=== PATIENT | male | born 1945 | race Caucasian/White ===

== ENCOUNTER 2024-07-01 11:46 | Emergency (ER) | payer MEDICARE, BC, SELFPAY ==
[2024-07-01 11:48] VITALS: BP 122/71; PULSE 70; RESP 18; TEMP 36.6; O2SAT 98; BMI 29.3
--- OUTSIDE RECORDS SUMMARY | 2024-07-01 11:48 | XMS_ITS | Continuity of Care Document ---
Author Name [email or web address] User [email or web address] llowed Address Unknown Organization Unknown Address Unknown Procedures FILTER APPLIED:Only known Procedures with Onset Date within the last 5 years Procedure Date Procedure Provider Additional Inform ation Status [place] ENDVASC REPLACE AORTO-AORTIC ENDGFT; NON RUPTURE (05755) Completed [place] ENDVASC REPLACE AORTO-AORTIC ENDGFT; RUPTURE (41530) Completed [place] EVASC REPLACE [id number] ENDGFT; NON RUPTURE (26803) Completed [place] EVASC REPLACE [id number] ENDGFT; RUPTURE (91807) Completed [place] VISCER AND INFRARENAL ABDOM AORTA REPAIR,4+ PROSTHESIS (36205) Completed [place] EVASC REPLACE [id number] ENDGFT; RUPTURE (84052) Completed [place] VISCER AND INFRARENAL ABDOM AORTA REPAIR,1 PROSTHESIS (36163) Completed [place] VISCER AND INFRARENAL ABDOM AORTA REPAIR,2 PROSTHESIS (75182) Completed [place] VISCER AND INFRARENAL ABDOM AORTA 3 PROSTHESIS (32644) Completed [place] EVASC REPLACE [id number] ENDGFT; NON RUPTURE (53973) Completed Encounters FILTER APPLIED:Only known Encounters with Admission Date within the last 5 years Encounter Location Admission Discharge Billing Code Content Manager Eric walker [facility]
--- NOTE | 2024-07-01 12:14 | ED.MALEGU ---
HPI - Male Genitourinary General Date Seen: 07/01/24 Chief complaint: Urogenital Problems, Male Stated complaint: catheter problems post AAA Time Seen by Provider: 07/01/24 11:47 Source: patient Mode of arrival: ambulatory Limitations: no limitations History of Present Illness HPI Narrative: 78-year-old gentleman presents here with dysuria and frequency of urination, he was discharged yesterday from [facility] the [facility], where he underwent a AAA repair. That was uneventful. He had a catheter in postoperatively that was removed, overnight he developed frequency of urination and dysuria and was peeing quite a bit, he denies peeing any blood, there is no fevers chills he denies any abdominal pain associated with this but he did call the hospital where he was. They recommended he come in and get seen for a possible UTI. Denies any testicular pain, swelling eating and drinking otherwise normally, No indwelling catheter is noted, on bladder scan his 44 mL noted Related Data Home Medications ?Medication ?Instructions ?Recorded ?Confirmed Vitamin C 07/01/24 aspirin 81 mg chewable tablet 81 mg PO DAILY 07/01/24 07/01/24 atorvastatin 40 mg tablet (Lipitor) 40 mg PO DAILY 07/01/24 07/01/24 cholecalciferol (vitamin D3) 125 125 mcg PO DAILY 07/01/24 07/01/24 mcg (5,000 unit) capsule coenzyme Q10 100 mg capsule (Co 100 mg PO DAILY 07/01/24 07/01/24 Q-10) cranberry 500 mg capsule 500 mg PO DAILY 07/01/24 07/01/24 cyanocobalamin (vitamin B-12) 2,500 mcg sublingual DAILY 07/01/24 07/01/24 2,500 mcg sublingual tablet (Vitamin B-12) empagliflozin 10 mg tablet 10 mg PO DAILY 07/01/24 07/01/24 (Jardiance) metoprolol succinate 25 mg 25 mg PO DAILY 07/01/24 07/01/24 tablet,extended release 24 hr sacubitril 97 mg-valsartan 103 mg 1 tab PO BID 07/01/24 07/01/24 tablet (Entresto) tamsulosin 0.4 mg capsule (Flomax) 0.4 mg PO DAILY 07/01/24 07/01/24 Previous Rx's ?Medication ?Instructions ?Recorded cephalexin 500 mg capsule 500 mg PO BID #14 caps 07/01/24 Allergies Allergy/AdvReac Type Severity Reaction Status Date / Time amiodarone Allergy Intermediate Verified 07/01/24 11:55 oxycodone Allergy Intermediate Nausea Verified 07/01/24 11:55 Review of Systems Status of ROS: Reports: 10 or more systems reviewed and unremarkable except as noted in History and below PFSH PFS Social History Smoking Status: Never smoker Do you use any of these nicotine containing products: None Second hand tobacco smoke exposure: No How often do you have a drink containing alcohol: never How often do you have six or more drinks on one occasion: Never AUDIT-C Alcohol total score: 0 Non-prescribed substance use: denies use service: No Exam Narrative: Exam Narrative: On examination he is in no apparent distress his abdomen is benign but postoperative, her with the laparoscopic repair noted. Bowel sounds are normal, no palpable bladder, no tenderness to palpation no masses no CVA tenderness is noted, normal male genitalia, is noted with no tenderness of his penis or any discharge noted, no testicular masses re issue. No significant ecchymosis is noted. Const: Vital Signs, click to edit/add: Vital Signs - 24 hr 07/01/24 11:48 Temperature 97.8 F Pulse Rate [Right Pulse Oximeter] 70 Respiratory Rate 18 Blood Pressure [Ri ght Upper Arm] 122/71 Pulse Oximetry 98 Oxygen Delivery Me thod Room Air Course Vital Signs Vital signs: Initial Vital Signs Temperature 97.8 F 07/01/24 11:48 Temperature Source Temporal Artery Scan 07/01/24 11:48 Pulse Rate 70 07/01/24 11:48 Pulse Rhythm Regular 07/01/24 11:48 Pulse Strength 3+ Normal 07/01/24 11:48 Respiratory Rate 18 07/01/24 11:48 Blood Pressure 122/71 07/01/24 11:48 Blood Pressure Mean 88 07/01/24 11:48 Blood Pressure Position Sitting 07/01/24 11:48 Pulse Oximetry 98 07/01/24 11:48 Oxygen Delivery Method Room Air 07/01/24 11:48 Vital Signs Temperature 97.8 F 07/01/24 11:48 Pulse Rate 70 07/01/24 11:48 Respiratory Rate 18 07/01/24 11:48 Blood Pressure 122/71 07/01/24 11:48 Pulse Oximetry 98 07/01/24 11:48 Oxygen Delivery Method Room Air 07/01/24 11:48 Temperature 97.8 F 07/01/24 11:48 Pulse Rate 70 07/01/24 11:48 Respiratory Rate 18 07/01/24 11:48 Blood Pressure 122/71 07/01/24 11:48 Pulse Oximetry 98 07/01/24 11:48 Oxygen Delivery Method Room Air 07/01/24 11:48 MDM - Male Genitourinary MDM Narrative Medical decision making narrative: I discussed with him that I think this is likely going to be a UTI given his recent use of a catheter. We will go ahead and get a UA, he is otherwise comfortable there is no evidence of retention. Differential Diagnosis Differential diagnosis: Likely urinary tract infection, priapism, urethritis, epididymitis, genital herpes simplex, prostatitis, acute retention of urine and inguinal hernia Medical Records Attestation: I reviewed the patient's medical records. Lab Data Attestation: I reviewed the patient's lab results. Labs: Lab Results 07/01/24 Range/Units 12:05 Urine Color Yellow (Yellow) Urine Appearance Clear (Clear) Urine pH 5.5 (5.0-8.5) Ur Specific [place] <= 1.005 (1.000-1.030) Urine Protein Negative (Negative) Urine Glucose (UA) 3+ A (Negative) Urine Ketones Negative (Negative) Urine Blood 2+ A (Negative) Urine Nitrite Negative (Negative) Urine Bilirubin Negative (Negative) Urine Urobilinogen 0.2 (0.2-1.0) Ur Leukocyte Esterase Negative (Negative) Urine RBC 10-25 A (0-2) Urine WBC 2-5 (0-5) Ur Squamous Epith Cells Few (None-Few) Urine Bacteria Few A (None) I wonder about a UTI here he is have some red cells in there, there is also some bacteria, which may accompany the UTI, he is having a lot of frequency so he may have been flushing out his bladder we may not see the normal leukocytes and nitrite positive. Given his history of her recent AAA repair I do not think covering antibiotics is a bad idea rate now. I went over this with him a follow-up culture has also been ordered. We did go over signs symptoms of worsening condition and risks benefits over the use of antibiotics. Discharge Plan Discharge Clinical Impression: Urinary tract infection Patient Disposition: Home, Self-Care Instructions: Urinary Tract Infection in Men (DC), Catheter-associated Urinary Tract Infection (ED) Additional Instructions: Home rest, your UA was negative, we will do a backup culture. Recommend you take antibiotics as directed along with a little Tylenol, if you start to feel worse such as abdominal pain fevers chills nausea vomiting please come back. Culture result will be available in 2 days. Activity Level: Light activity Prescriptions: New cephalexin 500 mg capsule 500 mg PO BID Qty: 14 0RF No Action aspirin 81 mg tablet,chewable 81 mg PO DAILY atorvastatin [Lipitor] 40 mg tablet 40 mg PO DAILY cholecalciferol (vitamin D3) 125 mcg (5,000 unit) capsule 125 mcg PO DAILY coenzyme Q10 [Co Q-10] 100 mg capsule 100 mg PO DAILY cranberry 500 mg capsule 500 mg PO DAILY Rx Instructions: administer with a meal sacubitril-valsartan [Entresto] 97-103 mg tablet 1 tab PO BID Jardiance 10 mg tablet 10 mg PO DAILY metoprolol succinate 25 mg tablet extended release 24 hr 25 mg PO DAILY tamsulosin [Flomax] 0.4 mg capsule 0.4 mg PO DAILY cyanocobalamin (vitamin B-12) [Vitamin B-12] 2,500 mcg tablet, sublingual 2,500 mcg sublingual DAILY Vitamin C 900 mg Stand Alone Forms: MyHealth Info Instructions
[2024-07-01 12:21] LABS: Appearance Urine Clear (Clear); Bilirubin Urine Negative (Negative); Blood Urine 2+ (Negative); Color Urine Yellow (Yellow); Glucose Urine 3+ (Negative); Ketones Urine Negative (Negative); Leukocyte Esterase Urine Negative (Negative); Nitrite Urine Negative (Negative); Protein Urine Negative (Negative); Specific Gravity Urine <= 1.005 (1.000-1.030); Urobilinogen Urine 0.2 (0.2-1.0); pH Urine 5.5 (5.0-8.5)
[2024-07-01 12:41] LABS: Bacteria Urine Few; Squamous Epithelial Cell Urine Few (None-Few)
--- OUTSIDE RECORDS SUMMARY | 2024-07-01 13:32 | XMS_ITS | Encounter Summary ---
Author Organization [facility] Address [facility] [place] [address] Care Team Providers Care Director Of Occupational Therapy Name Role Phone Santo Friedman MD Primary Care Provider [phone] Siddhartha White MD Unavailable [phone] Reason for Visit * Auth/Cert Specialty Diagnoses / Procedures Referred By Contac t Referred To Contact Surgery Diagnoses Abdominal aortic aneurysm (AAA) greater than 5.5 cm in diameter in male (H) Abdominal aortic aneurysm (AAA) greater than 5.5 cm in diameter in male (H) [I71.40] Procedures LA ENDVASC REPLACE AORTO-AORTIC ENDGFT; NON RUPTURE LA ENDVASC REPLACE AORTO-AORTIC ENDGFT; RUPTURE LA EVASC REPLACE [id number] ENDGFT; NON RUPTURE LA EVASC REPLACE [id number] ENDGFT; RUPTURE LA EVASC REPLACE [id number] ENDGFT; NON RUPTURE LA EVASC REPLACE [id number] ENDGFT; RUPTURE LA VISCER AND INFRARENAL ABDOM AORTA REPAIR,1 PROSTHESIS LA VISCER AND INFRARENAL ABDOM AORTA REPAIR,2 PROSTHESIS LA VISCER AND INFRARENAL ABDOM AORTA 3 PROSTHESIS LA VISCER AND INFRARENAL ABDOM AORTA REPAIR,4+ PROSTHESIS ENDOVASCULAR ABDOMINAL AORTIC ANEURYSM REPAIR WITH MEDTRONIC GRAFT VIA PERCUTANEOUS APPROACH [facility] [address] [place] [address]., [address] [place] [address] Phone: tel: Referral ID Status Reason Start Date Expiration Date Visits Re quested Visits Authorized [id number] 1 1 Encounter Details Date Type Department Care Team (Latest Contact Info) Description 06/29/2024 6:01 AM SHOW HORSE DRIVER - 06/30/2024 2:11 PM SHOW HORSE DRIVER Hospital Encounter [facility] Surgery [address] [id number] Toni Javier MD [address] [place] [address] [address] [place] [address] Cardiac pacemaker in situ (Primary Dx); Abdominal aortic aneurysm (AAA) greater than 5.5 cm in diameter in male (H) Discharge Disposition: Home or Self Care Social History Tobacco Use Types Packs/Day Years Used Date Smoking Tobacco: Former Cigarettes 1.5 20.4 1 964 - 11/11/1983 Smokeless Tobacco: Never Alcohol Use Standard Drinks/Week Comments Yes 0 (1 standard drink = 0.6 oz pur e alcohol) one glass every 3 days PHQ-2 Answer Date Recorded PHQ-2 Score 0 10/21/2023 Adolescent Education Answer Date Record ed Getting School Help Needed Not on file 04/07 Food Insecurity Answer Date Recorded Within the past 12 months, d id you worry that your food would run out before you got money to buy more? No 06/29/2024 Within the past 12 months, d id the food you bought just not last and you didn t have money to get more? No 06/29/2024 Housing Stability Answer Date Recorded Do you have housing? (Myain g is defined as stable permanent housing and does not include staying ouside in a car, in a tent, in an abandoned building, in an overnight senior living, or couch-surfing.) Yes 06/29/2024 Are you worried about losing your housing? No 06/29/2024 Financial Resource Strain Answer Date R ecorded Within the past 12 months, h ave you or your family members you live with been unable to get utilities (heat, electricity) when it was really needed? No 06/29/2024 Transportation Needs Answer Date Record ed Within the past 12 months, h as lack of transportation kept you from medical appointments, getting your medicines, non-medical meetings or appointments, work, or from getting things that you need? No 06/29/2024 Interpersonal Safety Answer Date Record ed Do you feel physically and e motionally safe where you currently live? Yes 06/29/2024 Within the past 12 months, h ave you been hit, slapped, kicked or otherwise physically hurt by someone? No 06/29/2024 Within the past 12 months, h ave you been humiliated or emotionally abused in other ways by your partner or ex-partner? No 06/29/2024 Sex and Gender Information Value Date Recorded Sex Assigned at Male 11/02/2020 12:08 PM CDT Legal Sex Male 4:32 AM SHOW HORSE DRIVER Gender Identity Male 11/02/2020 12:08 PM CDT Sexual Orientation Straight 11/02/2020 12 :08 PM CDT documented as of this encounter Last Filed Vital Signs Vital Sign Reading Time Taken Comments Blood Pressure 112/67 06/30/2024 7:42 AM SHOW HORSE DRIVER Pulse 71 06/30/2024 7:42 AM SHOW HORSE DRIVER Temperature 36.6 C (97.9 F) 06/30/2024 7:42 AM SHOW HORSE DRIVER Respiratory Rate 18 06/30/2024 7:42 AM SHOW HORSE DRIVER Oxygen Saturation 97% 06/30/2024 7:42 AM SHOW HORSE DRIVER Inhaled Oxygen Concentration - - Weight 94 kg (207 lb 3.7 oz) 06/30/2024 6:18 AM SHOW HORSE DRIVER Height 180.3 cm (5' 11) 06/29/2024 6:42 AM SHOW HORSE DRIVER Body Mass Index 28.9 06/29/2024 6:42 AM SHOW HORSE DRIVER documented in this encounter Medications at Time of Discharge acetaminophen (TYLENOL) 325 MG tablet Take 325-650 mg by mouth as needed for mild pain Ascorbic Acid (VITAMIN C PO) Take 900 mg by mouth daily. aspirin (ASA) 81 MG tabletIndications:Atypica l atrial flutter (H) Take 1 tablet (81 mg) by mouth daily 0 atorvastatin (LIPITOR) 40 MG tabletIndications:Pure hypercholesterolemia Take 1 tablet (40 mg) by mouth every evening. 90 tablet 3 4 cholecalciferol 125 MCG (5000 UT) CAPS Take 1 capsule by mouth daily. coenzyme Q-10 100 MG CAPS Take 1 tablet by mouth every evening Cranberry 600 MG TABS Take 600 mg by mouth daily Cyanocobalamin (VITAMIN B 12 PO) Take 2,500 mcg by mouth daily. JARDIANCE 10 MG TABS tabletIndications:Chronic systolic heart failure (H) Take 1 tablet (10 mg) by mouth daily. 90 tablet 3 4 metoprolol succinate ER (TOPROL XL) 25 MG 24 hr tabletIndications:NSVT (nonsustained ventricular tachycardia) (H) Take 1 tablet (25 mg) by mouth daily. 90 tablet 3 4 Multiple Vitamins-Minerals (PRESERVISION AREDS PO) Take 1 tablet by mouth 2 times daily sacubitril-valsartan (ENTRESTO) 97-103 MG per tabletIndications:Chronic systolic heart failure (H) Take 1 tablet by mouth 2 times daily. 180 tablet 3 4 senna-docusate (SENOKOT-S/PERICOLACE) 8.6-50 MG tabletIndications:Abdomin al aortic aneurysm (AAA) greater than 5.5 cm in diameter in male (H) Take 1 tablet by mouth 2 times daily. 14 tablet 4 tamsulosin (FLOMAX) 0.4 MG capsule Take 0.8 mg by mouth every evening. (2x0.4mg=0.8 mg) 3 9 documented as of this encounter Progress Notes * Toni Javier MD - 06/30/2024 10:04 AM CST VASCULAR SURGICAL STAFF I saw the patient at 0900 this morning. He had just had his Coats catheter removed. He has eaten breakfast. He is resting comfortably and has no complaints. AVSS Bilateral femoral access sites are soft and clear. 2+ palpable DP pulses bilaterally. Hemoglobin 14.4 creatinine 0.83 ASSESSMENT: POD #1 percutaneous EVAR clinically doing well. PLAN: I reviewed postop instructions with Felix. If he spontaneously voids today he may go home. He may shower beginning tomorrow. Vascular surgical follow-up in 2 weeks with Ila Baugh NP. All of his questions were answered and he verbalizes full understanding to the above. Anticipate discharge to home later today after voiding. Alexx Javier MD HORSE DRIVER * Cydney Barrientos MD - 06/29/2024 4:06 PM CST Post op check. Doing well. Pain controlled. Eating well. Palp DP bilaterally. Soft groins bilaterally. Neurologically intact. Coats with blood tinged urine. Doing well except hematuria. Will ctm. Maybe from renal artery vs. traumatic coats insertion. Discharge in 1-2 days. HORSE DRIVER * Balwinder Glaser Alannah - 06/22/2024 3:16 PM CST RIPRAP WORKER medications updated by Medication Scribe prior to surgery via phone call with patient (last doses completed by Nurse) Medication history sources: Patient, Surescripts, and H&P In the past week, patient estimated taking medication this percent of the time: Greater than 90% Significant changes made to the medication list: Patient reports no longer taking the following meds (med scribe removed from RIPRAP WORKER med list): Viagra Additional medication history information: None Medication reconciliation completed by provider prior to medication history? No Time spent in this activity: 35 minutes The information provided in this note is only as accurate as the sources available at the time of update(s) Prior to Admission medications Medication Sig Last Dose Taking? Auth Provider Correction End Date acetaminophen (TYLENOL) 325 MG tablet Take 325-650 mg by mouth as needed for mild pain Past Week Yes Reported, Patient Ascorbic Acid (VITAMIN C PO) Take 900 mg by mouth daily. Morning Yes Reported, Patient aspirin (ASA) 81 MG tablet Take 1 tablet (81 mg) by mouth daily Evening Yes Charmaine Enriquez PA-C No atorvastatin (LIPITOR) 40 MG tablet Take 1 tablet (40 mg) by mouth every evening. Evening Yes Siddhartha White MD Yes cholecalciferol 125 MCG (5000 UT) CAPS Take 1 capsule by mouth daily. Morning Yes Reported, Patient coenzyme Q-10 100 MG CAPS Take 1 tablet by mouth every evening Morning Yes Reported, Patient Cranberry 600 MG TABS Take 600 mg by mouth daily Evening Yes Reported, Patient Cyanocobalamin (VITAMIN B 12 PO) Take 2,500 mcg by mouth daily. Evening Yes Reported, Patient JARDIANCE 10 MG TABS tablet Take 1 tablet (10 mg) by mouth daily. Morning Yes Siddhartha White MD metoprolol succinate ER (TOPROL XL) 25 MG 24 hr tablet Take 1 tablet (25 mg) by mouth daily. Evening Yes Siddhartha White MD Yes Multiple Vitamins-Minerals (PRESERVISION AREDS PO) Take 1 tablet by mouth 2 times daily Evening YesReported, Patient sacubitril-valsartan (ENTRESTO) 97-103 MG per tablet Take 1 tablet by mouth 2 times daily. Morning Yes Siddhartha White MD Yes tamsulosin (FLOMAX) 0.4 MG capsule Take 0.8 mg by mouth every evening. (2x0.4mg=0.8mg) Evening Yes Reported, Patient Medication history completed by: Balwinder Glaser HORSE DRIVER documented in this encounter H&P Notes * Scott Bennett MD - 06/29/2024 6:39 AM CST Vascular Surgery History and Physical Felix Cruz Date of : 1945 Age: [age] year old Date of Admission: 06/29/2024 Chief Complaint: AAA History is obtained from the patient History of Present Illness: Mr. Cruz is a 78 year old male who presents with infrarenal AAA that is enlarging with mild L GAGAN ectasia. Hx of CAD s/p PCI and CABG, afib s/p MAZE. He denies any new symptoms of fever or chills,shortness of breath, new cough, nausea, vomiting, diarrhea, or new rashes. He continues to have hippain which is slightly improved with PT. Past Medical History: I have reviewed this patient's past medical history Past Surgical History: I have reviewed this patient's past surgical history Past Surgical History: Procedure Laterality Date ANESTHESIA CARDIOVERSION N/A 12/11/2016 Procedure: ANESTHESIA CARDIOVERSION; ANESTHESIA CARDIOVERSION ; Surgeon: GENERIC ANESTHESIA PROVIDER; Location: [facility] OR ANESTHESIA CARDIOVERSION N/A 03/11/2019 Procedure: ANESTHESIA, FOR CARDIOVERSION (DR. Matti COOK); Surgeon: GENERIC ANESTHESIA PROVIDER; Location: OR ANESTHESIA CARDIOVERSION N/A 05/27/2019 Procedure: ANESTHESIA, FOR CARDIOVERSION and MARTELL (DR WOOD TO DO); Surgeon: GENERIC ANESTHESIA PROVIDER; Location: OR APPENDECTOMY APPENDECTOMY OPEN BYPASS GRAFT ARTERY CORONARY 11/10/2013 Procedure: BYPASS GRAFT ARTERY CORONARY; Surgeon: Hitesh Chery MD; Location: OR CARDIAC CATHERIZATION 01/15/2017 cardioversion 05/2015 CARDIOVERSION 06/13/2017 COLONOSCOPY COLONOSCOPY Left 07/09/2019 Procedure: COLONOSCOPY; Surgeon: Paul Mueller MD; Location: GI CORONARY ARTERY BYPASS 11/10/13 CARVAJAL to the LAD, reverse SVG to the first diagonal, sequential reverse SVG to a first and third marginal circumflex coronary arteries CV ANGIOGRAM CORONARY GRAFT N/A 04/27/2022 Procedure: Coronary Angiogram Graft; Surgeon: Emmie Gilbert MD; Location: [facility] CARDIAC DRYING ROOM OPERATOR CV CORONARY ANGIOGRAM N/A 04/27/2022 Procedure: Coronary Angiogram; Surgeon: Emmie Gilbert MD; Location: [facility] CARDIAC CATHLAB EP ABLATION ATRIAL FLUTTER N/A 10/06/2019 Procedure: Ablation Atrial Flutter; Surgeon: Dieter Travis MD; Location: [facility] CARDIAC DRYING ROOM OPERATOR EP ABLATION AV NODE N/A 10/15/2019 Procedure: EP Ablation AV Node; Surgeon: Dieter Travis MD; Location: [facility] CARDIAC DRYING ROOM OPERATOR EP ABLATION FOCAL AFIB N/A 08/31/2019 Procedure: EP Ablation Focal AFIB; Surgeon: Dieter Travis MD; Location: [facility] CARDIAC DRYING ROOM OPERATOR EP INSERT ICD N/A 02/25/2023 Procedure: Biventricular ICD; Surgeon: Milton Roblero MD; Location: [facility] CARDIAC DRYING ROOM OPERATOR EP PACEMAKER Left 10/06/2019 Procedure: EP Pacemaker; Surgeon: Dieter Travis MD; Location: [facility] CARDIAC DRYING ROOM OPERATOR EP PERM PACER SINGLE LEAD N/A 10/15/2019 Procedure: EP PERM PACER SINGLE LEAD; Surgeon: Dieter Travis MD; Location: [facility] CARDIAC DRYING ROOM OPERATOR H ABLATION ATRIAL FLUTTER Right 10/13/2015 (CTI) H ABLATION ATRIAL FLUTTER Left 09/06/2016 atypical H ABLATION FOCAL AFIB 02/09/16 Third ablation 09-06-2016 HEART CATH, ANGIOPLASTY 2004 PTCA with intracoronary stent placement of, proximal LAD and Ramus intermedius LEFT ATRIAL APPENDAGE LIGATION 11/10/13/repeated 02/09/2016 MAZE PROCEDURE 11/10/2013 Procedure: MAZE PROCEDURE; Surgeon: Hitesh Chery MD; Location: [facility] OR Social History: I have reviewed this patient's social history Family History: I have reviewed this patient's family history Allergies: All allergies reviewed and addressed Medications: I have reviewed this patient's current medications Review of Systems: The 10 point Review of Systems is negative other than noted in the HPI Physical Exam: Vitals were reviewed General: SANTOS, comfortable appearing Neuro/Psych: A&Ox3 HENT: NCAT Cardiac:RR by pedal pulse, normal heart sounds Pulm: CTAB Abd: Soft, nondistended, nontender. Groins without rash Extrem: No significant edema Vasc: Palpable DP bilaterally Data: All laboratory data reviewed Assessment and Plan: Mr. Cruz is a 78 year old male who presents for EVAR. No new issues to report, no infectious symptoms. Ok to proceed with EVAR today. - Will proceed with EVAR today, likely 1 day in hospital post-op Scott Bennett MD Vascular Surgery Cosigned by Toni Javier MD at 06/30/2024 7:44 AM SHOW HORSE DRIVER HORSE DRIVER HORSE DRIVER Associated attestation - Toni Javier MD - 06/30/2024 7:44 AM SHOW HORSE DRIVER Physician Attestation I agree with the information in this note. Toni Javier MD documented in this encounter Nursing Notes * John Wayne RN - 06/29/2024 2:36 PM CST Hand-off report given to RN. To 2211-1 per cart with all belongings. Will transport with Capnography monitoring. Will notify spouse, Emiliana of transfer. HORSE DRIVER * John Wayne RN - 06/29/2024 12:24 PM CST Transfer criteria met. Order received per Dr. Vera to transfer to Surgical Nursing Care for continued recovery. Awaiting availability of room assignment for transfer. , Emiliana notified of status. HORSE DRIVER HORSE DRIVER * John Wayne RN - 06/29/2024 11:37 AM CST [employer] Rep. At bedside to restart ICD. HORSE DRIVER documented in this encounter Miscellaneous Notes * Plan of Care - Jeremias Yeboah RN - 06/30/2024 2:10 PM CST Patient discharging home with family after successfully voiding adequately post coats removal. AVS gone over with patient in room and prescriptions given to patient. PIV removed. All questions answered. HORSE DRIVER * Plan of Care - Ganesh Ken RN - 06/30/2024 5:49 AM CST Goal Outcome Evaluation: Date & Time: 06/29/24 [id number] Surgery/POD#: 1 ABDOMINAL AORTIC ANEURYSM REPAIR WITH MEDTRONIC GRAFT STENT Behavior & Aggression: Green Fall Risk: yes Orientation: A&ox4 ABNL VS/O2: VSS on RA ABNL Labs: See chart Pain Management: Denies. Scheduled tylenol Bowel/Bladder: Continent of bowel/bladder Drains: PIV SL Wounds/incisions: Bilateral groin sites Diet: Reg diet Activity Level: SBA Tests/Procedures: N/A Anticipated DC Date: Pending Significant Information: See chart HORSE DRIVER * Plan of Care - Porsche Viramontes RN - 06/29/2024 7:02 PM CST Orientation: A&Ox4 Vitals/Tele: VSS on RA IV Access/drains: IV infusing LR at 75 mL/hr Diet: Tolerating regular diet Mobility: SBA. Ambulated in halls following bedrest and tolerated well. GI/: Coats patent with pink-tinged urine Wound/Skin: Bilateral groin sites closed with skin glue, KARL. No hematomas. Consults: none Discharge Plan: TBD See Flow sheets for assessment HORSE DRIVER * Op Note - Toni Javier MD - 06/29/2024 11:50 AM CST Date of procedure: June 29, 2024 PREOPERATIVE DIAGNOSIS: 6.1 cm infrarenal abdominal aortic aneurysm. POSTOPERATIVE DIAGNOSIS: 6.1 cm infrarenal abdominal aortic aneurysm. PROCEDURES PERFORMED: 1. Percutaneous access and subsequent closure of bilateral common femoral arteries. 2. 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 3. Endovascular repair of abdominal aortic aneurysm utilizing a Medtronic bifurcated device. CO-SURGEONS:, Alexx Javier MD (vascular surgery) and Milagros Figueredo DO (interventional radiology). Dr. Javier performed percutaneous access and closure of the bilateral common femoral arteries. Dr. Figueredo performed embolization of the left inferior accessory renal artery. Drs. Javier and Terellworked together to perform the endovascular abdominal aortic aneurysm repair. BALE BREAKER OPERATOR: Cydney Barrientos MD. EDITOR GREETING CARD: Foreign Bennett MD (PGY 2 vascular resident). ANESTHESIA: GETA EBL: 25 mL TOTAL CONTRAST: 40 cc of Isovue FLUOROSCOPY TIME: 18 minutes FLUOROSCOPY DOSE: 371 mGy OPERATIVE INDICATIONS: This patient is a 78-year-old gentleman with significant cardiac comorbidities who now has a 6.1 cm infrarenal AAA. He would be high risk for open repair and I have recommendedEVAR. OPERATIVE DESCRIPTION: After informed consent was obtained the patient was brought to the hybrid room and placed on the table in a supine position. General endotracheal anesthesia was achieved without incident. A Coats catheter was placed. His abdomen and bilateral groins were prepped and draped inthe usual sterile fashion. Timeout was called and we verified the patient's identity, the operativesite, and the proposed procedure. Under sterile ultrasound guidance access into the right common femoral artery was obtained. A micropuncture sheath was placed and sheath exchange was made for a 6 Ethiopian sheath. 2 Perclose devices were deployed in standard fashion in the typical preclose technique.An 8 Ethiopian sheath was then placed. Under sterile ultrasound guidance access was then obtained intothe left common femoral artery. A micropuncture sheath was placed. Sheath exchange was made for a 6French sheath. 2 Perclose devices were deployed in a standard fashion in the typical preclose technique. An 8 Ethiopian sheath was then placed on the left. We were joined by Dr. Milagros Figueredo from interventional radiology. She proceeded with embolization of a left inferior accessory renal artery. She will dictate the specifics of that separately on the interventional radiologic dictation line. Essentially she accessed the accessory left renal witha SOS catheter and then used a microcatheter system to deliver a 4 mm x 15 cm Rick coil into the left inferior accessory renal artery. This was verified angiographically. Working from the right groin a Lunderquist wire was directed up into the aortic arch. A pigtail catheter was directed up the left side to the level of the renal arteries. Imaging was obtained with compound angulation to best visualize the takeoff of the lower lying left renal artery. The patient was systemically heparinized with 11,000 units of intravenous heparin. A Medtronic Endurant IIs 32 x 14 x 103 mm main body device was delivered up the Lunderquist wire on the right side. It was appropriately positioned and deployed down to the contralateral gate. An angled Glidewire glide catheter combination was then used coming from the left side to select the contralateral gate. We verified that we were within the true lumen of the main body graft. A marker pig was placed on the left side and aleft sided pelvic angiogram was performed via hand- injection's through the left sheath. A 16 x 20 x146 mm contralateral limb was selected. It was delivered up the left side and appropriately positioned and deployed under fluoroscopic visualization. Following removal of that device a 12 Ethiopian sheath was placed on the left. The remainder of the main body was deployed. The endograft was exchanged over the wire for a 16 Ethiopian sheath on the right. A right sided pelvic angiogram was performed by hand-injection. A 16 x 20 x 146 mm ipsilateral limb was delivered from the right side and appropriately positioned and deployed under fluoroscopic visualization. A Reliant balloon was then used from both sides to gently angioplasty the proximal seal and the remainder of the endograft. Post angioplasty digital subtraction angiography was performed via injections through a pigtail catheter positioned at the level of the renal arteries. Angiography demonstrated that the main body waswell-positioned. Only a delayed type II endoleak was noted. I chose to except these results. The sheath in the right groin was then removed and the previously placed Perclose sutures were tieddown in standard fashion obtaining excellent hemostasis on the right. On the left side the 12 Ethiopian sheath was removed as the previously placed Perclose sutures were tied down in standard fashion. We obtained excellent hemostasis on the left. Gentle compression was held over both groins for about 5 minutes. Both puncture sites were locally infiltrated with 0.25% Marcaine with epinephrine. Heparin was partially reversed with 40 mg of protamine. The puncture incisions were closed with 4-0 Monocryl subcuticular sutures. Sterile dressings were applied. Final sponge and needle count were reportedas correct. The patient had easily palpable dorsalis pedis pulses bilaterally. He tolerated the procedure without incident. He was extubated and returned to the recovery room awake and hemodynamically stable. I contacted his postoperatively to review the details and answer all questions. DEVICE TYPE: Medtronic Endurant IIs MAIN BODY: 32 x 14 x 103 mm right. CONTRALATERAL ILIAC LIMB: 16 x 20 x 146 mm left IPSILATERAL ILIAC LIMB: 16 x 20 x 146 mm right. FINDINGS: BASELINE ANGIOGRAM: Bilateral renal arteries are widely patent. There is a left inferior accessory renal 3 mm in diameter supplying the inferior pole of the left kidney. Fusiform abdominal aortic aneurysm. Bilateral common iliac, internal iliac, and external iliac arteries are widely patent. POST EVAR ANGIOGRAM: The left inferior accessory renal artery has been embolized. Well-positioned endograft with evidence of a small delayed type II endoleak likely secondary to lumbar arteries. Postdeployment the main renal arteries are widely patent bilaterally. The bilateral internal iliac and e xternal iliac arteries are widely patent. IMPRESSION: Successful treatment of a fusiform 6.1 cm infrarenal AAA using a Medtronic Endurant IIsendograft with embolization of a left inferior accessory renal artery. Alexx Javier MD HORSE DRIVER * Brief Op Note - Scott Bennett MD - 06/29/2024 10:44 AM CST [facility] Brief Operative Note Pre-operative diagnosis: Abdominal aortic aneurysm (AAA) greater than 5.5 cm in diameter in male (H) [I71.40] Post-operative diagnosis Same as pre-operative diagnosis Procedure: PERCUTANEOUS ACCESS AND CLOSURE OF BILATERAL FEMORAL ARTERIES / COIL EMBOLIZATION OF LEFT ACCESORY RENAL ARTERY WITH PENUMBA RICK 4MM X 15CM COIL AND ENDOVASCULAR ABDOMINAL AORTIC ANEURYSMREPAIR WITH MEDTRONIC GRAFT STENT, N/A - Abdomen Surgeon: Surgeons and Role: * Toni Javier MD - Primary * Milagros Figueredo DO - Assisting * Scott Bennett MD - Resident - Assisting * Cydney Barrientos MD - Fellow - Assisting Anesthesia: General Estimated Blood Loss: Less than 50 ml Drains: None Specimens: * No specimens in log * Findings: No type 1 or 3 endoleak seen, possible late type 2 endoleak . Complications: None. Implants: Implant Name Type Inv. Item Serial No. It Technical Architect Lot No. [id number] No. Used Action RICK COIL SOFT 4 MM X 15 CM Embolization Coil [employer] [id number] Left 1 Implanted GRAFT STNT 103MM 14-32MM 20FR ENDURANT [employer] 2 [employer] EVAS NTNL - [id number] Graft GRAFT STNT 103MM 14-32MM 20FR ENDURANT IIS 2 [employer] EVAS NTNL [id number] [employer] Right 1 Implanted ENDURANT II STENT GRAFT SYSTEM LIMB 16FR, 16MM X 20MM X 146MM Stent Graft [id number] [employer] Left 1Implanted ENDURANT II STENT GRAFT SYSTEM, LIMB 16FR, 16MM X 20MM X 146MM Stent Graft [id number] [employer] Right 1 Implanted Palpable DP pulses bilaterally at end of case HORSE DRIVER documented in this encounter Plan of Treatment Upcoming Encounters Date Type Department Care Team (Late st Contact Info) Description 07/14/2024 10:30 AM SHOW HORSE DRIVER Office Visit [facility] [place] [address] [place] [phone] Ila Baugh, SYSTEM SUPPORT TECHNICIAN [address] [place], [place] [address] 07/27/2024 Ancillary Procedure [facility] [address] [address] [place] [id number] Dieter Travis MD [address] [place] [id number] Pending Results Name Type Priority Associated Diagnoses Date /Time IR Abdominal Endovascular Stent Graft Imaging Routine Abdominal aortic aneurysm (AAA) greater than 5.5 cm in diameter in male (H) 06/29/2024 10:12 AM SHOW HORSE DRIVER Prepare red blood cells (unit) Blood Bank STAT 06/29/2024 7:44 AM SHOW HORSE DRIVER Prepare red blood cells (unit) Blood Bank STAT 06/29/2024 7:44 AM SHOW HORSE DRIVER documented as of this encounter Procedures Procedure Name Priority Date/Time Associated Diagnosis Comments BASIC METABOLIC PANEL Routine 06/30/2024 7:29 AM SHOW HORSE DRIVER CBC WITH PLATELETS AND DIFFERENTIAL Routine 06/29/2024 4:12 PM SHOW HORSE DRIVER CBC WITH PLATELETS & DIFFERENTIAL Routine 06/29/2024 4:12 PM SHOW HORSE DRIVER ACTIVATED CLOTTING TIME CELITE POCT Routine 06/29/2024 9:53 AM SHOW HORSE DRIVER ACTIVATED CLOTTING TIME CELITE POCT Routine 06/29/2024 9:39 AM SHOW HORSE DRIVER REPAIR, ANEURYSM ABDOMINAL AORTA, ENDOVASCULAR 06/29/2024 8:03 AM SHOW HORSE DRIVER Abdominal aortic aneurysm (AAA) greater than 5.5 cm in diameter in male (H) Case Notes OR 50 CASE *reviewed Sb 06/30 for SENSH ITEMS STENTS PRE PURCHASED Special Needs *htn, cad, afib, cardiomyopathy, s/p dean(2003), s/p cabg(2013), [id number] [id number] ICD: device check 04/23/24-asa: continue-jardiance: last dose to be 06/26/24Pt verified procedureOR 50, IR TECH ONLYFIRST ASSIST/FELLOW NEEDED PREPARE RED BLOOD CELLS (UNIT) STAT 06/29/2024 7:44 AM SHOW HORSE DRIVER PREPARE RED BLOOD CELLS (UNIT) STAT 06/29/2024 7:44 AM SHOW HORSE DRIVER EKG 12-LEAD, TRACING ONLY STAT 06/29/2024 6:42 AM SHOW HORSE DRIVER CBC WITH PLATELETS AND DIFFERENTIAL STAT 06/29/2024 6:41 AM SHOW HORSE DRIVER TYPE AND SCREEN, ADULT STAT 06/29/2024 6:41 AM SHOW HORSE DRIVER CBC WITH PLATELETS & DIFFERENTIAL STAT 06/29/2024 6:41 AM SHOW HORSE DRIVER ABO/RH TYPE AND SCREEN STAT 06/29/2024 6:41 AM SHOW HORSE DRIVER BASIC METABOLIC PANEL STAT 06/29/2024 6:41 AM SHOW HORSE DRIVER XR CHEST 1 VIEW Routine 06/29/2024 6:26 AM SHOW HORSE DRIVER documented in this encounter Results * (ABNORMAL) Basic metabolic panel (06/30/2024 7:29 AM SHOW HORSE DRIVER) Sodium 139 135 - 145 mmol/L 06/30/2024 8:18 AM [facility] Potassium 4.3 3.4 - 5.3 mmol/L 06/30/2024 8:18 AM [facility] Chloride 104 98 - 107 mmol/L 06/30/2024 8:18 AM [facility] Carbon Dioxide (CO2) 28 22 - 29 mmol/L 06/30/2024 8:18 AM [facility] Anion Gap 7 7 - 15 mmol/L 06/30/2024 8:18 AM [facility] Urea Nitrogen 12.0 8.0 - 23.0 mg/dL 06/30/2024 8:18 AM [facility] Creatinine 0.83 0.67 - 1.17 mg/dL 06/30/2024 8:18 AM [facility] GFR Estimate 89 >60 mL/min/1.7 3m2 06/30/2024 8:18 AM [facility] Comment:eGFR calculated usin 2020 CKD-EPI equation. Calcium 8.8 8.8 - 10.4 mg/dL 06/30/2024 8:18 AM [facility] Comment:Reference intervals for this test were updated on 01/14/2024 to reflect our healthy population more accurately. There may be differences in the flagging of prior results with similar values performed with this method. Those prior results can be interpreted in the context of the updated reference intervals. Glucose 140(H) 70 - 99 mg/dL 06/30/2024 8:18 AM [facility] Blood STRUCTURE OF RIGHT UPPER LIMB / Unknown Venipuncture / Unknown 06/30/2024 7:29 AM SHOW HORSE DRIVER 06/30/2024 7:44 AM [facility] us Scott Bennett MD LAB - BLOOD ORDERABLES Final R esult LABORATORY [facility] [address], [address] [place] [address], [facility] [phone] * (ABNORMAL) CBC with platelets and differential (06/29/2024 4:12 PM SHOW HORSE DRIVER) WBC Count 9.9 4.0 - 11.0 10e3/uL 06/29/2024 4:21 PM [facility] RBC Count 4.29(L) 4.40 - 5.90 10e6/uL 06/29/2024 4:21 PM [facility] Hemoglobin 14.4 13.3 - 17.7 g/dL 06/29/2024 4:21 PM [facility] Hematocrit 42.3 40.0 - 53.0 % 06/29/2024 4:21 PM [facility] MCV 99 78 - 100 fL 06/29/2024 4:21 PM [facility] MCH 33.6(H) 26.5 - 33.0 pg 06/29/2024 4:21 PM [facility] MCHC 34.0 31.5 - 36.5 g/dL 06/29/2024 4:21 PM [facility] RDW 13.9 10.0 - 15.0 % 06/29/2024 4:21 PM [facility] Platelet Count 160 150 - 450 10e3/uL 06/29/2024 4:21 PM [facility] % Neutrophils 89 % 06/29/2024 4:21 PM [facility] % Lymphocytes 7 % 06/29/2024 4:21 PM [facility] % Monocytes 3 % 06/29/2024 4:21 PM [facility] % Eosinophils 0 % 06/29/2024 4:21 PM [facility] % Basophils 0 % 06/29/2024 4:21 PM [facility] % Immature Granulocytes 0 % 06/29/2024 4:21 PM [facility] NRBCs per 100 WBC 0 <1 /100 024 4:21 PM [facility] Absolute Neutrophils 8.9(H) 1.6 - 8.3 10e3/uL 06/29/2024 4:21 PM [facility] Absolute Lymphocytes 0.7(L) 0.8 - 5.3 10e3/uL 06/29/2024 4:21 PM [facility] Absolute Monocytes 0.3 0.0 - 1.3 10e3/uL 06/29/2024 4:21 PM [facility] Absolute Eosinophils 0.0 0.0 - 0.7 10e3/uL 06/29/2024 4:21 PM [facility] Absolute Basophils 0.0 0.0 - 0.2 10e3/uL 06/29/2024 4:21 PM [facility] Absolute Immature Granulocytes 0.0 <=0.4 10e3/uL 06/29/2024 4:21 PM [facility] Absolute NRBCs 0.0 10e3/uL 06/29/2024 4:21 PM [facility] Blood STRUCTURE OF RIGHT UPPER LIMB / Unknown Venipuncture / Unknown 06/29/2024 4:12 PM SHOW HORSE DRIVER 06/29/2024 4:19 PM [facility] Scott Bennett MD LAB - BLOOD ORDERABLES Final R esult LABORATORY [facility] [address], [address] [place] [address], [place] [phone] * (ABNORMAL) Activated clotting time celite, POCT (06/29/2024 9:53 AM SHOW HORSE DRIVER) Activated Clotting Time (Celite) POCT 211(H) 74 - 150 seconds 06/30/2024 6:40 AM SHOW HORSE DRIVER LABORATORY POC Blood, arterial BLOOD SPECIMEN / Unknown 06/29/2024 9:53 AM SHOW HORSE DRIVER 06/30/2024 6:40 AM SHOW HORSE DRIVER Toni Javier MD LAB - BEAKER POCT Final Res ult LABORATORY POC [facility] [address], [address], [place] [phone] * (ABNORMAL) Activated clotting time celite, POCT (06/29/2024 9:39 AM SHOW HORSE DRIVER) Activated Clotting Time (Celite) POCT 211(H) 74 - 150 seconds 06/30/2024 6:41 AM SHOW HORSE DRIVER LABORATORY POC Blood, arterial BLOOD SPECIMEN / Unknown 06/29/2024 9:39 AM SHOW HORSE DRIVER 06/30/2024 6:41 AM SHOW HORSE DRIVER Toni Javier MD LAB - BEAKER POCT Final Res ult Performing Organization Address City/[facility]/ZIP Co de Phone Number LABORATORY [facility] [address], [address] [place] [address], [facility] * EKG 12-lead, tracing only (06/29/2024 6:42 AM SHOW HORSE DRIVER) Systolic Blood Pressure mmHg RADIOLOGY RESULTS Diastolic Blood Pressure mmHg RADIOLOGY RESULTS Ventricular Rate 70 BPM RAD IOLOGY RESULTS Atrial Rate 71 BPM RADIOLOG Y RESULTS LA Interval ms RADIOLOG Y RESULTS QRS Duration 140 ms RADIOLO GY RESULTS QT 488 ms RADIOLOGY RESULTS QTc 527 ms RADIOLOGY RESULTS P Proctor degrees RADIOLOGY RESULTS R AXIS 39 degrees RADIOLOGY RESULTS T Proctor 80 degrees RADIOLOGY RESULTS Interpretation ECG Ventricular-pa nino rhythm Abnormal ECG When compared with ECG of 25-Feb-2023 12:23, No significant change was found Confirmed by David Neff ([id number]) on 06/29/2024 4:19:36 PM RADIOLOGY RESULTS 06/29/2024 6:42 AM SHOW HORSE DRIVER 06/29/2024 4:19 PM SHOW HORSE DRIVER Ila Baugh SYSTEM SUPPORT TECHNICIAN ECG ORDERABLES Edited Result - Final RADIOLOGY RESULTS * CBC with platelets and differential (06/29/2024 6:41 AM SHOW HORSE DRIVER) WBC Count 7.1 4.0 - 11.0 10e3/uL 06/29/2024 6:59 AM [facility] RBC Count 4.49 4.40 - 5.90 10e6/uL 06/29/2024 6:59 AM [facility] Hemoglobin 14.4 13.3 - 17.7 g/dL 06/29/2024 6:59 AM [facility] Hematocrit 44.5 40.0 - 53.0 % 06/29/2024 6:59 AM [facility] MCV 99 78 - 100 fL 06/29/2024 6:59 AM [facility] MCH 32.1 26.5 - 33.0 pg 06/29/2024 6:59 AM [facility] MCHC 32.4 31.5 - 36.5 g/dL 06/29/2024 6:59 AM [facility] RDW 13.9 10.0 - 15.0 % 06/29/2024 6:59 AM [facility] Platelet Count 168 150 - 450 10e3/uL 06/29/2024 6:59 AM [facility] % Neutrophils 67 % 06/29/2024 6:59 AM [facility] % Lymphocytes 22 % 06/29/2024 6:59 AM [facility] % Monocytes 9 % 06/29/2024 6:59 AM [facility] % Eosinophils 1 % 06/29/2024 6:59 AM [facility] % Basophils 1 % 06/29/2024 6:59 AM [facility] % Immature Granulocytes 1 % 06/29/2024 6:59 AM [facility] NRBCs per 100 WBC 0 <1 /100 024 6:59 AM [facility] Absolute Neutrophils 4.8 1.6 - 8.3 10e3/uL 06/29/2024 6:59 AM [facility] Absolute Lymphocytes 1.6 0.8 - 5.3 10e3/uL 06/29/2024 6:59 AM [facility] Absolute Monocytes 0.6 0.0 - 1.3 10e3/uL 06/29/2024 6:59 AM [facility] Absolute Eosinophils 0.1 0.0 - 0.7 10e3/uL 06/29/2024 6:59 AM [facility] Absolute Basophils 0.0 0.0 - 0.2 10e3/uL 06/29/2024 6:59 AM [facility] Absolute Immature Granulocytes 0.0 <=0.4 10e3/uL 06/29/2024 6:59 AM [facility] Absolute NRBCs 0.0 10e3/uL 06/29/2024 6:59 AM [facility] Blood STRUCTURE OF RIGHT UPPER LIMB / Unknown Venipuncture / Unknown 06/29/2024 6:41 AM SHOW HORSE DRIVER 06/29/2024 6:55 AM SHOW HORSE DRIVER Ila Baugh NP LAB - BLOOD ORDERABLES Final R esult Performing Organization Address City/State/[facility] Co de Phone Number LABORATORY [facility] [address], [address] [place] [address], [facility] [phone] * Adult Type and Screen (06/29/2024 6:41 AM SHOW HORSE DRIVER) ABO/RH(D) O NEG 06/29/2024 6:19 AM [facility] Antibody Screen Negative Negative 06/29/2024 6:19 AM [facility] SPECIMEN EXPIRATION DATE [id number] 06/29/2024 6:19 AM [facility] Blood STRUCTURE OF RIGHT UPPER LIMB / Unknown Venipuncture / Unknown 06/29/2024 6:41 AM SHOW HORSE DRIVER 06/29/2024 6:55 AM SHOW HORSE DRIVER Ila Baugh NP LAB - BLOOD BANK TEST ORDER Fi nal Result BLOOD BANK [address] [place] [id number], [facility] * (ABNORMAL) Basic metabolic panel (06/29/2024 6:41 AM SHOW HORSE DRIVER) Sodium 139 135 - 145 mmol/L 06/29/2024 7:25 AM [facility] Potassium 4.4 3.4 - 5.3 mmol/L 06/29/2024 7:25 AM [facility] Chloride 103 98 - 107 mmol/L 06/29/2024 7:25 AM [facility] Carbon Dioxide (CO2) 28 22 - 29 mmol/L 06/29/2024 7:25 AM [facility] Anion Gap 8 7 - 15 mmol/L 06/29/2024 7:25 AM [facility] Urea Nitrogen 9.1 8.0 - 23.0 mg/dL 06/29/2024 7:25 AM [facility] Creatinine 0.90 0.67 - 1.17 mg/dL 06/29/2024 7:25 AM [facility] GFR Estimate 87 >60 mL/min/1.7 3m2 06/29/2024 7:25 AM [facility] Comment:eGFR calculated usin 2020 CKD-EPI equation. Calcium 9.3 8.8 - 10.4 mg/dL 06/29/2024 7:25 AM [facility] Comment:Reference intervals for this test were updated on 01/14/2024 to reflect our healthy population more accurately. There may be differences in the flagging of prior results with similar values performed with this method. Those prior results can be interpreted in the context of the updated reference intervals. Glucose 163(H) 70 - 99 mg/dL 06/29/2024 7:25 AM [facility] Blood STRUCTURE OF RIGHT UPPER LIMB / Unknown Venipuncture / Unknown 06/29/2024 6:41 AM SHOW HORSE DRIVER 06/29/2024 6:55 AM [facility] Ila Baugh NP LAB - BLOOD ORDERABLES Final R esult LABORATORY [facility] [address], [address] [place] [address], [facility] [phone] * XR Chest 1 View (06/29/2024 6:26 AM SHOW HORSE DRIVER) Anatomical Region Laterality Modality Chest Digital Radiogra phy 06/29/2024 6:26 AM SHOW HORSE DRIVER Impressions 06/29/2024 6:31 AM SHOW HORSE DRIVER IMPRESSION: 1. Stable normal cardiomediastinal silhouette with median sternotomy wires, mediastinal surgical clips, left anterior chest wall cardiac device, and a left atrial appendage occluder device. 2. No acute cardiopulmonary process. Narrative 06/29/2024 6:31 AM SHOW HORSE DRIVER EXAM: XR CHEST 1 VIEW LOCATION: [facility] DATE: 06/29/2024 INDICATION: Pre op AAA surgery COMPARISON: 02/25/2023 Procedure Note Haja Elias MD - 06/29/2024 EXAM: XR CHEST 1 VIEW LOCATION: [facility] DATE: 06/29/2024 INDICATION: Pre op AAA surgery COMPARISON: 02/25/2023 IMPRESSION: 1. Stable normal cardiomediastinal silhouette with median sternotomywires, mediastinal surgical clips, left anterior chest wall cardiacdevice, and a left atrial appendage occluder device. 2. No acute cardiopulmonary process. Ila Medina Lupis ORO IMG DIAGNOSTIC IMAGING ORDERAB LES Final Result documented in this encounter Visit Diagnoses Diagnosis Cardiac pacemaker in situ- Primary Cardiac pacemaker in situ Abdominal aortic aneurysm (AAA) greater than 5.5 cm in diameter in male (H) documented in this encounter Admitting Diagnoses Diagnosis Abdominal aortic aneurysm (AAA) greater than 5.5 cm in diameter in male (H) documented in this encounter Administered Medications Inactive Administered Medications - up to 3 most recent administrations Medication Order MAR Action Action Date Dose Rate Site acetaminophen (TYLENOL) tablet 975 mg 975 mg, Oral, EVERY 8 HOURS, First dose on 06/29/24 at 1500, Administer for multimodal surgical pain management. Maximum dose of 2 grams/day for patients with liver disease or excessive alcohol use. Maximum acetaminophen dose from all sources = 75 mg/kg/day not to exceed 4 grams/day. $Given 06/30/2024 6:46 AM SHOW HORSE DRIVER 975 mg $Given 06/29/2024 11:41 PM SHOW HORSE DRIVER 975 mg $Given 06/29/2024 3:48 PM SHOW HORSE DRIVER 975 mg aspirin (ASA) chewable tablet 81 mg 81 mg, Oral, DAILY, First dose on Sat06/30/24 at 0800 $Given 06/30/2024 9:07 AM SHOW HORSE DRIVER 81 mg atorvastatin (LIPITOR) tablet 40 mg 40 mg, Oral, EVERY EVENING, First dose on Sat06/29/24 at 2000 $Given 06/29/2024 8:02 PM SHOW HORSE DRIVER 40 mg ceFAZolin (ANCEF) 2 g in 100 mL D5W intermittent infusion Routine, 2 g, Intravenous, EVERY 8 HOURS, First dose on Sat06/29/24 at 1600, For 2 doses, Indications: Perioperative PharmacoprophylaxisIndications:Periop erative Pharmacoprophylaxis $New Bag 06/29/2024 11:41 PM SHOW HORSE DRIVER 2 g 200 mL/hr $New Bag 06/29/2024 3:14 PM SHOW HORSE DRIVER 2 g 200 mL/hr lactated ringers infusion at 10 mL/hr, Intravenous, CONTINUOUS, Pre-procedure, Starting on Sat06/29/24 at 0630, Until Sat06/29/24 at 1050 $New Bag 06/29/2024 9:26 AM SHOW HORSE DRIVER Restarted 06/29/2024 8:00 AM SHOW HORSE DRIVER $New Bag 06/29/2024 7:22 AM SHOW HORSE DRIVER 10 mL/hr lactated ringers infusion at 75 mL/hr, Intravenous, CONTINUOUS, NOT for patient on renal dialysis. Saline lock after 1 liter if taking PO fluids., Starting on Sat06/29/24 at 1500, Until Sat06/30/24 at 0905 $New Bag 06/29/2024 3:14 PM SHOW HORSE DRIVER 75 m L/hr metoprolol succinate ER (TOPROL XL) 24 hr tablet 25 mg 25 mg, Oral, DAILY, First dose on Sat06/30/24 at 0800, DO NOT CRUSH. Tablet may be split in half along score line. $Given 06/30/2024 9:07 AM SHOW HORSE DRIVER 25 mg naloxone (NARCAN) injection 0.2 mg 0.2 mg, Intravenous, EVERY 2 MIN PRN, opioid reversal, Starting on Sat06/29/24 at 1446, Administer intravenous route when available and notify provider when administered. For unintended sedation or respiratory depression if all of the below criteria are met: ~ respiratory rate LESS than or EQUAL to 8. ~SaO2 less than 92% and or/end-tidal CO2 is greater than 50. ~ the patient is receiving an opioid, has unintended sedations assessed as RASS (-3), and is currently not on mechanical ventilation. RASS scale moderate (-3) is movement or eye opening to voice but no eye contact. Patient Monitoring Once the patient has demonstrated a response to the naloxone, continue to monitor respiratory rate, depth, oxygen saturation and end-tidal CO2 (if available) every 15 minutes x 2, then every 30 minutes x 2, then every 1 hour x 1 after each naloxone dose. Consider transfer to ICU if patient respiratory parameters have not improved after 4 naloxone doses. naloxone (NARCAN) injection 0.2 mg 0.2 mg, Intramuscular, EVERY 2 MIN PRN, opioid reversal, Starting on Sat06/29/24 at 1446, Administer intramuscular if an intravenous route is not available and notify provider when administered. For unintended sedation or respiratory depression if all of the below criteria are met: ~ respiratory rate LESS than or EQUAL to 8. ~SaO2 less than 92% and or/end-tidal CO2 is greater than 50. ~ the patient is receiving an opioid, has unintended sedations assessed as RASS (-3), and is currently not on mechanical ventilation. RASS scale moderate (-3) is movement or eye opening to voice but no eye contact. Patient Monitoring Once the patient has demonstrated a response to the naloxone, continue to monitor respiratory rate, depth, oxygen saturation and end-tidal CO2 (if available) every 15 minutes x 2, then every 30 minutes x 2, then every 1 hour x 1 after each naloxone dose. Consider transfer to ICU if patient respiratory parameters have not improved after 4 naloxone doses. naloxone (NARCAN) injection 0.4 mg 0.4 mg, Intravenous, EVERY 2 MIN PRN, opioid reversal, Starting on Sat06/29/24 at 1446, Administer intravenous route when available and notify provider when administered. For unintended sedation or respiratory depression if all of the below criteria are met: ~ respiratory rate LESS than or EQUAL to 8. ~ SaO2 less than 92% and or/end-tidal CO2 is greater than 50. ~ the patient is receiving an opioid, has unintended sedation assessed as RASS (-4) or (-5) and patient is currently not on mechanical ventilation. RASS scale (-4) is deep sedation with no response to voice but movement or eye opening to physical stimulation. RASS scale (-5) is unarousable. Patient Monitoring Once the patient has demonstrated a response to the naloxone, continue to monitor respiratory rate, depth, oxygen saturation and end-tidal CO2 (if available) every 15 minutes x 2, then every 30 minutes x 2, then every 1 hour x 1 after each naloxone dose. Consider transfer to ICU if patient respiratory parameters have not improved after 4 naloxone doses. naloxone (NARCAN) injection 0.4 mg 0.4 mg, Intramuscular, EVERY 2 MIN PRN, opioid reversal, Starting on Sat06/29/24 at 1446, Administer intramuscular if an intravenous route is not available and notify provider when administered. For unintended sedation or respiratory depression if all of the below criteria are met: ~ respiratory rate LESS than or EQUAL to 8. ~ SaO2 less than 92% and or/end-tidal CO2 is greater than 50. ~ the patient is receiving an opioid, has unintended sedation assessed as RASS (-4) or (-5) and patient is currently not on mechanical ventilation. RASS scale (-4) is deep sedation with no response to voice but movement or eye opening to physical stimulation. RASS scale (-5) is unarousable. Patient Monitoring Once the patient has demonstrated a response to the naloxone, continue to monitor respiratory rate, depth, oxygen saturation and end-tidal CO2 (if available) every 15 minutes x 2, then every 30 minutes x 2, then every 1 hour x 1 after each naloxone dose. Consider transfer to ICU if patient respiratory parameters have not improved after 4 naloxone doses. oxyCODONE (ROXICODONE) tablet 10 mg 10 mg, Oral, EVERY 4 HOURS PRN, severe pain, Starting on Sat06/29/24 at 1442, Hold oral PRN dose for analgesic side effects. Notify provider to assess for uncontrolled pain or analgesic side effects. Hold while on IV VIDEOTAPE EDITOR or with regular IV opioid dosing. oxyCODONE (ROXICODONE) tablet 5 mg 5 mg, Oral, EVERY 4 HOURS PRN, moderate pain, Starting on Sat06/29/24 at 1442, Hold oral PRN dose for analgesic side effects. Notify provider to assess for uncontrolled pain or analgesic side effects. Hold while on IV VIDEOTAPE EDITOR or with regular IV opioid dosing. prochlorperazine (COMPAZINE) injection 5 mg 5 mg, Intravenous, EVERY 6 HOURS PRN, nausea/vomiting - 2nd line, Administer over 1-2 Minutes, Starting on Sat06/29/24 at 1442, Give IF patient unable to tolerate oral medication. This is Step 2 of nausea and vomiting management. Give if nausea not resolved 15 minutes after giving ondansetron (ZOFRAN). If nausea not resolved in 15-30 minutes, Notify provider. prochlorperazine (COMPAZINE) tablet 5 mg 5 mg, Oral, EVERY 6 HOURS PRN, nausea/vomiting - 2nd line, Starting on Sat06/29/24 at 1442, This is Step 2 of nausea and vomiting management. Give if nausea not resolved 15 minutes after giving ondansetron (ZOFRAN). If nausea not resolved in 15-30 minutes, Notify provider. senna-docusate (SENOKOT-S/PERICOLACE) 8.6-50 MG per tablet 1 tablet 1 tablet, Oral, 2 TIMES DAILY, First dose on Sat06/29/24 at 2000, To prevent constipation. Hold for loose stools Hold for loose stools. $Given 06/30/2024 9:07 AM SHOW HORSE DRIVER 1 tablet $Given 06/29/2024 8:02 PM SHOW HORSE DRIVER 1 tablet sodium chloride (PF) 0.9% PF flush 3 mL 3 mL, Intracatheter, EVERY 8 HOURS, First dose on Sat06/29/24 at 1500, to lock peripheral IV dormant line $Given 06/29/2024 11:41 PM SHOW HORSE DRIVER 3 mLs $Given 06/29/2024 3:13 PM SHOW HORSE DRIVER 3 mLs tamsulosin (FLOMAX) capsule 0.8 mg 0.8 mg, Oral, EVERY EVENING, First dose on Sat06/29/24 at 2000, Administer 30 minutes after the same meal each day. Capsules should be swallowed whole; do not crush chew or open. $Given 06/29/2024 8:02 PM SHOW HORSE DRIVER 0.8 mg documented in this encounter Active and Recently Administered Medications Times are shown in SHOW HORSE DRIVER. Scheduled Medication Order 06/28/2024 06/29/2024 06/30/2024 acetaminophen (TYLENOL) tablet 975 mg 975 mg, Oral, EVERY 8 HOURS, First dose on Sat06/29/24 at 1500, Administer for multimodal surgical pain management. Maximum dose of 2 grams/day for patients with liver disease or excessive alcohol use. Maximum acetaminophen dose from all sources = 75 mg/kg/day not to exceed 4 grams/day. 1548 ($Given - Provider: Porsche Viramontes RN)2341 ($Given - Provider: Ganesh Ken RN) 0646 ($Given - Provider: Ganesh Ken RN)1500 (Canceled Entry - Provider: Orders Generic Provider - Comment: Automatically canceled at discontinue of medication order) aspirin (ASA) chewable tablet 81 mg 81 mg, Oral, DAILY, First dose on Sat06/30/24 at 0800 0907 ($Given - Provider: Jeremias Yeboah, ANÍBAL) atorvastatin (LIPITOR) tablet 40 mg 40 mg, Oral, EVERY EVENING, First dose on Sat06/29/24 at 2000 2001 ($Given - Provider: Ganesh Ken RN) ceFAZolin (ANCEF) 2 g in 100 mL D5W intermittent infusion (COMPLETED) Routine, 2 g, Intravenous, EVERY 8 HOURS, First dose on Sat06/29/24 at 1600, For 2 doses, Indications: Perioperative Pharmacoprophylaxis 1514 ($New Bag - Provider: Porsche Viraomntes RN)2341 ($New Bag - Provider: Ganesh Ken RN) ceFAZolin Sodium (ANCEF) injection 2 g (COMPLETED) Routine, 2 g, Intravenous, PRE-OP/PRE-PROCEDURE, Starting on Sat06/29/24 at 0618, For 1 dose, Give first dose within 1 hour PRIOR to incision. If patient weight is greater than or equal to 120 kg increase dose to 3 g., Indications: Perioperative Pharmacoprophylaxis, Pre-procedure 0811 ($Given - Provider: Liz Vera MD) metoprolol succinate ER (TOPROL XL) 24 hr tablet 25 mg 25 mg, Oral, DAILY, First dose on Sat06/30/24 at 0800, DO NOT CRUSH. Tablet may be split in half along score line. 0907 ($Given - Provider: Jeremias Ybeoah, ANÍBAL) polyethylene glycol (MIRALAX) Packet 17 g 17 g, Oral, DAILY, First dose on Sat06/30/24 at 0800, To prevent constipation. Mixed prescribed dose in 8 ounces of water, juice or soda. Administer daily starting at 0900 on POD 1. Hold for loose stools. 1 Packet = 17 grams. Mix each gram with at least 1/2 ounce (15 mL) of water - 8 ounces for 17 g dose, 4 ounces for 8.5 g dose, 2 ounces for 4 g dose. Follow with the same volume of water. Hold for loose stools unless being administered as part of a bowel prep regimen or bowel clean out. 09 (Not Given - Provider: Jeremias Yeboah, ANÍBAL - Reason: Patient/family refused) senna-docusate (SENOKOT-S/PERICOLACE) 8.6-50 MG per tablet 1 tablet 1 tablet, Oral, 2 TIMES DAILY, First dose on Sat06/29/24 at 2000, To prevent constipation. Hold for loose stools Hold for loose stools. 2001 ($Given - Provider: Ganesh Ken RN) 09 ($Given - Provider: Jeremias Yeboah RN) sodium chloride (PF) 0.9% PF flush 3 mL 3 mL, Intracatheter, EVERY 8 HOURS, First dose on Sat06/29/24 at 1500, to lock peripheral IV dormant line 1513 ($Given - Provider: Porsche Viramontes RN)2341 ($Given - Provider: Ganesh Ken RN) 0700 (Not Given - Provider: Ganesh Ken RN - Reason: Patient sleeping)1500 (Canceled Entry - Provider: Orders Generic Provider - Comment: Automatically canceled at discontinue of medication order) tamsulosin (FLOMAX) capsule 0.8 mg 0.8 mg, Oral, EVERY EVENING, First dose on Sat06/29/24 at 2000, Administer 30 minutes after the same meal each day. Capsules should be swallowed whole; do not crush chew or open. 2001 ($Given - Provider: Ganesh Ken RN) Continuous Medication Order 06/28/2024 06/29/2024 06/30/2024 lactated ringers infusion (CANCELED) at 10 mL/hr, Intravenous, CONTINUOUS, Pre-procedure, Starting on Sat06/29/24 at 0630, Until Sat06/29/24 at 1050 0722 ($New Bag - Provider: Cydney Baker RN)0759 (Paused - Provider: Fany Oro APRN CRNA - Comment: Switch to gravity)0800 (Restarted - Provider: Fany Oro APRN CRNA)0926 ($New Bag - Provider: Fany Oro APRN CRNA)1011 (Anesthesia Volume Adjustment - Provider: Fany Oro APRN CRNA) lactated ringers infusion (CANCELED) at 75 mL/hr, Intravenous, CONTINUOUS, NOT for patient on renal dialysis. Saline lock after 1 liter if taking PO fluids., Starting on Sat06/29/24 at 1500, Until Sat06/30/24 at 0905 1514 ($New Bag - Provider: Porsche Viramontes RN)1952 (Stopped - Provider: Ganesh Ken RN) PRN Medication Order 06/28/2024 06/29/2024 06/30/2024 alum & mag hydroxide-simethicone (MAALOX) suspension 30 mL 30 mL, Oral, EVERY 4 HOURS PRN, indigestion, Starting on Sat06/29/24 at 1442, Shake well. bisacodyl (DULCOLAX) suppository 10 mg 10 mg, Rectal, DAILY PRN, constipation, Use if magnesium hydroxide (MILK of MAGNESIA) is not effective after 24 hours. May discontinue if patient having bowel movement., Starting on Page 07/02/24 at 0000, Hold for loose stools. BUPivacaine 0.25 % - EPINEPHrine 1:200,000 injection (CANCELED) PRN, Starting on Sat06/29/24 at 1020, Intra-procedure 1020 ($Given - Provider: Toni Javier MD) heparin 10,000 units in 1000 mL 0.9% sodium chloride (CANCELED) PRN, Starting on Sat06/29/24 at 0900, Intra-procedure 0900 ($Given - Provider: Toni Javier MD)0915 ($Given - Provider: Toni Javier MD)0930 ($Given - Provider: Toni Javier MD) lidocaine (LMX4) cream Topical, EVERY 1 HOUR PRN, pain, with VAD insertion, Starting on Sat06/29/24 at 1442, Apply at least 30 minutes prior to VAD insertion in divided doses as needed for size of site for insertion. MAX Dose: 2.5 g ( of 5 g tube) Do NOT give if patient has a history of allergy to any local anesthetic or any brad product. Do NOT use both lidocaine intradermal/subcutaneous injection and the lidocaine cream on the same site. lidocaine 1 % 0.1-1 mL 0.1-1 mL, Other, EVERY 1 HOUR PRN, mild pain with VAD insertion, Starting on Sat06/29/24 at 1442, MAX dose 1 mL subcutaneous OR intradermal along the side of the vein in divided doses as needed for VAD insertion. Do NOT give if patient has a history of allergy to any local anesthetic or any brad product. Do NOT use both lidocaine intradermal/subcutaneous injection and the lidocaine cream on the same site. magnesium hydroxide (MILK OF MAGNESIA) suspension 30 mL 30 mL, Oral, DAILY PRN, constipation, Use if polyethylene glycol (Miralax) is not effective after 24 hours., Starting on Sat07/01/24 at 0000, Shake well. Hold for loose stools. naloxone (NARCAN) injection 0.2 mg(Linked Group 1) 0.2 mg, Intravenous, EVERY 2 MIN PRN, opioid reversal, Starting on Sat06/29/24 at 1446, Administer intravenous route when available and notify provider when administered. For unintended sedation or respiratory depression if all of the below criteria are met: ~ respiratory rate LESS than or EQUAL to 8. ~SaO2 less than 92% and or/end-tidal CO2 is greater than 50. ~ the patient is receiving an opioid, has unintended sedations assessed as RASS (-3), and is currently not on mechanical ventilation. RASS scale moderate (-3) is movement or eye opening to voice but no eye contact. Patient Monitoring Once the patient has demonstrated a response to the naloxone, continue to monitor respiratory rate, depth, oxygen saturation and end-tidal CO2 (if available) every 15 minutes x 2, then every 30 minutes x 2, then every 1 hour x 1 after each naloxone dose. Consider transfer to ICU if patient respiratory parameters have not improved after 4 naloxone doses. naloxone (NARCAN) injection 0.2 mg(Linked Group 1) 0.2 mg, Intramuscular, EVERY 2 MIN PRN, opioid reversal, Starting on Sat06/29/24 at 1446, Administer intramuscular if an intravenous route is not available and notify provider when administered. For unintended sedation or respiratory depression if all of the below criteria are met: ~ respiratory rate LESS than or EQUAL to 8. ~SaO2 less than 92% and or/end-tidal CO2 is greater than 50. ~ the patient is receiving an opioid, has unintended sedations assessed as RASS (-3), and is currently not on mechanical ventilation. RASS scale moderate (-3) is movement or eye opening to voice but no eye contact. Patient Monitoring Once the patient has demonstrated a response to the naloxone, continue to monitor respiratory rate, depth, oxygen saturation and end-tidal CO2 (if available) every 15 minutes x 2, then every 30 minutes x 2, then every 1 hour x 1 after each naloxone dose. Consider transfer to ICU if patient respiratory parameters have not improved after 4 naloxone doses. naloxone (NARCAN) injection 0.4 mg(Linked Group 1) 0.4 mg, Intravenous, EVERY 2 MIN PRN, opioid reversal, Starting on Sat06/29/24 at 1446, Administer intravenous route when available and notify provider when administered. For unintended sedation or respiratory depression if all of the below criteria are met: ~ respiratory rate LESS than or EQUAL to 8. ~ SaO2 less than 92% and or/end-tidal CO2 is greater than 50. ~ the patient is receiving an opioid, has unintended sedation assessed as RASS (-4) or (-5) and patient is currently not on mechanical ventilation. RASS scale (-4) is deep sedation with no response to voice but movement or eye opening to physical stimulation. RASS scale (-5) is unarousable. Patient Monitoring Once the patient has demonstrated a response to the naloxone, continue to monitor respiratory rate, depth, oxygen saturation and end-tidal CO2 (if available) every 15 minutes x 2, then every 30 minutes x 2, then every 1 hour x 1 after each naloxone dose. Consider transfer to ICU if patient respiratory parameters have not improved after 4 naloxone doses. naloxone (NARCAN) injection 0.4 mg(Linked Group 1) 0.4 mg, Intramuscular, EVERY 2 MIN PRN, opioid reversal, Starting on Sat06/29/24 at 1446, Administer intramuscular if an intravenous route is not available and notify provider when administered. For unintended sedation or respiratory depression if all of the below criteria are met: ~ respiratory rate LESS than or EQUAL to 8. ~ SaO2 less than 92% and or/end-tidal CO2 is greater than 50. ~ the patient is receiving an opioid, has unintended sedation assessed as RASS (-4) or (-5) and patient is currently not on mechanical ventilation. RASS scale (-4) is deep sedation with no response to voice but movement or eye opening to physical stimulation. RASS scale (-5) is unarousable. Patient Monitoring Once the patient has demonstrated a response to the naloxone, continue to monitor respiratory rate, depth, oxygen saturation and end-tidal CO2 (if available) every 15 minutes x 2, then every 30 minutes x 2, then every 1 hour x 1 after each naloxone dose. Consider transfer to ICU if patient respiratory parameters have not improved after 4 naloxone doses. oxyCODONE (ROXICODONE) tablet 10 mg(Linked Group 2) 10 mg, Oral, EVERY 4 HOURS PRN, severe pain, Starting on Sat06/29/24 at 1442, Hold oral PRN dose for analgesic side effects. Notify provider to assess for uncontrolled pain or analgesic side effects. Hold while on IV VIDEOTAPE EDITOR or with regular IV opioid dosing. oxyCODONE (ROXICODONE) tablet 5 mg(Linked Group 2) 5 mg, Oral, EVERY 4 HOURS PRN, moderate pain, Starting on Sat06/29/24 at 1442, Hold oral PRN dose for analgesic side effects. Notify provider to assess for uncontrolled pain or analgesic side effects. Hold while on IV VIDEOTAPE EDITOR or with regular IV opioid dosing. prochlorperazine (COMPAZINE) injection 5 mg(Linked Group 3) 5 mg, Intravenous, EVERY 6 HOURS PRN, nausea/vomiting - 2nd line, Administer over 1-2 Minutes, Starting on Sat06/29/24 at 1442, Give IF patient unable to tolerate oral medication. This is Step 2 of nausea and vomiting management. Give if nausea not resolved 15 minutes after giving ondansetron (ZOFRAN). If nausea not resolved in 15-30 minutes, Notify provider. prochlorperazine (COMPAZINE) tablet 5 mg(Linked Group 3) 5 mg, Oral, EVERY 6 HOURS PRN, nausea/vomiting - 2nd line, Starting on Sat06/29/24 at 1442, This is Step 2 of nausea and vomiting management. Give if nausea not resolved 15 minutes after giving ondansetron (ZOFRAN). If nausea not resolved in 15-30 minutes, Notify provider. Reason beta archie order not selected Reason not prescribed: patient did not have an [place] sodium chloride (PF) 0.9% PF flush 3 mL 3 mL, Intracatheter, EVERY 1 MIN PRN, line flush, other, to ensure patency or to lock dormant line, Starting on Sat06/29/24 at 1442 Linked Groups Order Group 1: naloxone (NARCAN) injection 0.2 mgJump to med 0.2 mg, Intravenous, EVERY 2 MIN PRN, opioid reversal, Starting on Sat06/29/24 at 1446, Administer intravenous route when available and notify provider when administered. For unintended sedation or respiratory depression if all of the below criteria are met: ~ respiratory rate LESS than or EQUAL to 8. ~SaO2 less than 92% and or/end-tidal CO2 is greater than 50. ~ the patient is receiving an opioid, has unintended sedations assessed as RASS (-3), and is currently not on mechanical ventilation. RASS scale moderate (-3) is movement or eye opening to voice but no eye contact. Patient Monitoring Once the patient has demonstrated a response to the naloxone, continue to monitor respiratory rate, depth, oxygen saturation and end-tidal CO2 (if available) every 15 minutes x 2, then every 30 minutes x 2, then every 1 hour x 1 after each naloxone dose. Consider transfer to ICU if patient respiratory parameters have not improved after 4 naloxone doses. Or naloxone (NARCAN) injection 0.4 mgJump to med 0.4 mg, Intravenous, EVERY 2 MIN PRN, opioid reversal, Starting on Sat06/29/24 at 1446, Administer intravenous route when available and notify provider when administered. For unintended sedation or respiratory depression if all of the below criteria are met: ~ respiratory rate LESS than or EQUAL to 8. ~ SaO2 less than 92% and or/end-tidal CO2 is greater than 50. ~ the patient is receiving an opioid, has unintended sedation assessed as RASS (-4) or (-5) and patient is currently not on mechanical ventilation. RASS scale (-4) is deep sedation with no response to voice but movement or eye opening to physical stimulation. RASS scale (-5) is unarousable. Patient Monitoring Once the patient has demonstrated a response to the naloxone, continue to monitor respiratory rate, depth, oxygen saturation and end-tidal CO2 (if available) every 15 minutes x 2, then every 30 minutes x 2, then every 1 hour x 1 after each naloxone dose. Consider transfer to ICU if patient respiratory parameters have not improved after 4 naloxone doses. Or naloxone (NARCAN) injection 0.2 mgJump to med 0.2 mg, Intramuscular, EVERY 2 MIN PRN, opioid reversal, Starting on Sat06/29/24 at 1446, Administer intramuscular if an intravenous route is not available and notify provider when administered. For unintended sedation or respiratory depression if all of the below criteria are met: ~ respiratory rate LESS than or EQUAL to 8. ~SaO2 less than 92% and or/end-tidal CO2 is greater than 50. ~ the patient is receiving an opioid, has unintended sedations assessed as RASS (-3), and is currently not on mechanical ventilation. RASS scale moderate (-3) is movement or eye opening to voice but no eye contact. Patient Monitoring Once the patient has demonstrated a response to the naloxone, continue to monitor respiratory rate, depth, oxygen saturation and end-tidal CO2 (if available) every 15 minutes x 2, then every 30 minutes x 2, then every 1 hour x 1 after each naloxone dose. Consider transfer to ICU if patient respiratory parameters have not improved after 4 naloxone doses. Or naloxone (NARCAN) injection 0.4 mgJump to med 0.4 mg, Intramuscular, EVERY 2 MIN PRN, opioid reversal, Starting on Sat06/29/24 at 1446, Administer intramuscular if an intravenous route is not available and notify provider when administered. For unintended sedation or respiratory depression if all of the below criteria are met: ~ respiratory rate LESS than or EQUAL to 8. ~ SaO2 less than 92% and or/end-tidal CO2 is greater than 50. ~ the patient is receiving an opioid, has unintended sedation assessed as RASS (-4) or (-5) and patient is currently not on mechanical ventilation. RASS scale (-4) is deep sedation with no response to voice but movement or eye opening to physical stimulation. RASS scale (-5) is unarousable. Patient Monitoring Once the patient has demonstrated a response to the naloxone, continue to monitor respiratory rate, depth, oxygen saturation and end-tidal CO2 (if available) every 15 minutes x 2, then every 30 minutes x 2, then every 1 hour x 1 after each naloxone dose. Consider transfer to ICU if patient respiratory parameters have not improved after 4 naloxone doses. Group 2: oxyCODONE (ROXICODONE) tablet 5 mgJump to med 5 mg, Oral, EVERY 4 HOURS PRN, moderate pain, Starting on Sat06/29/24 at 1442, Hold oral PRN dose for analgesic side effects. Notify provider to assess for uncontrolled pain or analgesic side effects. Hold while on IV VIDEOTAPE EDITOR or with regular IV opioid dosing. Or oxyCODONE (ROXICODONE) tablet 10 mgJump to med 10 mg, Oral, EVERY 4 HOURS PRN, severe pain, Starting on Sat06/29/24 at 1442, Hold oral PRN dose for analgesic side effects. Notify provider to assess for uncontrolled pain or analgesic side effects. Hold while on IV VIDEOTAPE EDITOR or with regular IV opioid dosing. Group 3: prochlorperazine (COMPAZINE) injection 5 mgJump to med 5 mg, Intravenous, EVERY 6 HOURS PRN, nausea/vomiting - 2nd line, Administer over 1-2 Minutes, Starting on Sat06/29/24 at 1442, Give IF patient unable to tolerate oral medication. This is Step 2 of nausea and vomiting management. Give if nausea not resolved 15 minutes after giving ondansetron (ZOFRAN). If nausea not resolved in 15-30 minutes, Notify provider. Or prochlorperazine (COMPAZINE) tablet 5 mgJump to med 5 mg, Oral, EVERY 6 HOURS PRN, nausea/vomiting - 2nd line, Starting on Sat06/29/24 at 1442, This is Step 2 of nausea and vomiting management. Give if nausea not resolved 15 minutes after giving ondansetron (ZOFRAN). If nausea not resolved in 15-30 minutes, Notify provider. documented in this encounter Care Teams Director Of Occupational Therapy Relationship Specialty Start Date End Date Santo Friedman MD [address] [facility] [place] [address] PCP - General Sports Medicine 04/06/22 Siddhartha White MD [address] [place] [address] Assigned Heart and Vascular Provider 05/23/24 documented as of this encounter
--- OUTSIDE RECORDS SUMMARY | 2024-07-01 13:32 | XMS_ITS | Continuity of Care Document ---
Author Name NwKRISTYNN User [id number] llowed Address Unknown Organization Unknown Address Unknown Procedures FILTER APPLIED:Only known Procedures with Onset Date within the last 5 years Procedure Date Procedure Provider Additional Inform ation Status [facility] ENDVASC REPLACE AORTO-AORTIC ENDGFT; NON RUPTURE (32604) Completed [facility] ENDVASC REPLACE AORTO-AORTIC ENDGFT; RUPTURE (44564) Completed [facility] EVASC REPLACE [id number] ENDGFT; NON RUPTURE (08425) Completed [facility] EVASC REPLACE [id number] ENDGFT; RUPTURE (66342) Completed [facility] VISCER AND INFRARENAL ABDOM AORTA REPAIR,4+ PROSTHESIS (34565) Completed [facility] EVASC REPLACE [id number] ENDGFT; RUPTURE (80579) Completed [facility] VISCER AND INFRARENAL ABDOM AORTA REPAIR,1 PROSTHESIS (75352) Completed [facility] VISCER AND INFRARENAL ABDOM AORTA REPAIR,2 PROSTHESIS (94725) Completed [facility] VISCER AND INFRARENAL ABDOM AORTA 3 PROSTHESIS (57869) Completed [facility] EVASC REPLACE [id number] ENDGFT; NON RUPTURE (65448) Completed Encounters FILTER APPLIED:Only known Encounters with Admission Date within the last 5 years Encounter Location Admission Discharge Billing Code Service Captain Eric walker Outpatient [facility]
--- OUTSIDE RECORDS SUMMARY | 2024-07-01 13:32 | XMS_ITS | Referral Summary ---
Author Organization [place] Address [address] [place] [id number] Care Team Providers Care Manager Configuration Name Role Phone Santo Friedman MD Primary Care Provider Mert Pino MD Unavailable [phone] Encounters Date Type Department Care Team Description 07/01/2024 Telephone [facility] - Surgical Specialties Service Line [address] [place] [phone] Dao Mcelroy MD 06/29/2024 6:01 AM ENGINEERING PROJECT DESIGNER - 06/30/2024 2:11 PM ENGINEERING PROJECT DESIGNER Hospital Encounter [facility] General Surgery [address] [phone] Toni Javier MD Cardiac pacemaker in situ (Primary Dx); Abdominal aortic aneurysm (AAA) greater than 5.5 cm in diameter in male (H) Discharge Disposition: Home or Self Care 06/29/2024 8:00 AM ENGINEERING PROJECT DESIGNER Anesthesia Event [facility] PeriOP Services [address], [address] [place] [phone] Liz Vera MD 06/29/2024 8:00 AM ENGINEERING PROJECT DESIGNER - 06/29/2024 12:35 PM ENGINEERING PROJECT DESIGNER [facility] [address], [address] [place] [phone] Toni Javier MD PERCUTANEOUS ACCESS AND CLOSURE OF BILATERAL FEMORAL ARTERIES / COIL EMBOLIZATION OF LEFT ACCESORY RENAL ARTERY WITH PENUMBA RICK 4MM X 15CM COIL AND ENDOVASCULAR ABDOMINAL AORTIC ANEURYSM REPAIR WITH [employer] GRAFT STENT 06/22/2024 MyC Medical Advice Initial Department [facility] 06/22/2024 MyC Medical Advice Initial Department [facility] 06/01/2024 Telephone [facility] Imaging [address] [place] [phone] Vincent Jara MD Device Safety Clearance 05/27/2024 MyC Medical Advice [facility] Vascular [facility] [address] [place] [phone] Yolanda Haynes RN 05/27/2024 Telephone [facility] Vascular [facility] [address] [place] [phone] Toni Javier MD Surgery Scheduling 05/27/2024 Prep for Procedure [facility] Vascular [facility] [address] [place] [phone] Ila Baugh NP 05/27/2024 Travel 05/27/2024 1:20 PM ENGINEERING PROJECT DESIGNER Office Visit [facility] Vascular [facility] [address] [place] [phone] Toni Javier MD Abdominal aortic aneurysm (AAA) greater than 5.5 cm in diameter in male (H) (Primary Dx); History of pacemaker 05/26/2024 Telephone [facility] Heart [facility] [address] [facility] [address] [place] [phone] Mert Pino MD 05/25/2024 9:17 AM ENGINEERING PROJECT DESIGNER - 05/25/2024 11:59 PM ENGINEERING PROJECT DESIGNER Hospital Encounter [facility] [address] [place] [phone] Mert Pino MD Chronic systolic heart failure (H); Ischemic cardiomyopathy Discharge Disposition: Home or Self Care 05/24/2024 Travel 05/20/2024 Medical Correspondence [facility] Information Management [address] [place] [address] [address] [place] [address] Scan, Non-Provider 05/20/2024 Travel 05/20/2024 2:04 PM ENGINEERING PROJECT DESIGNER - 05/20/2024 11:59 PM ENGINEERING PROJECT DESIGNER Hospital Encounter [facility] Imaging [address] [place] [phone] Toni Javier MD Infrarenal abdominal aortic aneurysm (AAA) without rupture (H) Discharge Disposition: Home or Self Care 05/19/2024 Travel 05/19/2024 Telephone [facility] Vascular Clinic [address] [place] [address] [place] [phone] Toni Javier MD Patient Request 05/15/2024 Medical Correspondence [facility] [address] [place] [address] [address] [place] [address] Scan, Non-Provider 04/23/2024 Travel 04/23/2024 11:15 AM CDT Lab [facility] [address] [address] [place] [phone] Chronic systolic heart failure (H); 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; Hypertension, unspecified type 04/23/2024 11:00 AM CDT Ancillary Procedure [facility] Heart Care [address] [place] [address] [place] [phone] Keny Barrientos MD Chronic systolic heart failure (H); 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; Ischemic cardiomyopathy 04/23/2024 12:15 PM CDT Office Visit [facility] [address] [place] [phone] Roro Herrera PA Ernst, Eric Ryan, MD Chronic systolic heart failure (H) (Primary Dx); 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 Oxycodone GI Disturbance 10/06/2019 Medications coenzyme Q-10 100 MG CAPS Take 1 tablet by mouth every evening Active cholecalciferol 125 MCG (5000 UT) CAPS Take 1 capsule by mouth daily. Active acetaminophen (TYLENOL) 325 MG tablet Take 325-650 mg by mouth as needed for mild pain Active Cranberry 600 MG TABS Take 600 mg by mouth daily Active Multiple Vitamins-Minerals (PRESERVISION AREDS PO) Take 1 tablet by mouth 2 times daily Active Cyanocobalamin (VITAMIN B 12 PO) Take 2,500 mcg by mouth daily. Active tamsulosin (FLOMAX) 0.4 MG capsule Take 0.8 mg by mouth every evening. (2x0.4mg=0 .8mg) 3 01/15/20 19 Active Ascorbic Acid (VITAMIN C PO) Take 900 mg by mouth daily. Active aspirin (ASA) 81 MG tabletIndications:Atypi mohamud atrial flutter (H) Take 1 tablet (81 mg) by mouth daily 11/05/19 20 Active metoprolol succinate ER (TOPROL XL) 25 MG 24 hr tabletIndications:NSVT (nonsustained ventricular tachycardia) (H) Take 1 tablet (25 mg) by mouth daily. 90 tablet 3 04/23/20 24 Active sacubitril-valsartan (ENTRESTO) 97-103 MG per tabletIndications:Chron ic systolic heart failure (H) Take 1 tablet by mouth 2 times daily. 180 tablet 3 04/23/20 24 Active atorvastatin (LIPITOR) 40 MG tabletIndications:Pure hypercholesterolemia Take 1 tablet (40 mg) by mouth every evening. 90 tablet 3 04/23/20 24 Active JARDIANCE 10 MG TABS tabletIndications:Chron ic systolic heart failure (H) Take 1 tablet (10 mg) by mouth daily. 90 tablet 3 04/23/20 24 Active senna-docusate (SENOKOT-S/PERICOLACE) 8.6-50 MG tabletIndications:Abdom inal aortic aneurysm (AAA) greater than 5.5 cm in diameter in male (H) Take 1 tablet by mouth 2 times daily. 14 tablet 06/30/20 24 Active sildenafil (VIAGRA) 100 MG tablet Take 100 mg by mouth daily as needed 05/20/20 18 024 Discontin ued(Med Rec(No AVS / No eCancel)) Active Problems Problem Noted Date Diagnosed Date Abdominal aortic aneurysm (A AA) greater than 5.5 cm in diameter in male 06/29/2024 Status post coronary angiogram 04/27/2022 Cardiac pacemaker in situ 11/02/2019 Paroxysmal A-fib 10/06/2019 Atypical atrial flutter 10/01/2019 Overview (10/01/2019): Added automatically from request for surgery [id number] Abnormal thyroid function test 11/11/2018 Cough 11/11/2018 Thyroid dysfunction 11/10/2018 Weight loss 11/10/2018 Myalgia 11/10/2018 Atrial fibrillation 01/07/2014 Overview (04/08/2015): s/p MAZE procedure and L atrial appendage clipping, 2013 Coronary artery disease Overview (04/08/2015): s/p DEAN to ramus and LAD 2003, s/p CABG 2013 (CARVAJAL to LAD, SVG to OM1 and OM3, SVG to D1) Hyperlipidemia Overview (05/02/2015): Diagnosis updated by automated process. Provider to review and confirm. Nocturia Hypertension Atrial flutter Paroxysmal atrial fibrillation Overview (02/15/2016): s/p MAZE procedure and L atrial appendage clipping, 2013 History of diabetes mellitus Resolved Problems Problem Noted Date Diagnosed Date Resolved Date Fluid overload 01/07/2014 01/07/2014 Transient hyperglycemia post procedure 01/07/2014 01/07/2014 Immunizations Name Administration Dates Next Due COVID-19 12+ (Pfizer) 04/22/2023 COVID-19 MONOVALENT 12+ (Pfizer) 08/18/2020,07/02 Flu 65+ (Fluad) 03/04/2024,,05/20/2018,2016 Influenza (H1N1) 06/09/2009 Influenza (High Dose) Trival ent,PF (Fluzone) 03/16/2016,04/20/2015,03/17/2014,2011 Influenza (IIV3) PF 04/21/2013, 6,04/13/2005,2003,05/13/2003,06/15/2002 Influenza Vaccine 65+ (FLUAD) 04/08/2023 ,03/12/2022,03/27/2021,2019 Pneumo Conj 13-V (2010&after) 11/03/2014 Pneumococcal 23 valent 05/15/2017,09/21/2004 RSV Vaccine (Abrysvo) 05/06/2023 TDAP Vaccine (Boostrix) 11/03/2014 Td (Adult), Adsorbed 08/23/2004 Zoster vaccine, live 11/03/2014 Social History Tobacco Use Types Packs/Day Years Used Date Smoking Tobacco: Former Cigarettes 1.5 20.4 1 964 - 11/11/1983 Smokeless Tobacco: Never Tobacco Cessation:Counseling Given: Not Answered Alcohol Use Standard Drinks/Week Comments Yes 0 [...] Answer Date Recorded Do you have housing? (Housin g is defined as stable permanent housing and does not include staying ouside in a car, in a tent, in an abandoned building, in an overnight detention, or couch-surfing.) Yes 06/29/2024 Are you worried [...] PM CDT Legal Sex Male 4:32 AM ENGINEERING PROJECT DESIGNER Gender Identity Male 11/02/2020 12:08 PM CDT Sexual Orientation Straight 11/02/2020 12 :08 PM CDT Last Filed Vital Signs Vital Sign Reading Time Taken Comments Blood Pressure 112/67 06/30/2024 7:42 AM ENGINEERING PROJECT DESIGNER Pulse 71 06/30/2024 7:42 AM ENGINEERING PROJECT DESIGNER Temperature 36.6 C (97.9 F) 06/30/2024 7:42 AM ENGINEERING PROJECT DESIGNER Respiratory Rate 18 06/30/2024 7:42 AM ENGINEERING PROJECT DESIGNER Oxygen Saturation 97% 06/30/2024 7:42 AM ENGINEERING PROJECT DESIGNER Inhaled Oxygen Concentration - - Weight 94 kg (207 lb 3.7 oz) 06/30/2024 6:18 AM ENGINEERING PROJECT DESIGNER Height 180.3 cm (5' 11) 06/29/2024 6:42 AM ENGINEERING PROJECT DESIGNER Body Mass Index 28.9 06/29/2024 6:42 AM ENGINEERING PROJECT DESIGNER Plan of Treatment Upcoming Encounters Date Type Department Care Team (Late st Contact Info) Description 07/14/2024 10:30 AM ENGINEERING PROJECT DESIGNER Office Visit [facility] Vascular Clinic [place] [address] [phone] Ila Baugh REAL ESTATE DIRECTOR [address] [place] [address] 07/27/2024 Ancillary Procedure [facility] Heart Care [address] [place] [phone] Dieter Travis MD [address] [place] [address] Goals Goal Patient Goal Type Associated Problems Recent Progress Patient-Stated? Author MYC ECC SURG ENROLL Care Plan MyC ECC SURG ENROLL No Lyndsey Nelson Care pathway for general surgery Care Plan Care pathway for general surgery No Kavon Maxwell MYC ECC SURG DAY 10 MED Care Plan Care pathway for general surgery No Kavon Maxwell Medical Devices Implanted Type Area Diesel Engineer Device Identifier Shelf Expiration Date Model / Serial / Lot Rick Coil Soft 4 Mm X 15 Cm Implanted:Qty: 1 on 06/29/2024 by Toni Javier MD at [facility] Embolization Coil Left: Abdomen [employer] 11/09/2031 [id number] / / [id number] Description:LEFT RENAL ACCES NASRA Graft Stnt 103mm 14-32mm 20fr Endurant Iis 2 Brch Evas Ntnl - [id number] Implanted:Qty: 1 on 06/29/2024 by Toni Javier MD at [facility] Graft Right: Aorta [employer] 12/12/2024 [id number] / [id number] / Description:MAIN BODY RIGHT Actor Understudy-D Momentum X4 Is4 Df1 - [id number] Implanted:Qty: 1 on 02/25/2023 at [facility] ICD [employer] 07/26/2024 G138 / [id number] / [id number] Guidant Lexi 0137 Endotak [place] S [id number] Leads [employer]- 0137 ENDOTAK RELIANCE S / [id number] / 52cm Ingevity Mri Active Fixation Pacing Lead Implanted:Qty: 1 on 10/15/2019 by Dieter Travis MD at [facility] Leads [employer] 04/14/2021 [id number] / [id number] / [id number] Endotak [place] S Model 0137 Icd Lead, 59 Cm, Endocardial Single-Coil, 9 Fr / 10.5 Fr W/Wire, Active Fixation Implanted:Qty: 1 on 02/25/2023 at [facility] Leads [employer] 04/11/2024 0137 / [id number] / [id number] Lead Lv Acuity X4 Str 86cm - [id number] Implanted:Qty: 1 on 02/25/2023 at [facility] Leads [employer] 07/10/2024 4671 / [id number] / [id number] Pcmkr Card Accolade Mri Domenic Lerma Implanted:09/29 at [facility] (Quantity not on file) Explanted:01/30 (Quantity not on file) Pacemaker [employer] 03/19/2021 L331 / [id number] / [id number] Endurant Ii Stent Graft System Limb 16fr, 16mm X 20mm X 146mm Implanted:Qty: 1 on 06/29/2024 by Toni Javier MD at [facility] Stent Graft Left: Iliac/Fem orals [employer] 04/22/2025 [id number] / [id number] / Endurant Ii Stent Graft System, Limb 16fr, 16mm X 20mm X 146mm Implanted:Qty: 1 on 06/29/2024 by Toni Javier MD at [facility] Stent Graft Right: Iliac/Fem orals [employer] 12/31/2025 [id number] / [id number] / Lead Ingevity Active Mri 45 Cm Implanted:09/29 at [facility] (Quantity not on file) [employer] 02/07/2021 7740 / [id number] / [id number] Closure Angioseal 6fr [id number] - [id number] Implanted:Qty: 1 on 04/27/2022 at [facility] [employer] [id number] / / Procedures Procedure Name Priority Date/Time Associated Diagnosis Comments BASIC METABOLIC PANEL Routine 06/30/2024 7:29 AM ENGINEERING PROJECT DESIGNER CBC WITH PLATELETS & DIFFERENTIAL Routine 06/29/2024 4:12 PM ENGINEERING PROJECT DESIGNER CBC WITH PLATELETS AND DIFFERENTIAL Routine 06/29/2024 4:12 PM ENGINEERING PROJECT DESIGNER ACTIVATED CLOTTING TIME CELITE POCT Routine 06/29/2024 9:53 AM ENGINEERING PROJECT DESIGNER ACTIVATED CLOTTING TIME CELITE POCT Routine 06/29/2024 9:39 AM ENGINEERING PROJECT DESIGNER ANE AIRWAY ETT PERFORMABLE Routine 06/29/2024 8:18 AM ENGINEERING PROJECT DESIGNER REPAIR, ANEURYSM ABDOMINAL AORTA, ENDOVASCULAR 06/29/2024 8:03 AM ENGINEERING PROJECT DESIGNER Abdominal aortic aneurysm (AAA) greater than 5.5 cm in diameter in male (H) Case Notes OR 50 CASE *reviewed Sb 06/30 for SENSH ITEMS STENTS PRE PURCHASED Special Needs *htn, cad, afib, cardiomyopathy, s/p dean(2003), s/p cabg(2013), [id number] insulin-[employer] scientific ICD: device check 04/23/24-asa: continue-jardiance: last dose to be 06/26/24Pt verified procedureOR 50, IR TECH ONLYFIRST ASSIST/FELLOW NEEDED FV AN A-LINE DUMMY PERFORMABLE Routine 06/29/2024 7:51 AM ENGINEERING PROJECT DESIGNER PREPARE RED BLOOD CELLS (UNIT) STAT 06/29/2024 7:44 AM ENGINEERING PROJECT DESIGNER PREPARE RED BLOOD CELLS (UNIT) STAT 06/29/2024 7:44 AM ENGINEERING PROJECT DESIGNER EKG 12-LEAD, TRACING ONLY STAT 06/29/2024 6:42 AM ENGINEERING PROJECT DESIGNER CBC WITH PLATELETS & DIFFERENTIAL STAT 06/29/2024 6:41 AM ENGINEERING PROJECT DESIGNER ABO/RH TYPE AND SCREEN STAT 06/29/2024 6:41 AM ENGINEERING PROJECT DESIGNER TYPE AND SCREEN, ADULT STAT 06/29/2024 6:41 AM ENGINEERING PROJECT DESIGNER CBC WITH PLATELETS AND DIFFERENTIAL STAT 06/29/2024 6:41 AM ENGINEERING PROJECT DESIGNER BASIC METABOLIC PANEL STAT 06/29/2024 6:41 AM ENGINEERING PROJECT DESIGNER XR CHEST 1 VIEW Routine 06/29/2024 6:26 AM ENGINEERING PROJECT DESIGNER ECHO COMPLETE Routine 05/25/2024 9:40 AM ENGINEERING PROJECT DESIGNER Chronic systolic heart failure (H) Ischemic cardiomyopathy CTA ABDOMEN PELVIS WITH CONTRAST STAT 05/20/2024 2:43 PM ENGINEERING PROJECT DESIGNER Infrarenal abdominal aortic aneurysm (AAA) without rupture (H) ICD DEVICE PROGRAMMING EVAL, DUAL LEAD ICD Routine 04/23/2024 11:18 AM CDT Chronic systolic heart failure (H) ICD (implantable cardioverter-defibr illator) in place Ischemic cardiomyopathy HEMOGLOBIN Routine 04/23/2024 11:11 AM CDT Chronic systolic heart failure (H) ICD (implantable cardioverter-defibr illator) in place Hypertension, unspecified type COMPREHENSIVE METABOLIC PANEL Routine 04/23/2024 11:11 AM CDT Chronic systolic heart failure (H) ICD (implantable cardioverter-defibr illator) in place Hypertension, unspecified type LIPID REFLEX TO DIRECT LDL PANEL Routine 04/23/2024 11:11 AM CDT Chronic systolic heart failure (H) ICD (implantable cardioverter-defibr illator) in place Hypertension, unspecified type TSH WITH FREE T4 REFLEX Routine 11/12/2022 9:40 AM CDT Chronic systolic heart failure (H) COLONOSCOPY Routine 07/09/2019 9:38 AM ENGINEERING PROJECT DESIGNER HEMOGLOBIN A1C Routine 11/11/2013 5:10 AM CDT from Last 3 Months or Most Recently Relevant to Health Maintenance Results * (ABNORMAL) Basic metabolic panel (06/30/2024 7:29 AM ENGINEERING PROJECT DESIGNER) Only the most recent of2 resultswithin the time period is included. Sodium 139 135 - 145 mmol/L 06/30/2024 8:18 AM [facility] Potassium 4.3 3.4 - 5.3 mmol/L 06/30/2024 8:18 AM [facility] Chloride 104 98 - 107 mmol/L 06/30/2024 8:18 AM [facility] Carbon Dioxide (CO2) 28 22 - 29 mmol/L 06/30/2024 8:18 AM [facility] Anion Gap 7 7 - 15 mmol/L 06/30/2024 8:18 AM [facility] Urea Nitrogen 12.0 8.0 - 23.0 mg/dL 06/30/2024 8:18 AM [facility] Creatinine 0.83 0.67 - 1.17 mg/dL 06/30/2024 8:18 AM [facility] GFR Estimate 89 >60 mL/min/1.7 3m2 06/30/2024 8:18 AM [facility] Comment:eGFR calculated 2020 CKD-EPI equation. Calcium 8.8 8.8 - 10.4 mg/dL 06/30/2024 8:18 AM [facility] Comment:Reference intervals for this test were updated on 01/14/2024 to reflect our healthy population more accurately. There may be differences in the flagging of prior results with similar values performed with this method. Those prior results can be interpreted in the context of the updated reference intervals. Glucose 140(H) 70 - 99 mg/dL 06/30/2024 8:18 AM [facility] Blood STRUCTURE OF RIGHT UPPER LIMB / Unknown Venipuncture / Unknown 06/30/2024 7:29 AM ENGINEERING PROJECT DESIGNER 06/30/2024 7:44 AM [facility] us Scott Bennett MD LAB - BLOOD ORDERABLES Final R esult LABORATORY [facility] Acute Care Lab [address] floor, [address] [place] [address], [place] [phone] * (ABNORMAL) CBC with platelets and differential (06/29/2024 4:12 PM ENGINEERING PROJECT DESIGNER) Only the most recent of2 resultswithin the time period is included. [facility] WBC Count 9.9 4.0 - 11.0 10e3/uL 06/29/2024 4:21 PM [facility] RBC Count 4.29(L) 4.40 - 5.90 10e6/uL 06/29/2024 4:21 PM [facility] Hemoglobin 14.4 13.3 - 17.7 g/dL 06/29/2024 4:21 PM [facility] Hematocrit 42.3 40.0 - 53.0 % 06/29/2024 4:21 PM [facility] MCV 99 78 - 100 fL 06/29/2024 4:21 PM [facility] MCH 33.6(H) 26.5 - 33.0 pg 06/29/2024 4:21 PM [facility] MCHC 34.0 31.5 - 36.5 g/dL 06/29/2024 4:21 PM [facility] RDW 13.9 10.0 - 15.0 % 06/29/2024 4:21 PM [facility] Platelet Count 160 150 - 450 10e3/uL 06/29/2024 4:21 PM [facility] % Neutrophils 89 % 06/29/2024 4:21 PM [facility] % Lymphocytes 7 % 06/29/2024 4:21 PM [facility] % Monocytes 3 % 06/29/2024 4:21 PM [facility] % Eosinophils 0 % 06/29/2024 4:21 PM [facility] % Basophils 0 % 06/29/2024 4:21 PM [facility] % Immature Granulocytes 0 % 06/29/2024 4:21 PM [facility] NRBCs per 100 WBC 0 <1 /100 024 4:21 PM [facility] Absolute Neutrophils 8.9(H) 1.6 - 8.3 10e3/uL 06/29/2024 4:21 PM [facility] Absolute Lymphocytes 0.7(L) 0.8 - 5.3 10e3/uL 06/29/2024 4:21 PM [facility] Absolute Monocytes 0.3 0.0 - 1.3 10e3/uL 06/29/2024 4:21 PM [facility] Absolute Eosinophils 0.0 0.0 - 0.7 10e3/uL 06/29/2024 4:21 PM ENGINEERING PROJECT DESIGNER LABORATORY Absolute Basophils 0.0 0.0 - 0.2 10e3/uL 06/29/2024 4:21 PM ENGINEERING PROJECT DESIGNER LABORATORY Absolute Immature Granulocytes 0.0 <=0.4 10e3/uL 06/29/2024 4:21 PM ENGINEERING PROJECT DESIGNER LABORATORY Absolute NRBCs 0.0 10e3/uL 06/29/2024 4:21 PM ENGINEERING PROJECT DESIGNER LABORATORY Blood STRUCTURE OF RIGHT UPPER LIMB / Unknown Venipuncture / Unknown 06/29/2024 4:12 PM ENGINEERING PROJECT DESIGNER 06/29/2024 4:19 PM ENGINEERING PROJECT DESIGNER Scott Bennett MD LAB - BLOOD ORDERABLES Final R esult LABORATORY [facility] [address], [address] [place] [address], [facility] [phone] * (ABNORMAL) Activated clotting time celite, POCT (06/29/2024 9:53 AM ENGINEERING PROJECT DESIGNER) Only the most recent of2 resultswithin the time period is included. [facility] Signature Activated Clotting Time (Celite) POCT 211(H) 74 - 150 seconds 06/30/2024 6:40 AM ENGINEERING PROJECT DESIGNER [facility] Blood, arterial BLOOD SPECIMEN / Unknown 06/29/2024 9:53 AM ENGINEERING PROJECT DESIGNER 06/30/2024 6:40 AM ENGINEERING PROJECT DESIGNER Toni Javier MD LAB - BEAKER POCT Final Res ult LABORATORY POC [facility] [address], [address] [place] [address], [facility] * ANE AIRWAY ETT PERFORMABLE (06/29/2024 8:18 AM ENGINEERING PROJECT DESIGNER) Narrative Fany Oro APRN EDUCATION SPEC - 06/29/2024 8:18 AM ENGINEERING PROJECT DESIGNER Fany Oro APRN EDUCATION SPEC 06/29/2024 8:43 AM Airway Patient location during procedure: OR Procedure Start/Stop Times: 06/29/2024 8:18 AM Staff - Anesthesiologist: Liz Vera MD EDUCATION SPEC: Fany Oro APRN EDUCATION SPEC Performed By: EDUCATION SPEC Consent for Airway Urgency: elective Indications and Patient Condition Indications for airway management: minnie-procedural Induction type:intravenous Mask difficulty assessment: 1 - vent by mask Final Airway Details Final airway type: endotracheal airway Successful airway: ETT - single and Oral Endotracheal Airway Details ETT size (mm): 8.0 Cuffed: yes Successful intubation technique: direct laryngoscopy DL Blade Type: Munoz 2 Grade View of Cords: 1 Adjucts: stylet Position: Right Measured from: gums/teeth Secured at (cm): 22 Bite block used: None Post intubation assessment Placement verified by: capnometry, equal breath sounds and chest rise Number of attempts at approach: 1 Number of other approaches attempted: 0 Secured with: tape (sureprep skin protectant used under ETT tape) Ease of procedure: easy Dentition: Intact and Unchanged Medication(s) Administered Medication Administration Time: 06/29/2024 8:18 AM Liz Vera MD [place] ANESTHESIA Final Res ult * FV AN A-LINE DUMMY PERFORMABLE (06/29/2024 7:51 AM ENGINEERING PROJECT DESIGNER) Narrative Liz Vera MD - 06/29/2024 7:51 AM ENGINEERING PROJECT DESIGNER Liz Vera MD 06/29/2024 9:41 AM Arterial Line Procedure Note Pre-Procedure Staff - Anesthesiologist: Liz Vera MD Performed By: anesthesiologist Location: pre-op Pre-Anesthestic Checklist: patient identified, IV checked, risks and benefits discussed, informed consent, monitors and equipment checked, pre-op evaluation and at physician/surgeon's request Timeout: Correct Patient: Yes Correct Procedure: Yes Correct Site: Yes Correct Position: Yes Line Placement: This line was placed Pre Induction starting at 06/29/2024 7:51 AM and ending at 06/29/2024 7:56 AM Procedure Procedure: arterial line Diagnosis: AAA Laterality: right Insertion Site: radial. Sterile Prep Standard elements of sterile barrier followed Skin prep: Chloraprep Insertion/Injection Technique: ultrasound guided 1. Ultrasound was used to evaluate the access site. 2. Artery evaluated via ultrasound for patency/adequacy. 3. Using real-time ultrasound the needle/catheter was observed entering the artery/vein. 4. Permanent image was captured and entered into the patient's record. 5. The visualized structures were anatomically normal. 6. There were no apparent abnormal pathologic findings. Catheter Type/Size: 20 G, 1.75 in/4.5 cm quick cath (integral wire) Narrative Secured by: anchor securement device Tegaderm dressing used. Complications: None apparent, Arterial waveform: Yes IBP within 10% of NIBP: Yes Result [facility] Liz Vera MD NC ANESTHESIA Final Res ult * EKG 12-lead, tracing only (06/29/2024 6:42 AM ENGINEERING PROJECT DESIGNER) Systolic Blood Pressure mmHg RADIOLOGY RESULTS Diastolic Blood Pressure mmHg RADIOLOGY RESULTS Ventricular Rate 70 BPM RAD IOLOGY RESULTS Atrial Rate 71 BPM RADIOLOG Y RESULTS NC Interval ms RADIOLOG Y RESULTS QRS Duration 140 ms RADIOLO GY RESULTS QT 488 ms RADIOLOGY RESULTS QTc 527 ms RADIOLOGY RESULTS P Kountze degrees RADIOLOGY RESULTS R AXIS 39 degrees RADIOLOGY RESULTS T Kountze 80 degrees RADIOLOGY RESULTS Interpretation ECG Ventricular-pa nino rhythm Abnormal ECG When compared with ECG of 25-Feb-2023 12:23, No significant change was found Confirmed by David Neff ([id number]) on 06/29/2024 4:19:36 PM RADIOLOGY RESULTS 06/29/2024 6:42 AM ENGINEERING PROJECT DESIGNER 06/29/2024 4:19 PM ENGINEERING PROJECT DESIGNER Result [facility] Ila Malissa Baugh REAL ESTATE DIRECTOR ECG ORDERABLES Edited Result - Final RADIOLOGY RESULTS * Adult Type and Screen (06/29/2024 6:41 AM ENGINEERING PROJECT DESIGNER) ABO/RH(D) O NEG 06/29/2024 6:19 AM ENGINEERING PROJECT DESIGNER BLOOD BANK Antibody Screen Negative Negative 06/29/2024 6:19 AM ENGINEERING PROJECT DESIGNER BLOOD BANK SPECIMEN EXPIRATION DATE [id number] 06/29/2024 6:19 AM ENGINEERING PROJECT DESIGNER BLOOD BANK Blood STRUCTURE OF RIGHT UPPER LIMB / Unknown Venipuncture / Unknown 06/29/2024 6:41 AM ENGINEERING PROJECT DESIGNER 06/29/2024 6:55 AM ENGINEERING PROJECT DESIGNER Result [facility] Ilasapphire Baugh NP LAB - BLOOD BANK TEST ORDER Fi nal Result BLOOD BANK [address] [id number], [facility] * XR Chest 1 View (06/29/2024 6:26 AM ENGINEERING PROJECT DESIGNER) Anatomical Region Laterality Modality Chest Digital Radiogra phy 06/29/2024 6:26 AM ENGINEERING PROJECT DESIGNER Impressions 06/29/2024 6:31 AM ENGINEERING PROJECT DESIGNER IMPRESSION: 1. Stable normal cardiomediastinal silhouette with median sternotomy wires, mediastinal surgical clips, left anterior chest wall cardiac device, and a left atrial appendage occluder device. 2. No acute cardiopulmonary process. Narrative 06/29/2024 6:31 AM ENGINEERING PROJECT DESIGNER EXAM: XR CHEST 1 VIEW LOCATION: [facility] DATE: 06/29/2024 INDICATION: Pre op AAA surgery COMPARISON: 02/25/2023 Procedure Note Haja Elias MD - 06/29/2024 EXAM: XR CHEST 1 VIEW LOCATION: [facility] DATE: 06/29/2024 INDICATION: Pre op AAA surgery COMPARISON: 02/25/2023 IMPRESSION: 1. Stable normal cardiomediastinal silhouette with median sternotomywires, mediastinal surgical clips, left anterior chest wall cardiacdevice, and a left atrial appendage occluder device. 2. No acute cardiopulmonary process. Ila Malissa Baugh NP IMG DIAGNOSTIC IMAGING ORDERAB LES Final Result * ECHO COMPLETE (05/25/2024 9:40 AM ENGINEERING PROJECT DESIGNER) LVEF 50-55% CARDIOLOGY RESULTS Anatomical Region Laterality Modality Echocardiography 05/25/2024 9:18 AM ENGINEERING PROJECT DESIGNER Narrative 05/25/2024 10:53 AM ENGINEERING PROJECT DESIGNER [id number]^ALVAREZ^MERT^SY [facility] [address] [place] [id number] Name: SHANNAN LOVE : 1945 Study Date: 05/25/2024 09:18 AM Age: 78 yrs Gender: Male Patient Location: [facility] Reason For Study: Chronic systolic heart failure (H), Ischemic cardiomyopathy Ordering Physician: MERT PINO Referring Physician: MERT PINO Performed By: Pablo Ramon RDCS BSA: 2.2 m2 Height: 71 in Weight: 222 lb HR: 55 BP: 128/78 mmHg Procedure Complete Echo Adult. Interpretation Summary The left ventricle is normal in size. There is borderline concentric left ventricular hypertrophy. The visual ejection fraction is 50-55%. There is borderline global hypokinesia of the left ventricle. No significant valvular heart disease. Left Ventricle The left ventricle is normal in size. There is borderline concentric left ventricular hypertrophy. Diastolic Doppler findings (E/E' ratio and/or other parameters) suggest left ventricular filling pressures are indeterminate. The visual ejection fraction is 50-55%. There is borderline global hypokinesia of the left ventricle. Right Ventricle There is a catheter/pacemaker lead seen in the right ventricle. The right ventricle is normal in size and function. Atria The left atrium is borderline dilated. Right atrial size is normal. Pacer wire in right atrium. There is no color Doppler evidence of an atrial shunt. Mitral Valve The mitral valve leaflets are mildly thickened. There is trace mitral regurgitation. Tricuspid Valve There is trace tricuspid regurgitation. IVC diameter <2.1 cm collapsing >50% with sniff suggests a normal RA pressure of 3 mmHg. Aortic Valve There is trivial trileaflet aortic sclerosis. No aortic regurgitation is present. Pulmonic Valve There is trace pulmonic valvular regurgitation. Vessels Normal size aorta. Aortic root dilatation is present. Pericardium There is no pericardial effusion. Rhythm Sinus rhythm was noted. MMode/2D Measurements & Calculations IVSd: 1.2 cm LVIDd: 5.0 cm LVIDs: 3.5 cm LVPWd: 0.98 cm IVC diam: 1.4 cm FS: 29.4 % LV mass(C)d: 207.6 grams LV mass(C)dI: 94.2 grams/m2 Ao root diam: 4.4 cm LVOT diam: 2.3 cm LVOT area: 4.3 cm2 Ao root diam index Ht(cm/m): 2.5 Ao root diam index BSA (cm/m2): 2.0 LA Volume (BP): 53.3 ml LA Volume Index (BP): 24.2 ml/m2 RWT: 0.39 TAPSE: 1.3 cm Time Measurements Aortic HR: 70.0 BPM Doppler Measurements & Calculations MV E max jb: 105.3 cm/sec MV max P.5 mmHg MV mean P.9 mmHg MV V2 VTI: 26.8 cm MVA(VTI): 2.6 cm2 LV V1 max P.0 mmHg LV V1 max: 87.0 cm/sec LV V1 VTI: 16.3 cm CO(LVOT): 4.9 l/min CI(LVOT): 2.2 l/min/m2 SV(LVOT): 69.7 ml SI(LVOT): 31.6 ml/m2 PA acc time: 0.08 sec E/E' av.6 Lateral E/e': 9.3 Medial E/e': 10.0 RV S Jb: 9.1 cm/sec Report approved by: Ramon Lopez 05/25/2024 10:53 AM Procedure Note Francois Santos MD - 05/25/2024 [id number]^ALVAREZ^MERT^SY [facility] [address] [place] [id number] Name: SHANNAN LOVE : 1945 Study Date: 05/25/2024 09:18 AM Age: 78 yrs Gender: Male Patient Location: [facility] Reason For Study: Chronic systolic heart failure (H), Ischemiccardiomyopathy Ordering Physician: MERT PINO Referring Physician: MERT PINO Performed By: Pablo Ramon RDCS BSA: 2.2 m2 Height: 71 in Weight: 222 lb HR: 55 BP: 128/78 mmHg Procedure Complete Echo Adult. Interpretation Summary The left ventricle is normal in size. There is borderline concentric left ventricular hypertrophy. The visual ejection fraction is 50-55%. There is borderline global hypokinesia of the left ventricle. No significant valvular heart disease. Left Ventricle The left ventricle is normal in size. There is borderline concentricleft ventricular hypertrophy. Diastolic Doppler findings (E/E' ratio and/orother parameters) suggest left ventricular filling pressures are indeterminate.The visual ejection fraction is 50-55%. There is borderline global hypokinesiaof the left ventricle. Right Ventricle There is a catheter/pacemaker lead seen in the right ventricle. Theright ventricle is normal in size and function. Atria The left atrium is borderline dilated. Right atrial size is normal. Pacerwire in right atrium. There is no color Doppler evidence of an atrial shunt. Mitral Valve The mitral valve leaflets are mildly thickened. There is trace mitral regurgitation. Tricuspid Valve There is trace tricuspid regurgitation. IVC diameter <2.1 cm collapsing>50% with sniff suggests a normal RA pressure of 3 mmHg. Aortic Valve There is trivial trileaflet aortic sclerosis. No aortic regurgitation is present. Pulmonic Valve There is trace pulmonic valvular regurgitation. Vessels Normal size aorta. Aortic root dilatation is present. Pericardium There is no pericardial effusion. Rhythm Sinus rhythm was noted. MMode/2D Measurements & Calculations IVSd: 1.2 cm LVIDd: 5.0 cm LVIDs: 3.5 cm LVPWd: 0.98 cm IVC diam: 1.4 cm FS: 29.4 % LV mass(C)d: 207.6 grams LV mass(C)dI: 94.2 grams/m2 Ao root diam: 4.4 cm LVOT diam: 2.3 cm LVOT area: 4.3 cm2 Ao root diam index Ht(cm/m): 2.5 Ao root diam index BSA (cm/m2): 2.0 LA Volume (BP): 53.3 ml LA Volume Index (BP): 24.2 ml/m2 RWT: 0.39 TAPSE: 1.3 cm Time Measurements Aortic HR: 70.0 BPM Doppler Measurements & Calculations MV E max jb: 105.3 cm/sec MV max P.5 mmHg MV mean P.9 mmHg MV V2 VTI: 26.8 cm MVA(VTI): 2.6 cm2 LV V1 max P.0 mmHg LV V1 max: 87.0 cm/sec LV V1 VTI: 16.3 cm CO(LVOT): 4.9 l/min CI(LVOT): 2.2 l/min/m2 SV(LVOT): 69.7 ml SI(LVOT): 31.6 ml/m2 PA acc time: 0.08 sec E/E' av.6 Lateral E/e': 9.3 Medial E/e': 10.0 RV S Jb: 9.1 cm/sec Report approved by: Ramon Lopez 05/25/2024 10:53 AM us Mert Pino MD CV ECHO ORDERABLES Edited Res ult - Final * CTA Abdomen Pelvis with Contrast (05/20/2024 2:43 PM ENGINEERING PROJECT DESIGNER) Anatomical Region Laterality Modality Abdomen/Pelvis, SUBRAD IR NC EMILIE, UMP CT CTA, RAD CT Computed Tomography Impressions 05/20/2024 3:56 PM ENGINEERING PROJECT DESIGNER IMPRESSION: 1. Infrarenal abdominal aortic aneurysm measuring up to 6.1 x 5 cm in axial imaging. Moderate mural thrombus. Suspect this would be amenable to endovascular repair, if applicable. There is an accessory left renal artery that would require special attention. 2. Multiple renal hypodensities, most of which is have increased in size, though appears cystic. However, there is an exophytic soft tissue component posterior to the left kidney measuring up to 2.2 x 1.6 cm, increased from previous exam. This does not appear to be simple fluid. Uncertain if complex fluid or a mass. Would recommend MRI evaluation for most definitive evaluation. JAMES LAWSON MD Narrative 05/20/2024 3:56 PM ENGINEERING PROJECT DESIGNER CTA ABDOMEN AND PELVIS WITH CONTRAST 05/20/2024 2:43 PM HISTORY: 78-year-old patient with infrarenal abdominal aortic aneurysm, increasing in size. Patient had previous ultrasound on August 13, 2023 measuring up to 5 x 4.9 cm, though previous CT exam was October 12, 2018. TECHNIQUE: Multiplanar multiformatted CTA images were obtained from the lung bases through the abdomen and pelvis after the uneventful administration of Isovue 370 intravenous contrast given for a total of 72 mL. Radiation dose for this scan was reduced using automated exposure control, adjustment of the mA and/or kV according to patient size, or iterative reconstruction technique. Three-D reformatted images were created at a separate workstation. FINDINGS: Minimal bibasilar atelectasis. Heart size is enlarged, though only partially visible. Multiple cardiac devices with wires and leads are partially visible, as are median sternotomy wires. Intervertebral disc space narrowing in the lumbar spine in various portions. Gallbladder is contracted. The liver, spleen, adrenal glands, and pancreas are unremarkable. Bilateral renal hypodensities have increased in size from previous exam. A hypodensity on the right is 2.7 x 2.6 cm and 14 Hounsfield units, previously up to 1.9 cm. Hypodensities on the left, one of which is lateral measuring 1.9 cm, previously 0.9 cm. More medial, measurement is 2.3 cm, previously 1.2 cm. Exophytic areas noted along the posterior cortex measuring 2.2 x 1.6 cm, previously 1.8 x 1.1 cm. Density is 24 Hounsfield units, previously 0 Hounsfield units. This appears to have soft tissue density and will require additional workup. Both kidneys are normally perfused. No hydronephrosis. No intraperitoneal fluid or air. Bladder is partially distended and unremarkable. No dilated loops of bowel. The visible descending thoracic aorta is patent. Mild stenosis at the origin of the celiac axis and SMA. Bilateral renal arteries are patent. Origin of the TETE is occluded. There is a left accessory renal artery with origin 1-2 cm below the origin of the main left renal artery. In axial imaging, the infrarenal abdominal aortic aneurysm measures up to 6.1 cm x 5 cm, previously 4.9 x 3.8 cm on November 11, 2018. In the coronal imaging, transverse measurement is 5.9 cm and sagittal imaging, AP measurement is 5.5 cm there is moderate mural thrombus throughout the aneurysmal segment. Both common iliac, internal iliac, external iliac, and common femoral arteries are patent. Procedure Note James Lawson MD - 05/20/2024 CTA ABDOMEN AND PELVIS WITH CONTRAST 05/20/2024 2:43 PM HISTORY: 78-year-old patient with infrarenal abdominal aortic aneurysm, increasing in size. Patient had previous ultrasound on August 13, 2023 measuring up to 5 x 4.9 cm, though previous CT exam was October 12, 2018. TECHNIQUE: Multiplanar multiformatted CTA images were obtained from the lung bases through the abdomen and pelvis after the uneventful administration of Isovue 370 intravenous contrast given for a total of 72 mL. Radiation dose for this scan was reduced using automated exposure control, adjustment of the mA and/or kV according to patient size, or iterative reconstruction technique. Three-D reformatted images were created at a separate workstation. FINDINGS: Minimal bibasilar atelectasis. Heart size is enlarged, though only partially visible. Multiple cardiac devices with wires and leads are partially visible, as are median sternotomy wires. Intervertebral disc space narrowing in the lumbar spine in various portions. Gallbladder is contracted. The liver, spleen, adrenal glands, and pancreas are unremarkable. Bilateral renal hypodensities have increased in size from previous exam. A hypodensity on the right is 2.7 x 2.6 cm and 14 Hounsfield units, previously up to 1.9 cm. Hypodensities on the left, one of which is lateral measuring 1.9 cm, previously 0.9 cm. More medial, measurement is 2.3 cm, previously 1.2 cm. Exophytic areas noted along the posterior cortex measuring 2.2 x 1.6 cm, previously 1.8 x 1.1 cm. Density is 24 Hounsfield units, previously 0 Hounsfield units. This appears to have soft tissue density and will require additional workup. Both kidneys are normally perfused. No hydronephrosis. No intraperitoneal fluid or air. Bladder is partially distended and unremarkable. No dilated loops of bowel. The visible descending thoracic aorta is patent. Mild stenosis at the origin of the celiac axis and SMA. Bilateral renal arteries are patent. Origin of the TETE is occluded. There is a left accessory renal artery with origin 1-2 cm below the origin of the main left renal artery. In axial imaging, the infrarenal abdominal aortic aneurysm measures up to 6.1 cm x 5 cm, previously 4.9 x 3.8 cm on November 11, 2018. In the coronal imaging, transverse measurement is 5.9 cm and sagittal imaging, AP measurement is 5.5 cm there is moderate mural thrombus throughout the aneurysmal segment. Both common iliac, internal iliac, external iliac, and common femoral arteries are patent. IMPRESSION: 1. Infrarenal abdominal aortic aneurysm measuring up to 6.1 x 5 cm in axial imaging. Moderate mural thrombus. Suspect this would be amenable to endovascular repair, if applicable. There is an accessory left renal artery that would require special attention. 2. Multiple renal hypodensities, most of which is have increased in size, though appears cystic. However, there is an exophytic soft tissue component posterior to the left kidney measuring up to 2.2 x 1.6 cm, increased from previous exam. This does not appear to be simple fluid. Uncertain if complex fluid or a mass. Would recommend MRI evaluation for most definitive evaluation. JAMES LAWSON MD Toni Javier MD IMG CT ORDERABLES Final Res ult * ICD DEVICE PROGRAMMING EVAL, DUAL LEAD ICD (04/23/2024 11:18 AM CDT) Date Time Interrogation Session [id number] [employer] Implantable Pulse Generator Diesel Engineer Measurabl [employer] Implantable Pulse Generator Model G138 MOMENTUM X4 SILVERWARE BUFFING MACHINE OPERATOR-D [employer] Implantable Pulse Generator Serial Number [id number] [employer] Type Interrogation Session In Clinic [employer] Clinic Name [facility] [employer] Implantable Pulse Generator Type Cardiac Resynchronization Therapy - Defibrillator [employer] Implantable Pulse Generator Implant Date 20230225 [employer] Implantable Lead Diesel Engineer [employer] Implantable Lead Model 4671 Acuity X4 Straight [employer] Implantable Lead Serial Number [id number] [employer] Implantable Lead Implant Date 20230225 [employer] Implantable Lead Polarity Type Quadripolar Lead [employer] Implantable Lead Location Detail 1 UNKNOWN [employer] Implantable Lead Location Left Ventricle [employer] Implantable Lead Connection Status Connected [employer] Implantable Lead Diesel Engineer Guidant [employer] Implantable Lead Model 0137 [place] S [employer] Implantable Lead Serial Number [id number] [employer] Implantable Lead Implant Date 20230225 [employer] Implantable Lead Polarity Type Bipolar Lead [employer] Implantable Lead Location Detail 1 UNKNOWN [employer] Implantable Lead Location Right Ventricle [employer] Implantable Lead Connection Status Connected [employer] Implantable Lead Diesel Engineer [employer] Implantable Lead Model 7740 Ingevity MRI [employer] Implantable Lead Serial Number [id number] [employer] Implantable Lead Implant Date 20191015 [employer] Implantable Lead Polarity Type Bipolar Lead [employer] Implantable Lead Location Detail 1 UNKNOWN [employer] Implantable Lead Location Right Atrium [employer] Implantable Lead Connection Status Connected [employer] Implantable Lead Diesel Engineer [employer] Implantable Lead Model 7741 Ingevity MRI [employer] Implantable Lead Serial Number [id number] [employer] Implantable Lead Implant Date 20191015 [employer] Implantable Lead Polarity Type Bipolar Lead [employer] Implantable Lead Location Detail 1 UNKNOWN [employer] Implantable Lead Location Right Ventricle [employer] Implantable Lead Connection Status Connected [employer] [place] Setting Mode (NBG Code) VVIR [employer] [place] Setting Lower Rate Limit 70 {beats} /min [employer] [place] Setting Maximum Sensor Rate 130 {beats} /min [employer] Lead Channel Setting Sensing Sensitivity 0.25 mV [employer] Lead Channel Setting Sensing Adaptation Mode Adaptive [employer] Lead Channel Setting Sensing Polarity Bipolar [employer] Lead Channel Setting Sensing Sensitivity 0.6 mV [employer] Lead Channel Setting Sensing Adaptation Mode Adaptive [employer] Lead Channel Setting Sensing Anode Location Left Ventricle [employer] Lead Channel Setting Sensing Anode Terminal Ring2 [employer] Lead Channel Setting Sensing Cathode Location Left Ventricle [employer] Lead Channel Setting Sensing Cathode Terminal Tip [employer] Lead Channel Setting Sensing Sensitivity 1.0 mV [employer] Lead Channel Setting Sensing Adaptation Mode Adaptive [employer] Ventricular chambers paced during SILVERWARE BUFFING MACHINE OPERATOR pacing. BiV [employer] SILVERWARE BUFFING MACHINE OPERATOR LV-RV Delay 30 ms [employer] Lead Channel Setting Pacing Polarity Bipolar [employer] Lead Channel Setting Pacing Polarity Bipolar [employer] Lead Channel Setting Pacing Pulse Width 0.4 ms [employer] Lead Channel Setting Pacing Amplitude 2.0 V [employer] Lead Channel Setting Pacing Capture Mode Adaptive [employer] Lead Channel Setting Pacing Anode Location Other [employer] Lead Channel Setting Pacing Anode Terminal Can [employer] Lead Channel Setting Sensing Cathode Location Left Ventricle [employer] Lead Channel Setting Sensing Cathode Terminal Ring2 [employer] Lead Channel Setting Pacing Pulse Width 0.5 ms [employer] Lead Channel Setting Pacing Amplitude 2.4 V [employer] Lead Channel Setting Pacing Capture Mode Adaptive [employer] Zone Setting Type Category VF [employer] Zone Setting Vendor Type Category VF [employer] Zone Setting Status Active [employer] Zone Setting Detection Interval 250 ms [employer] Zone Setting Type Category VT [employer] Zone Setting Vendor Type Category VT [employer] Zone Setting Status Active [employer] Zone Setting Detection Interval 300 ms [employer] Zone Setting Type Category VT [employer] Zone Setting Vendor Type Category VT-1 [employer] Zone Setting Status Monitor [employer] Zone Setting Detection Interval 353 ms [employer] Lead Channel Impedance Value 825 ohm [employer] Lead Channel Pacing Threshold Amplitude 1.1 V [employer] Lead Channel Pacing Threshold Pulse Width 0.5 ms [employer] Lead Channel Impedance Value 676 ohm [employer] Lead Channel Impedance Value 925 ohm [employer] Lead Channel Pacing Threshold Amplitude 0.7 V [employer] Lead Channel Pacing Threshold Pulse Width 0.4 ms [employer] Battery Date Time of Measurements [id number] [employer] Battery Status Beginning of Service [facility] Battery Remaining Longevity 126 mo [employer] Battery Remaining Percentage 100 % [employer] Capacitor Charge Type Reformation [employer] Capacitor Last Charge Date Time [employer] Capacitor Charge Time 10.4 s [employer] [place] Statistic Date Time Start [employer] [place] Statistic Date Time End [employer] [place] Statistic RA Percent Paced 0 % [employer] [place] Statistic RV Percent Paced 100 % [employer] SILVERWARE BUFFING MACHINE OPERATOR Statistic LV Percent Paced 100 % [employer] SILVERWARE BUFFING MACHINE OPERATOR Statistic Date Time Start [employer] SILVERWARE BUFFING MACHINE OPERATOR Statistic Date Time End [employer] Therapy Statistic Recent Shocks Delivered 0 [employer] Therapy Statistic Recent Shocks Aborted 0 [employer] Therapy Statistic Recent ATP Delivered 0 [employer] Therapy Statistic Recent Date Time Start [employer] Therapy Statistic Recent Date Time End [employer] Therapy Statistic Total Shocks Delivered 0 [employer] Therapy Statistic Total Shocks Aborted 0 [employer] Therapy Statistic Total ATP Delivered 0 [employer] Therapy Statistic Total Date Time Start [id number] [employer] Therapy Statistic Total Date Time End [employer] Episode Statistic Recent Count 0 [employer] Episode Statistic Type Category Other [employer] Episode Statistic Recent Count 1 [employer] Episode Statistic Type Category VT [employer] Episode Statistic Vendor Type Category NSVT [employer] Episode Statistic Recent Count 0 [employer] Episode Statistic Type Category VT [employer] Episode Statistic Vendor Type Category VT [employer] Episode Statistic Recent Count 0 [employer] Episode Statistic Type Category VT [employer] Episode Statistic Vendor Type Category VT-1 [employer] Episode Statistic Recent Date Time Start [employer] Episode Statistic Recent Date Time End [employer] Episode Statistic Recent Date Time Start [employer] Episode Statistic Recent Date Time End [employer] Episode Statistic Recent Date Time Start [employer] Episode Statistic Recent Date Time End [employer] Episode Statistic Recent Date Time Start [employer] Episode Statistic Recent Date Time End [employer] Anatomical Region Laterality Modality Other 04/23/2024 10:5 9 AM CDT Narrative 04/23/2024 11:59 AM CDT [employer] SILVERWARE BUFFING MACHINE OPERATOR-D Device Check Patient seen in clinic for device evaluation and iterative programming. BiVP: 100 % Mode: VVIR 70 Underlying Rhythm: AF w CHB and no JE at VVI 30 Heart Rate: 70-90 but primarily 70s. Denies SOB Sensing: unable to assess. AF and paced at VVI 30 Pacing Threshold: WNL Impedance: WNL Battery Status: 10.5y Device Site: well healed Atrial Arrhythmia: AF on ASA Ventricular Arrhythmia: none ATP: 0 Shocks: 0 Tachy Therapy History: Primary Prevetion -[employer] (02/25/23-present): no therapies provided Setting Change: none Care Plan: follow up with next remote device check on 07/27/2024. Labs and Dr Pino scheduled today GFriedradha /RN I have reviewed and interpreted the device interrogation, settings, programming and nurse's summary. The device is functioning within normal device parameters. I agree with the current findings, assessment and plan. us Keny Barrientos MD [facility] ORDERABLES F inal Result * Lipid panel reflex to direct LDL Fasting (04/23/2024 11:11 AM CDT) Cholesterol 123 <200 mg/dL 04/23/2024 7:37 PM CDT [facility] Triglycerides 48 <150 mg/dL 04/23/2024 7:37 PM CDT [facility] Direct Measure HDL 41 >=40 mg/dL 2023 7:37 PM CDT [facility] LDL Cholesterol Calculated 72 <100 mg/dL 04/23/2024 7:37 PM CDT [facility] Non HDL Cholesterol 82 <130 mg/dL 04/23/2024 7:37 PM CDT [facility] Patient Fasting > 8hrs? Yes 04/23/2024 7:37 PM CDT [facility] Blood STRUCTURE OF RIGHT UPPER LIMB / Unknown Venipuncture / Unknown 04/23/2024 11:11 AM CDT 04/23/2024 11:11 AM CDT Narrative [facility] - 04/23/2024 7:37 PM CDT Cholesterol Desirable: < 200 mg/dL Borderline High: 200 - 239 mg/dL High: >= 240 mg/dL Triglycerides Normal: < 150 mg/dL Borderline High: 150 - 199 mg/dL High: 200-499 mg/dL Very High: >= 500 mg/dL Direct Measure HDL Female: >= 50 mg/dL Male: >= 40 mg/dL LDL Cholesterol Desirable: < 100 mg/dL Above Desirable: 100 - 129 mg/dL Borderline High: 130 - 159 mg/dL High: 160 - 189 mg/dL Very High: >= 190 mg/dL Non HDL Cholesterol Desirable: < 130 mg/dL Above Desirable: 130 - 159 mg/dL Borderline High: 160 - 189 mg/dL High: 190 - 219 mg/dL Very High: >= 220 mg/dL us [facility] - BLOOD ORDERABLES Final Res ult [facility] [address] [facility], [address] [place] [address], [facility] * Hemoglobin (04/23/2024 11:11 AM CDT) Hemoglobin 14.6 13.3 - 17.7 g/dL 04/23/2024 11:34 AM CDT LABORATORY Blood STRUCTURE OF RIGHT UPPER LIMB / Unknown Venipuncture / Unknown 04/23/2024 11:11 AM CDT 04/23/2024 11:11 AM CDT [facility] - BLOOD ORDERABLES Final Res ult LABORATORY [facility] [address], [address] [place] [address], [facility] [phone] * (ABNORMAL) Comprehensive metabolic panel (04/23/2024 11:11 AM CDT) Sodium 143 135 - 145 mmol/L 04/23/2024 11:51 AM CDT LABORATORY Potassium 4.8 3.4 - 5.3 mmol/L 04/23/2024 11:51 AM CDT LABORATORY Carbon Dioxide (CO2) 31(H) 22 - 29 mmol/L 04/23/2024 11:51 AM CDT LABORATORY Anion Gap 6(L) 7 - 15 mmol/L 04/23/2024 11:51 AM CDT LABORATORY Urea Nitrogen 11.9 8.0 - 23.0 mg/dL 04/23/2024 11:51 AM CDT LABORATORY Creatinine 0.98 0.67 - 1.17 mg/dL 04/23/2024 11:51 AM CDT LABORATORY GFR Estimate 78 >60 mL/min/1.7 3m2 04/23/2024 11:51 AM CDT LABORATORY Comment:eGFR calculated usin 2020 CKD-EPI equation. Calcium 9.3 8.8 - 10.4 mg/dL 04/23/2024 11:51 AM T LABORATORY Comment:Reference intervals for this test were updated on 01/14/2024 to reflect our healthy population more accurately. There may be differences in the flagging of prior results with similar values performed with this method. Those prior results can be interpreted in the context of the updated reference intervals. Chloride 106 98 - 107 mmol/L 04/23/2024 11:51 AM CDT LABORATORY Glucose 130(H) 70 - 99 mg/dL 04/23/2024 11:51 AM CDT LABORATORY Alkaline Phosphatase 79 40 - 150 U/L 04/23/2024 11:51 AM CDT LABORATORY AST 17 0 - 45 U/L 04/23/2024 11:51 AM CDT LABORATORY ALT 25 0 - 70 U/L 04/23/2024 11:51 AM CDT LABORATORY Protein Total 6.8 6.4 - 8.3 g/dL 04/23/2024 11:51 AM CDT LABORATORY Albumin 4.3 3.5 - 5.2 g/dL 04/23/2024 11:51 AM CDT LABORATORY Bilirubin Total 0.7 <=1.2 mg/dL 04/23/2024 11:51 AM CDT LABORATORY Blood STRUCTURE OF RIGHT UPPER LIMB / Unknown Venipuncture / Unknown 04/23/2024 11:11 AM CDT 04/23/2024 11:11 AM CDT [facility] - BLOOD ORDERABLES Final Res ult LABORATORY [facility] [address] 1[address] floor, [address] [place] [address], [place] [phone] * TSH with free T4 reflex (11/12/2022 9:40 AM CDT) TSH 1.64 0.30 - 4.20 uIU/mL 11/12/2022 10:23 AM CDT LABORATORY Blood STRUCTURE OF RIGHT UPPER LIMB / Unknown Venipuncture / Unknown 11/12/2022 9:40 AM CDT 11/12/2022 9:40 AM CDT [facility] - BLOOD ORDERABLES Final Res ult LABORATORY [facility] [address] Lab (1st floor, no room number) [place] [address], [place] [phone] * COLONOSCOPY (07/09/2019 9:38 AM ENGINEERING PROJECT DESIGNER) COLONOSCOPY [facility] Patient Name: Shannan Love Procedure Date: 07/09/2019 9:38 AM Date of : 1945 Admit Type: Outpatient Age: 73 Gender: Male Attending MD: Paul Mueller MD Total Sedation Time: 32_minutes continuous bedside 1:1 Instrument Name: 218 - Pediatric Colonoscope Procedure: Colonoscopy Indications: High risk colon cancer surveillance: Personal history of colonic polyps Providers: Paul Mueller MD (Doctor) Referring MD: Shashank Abad MD (Referring MD) Medicines: Midazolam 1 mg IV, Fentanyl 50 micrograms IV Complications: No immediate complications. Procedure: Pre-Anesthesia Assessment: - Prior to the procedure, a History and Physical was performed, and patient medications and allergies were reviewed. The patient is competent. The risks and benefits of the procedure and the sedation options and risks were discussed with the patient. All questions were answered and informed consent was obtained. Patient identification and proposed procedure were verified by the physician in the procedure room. Mental Status Examination: alert and oriented. Airway Examination: normal oropharyngeal airway and neck mobility. Respiratory Examination: clear to auscultation. CV Examination: normal. Prophylactic Antibiotics: The patient does not require prophylactic antibiotics. Prior Anticoagulants: The patient has taken no previous anticoagulant or antiplatelet agents. ASA Grade Assessment: II - A patient with mild systemic disease. After reviewing the risks and benefits, the patient was deemed in satisfactory condition to undergo the procedure. The anesthesia plan was to use moderate sedation / analgesia (conscious sedation). Immediately prior to administration of medications, the patient was re-assessed for adequacy to receive sedatives. The heart rate, respiratory rate, oxygen saturations, blood pressure, adequacy of pulmonary ventilation, and response to care were monitored throughout the procedure. The physical status of the patient was re-assessed after the procedure. After obtaining informed consent, the colonoscope was passed under direct vision. Throughout the procedure, the patient's blood pressure, pulse, and oxygen saturations were monitored continuously. The Olympus, Pediatric Colonoscope, Model # [id number]-H190DL, Endora # [id number], SN # [id number] was introduced through the anus and advanced to the cecum, identified by appendiceal orifice and ileocecal valve. The colonoscopy was performed without difficulty. The patient tolerated the procedure well. The quality of the bowel preparation was adequate to identify polyps. Findings: The perianal and digital rectal examinations were normal. The entire examined colon appeared normal on direct and retroflexion views. Impression: - The entire examined colon is normal on direct and retroflexion views. - No specimens collected. Recommendation: - No repeat colonoscopy. Procedure Code(s): --- Professional --- G0105, Colorectal cancer screening; colonoscopy on individual at high risk Diagnosis Code(s): --- Professional --- Z86.010, Personal history of colonic polyps CPT copyright 2018 [employer]. All rights reserved. The codes documented in this report are preliminary and upon supervisor tumbling and rolling review may be revised to meet current compliance requirements. Electronically signed by Paul Mueller MD __ Paul Mueller MD 07/09/2019 10:42:10 AM I was physically present for the entire viewing portion of the exam. Paul Mueller MD Number of Addenda: 0 Note Initiated On: 07/09/2019 9:38 AM Procedure Date: 07/09/2019 9:38:19 AM Scope Withdrawal Time: 0 hours 6 minutes 44 seconds Total Procedure Duration: 0 hours 30 minutes 5 seconds Estimated Blood Loss: Scope In: 10:08:12 AM Scope Out: 10:38:17 AM RADIOLOGY RESULTS 07/09/2019 9:38 AM ENGINEERING PROJECT DESIGNER us Shashank Abad MD PROCEDURES Final Result RADIOLOGY RESULTS * (ABNORMAL) Hemoglobin A1c (11/11/2013 5:10 AM CDT) Hemoglobin A1C 6.8(H) 4.3 - 6.0 % [facility] Blood specimen (specimen) 11/11/2013 5:10 AM CDT 11/11/2013 5:14 AM CDT Hitesh Chery MD LAB - BLOOD ORDERABLES Final Result Performing Organization Address City/[facility] Co de Phone Number [facility] [address] [place] [address], [facility] [phone] from Last 3 Months or Most Recently Relevant to Health Maintenance Additional Health Concerns Active Problems Noted Date Diagnosed Date MyC ECC SURG ENROLL 05/29/2024 Care pathway for general surgery 05/29/2024 Insurance [facility] [place] BLUE MEDICARE [facility] MEDICARE Advance Directives For more information, please contact: [phone] Documents on File Type Date Recorded Patient Form Drafter Expl anation Advance Directives and Living Will 03/02/2020 2:46 PM Health Care Directiv e 02/03/2020 * Full Code (Latest Code Status on File) Date Activated Date Inactivated Comments 06/29/2024 2:42 PM 06/30/2024 4:16 PM All basic and advanced life-sustaining interventions are performed as appropriate Question Answer Comments Code status determined by: Discussion with patie nt/ legal decision maker * Full Code Date Activated Date Inactivated Comments 02/10/2016 8:21 AM 03/11/2019 7:56 AM * Full Code Date Activated Date Inactivated Comments 11/10/2013 3:22 PM 11/15/2013 8:18 PM Healthcare Agents on File Name Relationship Healthcare Agent Fitz Randolph Spouse Health Care Agent Arpita Birch Daughter Second Alternate Health C are Agent Sridevi Winters Daughter First Alternate Health Care Agent Sy Love Son Third Alternate Health Care Agent Care Teams Manager Configuration Relationship Specialty Start Date End Date Santo Friedman MD [address] [facility] [place] [address] PCP - General Sports Medicine 04/06/22 Mert Pino MD [address] [place] [address] Assigned Heart and Vascular Provider 05/23/24
--- OUTSIDE RECORDS SUMMARY | 2024-07-01 13:32 | XMS_ITS | Clinical Summary ---
Author Organization [facility] Address [place], [place] [address] Care Team Providers Care Global Sales Manager Name Role Phone Siddhartha White MD Unavailable John Constantino MD Unavailable Toni Javier Unavailable Toni Baird OD Unavailable Santo Friedman MD Primary Care Provider [phone] Allergies Active Allergy Reactions Criticality Noted Date Comments Amiodarone Other - Describe In Comment Field 08/26/2019 Hyperthyroidism Oxycodone Nausea Only 10/06/2019 Medications aspirin (ECOTRIN) 81 mg enteric coated tablet Take 1 tablet by mouth once daily with a meal. 0 5 Active acetaminophen (TYLENOL) 325 mg tablet Take 325-650 mg by mouth. Active cholecalciferol (VITAMIN D-3) 2,000 unit capsule Take 1 capsule by mouth 2 times daily. 8 Active Coenzyme Q10 (ULTRA COQ10) 75 mg cap Take 100 mg by mouth once daily. 8 Active Cranberry Extract 300 mg tablet Take 1 650 mg tab PO once daily 0 9 Active cyanocobalamin 1,000 mcg tablet Take by mouth once daily. Active ascorbic acid, vitamin C, (VITAMIN C) 100 mg tablet Take 1 tablet by mouth once daily. Active metoprolol succinate (TOPROL XL) 25 mg Sustained-Release tablet Take 25 mg by mouth once daily. 1 Active vit C,S-Yk-cfycl-lutei n-zeaxan (PreserVision AREDS-2) capsule Take 1 Capsule by mouth once daily. 0 1 Active sildenafil citrate (VIAGRA) 100 mg tabletIndications: Erectile dysfunction of organic origin Take 1 tablet by mouth once daily if needed for erectile dysfunction. Take 30 minutes to 4 hours before sexual activity. Max dose 100 mg/24 hours. 30 Tablet 5 3 Active sacubitril-valsart an (ENTRESTO 97 MG-103 MG TABLET) 97-103 mg tabletIndications: Chronic systolic (congestive) heart failure (HC) TAKE 1 TABLET BY MOUTH TWICE A DAY 60 Tablet 4 Active blood sugar diagnostic (Blood Glucose Test) stripIndications:T ype 2 diabetes mellitus without complication, without long-term current use of insulin (HC) Test 1 times per day. Dispense brand covered by patient insurance 100 Each 3 4 Active lancetsIndications :Type 2 diabetes mellitus without complication, without long-term current use of insulin (HC) As directed. Test 1 times per day. Please dispense brand covered by insurance. 100 Each 3 4 Active atorvastatin (LIPITOR) 40 mg tabletIndications: Mixed hyperlipidemia Take 1 Tablet (40 mg) by mouth once daily with evening meal. 90 Tablet 3 4 Active tamsulosin (FLOMAX) 0.4 mg capsuleIndications :Urinary frequency Take 2 Capsules (0.8 mg) by mouth once daily after a meal. For urinary symptoms. 180 Capsule 3 4 Active empagliflozin (Jardiance) 10 mg tabletIndications: Type 2 diabetes mellitus without complication, without long-term current use of insulin (HC),Dilated cardiomyopathy (HC) Take 1 Tablet (10 mg) by mouth once daily. 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 30 Tablet 4 Active Active Problems Problem Noted Date Diagnosed Date Chronic systolic heart failure 09/09/2023 NSVT (nonsustained ventricular tachycardia) 08/29 Cardiomyopathy 05/02/2022 Overview (08/01/2022): Mar 2022: EF 25%, [facility] stopped lisinopril and started entresto. July 2022: Saw Pathology Laboratory Aides Teacher at [facility] and suggested consider Jardiance for diabetic and potential cardiac benefit, discuss next visit. Urinary frequency 03/14/2022 Overview (03/14/2022): Mar 2022: Doubled flomax to 0.8mg. Was having nocturia times 3 most nights. Dilated cardiomyopathy 11/04/2021 Infrarenal abdominal aortic aneurysm (AAA) witho ut rupture 11/01/2021 Overview (07/25/2022): Dr. Javier, Measured infrarenal 4.3 2019, due for follow up 2021. Cardiac pacemaker in situ 11/02/2019 Type 2 diabetes mellitus wit hout complication, without long-term current use of insulin 08/26/2019 Overview (12/03/2022): 6.5% 10/09/18: Hemoglobin A1c 7.2 and fasting glucose 161, needs follow up appointment. November 2022: added jardiance for diabetes but also due to Pathology Laboratory Aides Teacher asking him to be put on it. Stopping Metformin to avoid lows, consider adding back if needed. Coronary artery disease 02/12/2018 Overview (05/24/2020): Overview: s/p EDGAR to ramus and LAD 2003, s/p CABG 2013 (CARVAJAL to LAD, SVG to OM1 and OM3, SVG to D1) Presbyopia 04/08/2017 AMD (age-related macular degeneration), bilatera l 04/08/2017 Bilateral pseudophakia 05/07/2016 Mixed hyperlipidemia Essential hypertension Overview (05/02/2022): Mar 2022: due to cardiomyopathy, EF 25%, [facility] Teacher stopped lisinopril and started entresto. 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 CAD (coronary artery disease) 05/20/2018 Overview (11/03/2014): 3 stents Hypertension 05/20/2018 Encounters Date Type Department Care Team Description 06/03/2024 Telephone [facility] [address] [facility] [address] [place] [address] Vincent Jara MD Questions (referral for MRI) 06/01/2024 Telephone [facility] [address] [facility] [address] [place] [address] Vincent Jara MD Questions 05/20/2024 1:20 PM SEPHORA PRODUCT CONSULTANT Office Visit [facility] [address] [facility] [address] [place] [address] Vincent Jara MD Hip Pain/problem (Right hip pain) 05/19/2024 Travel 05/19/2024 Telephone [facility] [address] [facility] [address] [place] [phone] Vincent Jara MD Appointment 05/19/2024 Telephone [facility] [address] [place] [address] Fern Bartlett MD Referral 05/13/2024 Orders Only [facility] [address] [place] [address] David Palma NP <No scans attached> 05/08/2024 9:50 AM SEPHORA PRODUCT CONSULTANT Ancillary Procedure [facility] [address] [facility] [address] [place] [address] 05/08/2024 9:45 AM SEPHORA PRODUCT CONSULTANT Ancillary Procedure [facility] [address] [facility] [address] [place] [address] 05/08/2024 9:20 AM SEPHORA PRODUCT CONSULTANT Office Visit [facility] [address] [facility] [address] [place] [address] Vincent Jara MD 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) 05/07/2024 Travel 05/07/2024 Nurse Triage [facility] [address] [place] [address] Santo Friedman MD Hip Pain/problem from Last 3 Months Immunizations Name Administration Dates Next Due AMB INFLUENZA IIV3 (AGE 65+ YRS) PF (Flu Clinic Only) 04/10/2019 Amb Influenza, Inactivated A IIV4 (Age 65+ Years) Preserv Free 03/15/2020 COVID-19 VACCINE COMIRNATY ( PFIZER-BIONTECH 30MCG/0.3ML) 12YO+ PFS 04/22/2023 COVID-19 VACCINE SPIKEVAX (M ODERNA 50MCG/0.5ML) 12YO+ PFS 09/09/2023 COVID-19 vaccine (Pfizer-Bio NTech 30mcg/0.3mL) 12YO+ BIVALENT PF, MDV 03/21/2022 COVID-19 vaccine (Pfizer-Bio NTech 30mcg/0.3mL) 12YO+ TREVOR-SUCROSE PF, MDV 10/04/2021 Influenza, High-dose Inactivated 03/16/2016,04/01 Influenza, Inactivated AIIV4 (Age 65+ Years) Preserv Free 04/08/2023,03/12/2022,03/27/2021 Influenza, Inactivated IIV3 (Age 65+ Years) Preserv Free 03/04/2024,05/20/2018,05/15/2017 Pneumococcal Poly,23-Valent (Pneumovax) 05/15/20 17,09/21/2004 Pneumococcal conj 13-Valent (Prevnar 13) 015 RSV, Bivalent Vaccine Recons tituted (Abrysvo 120MCG/0.5mL) 05/06/2023 Td (Age >=7 Years) 08/23/2004 Tdap 11/03/2014 Zoster (Zostavax-ZVL, live) 11/03/2014 Family History Medical History Relation Name Comments Cancer Brother 1 Felix Bladder Cancer Diabetes Brother 1 Felix Diabetes Brother 2 Barry Heart attack Brother 2 Barry Good Health Brother 3 Darryn Good Health Daughter 1 Good Health Daughter 2 Diabetes Father Cancer-colon Mother Heart Disease Mother Macular degeneration Mother wet Heart Disease Sister Good Health Son Relation Name Status Comments Brother 1 Felix Alive Brother 2 Barry Brother 3 Darryn Alive Daughter 1 Alive Daughter 2 Alive Father Mother (Age 100) Sister Alive Son Alive Social History Tobacco Use Types Packs/Day Years Used Date Smoking Tobacco: Former Cigarettes Q uit: 07/01/1983 Smokeless Tobacco: Never Tobacco Cessation:Counseling Given: Yes Alcohol Use Standard Drinks/Week Comments Yes 5 (1 standard drink = 0.6 oz pur e alcohol) [facility] Utilities Answer Date Recorded Do you have trouble paying f or utilities (for example, heat, electricity, water, phone)? Yes 02/10/2024 PHQ-2 Answer Date Recorded PHQ-2 TOTAL SCORE 0 02/09/2024 Social Connections Answer Date Recorded Do you often feel lonely or isolated from those around you? 0 02/10/2024 Financial Resource Strain Answer Date R ecorded Difficulty of Paying Living Expenses 3 02/10/2024 Difficulty of Paying Living Expenses Not on file 02/10/2024 Food Insecurity Answer Date Recorded Do you worry your food will run out before you are able to buy more? 1 02/10/2024 Transportation Needs Answer Date Record ed Does lack of transportation keep you from medica l appointments? 1 02/10/2024 Does lack of transportation keep you from work, meetings or getting things that you need? 1 02/10/2024 Housing Stability Answer Date Recorded What is your housing situation today? 1 02/10/2024 Sex and Gender Information Value Date Recorded Sex Assigned at Not on file Legal Sex Male 7:59 AM SEPHORA PRODUCT CONSULTANT Gender Identity Not on file Sexual Orientation Not on file Obstetrics History Last Filed Vital Signs Vital Sign Reading Time Taken Comments Blood Pressure 119/76 02/10/2024 7:44 AM CDT Pulse 70 02/10/2024 7:44 AM CDT Temperature 36.6 C (97.8 F) 12/31/2022 1:23 PM CDT Respiratory Rate 14 12/31/2022 1:23 PM CDT Oxygen Saturation 98% 02/10/2024 7:44 AM CDT Inhaled Oxygen Concentration - - Weight 98.8 kg (217 lb 12.8 oz) 02/10/2024 7:44 AM CDT Height 180.8 cm (5' 11.18) 02/10/2024 7:44 AM C DT Body Mass Index 30.22 02/10/2024 7:44 AM CDT Plan of Treatment Upcoming Encounters Date Type Department Care Team (Late st Contact Info) Description 08/10/2024 8:00 AM SEPHORA PRODUCT CONSULTANT Orders Only [facility] [address] [place] [address] [place], [place] 08/10/2024 8:15 AM SEPHORA PRODUCT CONSULTANT Office Visit [facility] [address] [place] [address] Santo Friedman MD [address] [place] [address] Health Maintenance Due Date Last Done Comments Zoster (shingles) series for age 50+ (2 of 3) 12/29/2014 11/03/2014 Tetanus booster 11/03/2024 11/03/2014, 08/23/2004 BMI (ht and wt on same day) for age 18+ 02/09/2025 02/10/2024, 04/08/2023, 07/23/2022, Additional history exists Depression screening for age 12+ 02/09/2025 02/10/2024, 02/09/2024, 09/09/2023, Additional history exists Medicare Wellness for age 65+ 02/10/2025, 07/23/2022, 06/28/2021, Additional history exists Tdap Completed 11/03/2014 Pneumococcal series for age 50+ Completed 05/15/2017, 11/03/2014, 09/21/2004 Hepatitis C screening for ag e 18-79 Completed 05/21/2019 RSV vaccine for adults or Completed 05/06/2023 COVID-19 vaccine series Completed 03/04/20, 09/09/2023, 04/22/2023, Additional history exists Influenza for age 65+ Completed 03/04/2024 , 04/08/2023, 03/12/2022, Additional history exists Medical Devices Implanted Type Area Hostess Host Device Identifier Shelf Expiration Date Model / Serial / Lot Lens Iol 24.0 Wf [id number]. 0 - [id number] Implanted:Qty: 1 on 03/08/2016 by Felix You MD at [facility] Right: Eye [employer] 12/28/2020 [id number]-00. 0# / [id number] / Lens Iol 21.5 Wf [id number]. 5 - [id number] Implanted:Qty: 1 on 04/12/2016 by Felix You MD at [facility] Right: [employer] 12/28/2020 [id number]-12. 5# / [id number] / Procedures Procedure Name Priority Date/Time Associated Diagnosis Comments XR HIP 2 OR 3 VIEWS W PELVIS RIGHT Routine 05/08/2024 9:49 AM SEPHORA PRODUCT CONSULTANT Chronic right hip pain XR SPINE LUMBAR 2 VIEWS Routine 05/08/2024 9:48 AM SEPHORA PRODUCT CONSULTANT Lumbar radiculopathy ANTI HCV Routine 05/21/2019 9:42 AM SEPHORA PRODUCT CONSULTANT Need for hepatitis C screening test from Last 3 Months or Most Recently Relevant to Health Maintenance Results * XR HIP 2 OR 3 VIEWS W PELVIS RIGHT (05/08/2024 9:49 AM SEPHORA PRODUCT CONSULTANT) Anatomical Region Laterality Modality HIPS, HIPR, Pelvis Digital Radio graphy 05/09/2024 10:5 6 AM SEPHORA PRODUCT CONSULTANT Impressions 05/09/2024 10:56 AM SEPHORA PRODUCT CONSULTANT 1. On the right, cam morphology of the proximal femur. Mild degenerative changes. No hip joint space narrowing. 2. No acute fracture. Dictated by Titi Zavaleta MD @ 05/09/2024 10:56:29 AM (Electronically Signed) Narrative 05/09/2024 10:56 AM SEPHORA PRODUCT CONSULTANT For Patients: As a result of the Cures Act, medical imaging exams and procedure reports are released immediately into your electronic medical record. You may view this report before your referring provider. If you have questions, please contact your health care provider. HISTORY: Chronic right hip pain. TECHNIQUE: AP pelvis and lateral view right hip. COMPARISON: 01/09/2013. FINDINGS: On the right, there is cam morphology of the proximal femur. No change in chronic os acetabuli. Mild degenerative changes. No significant hip joint space narrowing. No acute fracture. On the contralateral left side, mild degenerative changes of the hip without hip joint space narrowing. Degenerative changes within the lumbar spine. Procedure Note Titi Zavaleta MD - 05/09/2024 For Patients: As a result of the Cures Act, medical imagingexams and procedure reports are released immediately into your electronicmedical record. You may view this report before your referring provider.If you have questions, please contact your health care provider. HISTORY: Chronic right hip pain. TECHNIQUE: AP pelvis and lateral view right hip. COMPARISON: 01/09/2013. FINDINGS: On the right, there is cam morphology of the proximal femur. No change inchronic os acetabuli. Mild degenerative changes. No significant hip jointspace narrowing. No acute fracture. On the contralateral left side, mild degenerative changes of the hipwithout hip joint space narrowing. Degenerative changes within the lumbar spine. IMPRESSION: 1. On the right, cam morphology of the proximal femur. Mild degenerativechanges. No hip joint space narrowing. 2. No acute fracture. Dictated by Titi Zavaleta MD @ 05/09/2024 10:56:29 AM (Electronically Signed) us Vincent Jara MD GENERAL IMAGING Final Result * XR SPINE LUMBAR 2 VIEWS (05/08/2024 9:48 AM SEPHORA PRODUCT CONSULTANT) Anatomical Region Laterality Modality LUMBAR SPINE Digital Radiogra phy 05/09/2024 7:21 PM SEPHORA PRODUCT CONSULTANT Narrative 05/09/2024 7:21 PM SEPHORA PRODUCT CONSULTANT For Patients: As a result of the Cures Act, medical imaging exams and procedure reports are released immediately into your electronic medical record. You may view this report before your referring provider. If you have questions, please contact your health care provider. INDICATION : Lumbar radiculopathy TECHNIQUE : 2View lumbar spine FINDINGS : Comparison January 28, 2018. IMPRESSION : Grade 1 listhesis of L4 on L5 stable Progressive bulky hypertrophic posterior facet arthrosis at L4-L5. No compression deformities. Multilevel discogenic narrowing with anterior osteophytes. Moderately increased discogenic spurring. Abdominal aortic aneurysm measuring 6.8 centimeters AP. The diameter of the aorta has increased significantly since the previous exam. Suggest vascular consultation. Dictated by Sandeep Holden MD @ 05/09/2024 7:21:29 PM (Electronically Signed) Procedure Note Sandeep Holden MD - 05/09/2024 For Patients: As a result of the Cures Act, medical imagingexams and procedure reports are released immediately into your electronicmedical record. You may view this report before your referring provider.If you have questions, please contact your health care provider. INDICATION : Lumbar radiculopathy TECHNIQUE : 2View lumbar spine FINDINGS : Comparison January 28, 2018. IMPRESSION : Grade 1 listhesis of L4 on L5 stable Progressive bulky hypertrophic posterior facet arthrosis at L4-L5. No compression deformities. Multilevel discogenic narrowing with anterior osteophytes. Moderatelyincreased discogenic spurring. Abdominal aortic aneurysm measuring 6.8 centimeters AP. The diameter ofthe aorta has increased significantly since the previous exam. Suggestvascular consultation. Dictated by Sandeep Holden MD @ 05/09/2024 7:21:29 PM (Electronically Signed) us Vincent Jara MD GENERAL IMAGING Final Result * ANTI HCV (05/21/2019 9:42 AM SEPHORA PRODUCT CONSULTANT) HEPATITIS C ANTIBODY Non-React clarke Non-React clarke 05/21/2019 4:45 PM SEPHORA PRODUCT CONSULTANT [facility] Comment:Antibodies to HCV no t detected; does not exclude the possibility of exposure to HCV. Blood BLOOD SPECIMEN / Unknown Venipuncture / Unknown 05/21/2019 9:42 AM SEPHORA PRODUCT CONSULTANT 05/21/2019 9:43 AM SEPHORA PRODUCT CONSULTANT us Shashank Abad MD SEND OUTS Final R esult [facility] 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 Healthcare Directive 02/03/2020 АЛЕКСАНДР [facility] , 02/03/20, 02/03/2020 * Full Code (Latest Code Status on File) Date Activated Date Inactivated Comments 04/12/2016 12:48 PM 04/12/2016 5:31 PM * Full Code Date Activated Date Inactivated Comments 03/08/2016 12:32 PM 03/09/2016 2:31 AM Care Teams Global Sales Manager Relationship Specialty Start Date End Date Santo Friedman MD [address] [facility] [place] [address] PCP - General Family Practice 12/03/22 Siddhartha White MD [address] [place] [address] Cardiology Cardiovascular Disease 05/15/17 John Constantino MD [address] [place] [address] Endocrinology Endocrinology 11/01/21 Toni Javier [address] [place] [address] Cardiovascular Disease 11/01/21 [place] [address] [place] [address] Bag Filler Machine Operator 11/01/21
--- OUTSIDE RECORDS SUMMARY | 2024-07-01 13:32 | XMS_ITS | Encounter Summary ---
Author Organization [place] Address [address] [place] [address]. [place] [address] Care Team Providers Care Caustics Loader Name Role Phone Santo Friedman MD Primary Care Provider [phone] Siddhartha White MD Unavailable [phone] Encounter Details Date Type Department Care Team (Late st Contact Info) Description 07/01/2024 Telephone [facility] Specialties Service Line [address] [place] [phone] Dao Mcelroy MD [address] [place] [address], [facility] [address] [place] [address] Social History Tobacco Use Types Packs/Day Years [...] Answer Date Recorded Do you have housing? 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 Mcelroy regarding this patient that patient wants to talk. The patient is known to [facility] for EVAR on June 29 and patient was discharged yesterday without complications. Patient reports burning sensation when he urinates. He is urinating adequate amount. No murky or bloody urine noted. Otherwise, he is tolerating diet without any nausea. No fevers. Walking well. No other complaints such as urgency or frequency. With burning sensation, differentials include irritation from Little catheter, and possibly urinary tract infection. My recommendation to the patient was to go to the urgent care or emergency department to get a UA and be started on empiric antibiotics depending on the result. Patient asked me if I can just prescribe antibiotics, but I explained my reasoning and hesitation to do that given possible risks of antibiotics if it is not urinary tract infection and this can cause significant other severe infections as well. Also, by obtaining urinalysis and potentially urinary culture, this can direct therapy much better. Patient voiced understanding. Patient was advised to go to nearby urgent care or emergency department for evaluation and further therapy. All questions were answered to satisfaction. Cydney Barrientos MD Vascular Surgery Fellow Total 10 minutes spent on this phone encounter. EL PLANT OPERATOR documented in this encounter Plan of Treatment Upcoming Encounters Date Type Department Care Team (Late st Contact Info) Description 07/14/2024 10:30 AM DIESEL PLANT OPERATOR Office Visit [facility] [place] [address] [place] [address] Ila Baugh, GEOTHERMAL INSTALLER [address] [place], [place] [id number] 07/27/2024 Ancillary Procedure [facility] [address] [facility] [address] [place] [phone] Dieter Travis MD [address] [place], [place] [address] documented as of this encounter Goals Goal Patient Goal Type Associated Problems Recent Progress Patient-Stated? Author MYC ECC SURG ENROLL Care Plan MyC ECC SURG ENROLL No Lyndsey Nelson Care pathway for general surgery Care Plan Care pathway for general surgery No Kavon Maxwell MYC ECC SURG DAY 10 MED Care Plan Care pathway for general surgery No Kavon Maxwell documented as of this encounter Visit Diagnoses Not on filedocumented in this encounter Additional Health Concerns Active Problems Noted Date Diagnosed Date MyC ECC SURG ENROLL 05/29/2024 Care pathway for general surgery 05/29/2024 documented as of this encounter Care Teams Caustics Loader Relationship Specialty Start Date End Date Santo Friedman MD [address] [place] [address] PCP - General Sports Medicine 04/06/22 Siddhartha White MD [address] [place] [address] Assigned Heart and Vascular Provider 05/23/24 documented as of this encounter
--- OUTSIDE RECORDS SUMMARY | 2024-07-01 13:32 | XMS_ITS | Clinical Summary ---
Author Organization [facility] Address [address] [place] [address] Care Team Providers Care Account Liaison Hospice Name Role Phone Santo Friedman MD Primary Care Provider [phone] Mert Pino MD Unavailable [phone] Allergies Active Allergy Reactions Criticality Noted Date [...] (10/01/2019): Added automatically from request for surgery [id number] Abnormal thyroid function test 11/11/2018 Cough 11/11/2018 [...] 01/07/2014 Transient hyperglycemia post procedure 01/07/2014 01/07/2014 Encounters Date Type Department Care Team Description 07/01/2024 Telephone [facility] - Surgical Specialties Service Line [address] [place] [phone] Dao Mcelroy MD 06/29/2024 8:00 AM MANUFACTURING ENGINEERING DIRECTOR Anesthesia Event [facility] [address] [place] [address] Liz Vera MD 06/29/2024 8:00 AM MANUFACTURING ENGINEERING DIRECTOR - 06/29/2024 12:35 PM MANUFACTURING ENGINEERING DIRECTOR Surgery [facility] [address] [place] [address] Toni Javier MD PERCUTANEOUS ACCESS AND CLOSURE OF BILATERAL FEMORAL ARTERIES / COIL EMBOLIZATION OF LEFT ACCESORY RENAL ARTERY WITH PENUMBA RICK 4MM X 15CM COIL AND ENDOVASCULAR ABDOMINAL AORTIC ANEURYSM REPAIR WITH [employer] GRAFT STENT 06/29/2024 6:01 AM MANUFACTURING ENGINEERING DIRECTOR - 06/30/2024 2:11 PM MANUFACTURING ENGINEERING DIRECTOR Hospital Encounter [facility] General Surgery [address] [facility] [place] [address] Toni Javier MD Cardiac pacemaker in situ (Primary Dx); Abdominal aortic aneurysm (AAA) greater than 5.5 cm in diameter in male (H) Discharge Disposition: Home or Self Care 06/22/2024 MyC Medical Advice Initial Department [facility] 06/22/2024 MyC Medical Advice Initial Department [facility] 06/01/2024 Telephone [facility] [address] [place] [phone] Vincent Jara MD Device Safety Clearance 05/27/2024 1:20 PM MANUFACTURING ENGINEERING DIRECTOR Office Visit [facility] Vascular [facility] [address] [place] [phone] Toni Javier MD Abdominal aortic aneurysm (AAA) greater than 5.5 cm in diameter in male (H) (Primary Dx); History of pacemaker 05/27/2024 MyC Medical Advice [facility] [address] [place] [phone] Yolanda Haynes RN 05/27/2024 Telephone [facility] [address] [place] [phone] Toni Javier MD Surgery Scheduling 05/27/2024 Prep for Procedure [facility] [address] [place] [phone] Ila Baugh NP 05/27/2024 Travel 05/26/2024 Telephone [facility] Heart [facility] [address] [facility] [address] [place] [phone] Mert Pino MD 05/25/2024 9:17 AM MANUFACTURING ENGINEERING DIRECTOR - 05/25/2024 11:59 PM MANUFACTURING ENGINEERING DIRECTOR Hospital Encounter [facility] [address] [facility] [address] [place] [phone] Mert Pino MD Chronic systolic heart failure (H); Ischemic cardiomyopathy Discharge Disposition: Home or Self Care 05/24/2024 Travel 05/20/2024 2:04 PM MANUFACTURING ENGINEERING DIRECTOR - 05/20/2024 11:59 PM MANUFACTURING ENGINEERING DIRECTOR Hospital Encounter [facility] Imaging [address] [place] [phone] Toni Javier MD Infrarenal abdominal aortic aneurysm (AAA) without rupture (H) Discharge Disposition: Home or Self Care 05/20/2024 Medical Correspondence [facility] Information Management [address] [facility] [address] [place] [phone] Scan, Non-Provider 05/20/2024 Travel 05/19/2024 Travel 05/19/2024 Telephone [facility] [place] [address] [address] [place] [phone] Toni Javier MD Patient Request 05/15/2024 Medical Correspondence [facility] Information [facility] [address] [facility] [address] [place] [address] Scan, Non-Provider 04/23/2024 12:15 PM CDT Office Visit [facility] Heart [facility] [address] [facility] [address] [place] [phone] Roro Herrera PA Ernst, Mert Lake MD Chronic systolic heart failure (H) (Primary Dx); 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; Hypertension, unspecified type; Pure hypercholesterolemia ; Coronary artery disease involving cahto coronary artery of cahto heart without angina pectoris; Chronic atrial fibrillation (H); Ischemic cardiomyopathy; NSVT (nonsustained ventricular tachycardia) (H) 04/23/2024 11:15 AM CDT Lab [facility] Heart [facility] Laboratory [address] [facility] [address] [place] [phone] Chronic systolic heart failure (H); 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; Hypertension, unspecified type 04/23/2024 11:00 AM CDT Ancillary Procedure [facility] [address] [facility] [address] [place] [phone] Keny Barrientos MD Chronic systolic heart failure (H); 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 Father Coronary Artery Disease Father Diabetes Father C.A.D. Mother Cancer - colorectal Mother Colon Cancer Mother Coronary Artery Disease Mother Myocardial Infarction Sister Relation Status Comments Brother 1 Brother 2 Alive Brother 3 Alive Daughter 1 Alive Daughter 2 Alive Father Mother Sister Alive Son Alive Social History Tobacco [...] in an abandoned building, in an overnight prison, or couch-surfing.) Yes 06/29/2024 Are you worried [...] PM CDT Legal Sex Male 4:32 AM MANUFACTURING ENGINEERING DIRECTOR Gender Identity Male 11/02/2020 12:08 PM CDT Sexual Orientation Straight 11/02/2020 12 :08 PM CDT Last Filed Vital Signs Vital Sign Reading Time Taken Comments Blood Pressure 112/67 06/30/2024 7:42 AM MANUFACTURING ENGINEERING DIRECTOR Pulse 71 06/30/2024 7:42 AM MANUFACTURING ENGINEERING DIRECTOR Temperature 36.6 C (97.9 F) 06/30/2024 7:42 AM MANUFACTURING ENGINEERING DIRECTOR Respiratory Rate 18 06/30/2024 7:42 AM MANUFACTURING ENGINEERING DIRECTOR Oxygen Saturation 97% 06/30/2024 7:42 AM MANUFACTURING ENGINEERING DIRECTOR Inhaled Oxygen Concentration - - Weight 94 kg (207 lb 3.7 oz) 06/30/2024 6:18 AM MANUFACTURING ENGINEERING DIRECTOR Height 180.3 cm (5' 11) 06/29/2024 6:42 AM MANUFACTURING ENGINEERING DIRECTOR Body Mass Index 28.9 06/29/2024 6:42 AM MANUFACTURING ENGINEERING DIRECTOR Plan of Treatment Upcoming Encounters Date Type Department Care Team (Late st Contact Info) Description 07/14/2024 10:30 AM MANUFACTURING ENGINEERING DIRECTOR Office Visit [facility] [place] [address] [place] [phone] Ila Bauhg, POSTULANT [address] [place] [address] 07/27/2024 Ancillary Procedure [facility] [address] [place] [phone] Dieter Travis MD [address] [place] [phone] Health Maintenance Due Date Last Done Comments ANNUAL REVIEW OF HM ORDERS 1944 DIABETIC FOOT EXAM 1944 HF ACTION PLAN 1944 MICROALBUMIN 1944 HEPATITIS C SCREENING 1962 A1C 02/11/2014 11/11/2013, 12/2013, 11/04/2013 ZOSTER IMMUNIZATION (1 of 2) 12/29/2014 11/03/2014 COVID-19 Vaccine ( season) 2024 03/04/2024, 09/09/2023, 04/22/2023, Additional history exists PHQ-2 (once per calendar year) 2024 10/21/2023, 07/30/2022, 11/10/2018 DTAP/TDAP/TD IMMUNIZATION (2 - Td or Tdap) 11/03/2024 11/03/2014, 08/23/2004 BMP 12/28/2024 06/30/2024, 06/02, 04/23/2024, Additional history exists MEDICARE ANNUAL WELLNESS VISIT 02/09/2025 02/10/2024, 07/23/2022, 06/28/2021, Additional history exists ADVANCE CARE PLANNING 03/02/2025 03/02/2020, 020 EYE EXAM 03/04/2025 03/04/2024, 08/29, 03/19/2023, Additional history exists ALT 04/23/2025 04/23/2024, 04/02, 04/06/2022, Additional history exists LIPID 04/23/2025 04/23/2024, 12/2021, 06/12/2019, Additional history exists FALL RISK ASSESSMENT 05/27/2025 05/27/2024, 11/11/19 19 CBC 06/29/2025 06/29/2024, 06/02, 02/25/2023, Additional history exists Pneumococcal Vaccine: 50+ Years Completed 05/15/2017, 11/03/2014, 09/21/2004 COLONOSCOPY Discontinued 07/09/2019, 03/2020, 07/09/2019, Additional history exists COLORECTAL CANCER SCREENING Discontinued TSH W/FREE T4 REFLEX Completed 11/12/2022, 04/29/2019, 04/29/2019, Additional history exists RSV VACCINE Completed 05/06/2023 INFLUENZA VACCINE Completed 03/04/2024, , 03/12/2022, Additional history exists CT COLONOGRAPHY Discontinued FIT Discontinued FLEX SIG Discontinued HPV IMMUNIZATION Aged Out No longer e ligible based on patient's age to complete this topic MENINGITIS IMMUNIZATION Aged Out No l onger eligible based on patient's age to complete this topic RSV MONOCLONAL ANTIBODY Aged Out No l onger eligible based on patient's age to complete this topic sDNA (Cologuard) Discontinued Goals Goal Patient Goal Type Associated Problems Recent Progress Patient-Stated? Author MYC ECC SURG ENROLL Care Plan MyC ECC SURG ENROLL No Lyndsey Nelson Care pathway for general surgery Care Plan Care pathway for general surgery No Kavon Maxwell MYC ECC SURG DAY 10 MED Care Plan Care pathway for general surgery No Kavon Maxwell Medical Devices Implanted Type Area Tip Out Worker Device Identifier Shelf Expiration Date Model / Serial / Lot Rick Coil Soft 4 Mm X 15 Cm Implanted:Qty: 1 on 06/29/2024 by Toni Javier MD at [facility] Embolization Coil Left: Abdomen [employer] 11/09/2031 [id number] / / [id number] Description:LEFT RENAL ACCES NASRA Graft Stnt 103mm 14-32mm 20fr Endurant Iis 2 Brch Evas Ntnl - [id number] Implanted:Qty: 1 on 06/29/2024 by Toni Javier MD at [facility] Graft Right: Aorta [employer] 12/12/2024 [id number] / [id number] / Description:MAIN BODY RIGHT Produce Production Team Member-D Momentum X4 Is4 Df1 - [id number] Implanted:Qty: 1 on 02/25/2023 at [facility] ICD [employer] 07/26/2024 G138 / [id number] / [id number] Guidant Lexi 0137 Endotak [place] S [id number] Leads [employer]- 0137 ENDOTAK RELIANCE S / [id number] / 52cm Ingevity Mri Active Fixation Pacing Lead Implanted:Qty: 1 on 10/15/2019 by Dieter Travis MD at [facility] Leads [employer] 04/14/2021 7741 / [id number] / [id number] Endotak [place] S Model 0137 Icd Lead, 59 Cm, Endocardial Single-Coil, 9 Fr / 10.5 Fr W/Wire, Active Fixation Implanted:Qty: 1 on 02/25/2023 at [facility] Leads [employer] 04/11/2024 0137 / [id number] / [id number] Lead Lv Acuity X4 Str 86cm - [id number] Implanted:Qty: 1 on 02/25/2023 at [facility] Leads [employer] 07/10/2024 4671 / [id number] / [id number] Pcmkr Card Accolade Mri Domenic Lerma Implanted:09/29 at [facility] (Quantity not on file) Explanted:01/30 (Quantity not on file) Pacemaker [employer] 03/19/2021 L331 / [id number] / [id number] Endurant Ii Stent Graft System Limb 16fr, 16mm X 20mm X 146mm Implanted:Qty: 1 on 06/29/2024 by Toni Javier MD at [facility] Stent Graft Left: Iliac/Fem orals [employer] 04/22/2025 [id number] / [id number] / Endurant Ii Stent Graft System, Limb 16fr, 16mm X 20mm X 146mm Implanted:Qty: 1 on 06/29/2024 by Toni Javier MD at [facility] Stent Graft Right: Iliac/Fem orals [employer] 12/31/2025 [id number] / [id number] / Lead Ingevity Active Mri 45 Cm Implanted:09/29 at [facility] (Quantity not on file) [employer] 02/07/2021 7740 / [id number] / [id number] Closure Angioseal 6fr [id number] - [id number] Implanted:Qty: 1 on 04/27/2022 at [facility] [employer] [id number] / / Procedures Procedure Name Priority Date/Time Associated Diagnosis Comments BASIC METABOLIC PANEL Routine 06/30/2024 7:29 AM MANUFACTURING ENGINEERING DIRECTOR CBC WITH PLATELETS & DIFFERENTIAL Routine 06/29/2024 4:12 PM MANUFACTURING ENGINEERING DIRECTOR CBC WITH PLATELETS AND DIFFERENTIAL Routine 06/29/2024 4:12 PM MANUFACTURING ENGINEERING DIRECTOR ACTIVATED CLOTTING TIME CELITE POCT Routine 06/29/2024 9:53 AM MANUFACTURING ENGINEERING DIRECTOR ACTIVATED CLOTTING TIME CELITE POCT Routine 06/29/2024 9:39 AM MANUFACTURING ENGINEERING DIRECTOR ANE AIRWAY ETT PERFORMABLE Routine 06/29/2024 8:18 AM MANUFACTURING ENGINEERING DIRECTOR REPAIR, ANEURYSM ABDOMINAL AORTA, ENDOVASCULAR 06/29/2024 8:03 AM MANUFACTURING ENGINEERING DIRECTOR Abdominal aortic aneurysm (AAA) greater than 5.5 cm in diameter in male (H) Case Notes OR 50 CASE *reviewed Sb 06/30 for SENSH ITEMS STENTS PRE PURCHASED Special Needs *htn, cad, afib, cardiomyopathy, s/p dean(2003), s/p cabg(2013), l3wp-hb insulin-[employer] ICD: device check 04/23/24-asa: continue-jardiance: last dose to be 06/26/24Pt verified procedureOR 50, IR TECH ONLYFIRST ASSIST/FELLOW NEEDED FV AN A-LINE DUMMY PERFORMABLE Routine 06/29/2024 7:51 AM MANUFACTURING ENGINEERING DIRECTOR PREPARE RED BLOOD CELLS (UNIT) STAT 06/29/2024 7:44 AM MANUFACTURING ENGINEERING DIRECTOR PREPARE RED BLOOD CELLS (UNIT) STAT 06/29/2024 7:44 AM MANUFACTURING ENGINEERING DIRECTOR EKG 12-LEAD, TRACING ONLY STAT 06/29/2024 6:42 AM MANUFACTURING ENGINEERING DIRECTOR CBC WITH PLATELETS & DIFFERENTIAL STAT 06/29/2024 6:41 AM MANUFACTURING ENGINEERING DIRECTOR ABO/RH TYPE AND SCREEN STAT 06/29/2024 6:41 AM MANUFACTURING ENGINEERING DIRECTOR TYPE AND SCREEN, ADULT STAT 06/29/2024 6:41 AM MANUFACTURING ENGINEERING DIRECTOR CBC WITH PLATELETS AND DIFFERENTIAL STAT 06/29/2024 6:41 AM MANUFACTURING ENGINEERING DIRECTOR BASIC METABOLIC PANEL STAT 06/29/2024 6:41 AM MANUFACTURING ENGINEERING DIRECTOR XR CHEST 1 VIEW Routine 06/29/2024 6:26 AM MANUFACTURING ENGINEERING DIRECTOR ECHO COMPLETE Routine 05/25/2024 9:40 AM MANUFACTURING ENGINEERING DIRECTOR Chronic systolic heart failure (H) Ischemic cardiomyopathy CTA ABDOMEN PELVIS WITH CONTRAST STAT 05/20/2024 2:43 PM MANUFACTURING ENGINEERING DIRECTOR Infrarenal abdominal aortic aneurysm (AAA) without rupture [...] failure (H) COLONOSCOPY Routine 07/09/2019 9:38 AM MANUFACTURING ENGINEERING DIRECTOR HEMOGLOBIN A1C Routine 11/11/2013 5:10 AM CDT from Last 3 Months or Most Recently Relevant to Health Maintenance Results * (ABNORMAL) Basic metabolic panel (06/30/2024 7:29 AM MANUFACTURING ENGINEERING DIRECTOR) Only the most recent of2 resultswithin the time period is included. Sodium 139 135 - 145 mmol/L 06/30/2024 8:18 AM [facility] Potassium 4.3 3.4 - 5.3 mmol/L 06/30/2024 8:18 AM [facility] Chloride 104 98 - 107 mmol/L 06/30/2024 8:18 AM [facility] Carbon Dioxide (CO2) 28 22 - 29 mmol/L 06/30/2024 8:18 AM [facility] Anion Gap 7 7 - 15 mmol/L 06/30/2024 8:18 AM [facility] Urea Nitrogen 12.0 8.0 - 23.0 mg/dL 06/30/2024 8:18 AM [facility] Creatinine 0.83 0.67 - 1.17 mg/dL 06/30/2024 8:18 AM [facility] GFR Estimate 89 >60 mL/min/1.7 3m2 06/30/2024 8:18 AM [facility] Comment:eGFR calculated usin 2020 CKD-EPI equation. Calcium 8.8 8.8 - 10.4 mg/dL 06/30/2024 8:18 AM [facility] Comment:Reference intervals for this test were updated on 01/14/2024 to reflect our healthy population more accurately. There may be differences in the flagging of prior results with similar values performed with this method. Those prior results can be interpreted in the context of the updated reference intervals. Glucose 140(H) 70 - 99 mg/dL 06/30/2024 8:18 AM [facility] Blood STRUCTURE OF RIGHT UPPER LIMB / Unknown Venipuncture / Unknown 06/30/2024 7:29 AM MANUFACTURING ENGINEERING DIRECTOR 06/30/2024 7:44 AM MANUFACTURING ENGINEERING DIRECTOR Scott Bennett MD LAB - BLOOD ORDERABLES Final R esult LABORATORY [facility] Care Lab [address] floor, [address] [place] [address], [facility] [phone] * (ABNORMAL) CBC with platelets and differential (06/29/2024 4:12 PM MANUFACTURING ENGINEERING DIRECTOR) Only the most recent of2 resultswithin the time period is included. WBC Count 9.9 4.0 - 11.0 10e3/uL 06/29/2024 4:21 PM [facility] RBC Count 4.29(L) 4.40 - 5.90 10e6/uL 06/29/2024 4:21 PM [facility] Hemoglobin 14.4 13.3 - 17.7 g/dL 06/29/2024 4:21 PM [facility] Hematocrit 42.3 40.0 - 53.0 % 06/29/2024 4:21 PM [facility] MCV 99 78 - 100 fL 06/29/2024 4:21 PM [facility] MCH 33.6(H) 26.5 - 33.0 pg 06/29/2024 4:21 PM [facility] MCHC 34.0 31.5 - 36.5 g/dL 06/29/2024 4:21 PM [facility] RDW 13.9 10.0 - 15.0 % 06/29/2024 4:21 PM [facility] Platelet Count 160 150 - 450 10e3/uL 06/29/2024 4:21 PM [facility] % Neutrophils 89 % 06/29/2024 4:21 PM [facility] % Lymphocytes 7 % 06/29/2024 4:21 PM MANUFACTURING ENGINEERING DIRECTOR LABORATORY % Monocytes 3 % 06/29/2024 4:21 PM MANUFACTURING ENGINEERING DIRECTOR LABORATORY % Eosinophils 0 % 06/29/2024 4:21 PM MANUFACTURING ENGINEERING DIRECTOR LABORATORY % Basophils 0 % 06/29/2024 4:21 PM [facility] % Immature Granulocytes 0 % 06/29/2024 4:21 PM MANUFACTURING ENGINEERING DIRECTOR LABORATORY NRBCs per 100 WBC 0 <1 /100 024 4:21 PM MANUFACTURING ENGINEERING DIRECTOR LABORATORY Absolute Neutrophils 8.9(H) 1.6 - 8.3 10e3/uL 06/29/2024 4:21 PM MANUFACTURING ENGINEERING DIRECTOR LABORATORY Absolute Lymphocytes 0.7(L) 0.8 - 5.3 10e3/uL 06/29/2024 4:21 PM MANUFACTURING ENGINEERING DIRECTOR LABORATORY Absolute Monocytes 0.3 0.0 - 1.3 10e3/uL 06/29/2024 4:21 PM MANUFACTURING ENGINEERING DIRECTOR LABORATORY Absolute Eosinophils 0.0 0.0 - 0.7 10e3/uL 06/29/2024 4:21 PM [facility] Absolute Basophils 0.0 0.0 - 0.2 10e3/uL 06/29/2024 4:21 PM MANUFACTURING ENGINEERING DIRECTOR LABORATORY Absolute Immature Granulocytes 0.0 <=0.4 10e3/uL 06/29/2024 4:21 PM MANUFACTURING ENGINEERING DIRECTOR LABORATORY Absolute NRBCs 0.0 10e3/uL 06/29/2024 4:21 PM [facility] Blood STRUCTURE OF RIGHT UPPER LIMB / Unknown Venipuncture / Unknown 06/29/2024 4:12 PM MANUFACTURING ENGINEERING DIRECTOR 06/29/2024 4:19 PM MANUFACTURING ENGINEERING DIRECTOR us Scott Bennett MD LAB - BLOOD ORDERABLES Final R esult LABORATORY [facility] [address], [address] [place] [address], [facility] [phone] * (ABNORMAL) Activated clotting time celite, POCT (06/29/2024 9:53 AM MANUFACTURING ENGINEERING DIRECTOR) Only the most recent of2 resultswithin the time period is included. [facility] Activated Clotting Time (Celite) POCT 211(H) 74 - 150 seconds 06/30/2024 6:40 AM MANUFACTURING ENGINEERING DIRECTOR LABORATORY POC Blood, arterial BLOOD SPECIMEN / Unknown 06/29/2024 9:53 AM MANUFACTURING ENGINEERING DIRECTOR 06/30/2024 6:40 AM MANUFACTURING ENGINEERING DIRECTOR us Toni Javier MD LAB - BEAKER POCT Final Res ult LABORATORY POC [facility] [address], [address] [place] [address] * ANE AIRWAY ETT PERFORMABLE (06/29/2024 8:18 AM MANUFACTURING ENGINEERING DIRECTOR) Narrative Fany Oro APRN INDUSTRIAL GAS SERVICER - 06/29/2024 8:18 AM MANUFACTURING ENGINEERING DIRECTOR Fany Oro APRN CRNA 06/29/2024 8:43 AM Airway Patient location during procedure: OR Procedure Start/Stop Times: 06/29/2024 8:18 AM Staff - Anesthesiologist: Lzi Vera MD INDUSTRIAL GAS SERVICER: Fany Oro APRN INDUSTRIAL GAS SERVICER Performed By: LISA Consent for Airway Urgency: elective Indications and [...] Administered Medication Administration Time: 06/29/2024 8:18 AM us Liz Vera MD SD ANESTHESIA Final Res ult * FV AN A-LINE DUMMY PERFORMABLE (06/29/2024 7:51 AM MANUFACTURING ENGINEERING DIRECTOR) Narrative Liz Vera MD - 06/29/2024 7:51 AM MANUFACTURING ENGINEERING DIRECTOR Liz Vera MD 06/29/2024 9:41 AM Arterial [...] Yes IBP within 10% of NIBP: Yes us Liz Vera MD SD ANESTHESIA Final Res ult * EKG 12-lead, tracing only (06/29/2024 6:42 AM MANUFACTURING ENGINEERING DIRECTOR) Systolic Blood Pressure mmHg RADIOLOGY RESULTS Diastolic Blood Pressure mmHg RADIOLOGY RESULTS Ventricular Rate 70 BPM RAD IOLOGY RESULTS Atrial Rate 71 BPM RADIOLOG Y RESULTS SD Interval ms RADIOLOG Y RESULTS QRS Duration 140 ms RADIOLO GY RESULTS QT 488 ms RADIOLOGY RESULTS QTc 527 ms RADIOLOGY RESULTS P [place] degrees RADIOLOGY RESULTS R AXIS 39 degrees RADIOLOGY RESULTS T [place] 80 degrees RADIOLOGY RESULTS Interpretation ECG Ventricular-pa nino rhythm Abnormal ECG When compared with ECG of 25-Feb-2023 12:23, No significant change was found Confirmed by David Neff ([id number]) on 06/29/2024 4:19:36 PM RADIOLOGY RESULTS 06/29/2024 6:42 AM MANUFACTURING ENGINEERING DIRECTOR 06/29/2024 4:19 PM MANUFACTURING ENGINEERING DIRECTOR Ila Malissa Baugh POSTULANT ECG ORDERABLES Edited Result - Final RADIOLOGY RESULTS * Adult Type and Screen (06/29/2024 6:41 AM MANUFACTURING ENGINEERING DIRECTOR) ABO/RH(D) O NEG 06/29/2024 6:19 AM MANUFACTURING ENGINEERING DIRECTOR BLOOD BANK Antibody Screen Negative Negative 06/29/2024 6:19 AM MANUFACTURING ENGINEERING DIRECTOR BLOOD BANK SPECIMEN EXPIRATION DATE [id number] 06/29/2024 6:19 AM MANUFACTURING ENGINEERING DIRECTOR BLOOD BANK Blood STRUCTURE OF RIGHT UPPER LIMB / Unknown Venipuncture / Unknown 06/29/2024 6:41 AM MANUFACTURING ENGINEERING DIRECTOR 06/29/2024 6:55 AM MANUFACTURING ENGINEERING DIRECTOR Ilasapphire Baugh NP LAB - BLOOD BANK TEST ORDER Fi nal Result Performing Organization Address City/[facility]/ZIP Co de Phone Number BLOOD BANK [address] [place] [address], [facility] * XR Chest 1 View (06/29/2024 6:26 AM MANUFACTURING ENGINEERING DIRECTOR) Anatomical Region Laterality Modality Chest Digital Radiogra phy 06/29/2024 6:26 AM MANUFACTURING ENGINEERING DIRECTOR Impressions 06/29/2024 6:31 AM MANUFACTURING ENGINEERING DIRECTOR IMPRESSION: 1. Stable normal cardiomediastinal silhouette with median sternotomy wires, mediastinal surgical clips, left anterior chest wall cardiac device, and a left atrial appendage occluder device. 2. No acute cardiopulmonary process. Narrative 06/29/2024 6:31 AM MANUFACTURING ENGINEERING DIRECTOR EXAM: XR CHEST 1 VIEW LOCATION: [facility] DATE: 06/29/2024 INDICATION: Pre op AAA surgery COMPARISON: 02/25/2023 Procedure Note Haja Elias MD - 06/29/2024 EXAM: XR CHEST 1 VIEW LOCATION: [facility] DATE: 06/29/2024 INDICATION: Pre op AAA surgery COMPARISON: 02/25/2023 IMPRESSION: 1. Stable normal cardiomediastinal silhouette with median sternotomywires, mediastinal surgical clips, left anterior chest wall cardiacdevice, and a left atrial appendage occluder device. 2. No acute cardiopulmonary process. Ila Baugh POSTULANT IMG DIAGNOSTIC IMAGING ORDERAB LES Final Result * ECHO COMPLETE (05/25/2024 9:40 AM MANUFACTURING ENGINEERING DIRECTOR) [facility] LVEF 50-55% CARDIOLOGY RESULTS Anatomical Region Laterality Modality Echocardiography 05/25/2024 9:18 AM MANUFACTURING ENGINEERING DIRECTOR Narrative 05/25/2024 10:53 AM [facility] [id number]^ALVAREZ^MERT^SY [facility] Echocardiography Laboratory [address] [place] [address] Name: SHANNAN LOVE : 1945 Study Date: 05/25/2024 09:18 AM Age: 78 yrs Gender: Male Patient Location: [facility] Reason For Study: Chronic systolic heart [...] Procedure Note Francois Santos MD - 05/25/2024 [id number]^ALVAREZ^MERT^SY [facility] Echocardiography Laboratory [address] [place] [address] Name: SHANNAN LOVE : 1945 Study Date: 05/25/2024 09:18 AM Age: 78 yrs Gender: Male Patient Location: [facility] Reason For Study: Chronic systolic heart [...] Abdomen Pelvis with Contrast (05/20/2024 2:43 PM MANUFACTURING ENGINEERING DIRECTOR) Anatomical Region Laterality Modality Abdomen/Pelvis, SUBRAD IR SD OCEDURE, UMP CT CTA, RAD CT Computed Tomography Impressions 05/20/2024 3:56 PM MANUFACTURING ENGINEERING DIRECTOR IMPRESSION: 1. Infrarenal abdominal aortic aneurysm measuring [...] JAMES LAWSON MD Narrative 05/20/2024 3:56 PM MANUFACTURING ENGINEERING DIRECTOR CTA ABDOMEN AND PELVIS WITH CONTRAST 05/20/2024 [...] for most definitive evaluation. JAMES LAWSON MD us Toni Javier MD IMG CT ORDERABLES Final Res ult * ICD DEVICE PROGRAMMING EVAL, DUAL LEAD ICD (04/23/2024 11:18 AM CDT) Date Time Interrogation Session [id number] [employer] Implantable Pulse Generator Tip Out Worker [employer] Implantable Pulse Generator Model G138 MOMENTUM X4 ART HISTORIAN-D [employer] Implantable Pulse Generator Serial Number [id number] [employer] Type Interrogation Session In Clinic [facility] Clinic Name [facility] [employer] Implantable Pulse Generator Type Cardiac Resynchronization Therapy - Defibrillator [employer] Implantable Pulse Generator Implant Date 20230225 [employer] Implantable Lead Tip Out Worker [employer] Implantable Lead Model 4671 Acuity X4 Straight [employer] Implantable Lead Serial Number [id number] [employer] Implantable Lead Implant Date 20230225 [employer] Implantable Lead Polarity Type Quadripolar Lead [employer] Implantable Lead Location Detail 1 UNKNOWN [employer] Implantable Lead Location Left Ventricle [employer] Implantable Lead Connection Status Connected [employer] Implantable Lead Tip Out Worker Guidant [employer]IC Implantable Lead Model 0137 [place] S [employer] Implantable Lead Serial Number [id number] [employer] Implantable Lead Implant Date 20230225 [employer] Implantable Lead Polarity Type Bipolar Lead [employer] Implantable Lead Location Detail 1 UNKNOWN [employer] Implantable Lead Location Right Ventricle [employer] Implantable Lead Connection Status Connected [employer] Implantable Lead Tip Out Worker [employer] Implantable Lead Model 7740 Ingevity MRI [employer] Implantable Lead Serial Number [id number] [employer] Implantable Lead Implant Date 20191015 [employer] Implantable Lead Polarity Type Bipolar Lead [employer]TRONIC Implantable Lead Location Detail 1 UNKNOWN [employer] Implantable Lead Location Right Atrium [employer] Implantable Lead Connection Status Connected [employer] Implantable Lead Tip Out Worker [employer] Implantable Lead Model 7741 Ingevity MRI [employer] Implantable Lead Serial Number [id number] [employer] Implantable Lead Implant Date 20191015 MEDTRONIC [...] Mode Adaptive [employer]IC Ventricular chambers paced during ART HISTORIAN pacing. BiV [employer] ART HISTORIAN LV-RV Delay 30 ms [employer] Lead Channel [...] ms [employer] Battery Date Time of Measurements [id number] [employer] Battery Status Beginning of Service MEDT RONIC Battery Remaining Longevity 126 mo [employer] Battery Remaining Percentage 100 % [employer] Capacitor Charge Type Reformation [employer] Capacitor Last Charge Date Time [id number] [employer] Capacitor Charge Time 10.4 s [employer] Donavon Statistic Date Time Start [id number] [employer] Donavon Statistic Date Time End [employer] Donavon Statistic RA Percent Paced 0 % [employer] Donavon Statistic RV Percent Paced 100 % [employer] ART HISTORIAN Statistic LV Percent Paced 100 % [employer] ART HISTORIAN Statistic Date Time Start [employer]TR[employer]IC ART HISTORIAN Statistic Date Time End [employer]TR[employer]IC Therapy Statistic [...] MEDTRONIC Therapy Statistic Total Date Time Start [employer]TR[employer]IC Therapy Statistic Total Date Time End [...] [employer]TRONIC Episode Statistic Recent Date Time End [id number] [employer] Episode Statistic Recent Date Time Start MEDTRONIC Episode Statistic Recent Date Time End [id number] [employer] Episode Statistic Recent Date Time Start [id number] [employer] Episode Statistic Recent Date Time End [employer]TR[employer]IC Episode Statistic Recent Date Time Start [employer]IC Episode Statistic Recent Date Time End [id number] [employer] Anatomical Region Laterality Modality Other 04/23/2024 10:5 9 AM CDT Narrative 04/23/2024 11:59 AM CDT [employer] ART HISTORIAN-D Device Check Patient seen in clinic for [...] Shocks: 0 Tachy Therapy History: Primary Prevetion -[employer] Momentum (02/25/23-present): no therapies provided Setting Change: none [...] 219 mg/dL Very High: >= 220 mg/dL [facility] - BLOOD ORDERABLES Final Res ult [facility] [address] [facility], [address] [place] [address], [facility] * Hemoglobin (04/23/2024 11:11 AM CDT) Pathologist [facility] Hemoglobin 14.6 13.3 - 17.7 g/dL 04/23/2024 11:34 AM CDT LABORATORY Blood STRUCTURE OF RIGHT UPPER LIMB / Unknown Venipuncture / Unknown 04/23/2024 11:11 AM CDT 04/23/2024 11:11 AM CDT [facility] - BLOOD ORDERABLES Final Res ult LABORATORY [facility] Acute [facility] Lab [address] 1st floor, [address] [place] [address], [facility] [phone] * (ABNORMAL) Comprehensive metabolic panel (04/23/2024 11:11 [...] 8.8 - 10.4 mg/dL 04/23/2024 11:51 AM CDT LABORATORY Comment:Reference intervals for this test were [...] - BLOOD ORDERABLES Final Res ult LABORATORY [facility] Acute Care Lab [address] 1[address] floor, Room [address] [place] [address], [place] [phone] * TSH with free T4 reflex (11/12/2022 9:40 AM CDT) TSH 1.64 0.30 - 4.20 uIU/mL 11/12/2022 10:23 AM CDT LABORATORY Blood STRUCTURE OF RIGHT UPPER LIMB / Unknown Venipuncture / Unknown 11/12/2022 9:40 AM CDT 11/12/2022 9:40 AM CDT us [facility] - BLOOD ORDERABLES Final Res ult LABORATORY [facility] Acute Care [facility] [address] [facility] (1st floor, no room number) [place] [address], [facility] [phone] * COLONOSCOPY (07/09/2019 9:38 AM MANUFACTURING ENGINEERING DIRECTOR) COLONOSCOPY [facility] Patient Name: Shannan Love Procedure Date: 07/09/2019 [...] # [id number], [place]ora # [id number], SN # [id number] was introduced through the anus and advanced [...] history of colonic polyps CPT copyright 2018 [employer]. All rights reserved. The codes documented in this report are preliminary and upon machine engraver review may be revised to meet current [...] 10:38:17 AM RADIOLOGY RESULTS 07/09/2019 9:38 AM MANUFACTURING ENGINEERING DIRECTOR us Shashank Abad MD PROCEDURES Final Result RADIOLOGY RESULTS * (ABNORMAL) Hemoglobin A1c (11/11/2013 5:10 AM CDT) Hemoglobin A1C 6.8(H) 4.3 - 6.0 % [facility] Blood specimen (specimen) 11/11/2013 5:10 AM CDT 11/11/2013 5:14 AM CDT us Hitesh Chery MD LAB - BLOOD ORDERABLES Final Result [facility] [address] [address], [facility] [phone] from Last 3 Months or Most Recently Relevant to Health Maintenance Additional Health Concerns Active Problems Noted Date Diagnosed Date MyC ECC SURG ENROLL 05/29/2024 Care pathway for general surgery 05/29/2024 Insurance [facility] MEDICARE [facility] MEDIC[facility] Advance Directives For more information, please contact: [phone] Documents on File Type Date Recorded 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 Advance Directives and Living Will [...] Agents on File Name Relationship Healthcare Agent [facility] p Communication Erin Tomasa Spouse Health Care Agent Arpita Birch Daughter Second Alternate Health C are Agent Sridevi Winters Daughter First Alternate Health Care Agent Sy Love Son Third Alternate Health Care Agent Care Teams Account Liaison Hospice Relationship Specialty Start Date End Date Santo Friedman MD [address] [place] [address] PCP - General Sports Medicine 04/06/22 Mert Pino MD [address] [place] [address] Assigned Heart and Vascular Provider 05/23/24
--- OUTSIDE RECORDS SUMMARY | 2024-07-01 13:33 | XMS_ITS | Encounter Summary ---
Author Organization [place] Address [facility] [place] [address] Care Team Providers Care Glass Breaker Name Role Phone Santo Friedman MD Primary Care Provider [phone] Mert Pino MD Unavailable [phone] Reason for Referral * CV Testing (Routine) - Closed Specialty Diagnoses / Procedures Referred By Contac t Referred To Contact Cardiology Diagnoses Chronic systolic heart failure (H) Ischemic cardiomyopathy Procedures Echocardiogram Complete ZZHC TTE W/DOPPLER, COMPLETE ZZHC ECHO COMPLETE W DOPPLER W CONTRAST ZZHC ECHO COMPLETE W DOPPLER W/O CONTRAST ZZHC IV PUSH SINGLE, INITIAL SUBSTANCE ZZHC US GUIDE FOR PERICARDIOCENTESIS ZZHC ECHO MYOCARD BX ZZC INJECTION, PERFLUTREN LIPID MICROSPHERES, PER ML ZZHC STATISTIC IV PUSH SINGLE INITIAL SUBSTANCE AR ECHO MYOCARD BX AR INJECTION, PERFLUTREN LIPID MICROSPHERES, PER ML AR TTE W/DOPPLER, COMPLETE AR IV PUSH SINGLE, INITIAL SUBSTANCE AR TTE W/DOPPLER, COMPLETE AR TTE W/DOPPLER, COMPLETE HC US GUIDE FOR PERICARDIOCENTESIS HC ECHO MYOCARD BX HC IV PUSH SINGLE, INITIAL SUBSTANCE HC STATISTIC IV PUSH SINGLE INITIAL SUBSTANCE HC ECHO COMPLETE W DOPPLER W CONTRAST HC ECHO COMPLETE W DOPPLER W/O CONTRAST Mert Pino MD [address] [facility] [address] [place] [address] Phone: tel: fax: [facility] [address] [facility] [address] [place] [address] Phone: tel: fax: Referral ID Status Reason Start Date Expiration Date Visits Re quested Visits Authorized [id number] Closed 04/23/2024 04/23/2025 1 1 D KILN BURNER Reason for Visit * CV Testing (Routine) - Closed Specialty Diagnoses / Procedures Referred By Contac t Referred To Contact Cardiology Diagnoses Chronic systolic heart failure (H) Ischemic cardiomyopathy Procedures Echocardiogram Complete ZZHC TTE W/DOPPLER, COMPLETE ZZHC ECHO COMPLETE W DOPPLER W CONTRAST ZZHC ECHO COMPLETE W DOPPLER W/O CONTRAST ZZHC IV PUSH SINGLE, INITIAL SUBSTANCE ZZHC US GUIDE FOR PERICARDIOCENTESIS ZZHC ECHO MYOCARD BX ZZC INJECTION, PERFLUTREN LIPID MICROSPHERES, PER ML ZZHC STATISTIC IV PUSH SINGLE INITIAL SUBSTANCE AR ECHO MYOCARD BX AR INJECTION, PERFLUTREN LIPID MICROSPHERES, PER ML AR TTE W/DOPPLER, COMPLETE AR IV PUSH SINGLE, INITIAL SUBSTANCE AR TTE W/DOPPLER, COMPLETE AR TTE W/DOPPLER, COMPLETE HC US GUIDE FOR PERICARDIOCENTESIS HC ECHO MYOCARD BX HC IV PUSH SINGLE, INITIAL SUBSTANCE HC STATISTIC IV PUSH SINGLE INITIAL SUBSTANCE HC ECHO COMPLETE W DOPPLER W CONTRAST HC ECHO COMPLETE W DOPPLER W/O CONTRAST Mert Pino MD [address] [place] [address] Phone: tel: fax: [facility] [address] [place] [address] [address] [place] [address] Phone: tel: fax: Referral ID Status Reason Start Date Expiration Date Visits Re quested Visits Authorized [id number] Closed 04/23/2024 04/23/2025 1 1 Encounter Details Date Type Department Care Team (Latest Contact Info) Description 05/25/2024 9:17 AM FIELD KILN BURNER - 05/25/2024 11:59 PM FIELD KILN BURNER Hospital Encounter [facility] [address] [place] [address] [address] [place] [address] Mert Pino MD [address] [place] [address] Chronic systolic heart failure (H); Ischemic cardiomyopathy Discharge Disposition: Home or Self Care Social [...] School Help Needed Not on file 04/07 Sex and Gender Information Value Date Recorded Sex Assigned at Male 11/02/2020 12:08 PM CDT Legal Sex Male 4:32 AM FIELD KILN BURNER Gender Identity Male 11/02/2020 12:08 PM CDT Sexual Orientation Straight 11/02/2020 12 :08 PM CDT documented as of this encounter Medications at Time of Discharge [...] 2 times daily. 180 tablet 3 4 tamsulosin (FLOMAX) 0.4 MG capsule Take 0.8 mg by mouth every evening. (2x0.4mg=0.8 mg) 3 9 sildenafil (VIAGRA) 100 MG tablet Take 100 mg by mouth daily as needed 8 06/22/20 24 documented as of this encounter Plan of Treatment Upcoming Encounters Date Type Department Care Team (Late st Contact Info) Description 07/14/2024 10:30 AM FIELD KILN BURNER Office Visit [facility] [place] [address] [place] [phone] Ila Baugh, HOG SCALDER [address] [place], [place] [address] 07/27/2024 Ancillary Procedure [facility] [address] [facility] [address] [place] [phone] Dieter Travis MD [address] [place], [place] [address] documented as of this encounter Procedures Procedure Name Priority Date/Time Associated Diagnosis Comments ECHO COMPLETE Routine 05/25/2024 9:40 AM FIELD KILN BURNER Chronic systolic heart failure (H) Ischemic cardiomyopathy documented in this encounter Results * ECHO COMPLETE (05/25/2024 9:40 AM FIELD KILN BURNER) LVEF 50-55% CARDIOLOGY RESULTS Anatomical Region Laterality Modality Echocardiography 05/25/2024 9:18 AM FIELD KILN BURNER Narrative 05/25/2024 10:53 AM FIELD KILN BURNER [id number]^ALVAREZ^MERT^SY [facility] Echocardiography Laboratory [address] [place] [address] Name: SHANNAN LOVE : 1945 Study Date: 05/25/2024 09:18 AM Age: 78 yrs Gender: Male Patient Location: [facility] Reason For Study: Chronic systolic heart failure [...] Procedure Note Francois Santos MD - 05/25/2024 [id number]^ALVAREZ^MERT^SY [facility] Echocardiography Laboratory [address] [place], [place] [address] Name: SHANNAN LOVE : 1945 Study Date: 05/25/2024 09:18 AM Age: 78 yrs Gender: Male Patient Location: [facility] Reason For Study: Chronic systolic heart failure [...] ECHO ORDERABLES Edited Res ult - Final documented in this encounter Visit Diagnoses Diagnosis Chronic systolic heart failure (H) Chronic systolic heart failure Ischemic cardiomyopathy Other specified forms of chronic ischemic heart disease documented in this encounter Care Teams Glass Breaker Relationship Specialty Start Date End Date Santo Friedman MD [address] [place] [address] PCP - General Sports Medicine 04/06/22 Mert Pino MD [address] [place] [address] Assigned Heart and Vascular Provider 05/23/24 documented as of this encounter
--- OUTSIDE RECORDS SUMMARY | 2024-07-01 13:33 | XMS_ITS | Encounter Summary ---
Author Organization [place] Address [facility] [place] [address] Care Team Providers Care Sleep Lab Technologist Name Role Phone Santo Friedman MD Primary Care Provider Siddhartha White MD Unavailable Encounter Details Date Type Department Care Team (Late st Contact Info) Description 05/26/2024 Telephone [facility] [place] [address] [facility] [address] [place] [address] Siddhartha White MD [address] [facility] [address] [place], [place] [address] Social History Tobacco Use Types Packs/Day Years [...] PM CDT Legal Sex Male 4:32 AM COCOA BEAN CLEANER Gender Identity Male 11/02/2020 12:08 PM CDT Sexual Orientation Straight 11/02/2020 12 :08 PM CDT documented as of this encounter Miscellaneous Notes * Telephone Encounter - Siddhartha White MD - 06/01/2024 4:53 PM CST The echocardiogram following our office visit looks great. Near normal left ventricular function and no significant valvular disease. This is reassuring. No new recommendations at this time. Siddhartha White MD A BEAN CLEANER * Telephone Encounter - Carlie Escobar RN - 05/26/2024 3:21 PM CST Echo post office visit: The left ventricle is normal in size. There is borderline concentric left ventricular hypertrophy. The visual ejection fraction is 50-55%. There is borderline global hypokinesia of the left ventricle. No significant valvular heart disease. Braydon Escobar RN A BEAN CLEANER documented in this encounter Plan of Treatment Upcoming Encounters Date Type Department Care Team (Late st Contact Info) Description 07/14/2024 10:30 AM COCOA BEAN CLEANER Office Visit [facility] [place] [address] [place] [address] Ila Baugh, MEDICARE NURSE [address] [place] [address] 07/27/2024 Ancillary Procedure [facility] [address] [facility] [address] [place] [phone] Dieter Travis MD [address] [place] [address] documented as of this encounter Visit Diagnoses Not on filedocumented in this encounter Care Teams Sleep Lab Technologist Relationship Specialty Start Date End Date Santo Friedman MD [address] [place] [address] PCP - General Sports Medicine 04/06/22 Siddhartha White MD [address] [place] [address] Assigned Heart and Vascular Provider 05/23/24 documented as of this encounter
--- OUTSIDE RECORDS SUMMARY | 2024-07-01 13:33 | XMS_ITS | Encounter Summary ---
Author Organization [place] Address [facility] [place] [address] Care Team Providers Care Wax Pattern Coater Name Role Phone Santo Friedman MD Primary Care Provider [phone] Siddhartha White MD Unavailable [phone] Reason for Visit * Reason Onset Date Comments Surgery Scheduling 05/27/2024 Encounter Details Date Type Department Care Team (Late st Contact Info) Description 05/27/2024 Telephone [facility] [place] [address] [place] [address] Toni Javier MD [address] [facility] [address] [place], [place] [address] Surgery Scheduling Social History Tobacco Use Types Packs/Day Years [...] PM CDT Legal Sex Male 4:32 AM TEST LEAD APPLICATION TESTING Gender Identity Male 11/02/2020 12:08 PM CDT Sexual Orientation Straight 11/02/2020 12 :08 PM CDT documented as of this encounter Miscellaneous Notes * Telephone Encounter - Meaghan Palencia - 06/01/2024 2:05 PM CST Reviewed updated surgery date/time with patient, informed Dr Javier as well as rep of the changes tosurgery date per the patient request. LEAD APPLICATION TESTING * Telephone Encounter - Meaghan Palencia - 06/01/2024 10:00 AM CST Reached out to OR middleware developer supervisor functional testing to discuss rescheduling patient for 06/29/24, called patientwith update and informed once surgery can be rescheduled and there is a new date/time typewriter operator automatic will contact patient to further review new surgery information. Patient verbalized understanding and will wait to further discuss. LEAD APPLICATION TESTING * Telephone Encounter - Ama Johnson - 06/01/2024 9:40 AM CST Patient called asking about the two days that were offered for his procedure. Patient is wondering if the 06/29/24 date is still available as he is having bad hip pain. Patient is trying to get an MRHip scheduled today. Patient is requesting a call back form surgery scheduling. LEAD APPLICATION TESTING * Telephone Encounter - Meaghan Palencia - 05/29/2024 1:37 PM CST After further review of dates/times, per discussion with Dr Javier patient is scheduled for 06/22/24. Called patient who was out to eat at the time, briefly reviewed the date/time and patient asked for surgery packet to be mailed to his home. Patient is also active on [employer] and will check the portal to further review surgery information. Informed patient to contact [facility] with further questions/concerns and encouraged him to call [facility] on 06/01/24 to review the surgery information. Mailed surgery packet to patient on 05/29/24. LEAD APPLICATION TESTING * Telephone Encounter - Meaghan Palencia - 05/27/2024 2:52 PM CST CASE RECEIVED ON 05/27/24 FOR:ENDOVASCULAR ABDOMINAL AORTIC ANEURYSM REPAIR WITH [employer] GRAFT VIA PERCUTANEOUS APPROACH Per Dr Javier discussion with patient the plan is to have the patient scheduled for 06/02/24, pre-opwas done in clinic by Ila Baugh on 05/27/24. Spoke to OR middleware developer and IR middleware developer, waiting approval from OR leadership on if the case can follow Dr Javier's scheduled surgery on 06/02/24. LEAD APPLICATION TESTING documented in this encounter Plan of Treatment Upcoming Encounters Date Type Department Care Team (Late st Contact Info) Description 07/14/2024 10:30 AM TEST LEAD APPLICATION TESTING Office Visit [facility] [place] [address] [place] [address] Ila Baugh, COMMUNITY OUTREACH WORKER [address] [place], [place] [address] 07/27/2024 Ancillary Procedure [facility] [address] [facility] [address] [place] [phone] Dieter Travis MD [address] [place] [address] documented as of this encounter Goals Goal [...] documented as of this encounter Care Teams Wax Pattern Coater Relationship Specialty Start Date End Date Santo Friedman MD [address] [place] [place] [address] PCP - General Sports Medicine 04/06/22 Siddhartha White MD [address] [place] [address] Assigned Heart and Vascular Provider 05/23/24 documented as of this encounter
--- OUTSIDE RECORDS SUMMARY | 2024-07-01 13:33 | XMS_ITS | Encounter Summary ---
Author Organization [place] Address [address] [place] [address]. 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 Gender Identity Male 11/02/2020 12:08 PM CDT Sexual Orientation Straight 11/02/2020 12 :08 PM CDT documented as of this encounter Plan of Treatment Upcoming Encounters Date Type Department Care Team (Late st Contact Info) Description 07/14/2024 10:30 AM ROCKET MOTOR MECHANIC Office Visit [facility] [place] [address] [phone] Ila Baugh, RETAIL AIDE [address] [place], [place] [address] 07/27/2024 Ancillary Procedure [facility] [address] [place] [phone] Dieter Travis MD [address] [place] [address] documented as of this encounter Goals Goal Patient Goal Type Associated Problems Recent Progress Patient-Stated? Author MYC ECC SURG ENROLL Care Plan MyC ECC SURG ENROLL No Lyndsey Nelson Care pathway for general surgery Care Plan Care pathway for general surgery [facility] MYC ECC SURG DAY 10 MED Care Plan Care pathway for general surgery No [facility] documented as of this encounter Visit Diagnoses Not on filedocumented in this encounter Additional Health Concerns Active Problems Noted Date Diagnosed Date MyC ECC SURG ENROLL 05/29/2024 Care pathway for general surgery 05/29/2024 documented as of this encounter Care Teams Cctv Technician Relationship Specialty Start Date End Date Santo Friedman MD [address] [place] [address] PCP - General Sports Medicine 04/06/22 Siddhartha White MD [address] [place] [address] Assigned Heart and Vascular Provider 05/23/24 documented as of this encounter
--- OUTSIDE RECORDS SUMMARY | 2024-07-01 13:33 | XMS_ITS | Encounter Summary ---
Author Organization [facility] Address [address] [place] [address] Care Team Providers Care Fashion Show Director Name Role Phone Santo Friedman MD Primary Care Provider [phone] Siddhartha White MD Unavailable [phone] Encounter Details Date Type Department Care Team (Late st Contact Info) Description 05/27/2024 [facility] [place] Advice [facility] [place] [id number] [facility] 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 [place] [phone] Ila Baugh NP [address] [place] [address] 07/27/2024 Ancillary Procedure [facility] [address] [facility] [address] [place] [phone] Dieter Travis MD [address] [place] [id number] documented as of this encounter Visit Diagnoses Not on filedocumented in this encounter Care Teams Fashion Show Director Relationship Specialty Start Date End Date Santo Friedman MD [address] [place] [phone] PCP - General Sports Medicine 04/06/22 Siddhartha White MD [address] [place] [id number] Assigned Heart and Vascular Provider 05/23/24 documented as of this encounter
--- OUTSIDE RECORDS SUMMARY | 2024-07-01 13:33 | XMS_ITS | Encounter Summary ---
Author Organization [place] Address [facility] [place] [address] Care Team Providers Care Geophysical Observer Name Role Phone aSnto Friedman MD Primary Care Provider [phone] Siddhartha White MD Unavailable [phone] Reason for Visit * Auth/Cert Specialty Diagnoses / Procedures Referred By Contac t Referred To Contact Surgery Diagnoses Abdominal aortic aneurysm (AAA) greater than 5.5 cm in diameter in male (H) Abdominal aortic aneurysm (AAA) greater than 5.5 cm in diameter in male (H) [I71.40] Procedures UT ENDVASC REPLACE AORTO-AORTIC ENDGFT; NON RUPTURE UT ENDVASC REPLACE AORTO-AORTIC ENDGFT; RUPTURE UT EVASC REPLACE [id number] ENDGFT; NON RUPTURE UT EVASC REPLACE [id number] ENDGFT; RUPTURE UT EVASC REPLACE [id number] ENDGFT; NON RUPTURE UT EVASC REPLACE [id number] ENDGFT; RUPTURE UT VISCER AND INFRARENAL ABDOM AORTA REPAIR,1 PROSTHESIS UT VISCER AND INFRARENAL ABDOM AORTA REPAIR,2 PROSTHESIS UT VISCER AND INFRARENAL ABDOM AORTA 3 PROSTHESIS UT VISCER AND INFRARENAL ABDOM AORTA REPAIR,4+ PROSTHESIS ENDOVASCULAR ABDOMINAL AORTIC ANEURYSM REPAIR WITH MEDTRONIC GRAFT VIA PERCUTANEOUS APPROACH [facility] [address] [place] [address]., [address] [place] [address] Phone: tel: Referral ID Status Reason Start Date Expiration Date Visits Re quested Visits Authorized [id number] 1 1 Encounter Details Date Type Department Care Team (Late st Contact Info) Description 06/29/2024 8:00 AM SUPERVISING BAILIFF Anesthesia Event M [facility] [address] [place] [phone] Liz Vera [place] [facility] [place] [place] [address] [place] [address] Anesthesia Record Procedure Summary Procedure Name Responsible Anesthesiologist Anesthesia Start Time Anesthesia Stop Time PERCUTANEOUS ACCESS AND CLOSURE OF BILATERAL FEMORAL ARTERIES / COIL EMBOLIZATION OF LEFT ACCESORY RENAL ARTERY WITH PENUMBA RICK 4MM X 15CM COIL AND ENDOVASCULAR ABDOMINAL AORTIC ANEURYSM REPAIR WITH MEDTRONIC GRAFT STENT (Abdomen) Liz Vera MD 06/29/24 0800 06/29/24 1057 Events Date Time Event Comment 06/29/2024 0706 CAT SWAMPER Ready for Procedure 0758 0800 An Start Anesthesia Star t is defined as when the anesthesia provider assumed care, began anesthesia prep, remained continuously present with the patient, and excludes all time for performing the pre-anesthesia evaluation. The Pre-Anesthesia Evaluation was completed before Anesthesia Start. 0803 An Start Data 0803 AN REASSESS I attest that I have identified and re-evaluated the patient immediately before the induction of anesthesia and I am satisfied that the anesthetic plan is suitable for the patient's condition and procedure. The first vital signs recorded are pre-induction. Fany Oro APRN CAT SWAMPER 0811 An Induction 0818 An Intubation 0821 Anesthesia Ready for Procedu re 0825 Quick Note Magnet placed 0903 Quick Note Magnet off. Gary ton scientific rep at bedside - pacemaker put in VOO mode and ICD OFF 1043 AN Extubation All extubation criteria met prior to removal. 1047 an stop data 1057 An Stop Electronically signed by Fany Oro APRN CAT SWAMPER on June 29, 2024 10:57 AM Meds Name Total fentaNYL 50 mcg/mL 100 mcg lidocaine 2% 100 mg propofol 10 mg/mL 170 mg phenylephrine (AYANNA-SYNEPHRINE) injection 500 mcg dexamethasone (DECADRON) 4 mg/mL 4 mg ondansetron 2 mg/mL 4 mg sugammadex (BRIDION) 200mg/2mL 200 mg phenylephrine 0.2 mg/mL (mcg/kg/min) dri p 2.79 mg ceFAZolin Sodium (ANCEF) injection 2 g 2 g vecuronium 1 mg/mL 12 mg norepinephrine bolus 6.4 mcg/mL 57.6 mcg heparin 1,000 units/mL 11,000 Units NORepinephrine 0.016 mg/mL infusion in N S 45 kg or greater 0.27 mg lidocaine 1% injection (Other) 2 mL protamine 10 mg/mL IV 40 mg lactated ringers infusion 1,300 mL * Agents Name O2 N2O Air Exp Sevoflurane Exp Isoflurane Exp Desflurane O2 Delivery Device Ins Sevoflurane Ins Isoflurane Ins Desflurane O2 Auxiliary * Blood No blood administrations on file. Lines, Drains, and Airways Type Details Placement Removal Incision/Surgical Site Incision; 4; 0855; Right; Groin 06/29/24 0855 by Becky Nolen RN Incision/Surgical Site Incision; 4; 0900; Left; Groin 06/29/24 0900 by Becky Nolen RN Peripheral IV 06/29/24; 0721; 18 G ; Left; Lower forearm; Chlorhexidine; Tolerated well 06/29/24 0721 by Cydney Baker RN 06/30/24 1408 by Jeremias Yeboah RN Peripheral IV 06/29/24; 0815; 14 G ; (Jelco); Right; Hand; 1 06/29/24 0815 by Fany Oro APRN CAT SWAMPER 06/29/24 195 by Ganesh Ken RN ETT Placement Date: 06/29/24; Placement Time: 817 (created via procedure documentation); Mask Ventilation: 1; Induction Type: Intravenous; Ease of Intubation: Easy; Technique: Direct laryngoscopy; Tube Size: 8 mm; DL Blade Size: Munoz 2; Grade View: 1; Adjucts: Stylet; Placement Person: CAT SWAMPER; Attempts: 1 06/29/24 0818 by Fany Oro APRN CAT SWAMPER 06/29/24 1043 by Fany Oro APRN CRNA Urethral Catheter 06/29/24; 0835; No; Surgical procedure; 16 fr 06/29/24 0835 by Becky Nolen RN 06/30/24 0900 by Jeremias Yeboah, ANÍBAL Arterial Line 06/29/24; 0941 (created via procedure documentation); 20; Right; Radial; Chlorhexidine; anesthesiologist; 06/29/24; 1200; No longer indicated 06/29/24 0941 by Liz Vera MD 06/29/24 1200 by John Wayne RN documented in this encounter Social History Tobacco Use Types Packs/Day Years [...] Date Recorded Do you have housing? (Jake g is defined as stable permanent housing and does not include staying ouside in a car, in a tent, in an abandoned building, in an overnight mcfp, or couch-surfing.) Yes 06/29/2024 Are you worried [...] PM CDT Legal Sex Male 4:32 AM SUPERVISING BAILIFF Gender Identity Male 11/02/2020 12:08 PM CDT Sexual Orientation Straight 11/02/2020 12 :08 PM CDT documented as of this encounter OR Notes * Anesthesia Postprocedure Evaluation - Liz Vera MD - 06/29/2024 12:47 PM CST Patient: Felix Cruz Procedure: Procedure(s): PERCUTANEOUS ACCESS AND CLOSURE OF BILATERAL FEMORAL ARTERIES / COIL EMBOLIZATION OF LEFT ACCESORY RENAL ARTERY WITH PENUMBA RICK 4MM X 15CM COIL AND ENDOVASCULAR ABDOMINAL AORTIC ANEURYSM REPAIR WITH MEDTRONIC GRAFT STENT Anesthesia Type: General Note: Disposition: Admission Postop Pain Control: Uneventful Sign Out: Well controlled pain PONV: No Neuro/Psych: Uneventful Sign Out: Acceptable/Baseline neuro status Airway/Respiratory: Uneventful Sign Out: Acceptable/Baseline resp. status CV/Hemodynamics: Uneventful Sign Out: Acceptable CV status; No obvious hypovolemia; No obvious fluid overload Other NRE: NONE DID A NON-ROUTINE EVENT OCCUR? No Last vitals: Vitals Value Taken Time BP 111/71 06/29/24 1245 Temp 36.9 ??C (98.4 ??F) 06/29/24 1215 Pulse 70 06/29/24 1246 Resp 15 06/29/24 1246 SpO2 99 % 06/29/24 1246 Vitals shown include unfiled device data. Electronically Signed By: Liz Vera MD June 29, 2024 12:47 PM RVISING BAILIFF * Anesthesia Procedure Notes - Liz Vera MD - 06/29/2024 9:40 AM SUPERVISING BAILIFF Associated Order(s): A Line Catheter Placement Arterial Line Procedure Note Pre-Procedure Staff - [...] Yes IBP within 10% of NIBP: Yes RVISING BAILIFF * Anesthesia Procedure Notes - Fany Oro APRN CAT SWAMPER - 06/29/2024 8:41 AM CSTAssociated Order(s): Airway Airway Patient location during procedure: OR Procedure Start/Stop Times: 06/29/2024 8:18 AM Staff - Anesthesiologist: Liz Vera MD CAT SWAMPER: Fany Oro APRN CAT SWAMPER Performed By: CAT SWAMPER Consent for Airway Urgency: elective Indications and [...] Administered Medication Administration Time: 06/29/2024 8:18 AM RVISING BAILIFF * Anesthesia Preprocedure Evaluation - Liz Vera MD - 06/29/2024 6:37 AM CST Anesthesia Pre-Procedure Evaluation Patient: Felix Cruz : 1945 Procedure : Procedure(s): ENDOVASCULAR ABDOMINAL AORTIC ANEURYSM REPAIR WITH MEDTRONIC GRAFT VIA PERCUTANEOUS APPROACH Past Medical History: Diagnosis Date Atrial flutter (H) 09/30/15 Coronary artery disease s/p EDGAR to ramus and LAD 2003, s/p CABG 2013 (CARVAJAL to LAD, SVG to OM1 and OM3, SVG to D1) History of cardioversion 12/11/2016 120 joules successful History of diabetes mellitus watching; borderline Hyperlipidemia Hypertension Nocturia Paroxysmal atrial fibrillation (H) 12/2010? s/p MAZE procedure and L atrial appendage clipping, 2013 S/P ablation of atrial fibrillation 09/06/2016 Shortness of breath Past Surgical History: Procedure Laterality Date ANESTHESIA CARDIOVERSION N/A 12/11/2016 Procedure: ANESTHESIA CARDIOVERSION; ANESTHESIA CARDIOVERSION ; Surgeon: GENERIC ANESTHESIA PROVIDER; Location: OR ANESTHESIA CARDIOVERSION N/A 03/11/2019 Procedure: ANESTHESIA, FOR CARDIOVERSION (DR. Matti COOK); Surgeon: GENERIC ANESTHESIA PROVIDER; Location: OR ANESTHESIA CARDIOVERSION N/A 05/27/2019 Procedure: ANESTHESIA, FOR CARDIOVERSION and MARTELL (DR ISRAEL JAMES DO); Surgeon: GENERIC ANESTHESIA PROVIDER; Location: OR [...] Angiogram Graft; Surgeon: Emmie Gilbert MD; Location: [facility] CARDIAC TRAFFIC SIGNAL SUPERVISOR MAINTENANCE CV CORONARY ANGIOGRAM N/A 04/27/2022 Procedure: Coronary Angiogram; Surgeon: Emmie Gilbert MD; Location: [facility] CARDIAC CATHLAB EP ABLATION ATRIAL FLUTTER N/A 10/06/2019 Procedure: Ablation Atrial Flutter; Surgeon: Dieter Travis MD; Location: HEART CARDIAC TRAFFIC SIGNAL SUPERVISOR MAINTENANCE EP ABLATION AV NODE N/A 10/15/2019 Procedure: EP Ablation AV Node; Surgeon: Dieter Travis MD; Location: HEART CARDIAC TRAFFIC SIGNAL SUPERVISOR MAINTENANCE EP ABLATION FOCAL AFIB N/A 08/31/2019 Procedure: EP Ablation Focal AFIB; Surgeon: Dieter Travis MD; Location: HEART CARDIAC TRAFFIC SIGNAL SUPERVISOR MAINTENANCE EP INSERT ICD N/A 02/25/2023 Procedure: Biventricular ICD; Surgeon: Milton Roblero MD; Location: HEART CARDIAC TRAFFIC SIGNAL SUPERVISOR MAINTENANCE EP PACEMAKER Left 10/06/2019 Procedure: EP Pacemaker; Surgeon: Dieter Travis MD; Location: HEART CARDIAC TRAFFIC SIGNAL SUPERVISOR MAINTENANCE EP PERM PACER SINGLE LEAD N/A 10/15/2019 Procedure: EP PERM PACER SINGLE LEAD; Surgeon: Dieter Travis MD; Location: HEART CARDIAC TRAFFIC SIGNAL SUPERVISOR MAINTENANCE H ABLATION ATRIAL FLUTTER Right 10/13/2015 (CTI) H ABLATION ATRIAL FLUTTER Left 09/06/2016 atypical H ABLATION FOCAL AFIB 02/09/16 Third ablation 09-06-2016 HEART CATH, ANGIOPLASTY 2003 PTCA with intracoronary stent placement of, proximal LAD and Ramus intermedius LEFT ATRIAL APPENDAGE LIGATION 11/10/13/repeated 02/09/2016 MAZE PROCEDURE 11/10/2013 Procedure: MAZE PROCEDURE; Surgeon: Hitesh Chery MD; Location: OR Allergies Allergen Reactions Amiodarone Per pt states hyperthroidism. Oxycodone GI Disturbance Social History Tobacco Use Smoking status: Former Current packs/day: 0.00 Average packs/day: 1.5 packs/day for 20.4 years (30.5 ttl pk-yrs) Types: Cigarettes Start date: 1963 Quit date: 11/11/1983 Years since quittin.6 Smokeless tobacco: Never Substance Use Topics Alcohol use: Yes Comment: one glass every 3 days Wt Readings from Last 1 Encounters: 04/23/24 101 kg (222 lb 9.6 oz) Anesthesia Evaluation Pt has had prior anesthetic. No history of anesthetic complications ROS/MED HX ENT/Pulmonary: (-) asthma and recent URI Neurologic: (-) no seizures, no CVA and no TIA Cardiovascular: Comment: infrarenal abdominal aortic aneurysm (6.1 x 5 cm with moderate mural thrombus) with accessory left renal artery SLASH TRIMMER-D Device Check: BiVP: 100 % Mode: VVIR 70 Underlying Rhythm: AF w CHB and no JE at VVI 30 Heart Rate: 70-90 but primarily 70s. Denies SOB Sensing: unable to assess. AF and paced at VVI 30 (+) Dyslipidemia hypertension- Peripheral Vascular Disease- CAD - CABG- stent- CHF ICD (SLASH TRIMMER-D) dysrhythmias, a-fib and a-flutter, Previous cardiac testing Echo: Date: 05/2024 Results: Interpretation Summary The left ventricle is normal in size. There is borderline concentric left ventricular hypertrophy. The visual ejection fraction is 50-55%. There is borderline global hypokinesia of the left ventricle. No significant valvular heart disease. Stress Test: Date: Results: ECG Reviewed: Date: Results: Cath: Date: Results: (-) BLANCO METS/Exercise Tolerance: 3 - Able to walk 1-2 blocks without stopping Comment: 2/2 RIGHT sciatica pain. Hematologic: Musculoskeletal: GI/Hepatic: (-) GERD and liver disease Renal/Genitourinary: (-) renal disease Endo: (+) Obesity (BMI 30), (-) thyroid disease Psychiatric/Substance Use: Infectious Disease: (-) Recent Fever Malignancy: Other: Physical Exam Airway Mallampati: I TM distance: > 3 FB Neck ROM: full Mouth opening: > 3 cm Respiratory Devices and Support Dental (+) Minor Abnormalities - some fillings, tiny chips Cardiovascular Rhythm and rate: regular and normal Pulmonary breath sounds clear to auscultation OUTSIDE LABS: CBC: Lab Results Component Value Date WBC 6.1 02/25/2023 WBC 6.4 04/27/2022 HGB 14.6 04/23/2024 HGB 15.1 10/21/2023 HCT 42.2 02/25/2023 HCT 44.2 04/27/2022 PLT 162 02/25/2023 PLT 178 04/27/2022 BMP: Lab Results Component Value Date NA 143 04/23/2024 NA 142 10/21/2023 POTASSIUM 4.8 04/23/2024 POTASSIUM 4.6 10/21/2023 CHLORIDE 106 04/23/2024 CHLORIDE 106 10/21/2023 CO2 31 (H) 04/23/2024 CO2 25 10/21/2023 BUN 11.9 04/23/2024 BUN 15.9 10/21/2023 CR 0.98 04/23/2024 CR 0.94 10/21/2023 GLC 130 (H) 04/23/2024 GLC 138 (H) 10/21/2023 COAGS: Lab Results Component Value Date PTT 27 04/27/2022 INR 1.05 04/27/2022 FIBR 197 (L) 11/10/2013 POC: Lab Results Component Value Date BGM 125 (H) 09/01/2019 HEPATIC: Lab Results Component Value Date ALBUMIN 4.3 04/23/2024 PROTTOTAL 6.8 04/23/2024 ALT 25 04/23/2024 AST 17 04/23/2024 ALKPHOS 79 04/23/2024 BILITOTAL 0.7 04/23/2024 OTHER: Lab Results Component Value Date PH 7.46 (H) 11/12/2013 A1C 6.8 (H) 11/11/2013 CHEPE 9.3 04/23/2024 MAG 2.4 (H) 08/21/2019 TSH 1.64 11/12/2022 T4 0.85 04/29/2019 Anesthesia Plan ASA Status: 3 NPO Status: NPO Appropriate Anesthesia Type: General. - Airway: ETT Induction: Intravenous, Propofol. Maintenance: Balanced. Techniques and Equipment: - Lines/Monitors: 2nd IV, Arterial Line Consents Anesthesia Plan(s) and associated risks, benefits, and realistic alternatives discussed. Questions answered and patient/accounting representative(s) expressed understanding. - Discussed: Risks, Benefits and Alternatives for the PROCEDURE were discussed - Discussed with: Patient, Spouse Postoperative Care Pain management: IV analgesics, Oral pain medications, Multi-modal analgesia. PONV prophylaxis: Ondansetron (or other 5HT-3), Dexamethasone or Solumedrol, Background Propofol Infusion Comments: Liz Vera MD I have reviewed the pertinent notes and labs in the chart from the past 30 days and (re)examined the patient. Any updates or changes from those notes are reflected in this note. # Drug Induced Platelet Defect: home medication list includes an antiplatelet medication # Hypertension: Noted on problem list # Heart failure with preserved ejection fraction: EF >50% and home medication list includes sacubitril/valsartan (Entresto) # ICD device present # Pacemaker present # History of CABG: noted on surgical history RVISING BAILIFF RVISING BAILIFF documented in this encounter Miscellaneous Notes * Anesthesia Care Transfer Note - Fany Oro APRN CRNA - 06/29/2024 10:57 AM CST Patient: Felix Cruz Procedure: Procedure(s): PERCUTANEOUS ACCESS AND CLOSURE OF BILATERAL FEMORAL ARTERIES / COIL EMBOLIZATION OF LEFT ACCESORY RENAL ARTERY WITH PENUMBA RICK 4MM X 15CM COIL AND ENDOVASCULAR ABDOMINAL AORTIC ANEURYSM REPAIR WITH MEDTRONIC GRAFT STENT Diagnosis: Abdominal aortic aneurysm (AAA) greater than 5.5 cm in diameter in male (H) [I71.40] Diagnosis Additional Information: No value filed. Anesthesia Type: General Note: Oropharynx: oropharynx clear of all foreign objects and spontaneously breathing Level of Consciousness: awake Oxygen Supplementation: face mask Level of Supplemental Oxygen (L/min / FiO2): 6 Independent Airway: airway patency satisfactory and stable Dentition: dentition unchanged Vital Signs Stable: post-procedure vital signs reviewed and stable Report to RN Given: handoff report given Patient transferred to: PACU Handoff Report: Identifed the Patient, Identified the Reponsible Provider, Reviewed the pertinent medical history, Discussed the surgical course, Reviewed Intra-OP anesthesia mangement and issues during anesthesia, Set expectations for post-procedure period and Allowed opportunity for questions andacknowledgement of understanding Vitals: Vitals Value Taken Time BP Temp Pulse 70 06/29/24 1056 Resp 11 06/29/24 1056 SpO2 100 % 06/29/24 1056 Vitals shown include unfiled device data. Electronically Signed By: Fany Oro APRN CRNA June 29, 2024 10:57 AM RVISING BAILIFF documented in this encounter Plan of Treatment Upcoming Encounters Date Type Department Care Team (Late st Contact Info) Description 07/14/2024 10:30 AM SUPERVISING BAILIFF Office Visit [facility] [place] [address] [place] [phone] Ila Baugh, DOOR ATTENDANT [address] [place] [address] 07/27/2024 Ancillary Procedure [facility] [address] [facility] [address] [place] [phone] Dieter Travis MD [address] [place] [id number] documented as of this encounter Goals Goal Patient Goal Type Associated Problems Recent Progress Patient-Stated? Author MYC ECC SURG ENROLL Care Plan MyC ECC SURG ENROLL No Lyndsey Nelson Care pathway for general surgery Care Plan Care pathway for general surgery No Kavon Maxwell [facility] ECC SURG DAY 10 MED Care Plan Care pathway for general surgery No Kavon Maxwell documented as of this encounter Procedures Procedure Name Priority Date/Time Associated Diagnosis Comments ANE AIRWAY ETT PERFORMABLE Routine 06/29/2024 8:18 AM SUPERVISING BAILIFF FV AN A-LINE DUMMY PERFORMABLE Routine 06/29/2024 7:51 AM SUPERVISING BAILIFF documented in this encounter Results * ANE AIRWAY ETT PERFORMABLE (06/29/2024 8:18 AM SUPERVISING BAILIFF) Narrative Fany Oro APRN CRNA - 06/29/2024 8:18 AM SUPERVISING BAILIFF Fany Oro APRN CRNA 06/29/2024 8:43 AM Airway Patient location during procedure: OR Procedure Start/Stop Times: 06/29/2024 8:18 AM Staff - Anesthesiologist: Liz Vera MD CAT SWAMPER: Fany Oro APRN CAT SWAMPER Performed By: CAT SWAMPER Consent for Airway Urgency: elective Indications and [...] 06/29/2024 8:18 AM us Liz Vera MD UT ANESTHESIA Final Res ult * FV AN A-LINE DUMMY PERFORMABLE (06/29/2024 7:51 AM SUPERVISING BAILIFF) Narrative Liz Vera MD - 06/29/2024 7:51 AM SUPERVISING BAILIFF Liz Vera MD 06/29/2024 9:41 AM Arterial [...] of NIBP: Yes us Liz Vera MD [place] ANESTHESIA Final Res ult documented in this encounter Visit Diagnoses Not on filedocumented in this encounter Administered Medications Inactive Administered Medications - up to 3 most recent administrations Medication Order MAR Action Action Date Dose Rate Site ceFAZolin Sodium (ANCEF) injection 2 g Routine, 2 g, Intravenous, PRE-OP/PRE-PROCEDURE, Starting on Sat06/29/24 at 0618, For 1 dose, Give first dose within 1 hour PRIOR to incision. If patient weight is greater than or equal to 120 kg increase dose to 3 g., Indications: Perioperative Pharmacoprophylaxis, Pre-procedureIndications:Perioperat clarke Pharmacoprophylaxis $Given 06/29/2024 8:11 AM SUPERVISING BAILIFF 2 g dexAMETHasone (DECADRON) injection Intravenous, PRN, Administer over 1 Minutes, Starting on Sat06/29/24 at 0839, Anesthesia Intra-op $Given 06/29/2024 8:39 AM SUPERVISING BAILIFF 4 mg fentaNYL (PF) (SUBLIMAZE) injection Intravenous, PRN, Administer over 3-5 Minutes, Starting on Sat06/29/24 at 0811, Anesthesia Intra-op $Given 06/29/2024 10:27 AM SUPERVISING BAILIFF 50 mcg $Given 06/29/2024 8:11 AM SUPERVISING BAILIFF 50 mcg heparin Intravenous, PRN, Starting on Sat06/29/24 at 0912, Anesthesia Intra-op $Given 06/29/2024 9:41 AM SUPERVISING BAILIFF 1,0 00 Units $Given 06/29/2024 9:26 AM SUPERVISING BAILIFF 5,000 Units $Given 06/29/2024 9:12 AM SUPERVISING BAILIFF 5,000 Units lactated ringers infusion at 10 mL/hr, Intravenous, CONTINUOUS, Pre-procedure, Starting on Sat06/29/24 at 0630, Until Sat06/29/24 at 1050 $New Bag 06/29/2024 9:26 AM SUPERVISING BAILIFF Restarted 06/29/2024 8:00 AM SUPERVISING BAILIFF $New Bag 06/29/2024 7:22 AM SUPERVISING BAILIFF 10 mL/hr lidocaine 1 % injection Other, ONCE PRN WITHIN 24 HRS, Starting on Sat06/29/24 at 0751, For 1 dose, Anesthesia Intra-op $Given 06/29/2024 7:51 AM SUPERVISING BAILIFF 2 mLs lidocaine 2% injection (MDV) Intravenous, PRN, Starting on Sat06/29/24 at 0811, Anesthesia Intra-op $Given 06/29/2024 8:11 AM SUPERVISING BAILIFF 100 mg norepinephrine bolus 6.4 mcg/mL Intravenous, CONTINUOUS PRN, Starting on Sat06/29/24 at 0903, Anesthesia Intra-op $Bolus 06/29/2024 9:47 AM SUPERVISING BAILIFF 6.4 mcg $Bolus 06/29/2024 9:30 AM SUPERVISING BAILIFF 6.4 mcg $Bolus 06/29/2024 9:26 AM SUPERVISING BAILIFF 6.4 mcg norepinephrine (LEVOPHED) 4 mg in NS 250 mL infusion PREMIX Intravenous, CONTINUOUS PRN, Starting on Sat06/29/24 at 0919, Anesthesia Intra-op Rate/Dose Change 06/29/2024 10:20 AM SUPERVISING BAILIFF 0.02 mcg/kg/min 7.073 mL/hr Rate/Dose Change 06/29/2024 9:30 AM SUPERVISING BAILIFF 0.05 mcg/kg/min 17 .681 mL/hr Rate/Dose Change 06/29/2024 9:24 AM SUPERVISING BAILIFF 0.04 mcg/kg/min 14 .145 mL/hr ondansetron (ZOFRAN) injection Intravenous, PRN, Administer over 2-5 Minutes, Starting on Sat06/29/24 at 1009, Anesthesia Intra-op $Given 06/29/2024 10:09 AM SUPERVISING BAILIFF 4 mg phenylephrine (AYANNA-SYNEPHRINE) injection Intravenous, CONTINUOUS PRN, Starting on Sat06/29/24 at 0813, Anesthesia Intra-op $Bolus 06/29/2024 9:01 AM SUPERVISING BAILIFF 200 mcg $Bolus 06/29/2024 8:56 AM SUPERVISING BAILIFF 100 mcg $Bolus 06/29/2024 8:16 AM SUPERVISING BAILIFF 100 mcg phenylephrine 0.2 mg/mL (mcg/kg/min) drip Intravenous, CONTINUOUS PRN, Starting on Sat06/29/24 at 0829, Anesthesia Intra-op Rate/Dose Change 06/29/2024 8:56 AM SUPERVISING BAILIFF 0.7 mcg/kg/min 19.803 mL/hr $New Bag 06/29/2024 8:29 AM SUPERVISING BAILIFF 0.5 mcg/kg/min 14.145 mL /hr propofol (DIPRIVAN) injection 10 mg/mL vial Intravenous, PRN, Starting on Sat06/29/24 at 0811, Anesthesia Intra-op $Given 06/29/2024 8:11 AM SUPERVISING BAILIFF 170 mg protamine injection Intravenous, PRN, Starting on Sat06/29/24 at 1016, Anesthesia Intra-op $Given 06/29/2024 10:26 AM SUPERVISING BAILIFF 20 mg $Given 06/29/2024 10:16 AM SUPERVISING BAILIFF 20 mg sugammadex (BRIDION) injection Intravenous, PRN, Starting on Sat06/29/24 at 1041, Anesthesia Intra-op $Given 06/29/2024 10:41 AM SUPERVISING BAILIFF 200 mg vecuronium (NORCURON) injection Intravenous, PRN, Starting on Sat06/29/24 at 0813, Anesthesia Intra-op $Given 06/29/2024 9:23 AM SUPERVISING BAILIFF 4 mg $Given 06/29/2024 8:16 AM SUPERVISING BAILIFF 4 mg $Given 06/29/2024 8:13 AM SUPERVISING BAILIFF 4 mg documented in this encounter Additional Health Concerns Active Problems Noted Date Diagnosed Date MyC ECC SURG ENROLL 05/29/2024 Care pathway for general surgery 05/29/2024 documented as of this encounter Care Teams Geophysical Observer Relationship Specialty Start Date End Date Santo Friedman MD [address] [place] [address] PCP - General Sports Medicine 04/06/22 Siddhartha White MD [address] [place] [address] Assigned Heart and Vascular Provider 05/23/24 documented as of this encounter
--- OUTSIDE RECORDS SUMMARY | 2024-07-01 13:33 | XMS_ITS | Encounter Summary ---
Author Organization [place] Address [facility] [place] [address] Care Team Providers Care Chiller Technician Name Role Phone Santo Friedman MD Primary Care Provider [phone] Siddhartha White MD Unavailable [phone] Reason for Referral * Therapeutic Imaging/IR (Routine) - Closed Specialty Diagnoses / Procedures Referred By Contac t Referred To Contact Radiology. Diagnoses Abdominal aortic aneurysm (AAA) greater than 5.5 cm in diameter in male (H) Procedures IR Abdominal Endovascular Stent Graft Toni Javier MD [address] [place] [address] Phone: tel: fax: Referral ID Status Reason Start Date Expiration Date Visits Re quested Visits Authorized [id number] Closed 05/27/2024 05/27/2025 1 1 RACTS ADVISOR Reason for Visit * Reason Comments Follow Up CTA done 05/20/24; H istory AAA- follow up to 08/13/23 office visit with Ila Baugh NP. Recent lumbar xray with [facility] everywhere showing growth to 6.8 Encounter Details Date Type Department Care Team (Late st Contact Info) Description 05/27/2024 1:20 PM CONTRACTS ADVISOR Office Visit [facility] [place] [address] [place] [phone] Toni Javier MD [address] [place] [place] [address] Abdominal aortic aneurysm (AAA) greater than 5.5 cm in diameter in male (H) (Primary Dx); History of pacemaker Social History Tobacco Use Types Packs/Day Years [...] PM CDT Legal Sex Male 4:32 AM CONTRACTS ADVISOR Gender Identity Male 11/02/2020 12:08 PM CDT Sexual Orientation Straight 11/02/2020 12 :08 PM CDT documented as of this encounter Last Filed Vital Signs Vital Sign Reading Time Taken Comments Blood Pressure 111/75 05/27/2024 1:28 PM CONTRACTS ADVISOR Pulse 79 05/27/2024 1:28 PM CONTRACTS ADVISOR Temperature - - Respiratory Rate - - Oxygen Saturation 99% 05/27/2024 1:28 PM CONTRACTS ADVISOR Inhaled Oxygen Concentration - - Weight - - Height - - Body Mass Index - - documented in this encounter Progress Notes * Milagros Arriaga RN - 05/27/2024 1:20 PM CST [facility] Patient is here for a follow up to discuss CTA done 05/20/24; History AAA- follow up to 08/13/23 office visit with Ila Baugh NP. Recent lumbar xray with [facility] everywhere showing growth to 6.8 Pt is currently taking Aspirin. BP 111/75 (BP Location: Left arm, Patient Position: Sitting) Pulse 79 SpO2 99% The provider has been notified that the patient Concerned about 6.1 sized aneurysm. Questions patient would like addressed today are: see above. Refills are needed: No Has homecare services and agency name: No RACTS ADVISOR * Toni Javier MD - 05/27/2024 1:20 PM CST Felix Cruz is a 78-year-old gentleman with metabolic syndrome and a significant cardiac history. He is status post CABG in 2013. He has undergone prior procedures for atrial fibrillation. I havefollowed him for the past 5 years for an enlarging AAA with mild left common iliac ectasia. He is aformer smoker with a 08-lwpp-terd history who quit smoking in 1983. There is no familial history ofaneurysmal disease. At today's visit his only complaint is that of some chronic, worsening right hip pain. He considershimself to be fairly active although recently his activities have been limited by his hip pain. Since I last saw him he has had placement of a pacemaker/defibrillator. Echocardiogram in March 2023 showed mild improvement in EF at 40-45%. Exam: Well-developed male alert and oriented x 3. Blood pressure 111/75 with pulse of 79. O2 sat 99% on room air. Abdomen benign 2+ palpable DP pulses bilaterally. Imaging: Results of CTA 05/20/2024: IMPRESSION: 1. Infrarenal abdominal aortic aneurysm measuring [...] for most definitive evaluation. JAMES LAWSON MD ASSESSMENT: 1. 6.1 cm infrarenal AAA with ectatic 21 mm distal left common iliac artery and an accessory left renal artery. 2. History of CABG in 2013. 3. Status post pacemaker/defibrillator. 4. Cardiomyopathy with EF 40-45%. RECOMMENDATION: I reviewed all the above with Felix. I recommend repair. Given his cardiac comorbidities I recommend EVAR. He will likely require embolization of his accessory left renal artery. All of his questionswere answered and he verbalizes full understanding to the above. He will be scheduled for an EVAR utilizing a [employer] device in the coming weeks here at [facility]. Total length of this encounter was 30 minutes with time spent reviewing studies, interviewing and examining the patient, answering questions, and coordinating a treatment plan. Alexx Javier MD RACTS ADVISOR documented in this encounter Plan of Treatment Upcoming Encounters Date Type Department Care Team (Late st Contact Info) Description 07/14/2024 10:30 AM CONTRACTS ADVISOR Office Visit [facility] [place] [address] [place] [phone] Ila Baugh, BANKING SUPERVISOR [address] [place], [place] [phone] 07/27/2024 Ancillary Procedure [facility] [address] [facility] [address] [place] [phone] Dieter Travis MD [address] [place] [address] Pending Results Name Type Priority Associated Diagnoses Date /Time IR Abdominal Endovascular Stent Graft Imaging Routine Abdominal aortic aneurysm (AAA) greater than 5.5 cm in diameter in male (H) 06/29/2024 10:12 AM CONTRACTS ADVISOR Scheduled Orders Name Type Priority Associated Diagnoses Orde r Schedule IR Abdominal Endovascular Stent Graft Imaging Routine Abdominal aortic aneurysm (AAA) greater than 5.5 cm in diameter in male (H) Expected: 05/27/2024 (Approximate), Expires: 05/27/2025 documented as of this encounter Visit Diagnoses Diagnosis Abdominal aortic aneurysm (AAA) greater than 5.5 cm in diameter in male (H)- Primary History of pacemaker Personal history of unspecified circulatory disease documented in this encounter Care Teams Chiller Technician Relationship Specialty Start Date End Date Santo Friedman MD [address] [place] [address] PCP - General Sports Medicine 04/06/22 Siddhartha White MD [address] [place] [address] Assigned Heart and Vascular Provider 05/23/24 documented as of this encounter
--- OUTSIDE RECORDS SUMMARY | 2024-07-01 13:33 | XMS_ITS | Encounter Summary ---
Author Organization [place] Address [facility] [place] [address] Care Team Providers Care Dealer Account Manager Name Role Phone Santo Friedman MD Primary Care Provider [phone] Siddhartha White MD Unavailable [phone] Encounter Details Date Type Department Care Team (Latest Contact Info) Description 05/24/2024 Travel Social History Tobacco Use Types Packs/Day Years [...] PM CDT Legal Sex Male 4:32 AM BRAIDER OPERATOR Gender Identity Male 11/02/2020 12:08 PM CDT Sexual Orientation Straight 11/02/2020 12 :08 PM CDT documented as of this encounter Plan of Treatment Upcoming Encounters Date Type Department Care Team (Late st Contact Info) Description 07/14/2024 10:30 AM BRAIDER OPERATOR Office Visit [facility] [place] [address] [phone] Ila Baugh NP [address] [place] [address] 07/27/[address] [facility] [address] [place] [phone] Dieter Travis MD [address] [place] [phone] documented as of this encounter Visit Diagnoses Not on filedocumented in this encounter Care Teams Dealer Account Manager Relationship Specialty Start Date End Date Santo Friedman MD [address] [place] [address] PCP - General Sports Medicine 04/06/22 Siddhartha White MD [address] [place] [id number] Assigned Heart and Vascular Provider 05/23/24 documented as of this encounter
--- OUTSIDE RECORDS SUMMARY | 2024-07-01 13:33 | XMS_ITS | Encounter Summary ---
Author Organization [place] Address [facility] [place] [address] Care Team Providers Care College Or [employer] Faculty Member Name Role Phone Santo Friedman MD Primary Care Provider [phone] Roro Herrera Unavailable Encounter Details Date Type Department Care Team (Latest Contact Info) Description 05/20/2024 Travel Social History Tobacco Use Types Packs/Day [...] PM CDT Legal Sex Male 4:32 AM CHEMOTHERAPIST Gender Identity Male 11/02/2020 12:08 PM CDT Sexual Orientation Straight 11/02/2020 12 :08 PM CDT documented as of this encounter Plan of Treatment Upcoming Encounters Date Type Department Care Team (Late st Contact Info) Description 07/14/2024 10:30 AM CHEMOTHERAPIST Office Visit [facility] [place] [address] [place] [phone] Ila Baugh, REPAIRER FINISHED METAL [address] [place] [address] 07/27/2024 Ancillary Procedure [facility] [address] [place] [phone] Dieter Travis MD [address] [place] [id number] documented as of this encounter Visit Diagnoses Not on filedocumented in this encounter Care Teams [employer] Faculty Member Relationship Specialty Start Date End Date Santo Friedman MD [address] [place] [address] PCP - General Sports Medicine 04/06/22 Roro Herrera PA [facility] [address] [place] [phone] Assigned Heart and Vascular Provider 11/03/22 05/22/24 documented as of this encounter
--- OUTSIDE RECORDS SUMMARY | 2024-07-01 13:33 | XMS_ITS | Encounter Summary ---
Author Organization [place] Address [facility] [place] [address] Care Team Providers Care Rubber Engraver Name Role Phone Santo Friedman MD Primary Care Provider [phone] Siddhartha White MD Unavailable [phone] Encounter Details Date Type Department Care Team (Latest Contact Info) Description 05/27/2024 Travel Social History Tobacco Use Types Packs/Day [...] PM CDT Legal Sex Male 4:32 AM PIPE STEM ALIGNER Gender Identity Male 11/02/2020 12:08 PM CDT Sexual Orientation Straight 11/02/2020 12 :08 PM CDT documented as of this encounter Plan of Treatment Upcoming Encounters Date Type Department Care Team (Late st Contact Info) Description 07/14/2024 10:30 AM PIPE STEM ALIGNER Office Visit [facility] [place] [address] [phone] Ila Baugh NP [address] [place] [address] 07/27/2024 Ancillary Procedure [facility] [address] [place] [phone] Dieter Travis MD [address] [place] [phone] documented as of this encounter Visit Diagnoses Not on filedocumented in this encounter Care Teams Rubber Engraver Relationship Specialty Start Date End Date Santo Friedman MD [address] [place] [address] PCP - General Sports Medicine 04/06/22 Siddhartha White MD [address] [place] [phone] Assigned Heart and Vascular Provider 05/23/24 documented as of this encounter
--- OUTSIDE RECORDS SUMMARY | 2024-07-01 13:33 | XMS_ITS | Encounter Summary ---
Author Organization [place] Address [address] [place] [address] Care Team Providers Care Specialist Icu Name Role Phone Santo Friedman MD Primary Care Provider [phone] Roro Herrera Unavailable Siddhartha White MD Unavailable [phone] Encounter Details Date Type Department Care Team (Late st Contact Info) Description 05/20/2024 Medical Correspondence [facility] Information Management [address] [facility] [address] [place] [address] Scan, Non-Provider Social History Tobacco Use Types Packs/Day Years [...] PM CDT Legal Sex Male 4:32 AM CULINARY INSTRUCTOR Gender Identity Male 11/02/2020 12:08 PM CDT Sexual Orientation Straight 11/02/2020 12 :08 PM CDT documented as of this encounter Plan of Treatment Upcoming Encounters Date Type Department Care Team (Late st Contact Info) Description 07/14/2024 10:30 AM CULINARY INSTRUCTOR Office Visit [facility] [place] [address] [place] [phone] Ila Baugh NP [address] [place] [address] 07/27/2024 Ancillary Procedure [facility] [address] [facility] [address] [place] [phone] Dieter Travis MD [address] [place] [address] documented as of this encounter Visit Diagnoses Not on filedocumented in this encounter Care Teams Specialist Icu Relationship Specialty Start Date End Date Santo Friedman MD [address] [place] [address] PCP - General Sports Medicine 04/06/22 Roro Herrera PA [facility] [address] [place] [id number] Assigned Heart and Vascular Provider 11/03/22 05/22/24 Siddhartha White MD [address] [place] [address] Assigned Heart and Vascular Provider 05/23/24 documented as of this encounter
--- OUTSIDE RECORDS SUMMARY | 2024-07-01 13:33 | XMS_ITS | Encounter Summary ---
Author Organization [place] Address [facility] [place] [address] Care Team Providers Care Supplier Specialist Name Role Phone Santo Friedman MD Primary Care Provider [phone] Siddhartha White MD Unavailable Encounter Details Date Type Department Care Team (Late st Contact Info) Description 05/27/2024 Prep for Procedure [facility] [place] [id number] [place] [phone] Ila Baugh, DIRECT SUPPORT STAFF [address] [place], [place] [address] Social History Tobacco Use Types Packs/Day Years [...] PM CDT Legal Sex Male 4:32 AM PARTS CONSULTANT Gender Identity Male 11/02/2020 12:08 PM CDT Sexual Orientation Straight 11/02/2020 12 :08 PM CDT documented as of this encounter Progress Notes * Ila Baugh NP - 05/27/2024 2:05 PM CST Images from the original note were not included. Preoperative Evaluation [facility] [place] [address] [place] [phone] Primary Provider: Santo Friedman MD Pre-op Performing Provider: Ila Baugh NP May 27, 2024 Endovascular repair of infrarenal abdominal aortic aneurysm Fax number for surgical facility: Note does not need to be faxed, will be available electronically in [employer]. Assessment & Plan Felix Cruz is a 78 year old male with a history of an infrarenal abdominal aortic aneurysm, withrecent CTA findings showing growth to 6.1 x 5 cm with moderate mural thrombus, meeting requirement for repair. axial imaging. Moderate mural thrombus. There is an accessory left renal artery that would require special attention. History of CAD with angioplasty and stenting of LAD in 014 with cardiac bypass, subsequently requiring MAZE procedure. Hx of ICD, on last ECHO LV function is 50-55% done 04/24/2024. The proposed surgical procedure is considered INTERMEDIATE risk. There are no diagnoses linked to this encounter. Lung sounds are clear, no acute distress HR is regular, S1 and S2 noted. - No identified additional risk factors other than previously addressed Antiplatelet or Anticoagulation Medication Instructions - aspirin: Bleeding risk is low for this procedure and daily aspirin may be continued without modification. Additional Medication Instructions Take all scheduled medications on the day of surgery EXCEPT for modifications listed below: Jardiance hold 3 days prior to surgery. Recommendation Approval given to proceed with proposed procedure, without further diagnostic evaluation. Subjective Felix is a 78 year old, presenting for the following: No chief complaint on file. HPI related to upcoming procedure: Felix Cruz is a 78 year old male with a history of an infrarenal abdominal aortic aneurysm, with recent CTA findings showing growth to 6.1 x 5 cm with moderate mural thrombus, meeting requirement for repair. axial imaging. Moderate mural thrombus. No data to display Health Care Directive Patient has a Health Care Directive on file Preoperative Review of AIRCRAFT MECHANIC STRUCTURES AIRCRAFT MECHANIC STRUCTURES reviewed - no record of controlled substances prescribed. Status of Chronic Conditions: See problem list for active medical problems. Problems all longstanding and stable, except as noted/documented. See ROS for pertinent symptoms related to these conditions. Patient Active Problem List Diagnosis Date Noted Status post coronary angiogram 04/27/2022 Priority: Medium Cardiac pacemaker in situ 11/02/2019 Priority: Medium Paroxysmal A-fib (H) 10/06/2019 Priority: Medium Atypical atrial flutter (H) 10/01/2019 Priority: Medium Added automatically from request for surgery [id number] History of diabetes mellitus Priority: Medium Abnormal thyroid function test 11/11/2018 Priority: Medium Cough 11/11/2018 Priority: Medium Thyroid dysfunction 11/10/2018 Priority: Medium Weight loss 11/10/2018 Priority: Medium Myalgia 11/10/2018 Priority: Medium Paroxysmal atrial fibrillation (H) Priority: Medium s/p MAZE procedure and L atrial appendage clipping, 2013 Atrial flutter (H) Priority: Medium Coronary artery disease Priority: Medium s/p EDGAR to ramus and LAD 2003, s/p CABG 2013 (CARVAJAL to LAD, SVG to OM1 and OM3, SVG to D1) Hyperlipidemia Priority: Medium Diagnosis updated by automated process. Provider to review and confirm. Nocturia Priority: Medium Hypertension Priority: Medium Atrial fibrillation (H) 01/07/2014 Priority: Medium s/p MAZE procedure and L atrial appendage clipping, 2013 Past Medical History: Diagnosis Date Atrial flutter [...] Angiogram Graft; Surgeon: Emmie Gilbert MD; Location: [facility] MORTGAGE SPECIALIST CV CORONARY ANGIOGRAM N/A 04/27/2022 Procedure: Coronary Angiogram; Surgeon: Emmie Gilbert MD; Location: [facility] C[facility] CATHLAB EP ABLATION ATRIAL FLUTTER N/A 10/06/2019 Procedure: Ablation Atrial Flutter; Surgeon: Dieter Travis MD; Location: [facility] MORTGAGE SPECIALIST EP ABLATION AV NODE N/A 10/15/2019 Procedure: EP Ablation AV Node; Surgeon: Dieter Travis MD; Location: [facility] MORTGAGE SPECIALIST EP ABLATION FOCAL AFIB N/A 08/31/2019 Procedure: EP Ablation Focal AFIB; Surgeon: Dieter Travis MD; Location: [facility] MORTGAGE SPECIALIST EP INSERT ICD N/A 02/25/2023 Procedure: Biventricular ICD; Surgeon: Milton Roblero MD; Location: [facility] MORTGAGE SPECIALIST EP PACEMAKER Left 10/06/2019 Procedure: EP Pacemaker; Surgeon: Dieter Travis MD; Location: [facility] MORTGAGE SPECIALIST EP PERM PACER SINGLE LEAD N/A 10/15/2019 Procedure: EP PERM PACER SINGLE LEAD; Surgeon: Dieter Travis MD; Location: [facility] CATH[facility] H ABLATION ATRIAL FLUTTER Right 10/13/2015 (CTI) H ABLATION ATRIAL FLUTTER Left 09/06/2016 atypical H ABLATION FOCAL AFIB 02/09/16 Third ablation 09-06-2016 HEART CATH, ANGIOPLASTY 2004 PTCA with intracoronary stent placement of, proximal LAD and Ramus intermedius LEFT ATRIAL APPENDAGE LIGATION 11/10/13/repeated 02/09/2016 MAZE PROCEDURE 11/10/2013 Procedure: MAZE PROCEDURE; Surgeon: Hitesh Chery MD; Location: [facility] Current Outpatient Medications Medication Sig Dispense Refill acetaminophen (TYLENOL) 325 MG tablet Take 325-650 mg by mouth as needed for mild pain Ascorbic Acid (VITAMIN C PO) Take 100 mg by mouth daily aspirin (ASA) 81 MG tablet Take 1 tablet (81 mg) by mouth daily atorvastatin (LIPITOR) 40 MG tablet Take 1 tablet (40 mg) by mouth every evening. 90 tablet 3 cholecalciferol (VITAMIN -D) 1000 UNITS capsule Take 1 capsule by mouth daily coenzyme Q-10 100 MG CAPS Take 1 tablet by mouth every evening Cranberry 600 MG TABS Take 600 mg by mouth daily Cyanocobalamin (VITAMIN B 12 PO) Take 1,000 mcg by mouth daily JARDIANCE 10 MG TABS tablet Take 1 tablet (10 mg) by mouth daily. 90 tablet 3 metoprolol succinate ER (TOPROL XL) 25 MG 24 hr tablet Take 1 tablet (25 mg) by mouth daily. 90 tablet 3 Multiple Vitamins-Minerals (PRESERVISION AREDS PO) Take 1 tablet by mouth 2 times daily sacubitril-valsartan (ENTRESTO) 97-103 MG per tablet Take 1 tablet by mouth 2 times daily. 180 tablet 3 sildenafil (VIAGRA) 100 MG tablet Take 100 mg by mouth daily as needed tamsulosin (FLOMAX) 0.4 MG capsule Take 0.8 mg by mouth 2 times daily. Patient taking two tablets (0.8 mg) daily 3 Allergies Allergen Reactions Amiodarone Per pt states hyperthroidism. Oxycodone GI Disturbance Social History Tobacco Use Smoking status: Former Current packs/day: 0.00 Average packs/day: 1.5 packs/day for 20.4 years (30.5 ttl pk-yrs) Types: Cigarettes Start date: 1963 Quit date: 11/11/1983 Years since quittin.5 Smokeless tobacco: Never Substance Use Topics Alcohol use: Yes Comment: one glass every 3 days Family History Problem Relation Age of Onset C.A.D. Mother Cancer - colorectal Mother Coronary Artery Disease Mother Colon Cancer Mother C.A.D. Father Diabetes Father Coronary Artery Disease Father Diabetes Brother Coronary Artery Disease Brother Myocardial Infarction Sister Diabetes Brother Family History Negative Brother Hyperlipidemia Daughter History Drug Use No Review of Systems Constitutional, neuro, ENT, endocrine, pulmonary, cardiac, gastrointestinal, genitourinary, musculoskeletal, integument and psychiatric systems are negative, except as otherwise noted. Objective There were no vitals taken for this visit. Estimated body mass index is 30.61 kg/m?? as calculated from the following: Height as of 04/23/24: 5' 11.5 (1.816 m). Weight as of 04/23/24: 222 lb 9.6 oz (101 kg). Physical Exam GENERAL: alert and no distress EYES: Eyes grossly normal to inspection, PERRL and conjunctivae and sclerae normal HENT: ear canals and TM's normal, nose and mouth without ulcers or lesions NECK: no adenopathy, no asymmetry, masses, or scars RESP: lungs clear to auscultation - no rales, rhonchi or wheezes CV: regular rate and rhythm, normal S1 S2, no S3 or S4, no murmur, click or rub, no peripheral edema ABDOMEN: soft, nontender, no hepatosplenomegaly, no masses and bowel sounds normal MS: no gross musculoskeletal defects noted, no edema SKIN: no suspicious lesions or rashes NEURO: Normal strength and tone, mentation intact and speech normal PSYCH: mentation appears normal, affect normal/bright Recent Labs Lab Test 04/23/24 1111 10/21/23 0817 HGB 14.6 15.1 NA 143 142 POTASSIUM 4.8 4.6 CR 0.98 0.94 Diagnostics No labs were ordered during this visit. EKG required for known coronary heart disease and not completed in the last 90 days. Revised Cardiac Risk Index (RCRI) The patient has the following serious cardiovascular risks for perioperative complications: - Coronary Artery Disease (RI, positive stress test, angina, Qs on EKG) = 1 point - Congestive Heart Failure (pulmonary edema, PND, s3 filiberto, CXR with pulmonary congestion, basilarrales) = 1 point RCRI Interpretation: 2 points: Class III (moderate risk - 6.6% complication rate) Estimated Functional Capacity: Performs 4 METS exercise without symptoms (e.g., light housework, stairs, 4 mph walk, 7 mph bike, slow step dance) Signed Electronically by: Ila Baugh NP A copy of this evaluation report is provided to the requesting physician. S CONSULTANT documented in this encounter Plan of Treatment Upcoming Encounters Date Type Department Care Team (Late st Contact Info) Description 07/14/2024 10:30 AM PARTS CONSULTANT Office Visit [facility] [place] [address] [place] [phone] Ila Baugh NP [address] [place], [place] [address] 07/27/2024 Ancillary Procedure [facility] [address] [place] [phone] Dieter Travis MD [address] [place] [address] documented as of this encounter Visit Diagnoses Not on filedocumented in this encounter Care Teams Supplier Specialist Relationship Specialty Start Date End Date Sanot Friedman MD [address] [place] [address] PCP - General Sports Medicine 04/06/22 Siddhartha White MD [address] [place] [phone] Assigned Heart and Vascular Provider 05/23/24 documented as of this encounter
--- OUTSIDE RECORDS SUMMARY | 2024-07-01 13:33 | XMS_ITS | Encounter Summary ---
Author Organization [place] Address [facility] [place] [address] Care Team Providers Care Boss Dyer Name Role Phone Santo Friedman MD Primary Care Provider [phone] Roro Herrera Unavailable Encounter Details Date Type Department Care Team (Latest Contact Info) Description 05/19/2024 Travel Social History Tobacco Use Types Packs/Day [...] PM CDT Legal Sex Male 4:32 AM TELLER COORDINATOR Gender Identity Male 11/02/2020 12:08 PM CDT Sexual Orientation Straight 11/02/2020 12 :08 PM CDT documented as of this encounter Plan of Treatment Upcoming Encounters Date Type Department Care Team (Late st Contact Info) Description 07/14/2024 10:30 AM TELLER COORDINATOR Office Visit [facility] [place] [address] [place] [phone] Ila Baugh, SKIVER MACHINE OPERATOR [address] [place] [address] 07/27/2024 Ancillary Procedure [facility] [address] [place] [phone] Dieter Travis MD [address] [place] [phone] documented as of this encounter Visit Diagnoses Not on filedocumented in this encounter Care Teams Boss Dyer Relationship Specialty Start Date End Date Santo Friedman MD [address] [place] [address] PCP - General Sports Medicine 04/06/22 Roro Herrera PA [facility] [address] [place] [id number] Assigned Heart and Vascular Provider 11/03/22 05/22/24 documented as of this encounter
--- OUTSIDE RECORDS SUMMARY | 2024-07-01 13:33 | XMS_ITS | Encounter Summary ---
Author Organization [place] Address [facility] [place] [address] Care Team Providers Care Switchboard Operator Helper Name Role Phone Santo Friedman MD Primary Care Provider [phone] Siddhartha White MD Unavailable [phone] Reason for Visit * Reason Onset Date Comments Device Safety Clearance 06/01/2024 Encounter Details Date Type Department Care Team (Late st Contact Info) Description 06/01/2024 Telephone [facility] [address] [place] [phone] [place] [address] [place], [place] [phone] Device Safety Clearance Social History Tobacco Use Types Packs/Day Years [...] PM CDT Legal Sex Male 4:32 AM PEDIATRIC GENETICIST Gender Identity Male 11/02/2020 12:08 PM CDT Sexual Orientation Straight 11/02/2020 12 :08 PM CDT documented as of this encounter Miscellaneous Notes * Telephone Encounter - Perla Gomez RN - 06/04/2024 9:21 AM CST Is the implanted device MRI conditional: No Approved for MRI utilizing the MRI non-conditional protocol by Sarah Reyes APRN, RADIATION CONTROL SPECIALIST Please schedule MRI: Yes Does the patient need a CXR prior to MRI: No Device: [employer] G138 MOMENTUM X4 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 Cosigned by Sarah Reyes APRN CNP at 06/04/2024 10:34 PM PEDIATRIC GENETICIST ATRIC GENETICIST ATRIC GENETICIST Associated attestation - Sarah Reyes APRN CNP - 06/04/2024 10:34 PM PEDIATRIC GENETICIST Patient has been approved for non-conditional MRI scan per protocol. Sarah Reyes APRN CNP Electrophysiology Consult Service Securely message with Familiar Text page via [employer] Paging/Directory * Telephone Encounter - Naila Kimball - 06/03/2024 5:18 PM CST Please check If Pacemaker compatible at [place]. Thank you ATRIC GENETICIST * Telephone Encounter - Catarina Ac RN - 06/01/2024 11:44 AM CST This device does not meet the FDA criteria for MRI approval at this facility. Please do not schedule this patient for MRI at this time. Reason: DEVICE NOT MRI COMPATIBLE ANYMORE D/T abandoned pace/sense portion of high voltage lead. Patient has the option of further review at the [facility] where they have a process and staffing in place to perform off-label scans on non-conditional devices. Catarina Ac RN ATRIC GENETICIST * Telephone Encounter - [place], Ayana Eric - 06/01/2024 9:58 AM PEDIATRIC GENETICIST Reason for call: MR Device Safety Clearance Please create a MR Device Safety order Patient is reporting patient has Pacemaker Type of MR exam: MR Hip Right w/o Contrast Do you get your Device checked at [facility]?: Yes - [facility] ATRIC GENETICIST documented in this encounter Plan of Treatment Upcoming Encounters Date Type Department Care Team (Late st Contact Info) Description 07/14/2024 10:30 AM PEDIATRIC GENETICIST Office Visit [facility] [place] [address] [place] [phone] Ila Baugh, SPRAY MACHINE LOADER [address] [place], [place] [address] 07/27/2024 Ancillary Procedure [facility] [address] [facility] [address] [place] [phone] Dieter Travis MD [address] [facility] [address] [place], [place] [address] documented as of this encounter Goals Goal [...] documented as of this encounter Care Teams Switchboard Operator Helper Relationship Specialty Start Date End Date Santo Friedman MD [facility] [place] [address] PCP - General Sports Medicine 04/06/22 Siddhartha White MD [address] [place] [phone] Assigned Heart and Vascular Provider 05/23/24 documented as of this encounter
--- OUTSIDE RECORDS SUMMARY | 2024-07-01 13:33 | XMS_ITS | Encounter Summary ---
Author Organization [place] Address [address] [place] [address]. [place] [address] Care Team Providers Care Machinist Job Setter Name Role Phone Santo Friedman MD Primary Care Provider [phone] Siddhartha White MD Unavailable [phone] Encounter Details Date Type Department Care Team (Late st Contact Info) Description 06/22/2024 MyC Medical Advice Initial Department [facility] Social History Tobacco Use Types Packs/Day Years [...] PM CDT Legal Sex Male 4:32 AM JOURNAL CLERK Gender Identity Male 11/02/2020 12:08 PM CDT Sexual Orientation Straight 11/02/2020 12 :08 PM CDT documented as of this encounter Plan of Treatment Upcoming Encounters Date Type Department Care Team (Late st Contact Info) Description 07/14/2024 10:30 AM JOURNAL CLERK Office Visit [facility] [place] [address] [place] [phone] Ila Baugh, 3RD MATE [address] [place], [place] [address] 07/27/2024 Ancillary Procedure [facility] [address] [place] [phone] Dieter Travis MD [address] [place] [phone] documented as of this encounter Goals Goal Patient Goal Type Associated Problems Recent Progress Patient-Stated? Author MYC ECC SURG ENROLL Care Plan MyC ECC SURG ENROLL No Lyndsey Nelson Care pathway for general surgery Care Plan [facility] general [facility] DAY 10 MED Care Plan Care pathway for general surgery No [facility] [place] documented as of this encounter Visit Diagnoses Not on filedocumented in this encounter Additional Health Concerns Active Problems Noted Date Diagnosed Date MyC ECC SURG ENROLL 05/29/2024 Care pathway for general surgery 05/29/2024 documented as of this encounter Care Teams Machinist Job Setter Relationship Specialty Start Date End Date Santo Friedman MD [address] [place] [address] PCP - General Sports Medicine 04/06/22 Siddhartha White MD [address] [place] [phone] Assigned Heart and Vascular Provider 05/23/24 documented as of this encounter
--- OUTSIDE RECORDS SUMMARY | 2024-07-01 13:33 | XMS_ITS | Encounter Summary ---
Author Organization [place] Address [address] [place] [address] Care Team Providers Care Olive Packer Name Role Phone Santo Friedman MD Primary Care Provider [phone] Roro Herrera Unavailable Siddhartha White MD Unavailable [phone] Encounter Details Date Type Department Care Team (Late st Contact Info) Description 05/15/[address] [facility] Information Management [address] [facility] [address] [place] [address] Scan, Non-Provider Social History Tobacco Use Types [...] PM CDT Legal Sex Male 4:32 AM TERMITE RENEWAL INSPECTOR Gender Identity Male 11/02/2020 12:08 PM CDT Sexual Orientation Straight 11/02/2020 12 :08 PM CDT documented as of this encounter Plan of Treatment Upcoming Encounters Date Type Department Care Team (Late st Contact Info) Description 07/14/2024 10:30 AM TERMITE RENEWAL INSPECTOR Office Visit [facility] [place] [address] [place] [phone] Ila Baugh NP [address] [place] [address] 07/27/2024 Ancillary Procedure [facility] [address] [facility] [address] [place] [phone] Dieter Travis MD [address] [place] [address] documented as of this encounter Visit Diagnoses Not on filedocumented in this encounter Care Teams Olive Packer Relationship Specialty Start Date End Date Santo Friedman MD [address] [place] [address] PCP - General Sports Medicine 04/06/22 Roro Herrera PA [facility] [address] [place] [phone] Assigned Heart and Vascular Provider 11/03/22 05/22/24 Siddhartha White MD [address] [place] [address] Assigned Heart and Vascular Provider 05/23/24 documented as of this encounter
--- OUTSIDE RECORDS SUMMARY | 2024-07-01 13:33 | XMS_ITS | Encounter Summary ---
Author Organization [place] Address [facility] [place] [address] Care Team Providers Care [employer] Bagger Name Role Phone Santo Friedman MD Primary Care Provider [phone] Roro Herrera Unavailable Reason for Referral * Diagnostic Imaging CT Scan (Routine) - Closed Specialty Diagnoses / Procedures Referred By Liseth ortiz Referred To Contact Radiology. Diagnoses Infrarenal abdominal aortic aneurysm (AAA) without rupture (H) Procedures CTA Abdomen Pelvis with Contrast Toni Javier MD [address] [place] [address] Phone: tel: fax: Referral ID Status Reason Start Date Expiration Date Visits Re quested Visits Authorized [id number] Closed 05/19/2024 05/19/2025 1 1 CELL DESIGNER Reason for Visit * Reason Onset Date Comments Patient Request 05/19/2024 Encounter Details Date Type Department Care Team (Late st Contact Info) Description 05/19/2024 [facility] [place] [address] [place] [phone] Toni Javier MD [address] [place] [address] Patient Request Social History Tobacco Use Types Packs/Day Years [...] PM CDT Legal Sex Male 4:32 AM FUEL CELL DESIGNER Gender Identity Male 11/02/2020 12:08 PM CDT Sexual Orientation Straight 11/02/2020 12 :08 PM CDT documented as of this encounter Miscellaneous Notes * Telephone Encounter - Ama Johnson - 05/19/2024 4:26 PM CST Patient is scheduled for STAT CTA in [place] and follow up with Dr Javier CELL DESIGNER * Telephone Encounter - Tameka Bee RN - 05/19/2024 3:53 PM CST Routing to scheduling to coordinate the following: CTA abdomen pelvis In person follow up with Dr Javier a few days after Please schedule this in 1-2 days- it is ordered STAT Appt note: History AAA- follow up to 08/13/23 office visit with Ila Baugh NP. Recent lumbar xray with [place] in Care everywhere showing growth to 6.8 Tameka KERR, RN [facility] Office: [phone] CELL DESIGNER * Telephone Encounter - Liliam Tellez - 05/19/2024 2:41 PM CST [facility] Who is the name of the provider? Dr Javier / Ila Baugh NP What is the location you see this provider at/preferred location? [place] / [place] Person calling / Facility: [facility] Phone number: [phone] Nurse call back needed: Reason for call: Pt had an Hip/Spine XR done at [facility] (([place]) and it showed that your AAA wasat 6.8 When patient was checked back in August 2023 it showed 5.0. Pt is wondering what he shoulddo? Pt stated that the XR should be in his chart. Pharmacy location: N/A Outside Imaging: [facility] Can we leave a detailed message on this number? Y Additional Info: JACOB with Ila Baugh NP 08/13/23 / JACOB with Dr Javier December 2020 CELL DESIGNER CELL DESIGNER documented in this encounter Plan of Treatment Upcoming Encounters Date Type Department Care Team (Late st Contact Info) Description 07/14/2024 10:30 AM FUEL CELL DESIGNER Office Visit [facility] [place] [address] [place] [phone] Ila Baugh WARP KNIT OPERATOR [address] [place], [place] [address] 07/27/2024 Ancillary Procedure [facility] [address] [address] [place] [phone] Dieter Travis MD [address] [place] [address] documented as of this encounter Results * CTA Abdomen Pelvis with Contrast (05/20/2024 2:43 PM FUEL CELL DESIGNER) Anatomical Region Laterality Modality Abdomen/Pelvis, SUBRAD IR CONNOR STEVE CT CTA, RAD CT Computed Tomography Impressions 05/20/2024 3:56 PM FUEL CELL DESIGNER IMPRESSION: 1. Infrarenal abdominal aortic aneurysm [...] JAMES LAWSON MD Narrative 05/20/2024 3:56 PM FUEL CELL DESIGNER CTA ABDOMEN AND PELVIS WITH CONTRAST [...] MD IMG CT ORDERABLES Final Res ult documented in this encounter Visit Diagnoses Diagnosis Infrarenal abdominal aortic aneurysm (AAA) without rupture (H)- Primary Infrarenal abdominal aortic aneurysm (AAA) without rupture (H) documented in this encounter Care Teams [employer] B[employer] Relationship Specialty Start Date End Date Santo Friedman MD [address] [place] [address] PCP - General Sports Medicine 04/06/22 Roro Herrera PA [facility] [address] [place] [id number] Assigned Heart and Vascular Provider 11/03/22 05/22/24 documented as of this encounter
--- OUTSIDE RECORDS SUMMARY | 2024-07-01 13:33 | XMS_ITS | Encounter Summary ---
Author Organization Joice Address [facility] [place] [address] Care Team Providers Care Chair Inspector Name Role Phone Santo Friedman MD Primary Care Provider [phone] Siddhartha White MD Unavailable [phone] Reason for Visit * Auth/Cert Specialty Diagnoses / Procedures Referred By Contac t Referred To Contact Surgery Diagnoses Abdominal aortic aneurysm (AAA) greater than 5.5 cm in diameter in male (H) Abdominal aortic aneurysm (AAA) greater than 5.5 cm in diameter in male (H) [I71.40] Procedures NM ENDVASC REPLACE AORTO-AORTIC ENDGFT; NON RUPTURE NM ENDVASC REPLACE AORTO-AORTIC ENDGFT; RUPTURE NM EVASC REPLACE [id number] ENDGFT; NON RUPTURE NM EVASC REPLACE [id number] ENDGFT; RUPTURE NM EVASC REPLACE [id number] ENDGFT; NON RUPTURE NM EVASC REPLACE [id number] ENDGFT; RUPTURE NM VISCER AND INFRARENAL ABDOM AORTA REPAIR,1 PROSTHESIS NM VISCER AND INFRARENAL ABDOM AORTA REPAIR,2 PROSTHESIS NM VISCER AND INFRARENAL ABDOM AORTA 3 PROSTHESIS NM VISCER AND INFRARENAL ABDOM AORTA REPAIR,4+ PROSTHESIS ENDOVASCULAR ABDOMINAL AORTIC ANEURYSM REPAIR WITH MEDTRONIC GRAFT VIA PERCUTANEOUS APPROACH [facility] [address] [place] [address]., [address] [place] [address] Phone: tel: Referral ID Status Reason Start Date Expiration Date Visits Re quested Visits Authorized [id number] 1 1 Encounter Details Date Type Department Care Team (Late st Contact Info) Description 06/29/2024 8:00 AM TOP COLLAR MAKER - 06/29/2024 12:35 PM TOP COLLAR MAKER Surgery [facility] [address] [place] [address] Toni Javier MD [address] [place] [address] PERCUTANEOUS ACCESS AND CLOSURE OF BILATERAL FEMORAL ARTERIES / COIL EMBOLIZATION OF LEFT ACCESORY RENAL ARTERY WITH PENUMBA RICK 4MM X 15CM COIL AND ENDOVASCULAR ABDOMINAL AORTIC ANEURYSM REPAIR WITH MEDTRONIC GRAFT STENT Surgery Details Date/Time Status Location OR Service Patient Class Case Class Case Type Trauma Case? 06/29/2024 8:00 AM Posted OR OR M 50 General Surgery Admit Elective Panel 1 Procedure LRB Anes Op Region Wound Class Comments PERCUTANEOUS ACCESS AND CLOS URE OF BILATERAL FEMORAL ARTERIES / COIL EMBOLIZATION OF LEFT ACCESORY RENAL ARTERY WITH PENUMBA RICK 4MM X 15CM COIL AND ENDOVASCULAR ABDOMINAL AORTIC ANEURYSM REPAIR WITH MEDTRONIC GRAFT STENT N/A General Abdomen I-Clean Surgeon Surgeon Role Service Panel Milagros Figueredo, Assisting Intervent ional Radiology 1 Toni Javier MD Primary General 1 Scott Bennett MD Resident - Assisting 1 Cydney Barrientos MD Fellow - Assisting General 1 Case Notes OR 50 CASE *reviewed Sb 06/30 for SENSH ITEMS STENTS PRE PURCHASED Special Needs *htn, cad, afib, cardiomyopathy, s/p dean(2004), s/p cabg(2013), [id number] insulin-[employer] ICD: device check 04/23/24-asa: continue-jardiance: last dose to be 06/26/24Pt verified procedureOR 50, IR TECH ONLYFIRST ASSIST/FELLOW NEEDED documented in this encounter Social History Tobacco [...] PM CDT Legal Sex Male 4:32 AM TOP COLLAR MAKER Gender Identity Male 11/02/2020 12:08 PM CDT Sexual Orientation Straight 11/02/2020 12 :08 PM CDT documented as of this encounter Last Filed Vital Signs Vital Sign Reading Time Taken Comments Blood Pressure 110/68 06/29/2024 12:30 PM TOP COLLAR MAKER Pulse 70 06/29/2024 12:30 PM TOP COLLAR MAKER Temperature 36.9 C (98.4 F) 06/29/2024 12:15 PM TOP COLLAR MAKER Respiratory Rate 12 06/29/2024 12:30 PM TOP COLLAR MAKER Oxygen Saturation 99% 06/29/2024 12:30 PM TOP COLLAR MAKER Inhaled Oxygen Concentration - - Weight 94.3 kg (208 lb) 06/29/2024 6:42 AM TOP COLLAR MAKER Height 180.3 cm (5' 11) 06/29/2024 6:42 AM TOP COLLAR MAKER Body Mass Index 28.9 06/29/2024 6:42 AM TOP COLLAR MAKER documented in this encounter Medications at Time [...] by mouth 2 times daily. 14 tablet tamsulosin (FLOMAX) 0.4 MG capsule Take 0.8 [...] later today after voiding. Alexx Javier MD COLLAR MAKER * Cydney Barrientos MD - 06/29/2024 4:06 PM CST Post op check. Doing well. Pain controlled. Eating well. Palp DP bilaterally. Soft groins bilaterally. Neurologically intact. Coats with blood tinged urine. Doing well except hematuria. Will ctm. Maybe from renal artery vs. traumatic coats insertion. Discharge in 1-2 days. COLLAR MAKER * Balwinder Glaser - 06/22/2024 3:16 PM CST COACH MECHANIC medications updated by Medication Scribe prior to surgery via phone call with patient (last doses completed by Nurse) Medication history sources: Patient, Surescripts, and H&P In the past week, patient estimated taking medication this percent of the time: Greater than 90% Significant changes made to the medication list: Patient reports no longer taking the following meds (med scribe removed from COACH MECHANIC med list): Viagra Additional medication history information: None Medication reconciliation completed by provider prior to medication history? No Time spent in this activity: 35 minutes The information provided in this note is only as accurate as the sources available at the time of update(s) Prior to Admission medications Medication Sig Last Dose Taking? Auth Provider Shelter End Date acetaminophen (TYLENOL) 325 MG tablet [...] Patient Medication history completed by: Balwinder Glaser COLLAR MAKER documented in this encounter H&P Notes * Scott Bennett MD - 06/29/2024 6:39 AM CST Vascular Surgery History and Physical eFlix Cruz Date of : 1945 Age: [age] [...] Angiogram Graft; Surgeon: Emmie Gilbert MD; Location: [facility] CV CORONARY ANGIOGRAM N/A 04/27/2022 Procedure: Coronary Angiogram; Surgeon: Emmie Gilbert MD; Location: HEART CARDIAC CATHLAB EP ABLATION ATRIAL FLUTTER N/A 10/06/2019 Procedure: Ablation Atrial Flutter; Surgeon: Dieter Travis MD; Location: [facility] EP ABLATION AV NODE N/A 10/15/2019 Procedure: EP Ablation AV Node; Surgeon: Dieter Travis MD; Location: [facility]ARDI[facility] EP ABLATION FOCAL AFIB N/A 08/31/2019 Procedure: EP Ablation Focal AFIB; Surgeon: Dieter Travis MD; Location: [facility]ARDI[facility] EP INSERT ICD N/A 02/25/2023 Procedure: Biventricular ICD; Surgeon: Milton Roblero MD; Location: [facility]ARDI[facility] EP PACEMAKER Left 10/06/2019 Procedure: EP Pacemaker; Surgeon: Dieter Travis MD; Location: [facility]ARDI[facility] EP PERM PACER SINGLE LEAD N/A 10/15/2019 Procedure: EP PERM PACER SINGLE LEAD; Surgeon: Dieter Travis MD; Location: HEART CARDIAC [facility]ITATION LEAD H ABLATION ATRIAL FLUTTER Right 10/13/2015 (CTI) H ABLATION ATRIAL FLUTTER Left 09/06/2016 atypical H ABLATION FOCAL AFIB 02/09/16 Third ablation 09-06-2016 HEART CATH, ANGIOPLASTY 2003 PTCA with intracoronary stent placement of, proximal LAD and Ramus intermedius LEFT ATRIAL APPENDAGE LIGATION 11/10/13/repeated 02/09/2016 MAZE PROCEDURE 11/10/2013 Procedure: MAZE PROCEDURE; Surgeon: Hitesh Chery MD; Location: OR Social History: I have reviewed this [...] Toni Javier MD at 06/30/2024 7:44 AM TOP COLLAR MAKER COLLAR MAKER COLLAR MAKER Associated attestation - Toni Javier MD - 06/30/2024 7:44 AM TOP COLLAR MAKER Physician Attestation I agree with the information in this note. Toni Javier MD documented in this encounter Nursing Notes * John Wayne RN - 06/29/2024 2:36 PM CST Hand-off report given to RN. To [id number] per cart with all belongings. Will transport with Capnography monitoring. Will notify spouse, Emiliana of transfer. COLLAR MAKER * John Wayne RN - 06/29/2024 12:24 PM CST Transfer criteria met. Order received per Dr. Vera to transfer to Surgical Nursing Care for continued recovery. Awaiting availability of room assignment for transfer. , Emiliana notified of status. COLLAR MAKER COLLAR MAKER * John Wayne RN - 06/29/2024 11:37 AM CST [employer] Rep. At bedside to restart ICD. COLLAR MAKER documented in this encounter Miscellaneous Notes * Plan of Care - Jeremias Yeboah RN - 06/30/2024 2:10 PM CST Patient discharging home with family after successfully voiding adequately post coats removal. AVS gone over with patient in room and prescriptions given to patient. PIV removed. All questions answered. COLLAR MAKER * Plan of Care - Ganesh Ken RN - 06/30/2024 5:49 AM CST Goal Outcome Evaluation: Date & Time: 06/29/24 [id number] Surgery/POD#: 1 ABDOMINAL AORTIC ANEURYSM REPAIR WITH MEDTRONIC GRAFT STENT Behavior & Aggression: [place] Risk: yes Orientation: A&ox4 ABNL VS/O2: VSS on RA ABNL Labs: See chart Pain Management: Denies. Scheduled tylenol Bowel/Bladder: Continent of bowel/bladder Drains: PIV SL Wounds/incisions: Bilateral groin sites Diet: Reg diet Activity Level: SBA Tests/Procedures: N/A Anticipated DC Date: Pending Significant Information: See chart COLLAR MAKER * Plan of Care - Porsche Viramontes RN - 06/29/2024 7:02 PM CST Orientation: A&Ox4 Vitals/Tele: VSS on RA IV Access/drains: IV infusing LR at 75 mL/hr Diet: Tolerating regular diet Mobility: SBA. Ambulated in halls following bedrest and tolerated well. GI/: Coats patent with pink-tinged urine Wound/Skin: Bilateral groin sites closed with skin glue, WOOD DIE MAKER. No hematomas. Consults: none Discharge Plan: TBD See Flow sheets for assessment COLLAR MAKER * Op Note - Toni Javier MD [...] perform the endovascular abdominal aortic aneurysm repair. URANIUM PROCESSING SUPERVISOR: Cydney Barrientos MD. PUBLIC SAFETY DISPATCHER: Foreign Bennett MD (PGY 2 vascular resident). [...] sheath exchange was made for a 6 [place] Islander sheath. 2 Perclose devices were deployed in standard fashion in the typical preclose technique.An 8 [place] sheath was then placed. Under sterile ultrasound guidance access was then obtained intothe left common femoral artery. A micropuncture sheath was placed. Sheath exchange was made for a 6French sheath. 2 Perclose devices were deployed in a standard fashion in the typical preclose technique. An 8 [place] sheath was then placed on the left. [...] Following removal of that device a 12 [place] sheath was placed on the left. The remainder of the main body was deployed. The endograft was exchanged over the wire for a 16 [place] sheath on the right. A right sided [...] right. On the left side the 12 [place] sheath was removed as the previously placed [...] inferior accessory renal artery. Alexx Javier MD COLLAR MAKER * Brief Op Note - Scott Bennett MD - 06/29/2024 10:44 AM CST [facility] Brief Operative Note Pre-operative diagnosis: Abdominal aortic [...] Implant Name Type Inv. Item Serial No. Permit Coordinator Lot No. LRB No. Used Action RICK COIL SOFT 4 MM X 15 CM Embolization Coil [place] [id number] Left 1 Implanted GRAFT STNT 103MM 14-32MM 20FR ENDURANT IIS 2 BRCH EVAS NTNL - [id number] Graft GRAFT STNT 103MM 14-32MM 20FR ENDURANT IIS 2 BRCH EVAS NTNL [id number] [employer] Right 1 Implanted ENDURANT II STENT GRAFT SYSTEM LIMB 16FR, 16MM X 20MM X 146MM Stent Graft [id number] [employer] Left 1Implanted ENDURANT II STENT GRAFT SYSTEM, LIMB 16FR, 16MM X 20MM X 146MM Stent Graft [id number] [employer] Right 1 Implanted Palpable DP pulses bilaterally at end of case COLLAR MAKER documented in this encounter Plan of Treatment Upcoming Encounters Date Type Department Care Team (Late st Contact Info) Description 07/14/2024 10:30 AM TOP COLLAR MAKER Office Visit [facility] [place] [address] [place] [phone] Ila Baugh, SECURITIES DEALER [address] [place], [place] [address] 07/27/2024 Ancillary Procedure [facility] [address] [facility] [address] [place] [id number] Dieter Travis MD [address] [place] [address] Pending Results Name Type Priority Associated Diagnoses Date /Time IR Abdominal Endovascular Stent Graft Imaging Routine Abdominal aortic aneurysm (AAA) greater than 5.5 cm in diameter in male (H) 06/29/2024 10:12 AM TOP COLLAR MAKER Prepare red blood cells (unit) Blood Bank STAT 06/29/2024 7:44 AM TOP COLLAR MAKER Prepare red blood cells (unit) Blood Bank STAT 06/29/2024 7:44 AM TOP COLLAR MAKER documented as of this encounter Procedures Procedure Name Priority Date/Time Associated Diagnosis Comments BASIC METABOLIC PANEL Routine 06/30/2024 7:29 AM TOP COLLAR MAKER CBC WITH PLATELETS AND DIFFERENTIAL Routine 06/29/2024 4:12 PM TOP COLLAR MAKER CBC WITH PLATELETS & DIFFERENTIAL Routine 06/29/2024 4:12 PM TOP COLLAR MAKER ACTIVATED CLOTTING TIME CELITE POCT Routine 06/29/2024 9:53 AM TOP COLLAR MAKER ACTIVATED CLOTTING TIME CELITE POCT Routine 06/29/2024 9:39 AM TOP COLLAR MAKER REPAIR, ANEURYSM ABDOMINAL AORTA, ENDOVASCULAR 06/29/2024 8:03 AM TOP COLLAR MAKER Abdominal aortic aneurysm (AAA) greater than 5.5 cm in diameter in male (H) Case Notes OR 50 CASE *reviewed Sb 06/30 for SENSH ITEMS STENTS PRE PURCHASED Special Needs *htn, cad, afib, cardiomyopathy, s/p dean(2003), s/p cabg(2013), [id number] insulin-[employer] ICD: device check 04/23/24-asa: continue-jardiance: last dose to be 06/26/24Pt verified procedureOR 50, IR TECH ONLYFIRST ASSIST/FELLOW NEEDED PREPARE RED BLOOD CELLS (UNIT) STAT 06/29/2024 7:44 AM TOP COLLAR MAKER PREPARE RED BLOOD CELLS (UNIT) STAT 06/29/2024 7:44 AM TOP COLLAR MAKER EKG 12-LEAD, TRACING ONLY STAT 06/29/2024 6:42 AM TOP COLLAR MAKER CBC WITH PLATELETS AND DIFFERENTIAL STAT 06/29/2024 6:41 AM TOP COLLAR MAKER TYPE AND SCREEN, ADULT STAT 06/29/2024 6:41 AM TOP COLLAR MAKER CBC WITH PLATELETS & DIFFERENTIAL STAT 06/29/2024 6:41 AM TOP COLLAR MAKER ABO/RH TYPE AND SCREEN STAT 06/29/2024 6:41 AM TOP COLLAR MAKER BASIC METABOLIC PANEL STAT 06/29/2024 6:41 AM TOP COLLAR MAKER XR CHEST 1 VIEW Routine 06/29/2024 6:26 AM TOP COLLAR MAKER documented in this encounter Results * (ABNORMAL) Basic metabolic panel (06/30/2024 7:29 AM TOP COLLAR MAKER) Sodium 139 135 - 145 mmol/L 06/30/2024 8:18 AM [facility] Potassium 4.3 3.4 - 5.3 mmol/L 06/30/2024 8:18 AM [facility] Chloride 104 98 - 107 mmol/L 06/30/2024 8:18 AM [facility] Carbon Dioxide (CO2) 28 22 - 29 mmol/L 06/30/2024 8:18 AM [facility] Anion Gap 7 7 - 15 mmol/L 06/30/2024 8:18 AM [facility] Urea Nitrogen 12.0 8.0 - 23.0 mg/dL 06/30/2024 8:18 AM [facility] Creatinine 0.83 0.67 - 1.17 mg/dL 06/30/2024 8:18 AM [facility] GFR Estimate 89 >60 mL/min/1.7 3m2 06/30/2024 8:18 AM [facility] Comment:eGFR calculated usin 2020 CKD-EPI equation. Calcium 8.8 8.8 - 10.4 mg/dL 06/30/2024 8:18 AM [facility] Comment:Reference intervals for this test were updated on 01/14/2024 to reflect our healthy population more accurately. There may be differences in the flagging of prior results with similar values performed with this method. Those prior results can be interpreted in the context of the updated reference intervals. Glucose 140(H) 70 - 99 mg/dL 06/30/2024 8:18 AM [facility] Blood STRUCTURE OF RIGHT UPPER LIMB / Unknown Venipuncture / Unknown 06/30/2024 7:29 AM TOP COLLAR MAKER 06/30/2024 7:44 AM [facility] Scott Bennett MD LAB - BLOOD ORDERABLES Final R esult LABORATORY [facility] [address], [address] [place] [address], [place] [phone] * (ABNORMAL) CBC with platelets and differential (06/29/2024 4:12 PM TOP COLLAR MAKER) WBC Count 9.9 4.0 - 11.0 10e3/uL 06/29/2024 4:21 PM TOP COLLAR MAKER LABORATORY RBC Count 4.29(L) 4.40 - 5.90 10e6/uL 06/29/2024 4:21 PM TOP COLLAR MAKER LABORATORY Hemoglobin 14.4 13.3 - 17.7 g/dL 06/29/2024 4:21 PM TOP COLLAR MAKER LABORATORY Hematocrit 42.3 40.0 - 53.0 % 06/29/2024 4:21 PM [facility] MCV 99 78 - 100 fL 06/29/2024 4:21 PM TOP COLLAR MAKER LABORATORY MCH 33.6(H) 26.5 - 33.0 pg 06/29/2024 4:21 PM [facility] MCHC 34.0 31.5 - 36.5 g/dL 06/29/2024 4:21 PM [facility] RDW 13.9 10.0 - 15.0 % 06/29/2024 4:21 PM [facility] Platelet Count 160 150 - 450 10e3/uL 06/29/2024 4:21 PM [facility] % Neutrophils 89 % 06/29/2024 4:21 PM TOP COLLAR MAKER LABORATORY % Lymphocytes 7 % 06/29/2024 4:21 PM [facility] % Monocytes 3 % 06/29/2024 4:21 PM [facility] % Eosinophils 0 % 06/29/2024 4:21 PM [facility] % Basophils 0 % 06/29/2024 4:21 PM [facility] % Immature Granulocytes 0 % 06/29/2024 4:21 PM TOP COLLAR MAKER LABORATORY NRBCs per 100 WBC 0 <1 /100 024 4:21 PM [facility] Absolute Neutrophils 8.9(H) 1.6 - 8.3 10e3/uL 06/29/2024 4:21 PM TOP COLLAR MAKER LABORATORY Absolute Lymphocytes 0.7(L) 0.8 - 5.3 10e3/uL 06/29/2024 4:21 PM [facility] Absolute Monocytes 0.3 0.0 - 1.3 10e3/uL 06/29/2024 4:21 PM TOP COLLAR MAKER LABORATORY Absolute Eosinophils 0.0 0.0 - 0.7 10e3/uL 06/29/2024 4:21 PM TOP COLLAR MAKER LABORATORY Absolute Basophils 0.0 0.0 - 0.2 10e3/uL 06/29/2024 4:21 PM TOP COLLAR MAKER LABORATORY Absolute Immature Granulocytes 0.0 <=0.4 10e3/uL 06/29/2024 4:21 PM TOP COLLAR MAKER LABORATORY Absolute NRBCs 0.0 10e3/uL 06/29/2024 4:21 PM TOP COLLAR MAKER LABORATORY Blood STRUCTURE OF RIGHT UPPER LIMB / Unknown Venipuncture / Unknown 06/29/2024 4:12 PM TOP COLLAR MAKER 06/29/2024 4:19 PM TOP COLLAR MAKER Scott Bennett MD LAB - BLOOD ORDERABLES Final R esult LABORATORY [facility] [address], [address] [place] [address], [place] [phone] * (ABNORMAL) Activated clotting time celite, POCT (06/29/2024 9:53 AM TOP COLLAR MAKER) Activated Clotting Time (Celite) POCT 211(H) 74 - 150 seconds 06/30/2024 6:40 AM TOP COLLAR MAKER LABORATORY POC Blood, arterial BLOOD SPECIMEN / Unknown 06/29/2024 9:53 AM TOP COLLAR MAKER 06/30/2024 6:40 AM TOP COLLAR MAKER us Toni Javier MD LAB - BEAKER POCT Final Res ult LABORATORY POC [facility] [address], [address] [place] [address], [place] * (ABNORMAL) Activated clotting time celite, POCT (06/29/2024 9:39 AM TOP COLLAR MAKER) Activated Clotting Time (Celite) POCT 211(H) 74 - 150 seconds 06/30/2024 6:41 AM TOP COLLAR MAKER LABORATORY POC Blood, arterial BLOOD SPECIMEN / Unknown 06/29/2024 9:39 AM TOP COLLAR MAKER 06/30/2024 6:41 AM TOP COLLAR MAKER Toni Javier MD LAB - BEAKER POCT Final Res ult LABORATORY POC [facility] [address], [address] [place] [address] * EKG 12-lead, tracing only (06/29/2024 6:42 AM TOP COLLAR MAKER) Systolic Blood Pressure mmHg RADIOLOGY RESULTS Diastolic Blood Pressure mmHg RADIOLOGY RESULTS Ventricular Rate 70 BPM RAD IOLOGY RESULTS Atrial Rate 71 BPM RADIOLOG Y RESULTS NM Interval ms RADIOLOG Y RESULTS QRS Duration 140 ms RADIOLO GY RESULTS QT 488 ms RADIOLOGY RESULTS QTc 527 ms RADIOLOGY RESULTS P [place] degrees RADIOLOGY RESULTS R AXIS 39 degrees RADIOLOGY RESULTS T [place] 80 degrees RADIOLOGY RESULTS Interpretation ECG Ventricular-pa nino rhythm Abnormal ECG When compared with ECG of 25-Feb-2023 12:23, No significant change was found Confirmed by David Neff ([id number]) on 06/29/2024 4:19:36 PM RADIOLOGY RESULTS 06/29/2024 6:42 AM TOP COLLAR MAKER 06/29/2024 4:19 PM TOP COLLAR MAKER Ila Baugh NP ECG ORDERABLES Edited Result - Final RADIOLOGY RESULTS * CBC with platelets and differential (06/29/2024 6:41 AM TOP COLLAR MAKER) WBC Count 7.1 4.0 - 11.0 10e3/uL 06/29/2024 6:59 AM TOP COLLAR MAKER LABORATORY RBC Count 4.49 4.40 - 5.90 10e6/uL 06/29/2024 6:59 AM TOP COLLAR MAKER LABORATORY Hemoglobin 14.4 13.3 - 17.7 g/dL 06/29/2024 6:59 AM TOP COLLAR MAKER LABORATORY Hematocrit 44.5 40.0 - 53.0 % 06/29/2024 6:59 AM [facility] MCV 99 78 - 100 fL 06/29/2024 6:59 AM [facility] MCH 32.1 26.5 - 33.0 pg 06/29/2024 6:59 AM [facility] MCHC 32.4 31.5 - 36.5 g/dL 06/29/2024 6:59 AM [facility] RDW 13.9 10.0 - 15.0 % 06/29/2024 6:59 AM [facility] Platelet Count 168 150 - 450 10e3/uL 06/29/2024 6:59 AM [facility] % Neutrophils 67 % 06/29/2024 6:59 AM [facility] % Lymphocytes 22 % 06/29/2024 6:59 AM [facility] % Monocytes 9 % 06/29/2024 6:59 AM [facility] % Eosinophils 1 % 06/29/2024 6:59 AM [facility] % Basophils 1 % 06/29/2024 6:59 AM [facility] % Immature Granulocytes 1 % 06/29/2024 6:59 AM [facility] NRBCs per 100 WBC 0 <1 /100 024 6:59 AM [facility] Absolute Neutrophils 4.8 1.6 - 8.3 10e3/uL 06/29/2024 6:59 AM [facility] Absolute Lymphocytes 1.6 0.8 - 5.3 10e3/uL 06/29/2024 6:59 AM [facility] Absolute Monocytes 0.6 0.0 - 1.3 10e3/uL 06/29/2024 6:59 AM [facility] Absolute Eosinophils 0.1 0.0 - 0.7 10e3/uL 06/29/2024 6:59 AM [facility] Absolute Basophils 0.0 0.0 - 0.2 10e3/uL 06/29/2024 6:59 AM [facility] Absolute Immature Granulocytes 0.0 <=0.4 10e3/uL 06/29/2024 6:59 AM [facility] Absolute NRBCs 0.0 10e3/uL 06/29/2024 6:59 AM [facility] Blood STRUCTURE OF RIGHT UPPER LIMB / Unknown Venipuncture / Unknown 06/29/2024 6:41 AM TOP COLLAR MAKER 06/29/2024 6:55 AM TOP COLLAR MAKER Ila Adam Baugh SECURITIES DEALER LAB - BLOOD ORDERABLES Final R esult LABORATORY [facility] [address], [address] [place] [address], [place] [phone] * Adult Type and Screen (06/29/2024 6:41 AM TOP COLLAR MAKER) [facility] ABO/RH(D) O NEG 06/29/2024 6:19 AM [facility] B[facility] Antibody Screen Negative Negative 06/29/2024 6:19 AM [facility] BLOOD BANK SPECIMEN EXPIRATION DATE [id number] 06/29/2024 6:19 AM [facility] Blood STRUCTURE OF RIGHT UPPER LIMB / Unknown Venipuncture / Unknown 06/29/2024 6:41 AM TOP COLLAR MAKER 06/29/2024 6:55 AM TOP COLLAR MAKER Ila Adam Baugh SECURITIES DEALER LAB - BLOOD BANK TEST ORDER Fi nal Result BLOOD BANK [address] [place] [address], [place] * (ABNORMAL) Basic metabolic panel (06/29/2024 6:41 AM TOP COLLAR MAKER) Pathologist [facility] Sodium 139 135 - 145 mmol/L 06/29/2024 7:25 AM [facility] Potassium 4.4 3.4 - 5.3 mmol/L 06/29/2024 7:25 AM [facility] Chloride 103 98 - 107 mmol/L 06/29/2024 7:25 AM [facility] Carbon Dioxide (CO2) 28 22 - 29 mmol/L 06/29/2024 7:25 AM [facility] Anion Gap 8 7 - 15 mmol/L 06/29/2024 7:25 AM [facility] Urea Nitrogen 9.1 8.0 - 23.0 mg/dL 06/29/2024 7:25 AM [facility] Creatinine 0.90 0.67 - 1.17 mg/dL 06/29/2024 7:25 AM [facility] GFR Estimate 87 >60 mL/min/1.7 3m2 06/29/2024 7:25 AM [facility] Comment:eGFR calculated usin 2020 CKD-EPI equation. Calcium 9.3 8.8 - 10.4 mg/dL 06/29/2024 7:25 AM [facility] Comment:Reference intervals for this test were updated on 01/14/2024 to reflect our healthy population more accurately. There may be differences in the flagging of prior results with similar values performed with this method. Those prior results can be interpreted in the context of the updated reference intervals. Glucose 163(H) 70 - 99 mg/dL 06/29/2024 7:25 AM [facility] Blood STRUCTURE OF RIGHT UPPER LIMB / Unknown Venipuncture / Unknown 06/29/2024 6:41 AM TOP COLLAR MAKER 06/29/2024 6:55 AM TOP COLLAR MAKER Ila Adam Baugh NP LAB - BLOOD ORDERABLES Final R esult LABORATORY [facility] [address] 1st floor, Room 20B [place] [address], RUST [phone] * XR Chest 1 View (06/29/2024 6:26 AM TOP COLLAR MAKER) Anatomical Region Laterality Modality Chest Digital Radiogra phy 06/29/2024 6:26 AM TOP COLLAR MAKER Impressions 06/29/2024 6:31 AM TOP COLLAR MAKER IMPRESSION: 1. Stable normal cardiomediastinal silhouette with median sternotomy wires, mediastinal surgical clips, left anterior chest wall cardiac device, and a left atrial appendage occluder device. 2. No acute cardiopulmonary process. Narrative 06/29/2024 6:31 AM TOP COLLAR MAKER EXAM: XR CHEST 1 VIEW LOCATION: [facility] DATE: 06/29/2024 INDICATION: Pre op AAA surgery COMPARISON: 02/25/2023 Procedure Note Hjaa Elias MD - 06/29/2024 EXAM: XR CHEST 1 VIEW LOCATION: [facility] DATE: 06/29/2024 INDICATION: Pre op AAA surgery COMPARISON: 02/25/2023 IMPRESSION: 1. Stable normal cardiomediastinal silhouette with median sternotomywires, mediastinal surgical clips, left anterior chest wall cardiacdevice, and a left atrial appendage occluder device. 2. No acute cardiopulmonary process. Ila Baugh SECURITIES DEALER IMG DIAGNOSTIC IMAGING ORDERAB LES Final Result documented in this encounter Visit Diagnoses Diagnosis Cardiac pacemaker in situ- Primary Abdominal aortic aneurysm (AAA) greater than 5.5 [...] exceed 4 grams/day. $Given 06/30/2024 6:46 AM TOP COLLAR MAKER 975 mg $Given 06/29/2024 11:41 PM TOP COLLAR MAKER 975 mg $Given 06/29/2024 3:48 PM TOP COLLAR MAKER 975 mg aspirin (ASA) chewable tablet 81 mg 81 mg, Oral, DAILY, First dose on Sat06/30/24 at 0800 $Given 06/30/2024 9:07 AM TOP COLLAR MAKER 81 mg atorvastatin (LIPITOR) tablet 40 mg 40 mg, Oral, EVERY EVENING, First dose on Sat06/29/24 at 2000 $Given 06/29/2024 8:02 PM TOP COLLAR MAKER 40 mg BUPivacaine 0.25 % - EPINEPHrine 1:200,000 injection PRN, Starting on Sat06/29/24 at 1020, Intra-procedure $Given 06/29/2024 10:20 AM TOP COLLAR MAKER 20 mLs Operative Site/Surgi mohamud Site heparin 10,000 units in 1000 mL 0.9% sodium chloride PRN, Starting on Sat06/29/24 at 0900, Intra-procedure $Given 06/29/2024 9:30 AM TOP COLLAR MAKER 1,000 mLs Operative Site/Surgi mohamud Site $Given 06/29/2024 9:15 AM TOP COLLAR MAKER 1,000 mLs Op erative Site/Surgical Site $Given 06/29/2024 9:00 AM TOP COLLAR MAKER 1,000 mLs Op erative Site/Surgical Site metoprolol succinate ER (TOPROL XL) 24 hr tablet 25 mg 25 mg, Oral, DAILY, First dose on Sat06/30/24 at 0800, DO NOT CRUSH. Tablet may be split in half along score line. $Given 06/30/2024 9:07 AM TOP COLLAR MAKER 25 mg naloxone (NARCAN) injection 0.2 mg [...] analgesic side effects. Hold while on IV EQUIPMENT OPERATING ENGINEER or with regular IV opioid dosing. oxyCODONE (ROXICODONE) tablet 5 mg 5 mg, Oral, EVERY 4 HOURS PRN, moderate pain, Starting on Sat06/29/24 at 1442, Hold oral PRN dose for analgesic side effects. Notify provider to assess for uncontrolled pain or analgesic side effects. Hold while on IV EQUIPMENT OPERATING ENGINEER or with regular IV opioid dosing. prochlorperazine [...] for loose stools. $Given 06/30/2024 9:07 AM TOP COLLAR MAKER 1 tablet $Given 06/29/2024 8:02 PM TOP COLLAR MAKER 1 tablet sodium chloride (PF) 0.9% PF flush 3 mL 3 mL, Intracatheter, EVERY 8 HOURS, First dose on Sat06/29/24 at 1500, to lock peripheral IV dormant line $Given 06/29/2024 11:41 PM TOP COLLAR MAKER 3 mLs $Given 06/29/2024 3:13 PM TOP COLLAR MAKER 3 mLs tamsulosin (FLOMAX) capsule 0.8 mg 0.8 mg, Oral, EVERY EVENING, First dose on Sat06/29/24 at 1999, Administer 30 minutes after the same meal each day. Capsules should be swallowed whole; do not crush chew or open. $Given 06/29/2024 8:02 PM TOP COLLAR MAKER 0.8 mg documented in this encounter Active and Recently Administered Medications Times are shown in TOP COLLAR MAKER. Scheduled Medication Order 06/28/2024 06/29/2024 06/30/2024 acetaminophen [...] at 0800 0907 ($Given - Provider: Jeremias Yeboah RN) atorvastatin (LIPITOR) tablet 40 mg 40 mg, Oral, EVERY EVENING, First dose on Sat06/29/24 at 1999 2001 ($Given - Provider: Ganesh Ken RN) ceFAZolin (ANCEF) 2 g in 100 mL D5W intermittent infusion (COMPLETED) Routine, 2 g, Intravenous, EVERY 8 HOURS, First dose on Sat06/29/24 at 1600, For 2 doses, Indications: Perioperative Pharmacoprophylaxis 1514 ($New Bag - Provider: Porsche Viramontes RN)2341 ($New Bag - Provider: Ganesh Ken RN) ceFAZolin Sodium (ANCEF) injection 2 g (COMPLETED) Routine, 2 g, Intravenous, PRE-OP/PRE-PROCEDURE, Starting on Sat06/29/24 at 0618, For 1 dose, Give first dose within 1 hour PRIOR to incision. If patient weight is greater than or equal to 120 kg increase dose to 3 g., Indications: Perioperative Pharmacoprophylaxis, Pre-procedure 810 ($Given - Provider: Liz Vera MD) metoprolol succinate ER (TOPROL XL) 24 hr tablet 25 mg 25 mg, Oral, DAILY, First dose on Sat06/30/24 at 0800, DO NOT CRUSH. Tablet may be split in half along score line. 906 ($Given - Provider: Jeremias Yeboah, RN) polyethylene glycol (MIRALAX) Packet 17 g 17 [...] bowel prep regimen or bowel clean out. 905 (Not Given - Provider: Jeremias Yeboah RN - Reason: Patient/family refused) senna-docusate (SENOKOT-S/PERICOLACE) 8.6-50 MG per tablet 1 tablet 1 tablet, Oral, 2 TIMES DAILY, First dose on Sat06/29/24 at 2000, To prevent constipation. Hold for loose stools Hold for loose stools. 2001 ($Given - Provider: Ganesh Ken RN) 906 ($Given - Provider: Jeremias Yeboah, ANÍBAL) sodium chloride (PF) 0.9% PF flush 3 mL 3 mL, Intracatheter, EVERY 8 HOURS, First dose on Sat06/29/24 at 1500, to lock peripheral IV dormant line 1513 ($Given - Provider: Porsche Viramontes RN)2341 ($Given - Provider: Ganesh Ken RN) 0700 (Not Given - Provider: Ganesh Ken RN - Reason: Patient sleeping)1500 (Canceled Entry - Provider: Nilay Generic Provider - Comment: Automatically canceled at [...] analgesic side effects. Hold while on IV EQUIPMENT OPERATING ENGINEER or with regular IV opioid dosing. oxyCODONE (ROXICODONE) tablet 5 mg(Linked Group 2) 5 mg, Oral, EVERY 4 HOURS PRN, moderate pain, Starting on Sat06/29/24 at 1442, Hold oral PRN dose for analgesic side effects. Notify provider to assess for uncontrolled pain or analgesic side effects. Hold while on IV EQUIPMENT OPERATING ENGINEER or with regular IV opioid dosing. prochlorperazine [...] not prescribed: patient did not have an [place] sodium chloride (PF) 0.9% PF flush 3 [...] analgesic side effects. Hold while on IV EQUIPMENT OPERATING ENGINEER or with regular IV opioid dosing. Or oxyCODONE (ROXICODONE) tablet 10 mgJump to med 10 mg, Oral, EVERY 4 HOURS PRN, severe pain, Starting on Sat06/29/24 at 1442, Hold oral PRN dose for analgesic side effects. Notify provider to assess for uncontrolled pain or analgesic side effects. Hold while on IV EQUIPMENT OPERATING ENGINEER or with regular IV opioid dosing. Group [...] provider. documented in this encounter Care Teams Chair Inspector Relationship Specialty Start Date End Date Santo Friedman [facility] [address] [facility] [address] PCP - General Sports Medicine 04/06/22 Siddhartha White MD [address] [place] [address] Assigned Heart and Vascular Provider 05/23/24 documented as of this encounter
--- OUTSIDE RECORDS SUMMARY | 2024-07-01 13:33 | XMS_ITS | Encounter Summary ---
Author Organization [place] Address [facility] [place] [address] Care Team Providers Care Legal Billing Specialist Name Role Phone Santo Friedman MD Primary Care Provider [phone] Roro Herrera Unavailable Reason for Referral * Diagnostic Imaging CT Scan (Routine) - Closed Specialty Diagnoses / Procedures [facility] To Contact Radiology. Diagnoses Infrarenal abdominal aortic aneurysm (AAA) without rupture (H) Procedures CTA Abdomen Pelvis with Contrast Toni Javier MD [address] [address] Phone: tel: fax: Referral ID Status Reason Start Date Expiration Date Visits Re quested Visits Authorized [id number] Closed 05/19/2024 05/19/2025 1 1 DESIGNER STANDARD CELLS Reason for Visit * Diagnostic Imaging CT Scan (Routine) - Closed Specialty Diagnoses / Procedures Referred By [facility] Referred To Contact Radiology. Diagnoses Infrarenal abdominal aortic aneurysm (AAA) without rupture (H) Procedures CTA Abdomen Pelvis with Contrast Toni Javier MD [address] [place] [address] Phone: tel: fax: Referral ID Status Reason Start Date Expiration Date Visits Re quested Visits Authorized [id number] Closed 05/19/2024 05/19/2025 1 1 Encounter Details Date Type Department Care Team (Latest Contact Info) Description 05/20/2024 2:04 PM IC DESIGNER STANDARD CELLS - 05/20/2024 11:59 PM IC DESIGNER STANDARD CELLS Hospital Encounter [facility] [address] [place] [address] Toni Javier MD [address] [facility] [address] [place] [address] Infrarenal abdominal aortic aneurysm (AAA) without rupture [...] PM CDT Legal Sex Male 4:32 AM IC DESIGNER STANDARD CELLS Gender Identity Male 11/02/2020 12:08 PM CDT [...] st Contact Info) Description 07/14/2024 10:30 AM IC DESIGNER STANDARD CELLS Office Visit [facility] [place] [address] [place], [place] [address] Ila Baugh, STAMP ANALYST [address] [place], [place] [address] 07/27/2024 Ancillary Procedure [facility] [address] [facility] [address] [place] [phone] Dieter Travis MD [address] [place] [id number] documented as of this encounter Procedures Procedure Name Priority Date/Time Associated Diagnosis Comments CTA ABDOMEN PELVIS WITH CONTRAST STAT 05/20/2024 2:43 PM IC DESIGNER STANDARD CELLS Infrarenal abdominal aortic aneurysm (AAA) without rupture (H) documented in this encounter Results * CTA Abdomen Pelvis with Contrast (05/20/2024 2:43 PM IC DESIGNER STANDARD CELLS) Anatomical Region Laterality Modality Abdomen/Pelvis, SUBRAD IR IL EMILIE, UMP CT CTA, RAD CT Computed Tomography Impressions 05/20/2024 3:56 PM IC DESIGNER STANDARD CELLS IMPRESSION: 1. Infrarenal abdominal aortic aneurysm measuring [...] MRI evaluation for most definitive evaluation. JAMES RANDOLPH MD Narrative 05/20/2024 3:56 PM IC DESIGNER STANDARD CELLS CTA ABDOMEN AND PELVIS WITH CONTRAST 05/20/2024 [...] femoral arteries are patent. Procedure Note James Randolph MD - 05/20/2024 CTA ABDOMEN AND PELVIS [...] MRI evaluation for most definitive evaluation. JAMES RANDOLPH MD Toni Javier MD IMG CT ORDERABLES Final Res ult documented in this encounter Visit Diagnoses Diagnosis Infrarenal abdominal aortic aneurysm (AAA) without rupture (H) documented in this encounter Administered Medications Inactive Administered Medications - up to 3 most recent administrations Medication Order MAR Action Action Date Dose Rate Site CT scan flush use As instructed, 100 mL, ONCE, On Sat05/20/24 at 1430, For 1 dose, This entry is for use by Radiology to intermittently used as a flush in patients receiving a CT scan. $Given 05/20/2024 2:28 PM IC DESIGNER STANDARD CELLS 80 mLs iopamidol (ISOVUE-370) solution 500 mL 500 mL, Intravenous, ONCE, On Sat05/20/24 at 1430, For 1 dose $Given 05/20/2024 2:28 PM IC DESIGNER STANDARD CELLS 72 mLs documented in this encounter Care Teams Legal Billing Specialist Relationship Specialty Start Date End Date Santo Friedman MD [address] [place] [address] PCP - General Sports Medicine 04/06/22 Roro Herrera PA [facility] [address] [place] [address] Assigned Heart and Vascular Provider 11/03/22 05/22/24 documented as of this encounter
--- OUTSIDE RECORDS SUMMARY | 2024-07-01 13:34 | XMS_ITS | Encounter Summary ---
Author Organization [place] Address [address] [place] [address] Care Team Providers Care Log Data Technician Name Role Phone Shashank Abad MD Primary Care Provider Lisset Gusman MD Primary Care Provider + [phone] Lisset Meneds MD Unavailable [phone] Shashank Abad MD Primary Care Provider Dieter Benitez MD Unavailable [phone] John Constantino MD Unavailable [phone] Charmaine EnriquezC Unavailable [phone] Toni Javier MD Unavailable [phone] Siddhartha White MD Unavailable [phone] Ila Baugh NP Unavailable [phone] Santo Firedman MD Primary Care Provider [phone] Siddhartha White MD Unavailable [phone] Roro Herrera Unavailable Siddhartha White MD Unavailable [phone] Roro Herrera Unavailable Siddhartha White MD Unavailable [phone] Encounter Details Date Type Department Care Team (Late st Contact Info) Description 08/12/2008 Office Visit-[facility] [place] [address] [facility] [address] [place] [phone] Siddhartha White MD [address] [place] [address] Social History Tobacco Use Types Packs/Day Years Used Date Smoking Tobacco: Never Assessed Sex and Gender Information Value Date Recorded Sex Assigned at Male 11/02/2020 12:08 PM CDT Legal Sex Male 4:32 AM CUPOLA MELTING SUPERVISOR Gender Identity Male 11/02/2020 12:08 PM CDT Sexual Orientation Straight 11/02/2020 12 :08 PM CDT documented as of this encounter Progress Notes * Siddhartha White MD - 08/16/2008 10:59 AM CST Progress Note Created by: Siddhartha White M.D. DATE: 08/12/2008 SHANNAN LOVE DATE OF : 1945 AGE: [age] years old Referring Physician: SHASHANK ABAD Referring Clinic: [facility] CURRENT DIAGNOSES 1. - CAD, 414.00 2. PTCA, V45.82 3. Abnormal Ekg, 794.31 4. - Hypercholesterolemia, 272.0 ALLERGIES NKA MEDICATIONS (prior to changes made today) 1. Lipitor 40 Mg, 1 p.o. qAM 2. Altace 5 Mg, 1 p.o. q.d. 3. Toprol Xl 25 Mg, 1 p.o. q.d. 4. Avodart 0.5 mg, 1 p.o. q.d. 5. Nitroglycerin 0.4 Mg, Take as Directed 6. Fish Oil -, 1 p.o. q.d. 7. Aspirin 81 mg, 1 p.o. q.d. 8. Thalia-Dec Multiple Vitamins with Minerals, 1 p.o. q.d. CHIEF COMPLAINTS HISTORY OF PRESENT ILLNESS I had the opportunity to see Mr. Shannan Love in Cardiology Clinic today for reevaluation of coronary artery disease and dyslipidemia. As you may recall, Mr. Love is a 62-year-old gentleman who was asymptomatic when he was found to have a large area of anterior and anterolateral ischemia by nuclear stress testing in 2003. He subsequently underwent cardiac catheterization revealing a severe complex stenosis at the origin of the left anterior descending and ramus arteries. Those were treated with angioplasty and stent. He had mild to moderate disease within the diagonal, circumflex and right coronary artery systems. Fortunately since that time follow-up stress testing has not shown any recurrent ischemia. He continues to be active, walking two to three miles a day and playing softball from August to March. He is not having any concerning symptoms of chest pain or shortness of breath at this time. At his request we did some laboratory studies today including a fasting lipid panel. This showed anLDL of 76, HDL 42, triglycerides 77 and total cholesterol 133. This yields a ratio of 3.2. On examination today his blood pressure is 120/70, heart rate 54 and weight 225 pounds. He is down about 14 pounds since last year. He is comfortable with the examination, breathing easily. His lungsare clear. His heart rhythm is regular. There are no cardiac murmurs and no carotid bruits. PAST HISTORY Past Medical Illnesses: hyperlipidemia, prostate hypertrophy Past Cardiac Illnesses: coronary artery disease Cardiology Procedures-Invasive: PTCA with intracoronary stent placement of, proximal LAD and Ramus intermedius September 2003 Cardiology Procedures-Noninvasive: myocardial perfusion imaging (Nuclear) 05/05, 05/06, 05/07 Left Ventricular Ejection Fraction: 58% per Nuclear 05/2005, EF50% by nuclear study -May 2006, 05/07 EF 50% by nuclear study Nuclear Results: gated EF 58%, 05/07 fixed inferior lateral defect observed, noted as likely diaphragm attenuation. 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 INTEGUMENTARY denies any change in hair or nails, rashes, or skin lesions. EYES denies diplopia, history of glaucoma or visual field defects. EARS, NOSE, THROAT, MOUTH denies any hearing loss, epistaxis, hoarseness or difficulty speaking. RESPIRATORY denies dyspnea, cough, wheezing or hemoptysis. CARDIOVASCULAR negative for palpitations, chest pain, orthopnea, PND, peripheral edema, syncope or claudication. ABDOMINAL denies ulcer disease, hematochezia or melena. MUSCULOSKELETAL denies any history of arthritic symptoms or back problems. NEUROLOGICAL denies any history of recurrent strokes, headaches, TIA, or seizure disorder. PSYCHIATRIC denies any history of depression, substance abuse or change in cognitive functions. ENDOCRINE denies any history of thyroid disease or diabetes mellitus. HEMATOLOGICAL/IMMUNOLOGIC denies any food allergies, seasonal allergies, bleeding disorders. PHYSICAL EXAMINATION VITAL SIGNS: Blood Pressure: 120/70 Sitting, Left arm, regular cuff Pulse- 54.00/min. Weight- 225.00 lbs. Height- 72.00 Temperature- .00 CONSTITUTIONAL cooperative, alert and oriented,well developed, well nourished, in no acute distress. SKIN warm and dry to touch, no apparent skin lesions, or masses noted. HEAD normocephalic, atraumatic NECK carotid pulses are full and equal bilaterally, JVP normal, no carotid bruit, no thyromegaly CHEST normal symmetry, no tenderness to palpation, normal respiratory excursion, no intercostal retraction, no use of accessory muscles, clear to auscultation and percussion. CARDIAC regular rhythm, S1 normal, S2 normal, No S3 or S4, Apical impulse not displaced, no murmurs, gallops or rubs detected. ABDOMEN abdomen soft, no hepatosplenomegaly PERIPHERAL PULSES pulses full and equal in all extremities, no bruits EXTREMITIES & BACK no deformities, clubbing, cyanosis, erythema or edema observed. There are no spinal abnormalities noted. Normal muscle strength and tone. NEUROLOGICAL no gross motor deficits noted, affect appropriate, oriented to time, person and place. MEDICATIONS UPDATED/STARTED TODAY: Avodart 0.5 mg, 1 p.o. q.d., 0 IMPRESSIONS: Mr. Shannan Love is a 62-year-old gentleman with dyslipidemia and remote history of smoking. He had never really had significant hypertension, but is on some medications for blood pressure control. He has had angioplasty and stent to the proximal left anterior descending and ramus arteries and has mild to moderate disease in other arteries. We have been following him with stress testing, although for some reason this was not ordered this year. He suggested that and I agree. We will go ahead and repeat a stress test here in the next week or two and if that is normal we will contact him with those results and follow-up with him again in one year's time as per our usual arrangement. If he has some concerning findings on his stress test we will have him come in for further discussion. TODAYS ORDERS 1. Lipid profile/ALT Today 2. Treadmill Nuclear Study 1 week 3. Treadmill Nuclear Study 1 year 4. F/U with Siddhartha White MD 1 year 5. Lipid profile/ALT 1 year Siddhartha Christopher, M.D. documented in this encounter Plan of Treatment Upcoming Encounters Date Type Department Care Team (Late st Contact Info) Description 07/14/2024 10:30 AM CUPOLA MELTING SUPERVISOR Office Visit [facility] [place] [address] [place] [phone] Ila Baugh, OIL PIPELINE OPERATOR [address] [place], [place] [address] 07/27/2024 Ancillary Procedure [facility] [address] [place] [phone] Dieter Travis MD [address] [place] [id number] documented as of this encounter Visit Diagnoses Not on filedocumented in this encounter Care Teams Log Data Technician Relationship Specialty Start Date End Date Shashank Abad MD PCP - General Family Practice 10/04/11 11/02/18 Lisset Mendes MD [address] [place] [address] PCP - General Internal Medicine 11/10/18 03/10/19 Shashank Abad MD PCP - General Family Practice 03/11/19 04/05/22 Santo Friedman MD [address] [place] [address] PCP - General Sports Medicine 04/06/22 Lisset Mendes MD [address] [place], [place] [phone] Assigned PCP 10/17/18 11/11/21 Dieter Travis MD [address] [place], [place] [address] Assigned Heart and Vascular Provider 04/22/20 09/13/20 John Constantino MD [address] [place], [place] [phone] Assigned Endocrinology Provider 04/22/20 08/20/20 Charmaine Enriquez PA-C [address] [place], [place] [address] Assigned Heart and Vascular Provider 09/14/20 02/18/21 Toni Javier MD [address] [place], [place] [address] Assigned Heart and Vascular Provider 02/19/21 07/15/21 Siddhartha White MD [address] [place], [place] [phone] Assigned Heart and Vascular Provider 07/16/21 02/09/22 Ila Baugh OIL PIPELINE OPERATOR [address] [place] [phone] Assigned Heart and Vascular Provider 02/10/22 04/06/22 Siddhartha White MD [address] [place], [place] [address] Assigned Heart and Vascular Provider 04/07/22 05/04/22 Roro Herrera PA [facility] [address] [place] [address] Assigned Heart and Vascular Provider 05/05/22 10/26/22 Siddhartha White MD [address] [place] [address] Assigned Heart and Vascular Provider 10/27/22 11/02/22 Roro Herrera PA [facility] [address] [place] [address] Assigned Heart and Vascular Provider 11/03/22 05/22/24 Siddhartha White MD [address] [place] [address] Assigned Heart and Vascular Provider 05/23/24 documented as of this encounter
--- OUTSIDE RECORDS SUMMARY | 2024-07-01 13:34 | XMS_ITS | Encounter Summary ---
Author Organization [place] Address [facility] [place] [address] Care Team Providers Care Dietetic Technician Name Role Phone Santo Friedman MD Primary Care Provider [phone] Roro Herrera Unavailable Siddhartha White MD Unavailable [phone] Reason for Referral * CV Testing (Routine) - Pending Review Specialty Diagnoses / Procedures Referred By Contac t Referred To Contact Diagnoses Chronic systolic heart failure (H) ICD (implantable cardioverter-defibrillator) in place Ischemic cardiomyopathy Procedures Cardiac Device Check - In Clinic Keny Barrientos MD [address] [place] [address] Phone: tel: fax: Referral ID Status Reason Start Date Expiration Date V isits Requested Visits Authorized [id number] Pending Review 11/07/2023 11/06/2024 1 1 Reason for Visit * Reason Onset Date Comments Orders 11/07/2023 In-clinic device check Encounter Details Date Type Department Care Team (Late st Contact Info) Description 11/07/2023 Telephone [facility] [place] [id number] [facility] [address] [place] [phone] Siddhartha White MD [address] [place] [address] Orders (In-clinic device check) Social History Tobacco Use Types Packs/Day Years [...] PM CDT Legal Sex Male 4:32 AM SALES MGR Gender Identity Male 11/02/2020 12:08 PM CDT Sexual Orientation Straight 11/02/2020 12 :08 PM CDT documented as of this encounter Miscellaneous Notes * Telephone Encounter - Tonia Fritz - 11/07/2023 12:01 PM CDT [facility] Call Center Phone Message May a detailed message be left on voicemail: yes Reason for Call: Order(s): Other: Reason for requested: In Clinic device check for March Date needed: 11/10 Provider name: Dr White Please have flour broker also schedule F/U and labs Action Taken: Other: Cardiology Travel Screening: Not Applicable Thank you! [facility] documented in this encounter Plan of Treatment Upcoming Encounters Date Type Department Care Team (Late st Contact Info) Description 07/14/2024 10:30 AM SALES MGR Office Visit [facility] [place] [address] [place], [place] [phone] Ila Baugh NP [address] [place], [place] [address] 07/27/[address] [facility] [address] [facility] [address] [place] [phone] Dieter Travis MD [address] [place], [place] [address] documented as of this encounter Results * ICD DEVICE PROGRAMMING EVAL, DUAL LEAD ICD (04/23/2024 11:18 AM CDT) Date Time Interrogation Session [id number] [employer] Implantable Pulse Generator Laborer [employer] [place] [employer] Implantable Pulse Generator Model G138 MOMENTUM X4 WORK STUDY STUDENT-D [employer] Implantable Pulse Generator Serial Number [id number] [employer] Type Interrogation Session In Clinic [employer] Clinic Name [facility] [employer] Implantable Pulse Generator Type Cardiac Resynchronization Therapy - Defibrillator [employer] Implantable Pulse Generator Implant Date 20230225 [employer] Implantable Lead Laborer [employer] [place] [employer] Implantable Lead Model 4671 Acuity X4 Straight [employer] Implantable Lead Serial Number [id number] [employer] Implantable Lead Implant Date 20230225 [employer] Implantable Lead Polarity Type Quadripolar Lead [employer] Implantable Lead Location Detail 1 UNKNOWN [employer] Implantable Lead Location Left Ventricle [employer] Implantable Lead Connection Status Connected [employer] Implantable Lead Laborer Airport Maintenance Guidant [employer] Implantable Lead Model 0137 [place] Adel S [employer] Implantable Lead Serial Number [id number] [employer] Implantable Lead Implant Date 20230225 [employer] Implantable Lead Polarity Type Bipolar Lead [employer] Implantable Lead Location Detail 1 UNKNOWN [employer] Implantable Lead Location Right Ventricle [employer] Implantable Lead Connection Status Connected [employer] Implantable Lead Laborer [employer] [place] [employer] Implantable Lead Model 7740 Ingevity MRI [employer] Implantable Lead Serial Number [id number] [employer] Implantable Lead Implant Date 20191015 [employer] Implantable Lead Polarity Type Bipolar Lead [employer] Implantable Lead Location Detail 1 UNKNOWN [employer] Implantable Lead Location Right Atrium [employer] Implantable Lead Connection Status Connected [employer] Implantable Lead Laborer [employer] [place] [employer] Implantable Lead Model 7741 Ingevity MRI [employer] Implantable Lead Serial Number [id number] [employer] Implantable Lead Implant Date 20191015 [employer]IC [...] Mode Adaptive [employer] Ventricular chambers paced during WORK STUDY STUDENT pacing. BiV [employer] WORK STUDY STUDENT LV-RV Delay 30 ms [employer] Lead Channel [...] ms [employer] Battery Date Time of Measurements [id number] [employer] Battery Status Beginning of Service MEDT [employer] Battery Remaining Longevity 126 mo [employer] Battery Remaining Percentage 100 % [employer] Capacitor Charge Type Reformation [employer] Capacitor Last Charge Date Time [id number] [employer] Capacitor Charge Time 10.4 s [employer] [place] Statistic Date Time Start [id number] [employer] [place] Statistic Date Time End [id number] [employer] [place] Statistic RA Percent Paced 0 % [employer] [place] Statistic RV Percent Paced 100 % [employer] WORK STUDY STUDENT Statistic LV Percent Paced 100 % [employer] WORK STUDY STUDENT Statistic Date Time Start [id number] [employer] WORK STUDY STUDENT Statistic Date Time End [employer] Therapy Statistic Recent Shocks Delivered 0 [employer] Therapy Statistic Recent Shocks Aborted 0 [employer] Therapy Statistic Recent ATP Delivered 0 [employer] Therapy Statistic Recent Date Time Start [employer] Therapy Statistic Recent Date Time End [id number] [employer] Therapy Statistic Total Shocks Delivered 0 [employer] Therapy Statistic Total Shocks Aborted 0 [employer] Therapy Statistic Total ATP Delivered 0 [employer] Therapy Statistic Total Date Time Start [id number] [employer] Therapy Statistic Total Date Time End [id number] [employer] Episode Statistic Recent Count 0 MEDTRONIC [...] [employer] Episode Statistic Recent Date Time End [id number] [employer] Episode Statistic Recent Date Time Start [id number] [employer] Episode Statistic Recent Date Time End [id number] [employer] Episode Statistic Recent Date Time Start [employer] Episode Statistic Recent Date Time End [id number] [employer] Episode Statistic Recent Date Time Start [id number] [employer] Episode Statistic Recent Date Time End [id number] [employer] Anatomical Region Laterality Modality Other 04/23/2024 10:5 9 AM CDT Narrative 04/23/2024 11:59 AM CDT [employer] WORK STUDY STUDENT-D Device Check Patient seen in clinic for [...] Shocks: 0 Tachy Therapy History: Primary Prevetion -Nutrisystem (02/25/23-present): no therapies provided Setting Change: none Care Plan: follow up with next remote device check on 07/27/2024. Labs and Dr White scheduled today Ned /RN I have reviewed and interpreted the device interrogation, settings, programming and nurse's summary. The device is functioning within normal device parameters. I agree with the current findings, assessment and plan. us Keny Barrientos MD CV CARDIAC SERVICES ORDERABLES F inal Result documented in this encounter Visit Diagnoses Diagnosis Chronic systolic heart failure (H)- Primary Chronic systolic heart failure ICD (implantable cardioverter-defibrillator) in place Ischemic cardiomyopathy Other specified forms of chronic ischemic heart disease Chronic systolic heart failure (H) Chronic systolic heart failure ICD (implantable cardioverter-defibrillator) in place Ischemic cardiomyopathy Other specified forms of chronic ischemic heart disease documented in this encounter Care Teams Dietetic Technician Relationship Specialty Start Date End Date Santo Friedman MD [address] [place] [address] PCP - General Sports Medicine 04/06/22 Roro Herrera PA [facility] [address] [place] [address] 684165 Assigned Heart and Vascular Provider 11/03/22 05/22/24 Siddhartha White MD [address] [place], [place] [address] Assigned Heart and Vascular Provider 05/23/24 documented as of this encounter
--- OUTSIDE RECORDS SUMMARY | 2024-07-01 13:34 | XMS_ITS | Encounter Summary ---
Author Organization [place] Address [address] [place] [address] Care Team Providers Care Tax Manager Public Name Role Phone Shashank Abad MD Primary Care Provider Lisset Gusman MD Primary Care Provider [phone] Lisset Mendes MD Unavailable [phone] Shashank Abad MD Primary Care Provider Dieter Benitez MD Unavailable [phone] John Constantino MD Unavailable [phone] Charmaine EnriquezC Unavailable [phone] Toni Javier MD Unavailable [phone] Siddhartha White MD Unavailable [phone] Ila Baugh NP Unavailable [phone] Santo Friedman MD Primary Care Provider [phone] Siddhartha White MD Unavailable [phone] Roro Herrera Unavailable Siddhartha White MD Unavailable [phone] Roro Herrera Unavailable Siddhartha White MD Unavailable [phone] Encounter Details Date Type Department Care Team (Late st Contact Info) Description 10/29/2012 Office Visit-[facility] [place] [address] [facility] [address] [place] [phone] Siddhartha White MD [address] [place] [address] Social History Tobacco Use Types Packs/Day Years Used Date Smoking Tobacco: Former Alcohol Use Standard Drinks/Week Comments Not Asked 0 (1 standard drink = 0.6 oz pur e alcohol) Sex and Gender Information Value Date Recorded Sex Assigned at Male 11/02/2020 12:08 PM CDT Legal Sex Male 4:32 AM SOFTWARE DEVELOPER INTERN Gender Identity Male 11/02/2020 12:08 PM CDT Sexual Orientation Straight 11/02/2020 12 :08 PM CDT documented as of this encounter Progress Notes * Siddhartha White MD - 11/04/2012 12:00 PM CDT Progress Note Created by: Siddhartha White M.D. DATE: 10/29/2012 SHANNAN LOVE DATE OF : 1945 AGE: [age] years old Referring Physician: SHASHANK ABAD Referring Clinic: [facility] CURRENT DIAGNOSES 1. - Hypercholesterolemia, 272.0 2. - CAD, 414.00 3. Abnormal Ekg, 794.31 4. - Hypertension, 401.1 5. - Atrial Fibrillation, 427.31 ALLERGIES NKA MEDICATIONS (prior to changes made today) 1. atorvastatin 40 mg tablet, 1 p.o. daily 2. metoprolol succinate 25 mg tablet extended release 24 hr, 1 p.o. qAM 3. ramipril 5 mg capsule, 1 p.o. qAM 4. Aspirin 81 Mg Tablet, 1 p.o. daily 5. Daily Multivitamin Tablet, 1 p.o. daily 6. Fish Oil -, 1 p.o. daily 7. Levitra 20 mg Tablet, 1 p.o. daily 8. nitroglycerin 0.4 mg Tablet, Sublingual, Take as Directed 9. Vitamin C 1,000 mg Tablet, 1 p.o. daily 10. Xarelto 20 mg tablet, 1 p.o. daily CHIEF COMPLAINTS Review lab results and Review test results HISTORY OF PRESENT ILLNESS I had the opportunity to see Mr. Shannan Love in the Cardiology Clinic today at the [facility] for reevaluation of coronary artery disease, hypertension, dyslipidemia, and chronic atrial fibrillation. 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 He was found to have a relatively asymptomatic presentation w ith severe proximal LAD and diagonal disease that was treated with angioplasty and stenting in 2003. Since then, we have tried to monitor him with periodic stress testing due to the fact that he did not have anginal symptoms at the time of his initial presentation. We have not seen any recurrent coronary artery disease. This year, he had a stress echo (which was the first time that he had done this type of test since he developed chronic atrial fibrillation). Unfortunately when he was off of his Toprol for the test, his heart rates were out of control. His echo images were suboptimal. He was able to exercise for 8 minutes without chest pain with only some borderline ECG changes. The echo giana ges were nondiagnostic. I talked about this with Mr. Love. We decided that since he is feeling well and staying active that we do not need to pursue additional stress testing this year, but would plan on doing that next year before I see him. He had a cholesterol panel performed in January. His HDL was a bit low at 36. Today, it was up to 49where it usually runs. His heart rate was 77. Triglycerides were 75. Total cholesterol was 141. Histotal cholesterol:HDL ratio was 2.9. On examination today, his blood pressure was 124/84. Heart rate was 78. Weight was 237 pounds. His lungs were clear. Heart rhythm was irregularly irregular without cardiac murmur. He has no carotid bruits. No edema. PAST HISTORY Past Medical Illnesses: hyperlipidemia, prostate hypertrophy Past Cardiac Illnesses: coronary artery disease, atrial fibrillation Cardiac/Vasc Procedures-Invasive: PTCA with intracoronary stent placement of, proximal LAD and Ramus intermedius September 2003 Cardiology Procedures-NonInvasive: myocardial perfusion (Nuc) 05/05, 05/06, 05/07, 09/06, 10/08, 10/10, stress echo Sep 2010, Sep 2012 PMHx Stress Echo Results: 10/09 normal stress echocardiogram, 10/11 Cannot exclude anterior ischemia. Technically diificult study limits specificity. Suugest exercise uclear vs cath as clinically appropriate. Discussed with Isabel Left Ventricular Ejection Fraction: 58% per Nuclear 05/2005, EF<GT>50% by nuclear study -May 2006, 05/07 EF <GT>50% bynuclear study, EF<GT>55% by nuclear study -Sep 2009, EF<GT>55% by nuclear study -Sep 2011 Nuclear Results: gated EF 58%, 05/07 fixed inferior lateral defect observed, noted as likely diaphragm attenuation.,10/08 The study showed no evidence of ischemia *, 10/10 no significant ischemia 58% per Nuclear 05/2005, EF<GT>50% by nuclear study -May 2006, 05/07 EF <GT>50% bynuclear study, EF<GT>55% by nuclear study -Sep 2009 and EF<GT>55% by nuclear study - FAMILY HISTORY: Father - Age 67, of mi; Mother - ptcs; Brother 1 - Age 63, diabetes, ? 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 EYES wears eye glasses/contact lenses EARS, NOSE, THROAT, MOUTH denies any hearing loss, epistaxis, hoarseness or difficulty speaking. RESPIRATORY dyspnea with exertion CARDIOVASCULAR hx a-fib ABDOMINAL denies change in bowel habits, dyspepsia, ulcer disease, hematochezia or melena. GENITOURINARY-MALE nocturia MUSCULOSKELETAL muscle aches, history of generalized arthritis, knee NEUROLOGICAL denies any history of recurrent headaches, strokes, TIA, or seizure disorder. PSYCHIATRIC denies any history of depression, substance abuse or change in cognitive functions. ENDOCRINE denies any history of thyroid disease or diabetes mellitus. HEMATOLOGICAL/IMMUNOLOGIC denies any food allergies, seasonal allergies, bleeding disorders or lymphadenopathy. PHYSICAL EXAMINATION VITAL SIGNS: Blood Pressure: 124/84Sitting, Left arm, large cuff Pulse- 78.00/min. Weight- 237.00 lbs. Height- 72.00 BMI Measurement: 32 CONSTITUTIONAL cooperative, alert and oriented,well developed, well [...] accessory muscles, clear to auscultation and percussion. ABDOMEN abdomen soft, no hepatosplenomegaly PERIPHERAL PULSES pulses full and equal in all extremities, no bruits EXTREMITIES & BACK no deformities, clubbing, cyanosis, erythema or edema observed. There are no spinal abnormalities noted. Normal muscle strength and tone. NEUROLOGICAL no gross motor deficits noted, affect appropriate, oriented to time, person and place. MEDICATIONS UPDATED/STARTED TODAY: atorvastatin 40 mg tablet, 1 p.o. daily, #90 (Ninety) MEDICATIONS REFILLED/STOPPED TODAY: atorvastatin 20 mg tablet 1 p.o. daily #90 (Ninety) Refill IMPRESSION/PLAN: Mr. Shannan Love is a 67-year-old active gentleman with a history of coronary artery disease and previous stenting of his LAD and diagonal arteries in 2003. He has hypertension and dyslipidemia, which are both well controlled on his current medications. I will not change those at this time. He also has chronic atrial fibrillation. It is asymptomatic. He has no symptoms of palpitations or other symptoms referable to the A-Fib. We will continue with the strategy of rate control and anticoagulation. His stress echocardiogram was nondiagnostic due to rapid atrial fibrillation and suboptimal echo images. We will plan to do a stress nuclear study next year before I see him. He will contact me if he has any worsening symptoms in the meantime. Thank you for allowing me to participate in Mr. Love's care. He will continue to follow up with you for management of his hypertension, dyslipidemia, and other medical issues. TODAYS ORDERS 1. Lipid profile/ALT 1 day 2. Lexiscan Infusion 1 year, able to convert to treadmill stress if pt able to exercise 3. Lipid profile/ALT 1 year 4. F/U with Siddhartha White MD 1 year Siddhartha White M.D. documented in this encounter Plan of Treatment Upcoming Encounters Date Type Department Care Team (Late st Contact Info) Description 07/14/2024 10:30 AM SOFTWARE DEVELOPER INTERN Office Visit [facility] [place] [address] [place] [phone] Ila Baugh, PREETHI [address] [place], [place] [address] 07/27/2024 Ancillary Procedure [facility] [address] [facility] [address] [place] [phone] Dieter Travis MD [address] [place] [address] documented as of this encounter Visit Diagnoses Not on filedocumented in this encounter Care Teams Tax Manager Public Relationship Specialty Start Date End Date Shashank Abad MD PCP - General Family Practice 10/04/11 11/02/18 Lisset Mendes MD [address] [place] [address] PCP - General Internal Medicine 11/10/18 03/10/19 Shashank Abad MD PCP - General Family Practice 03/11/19 04/05/22 Santo Friedman MD [address] [place] [address] PCP - General Sports Medicine 04/06/22 Lisset Mendes MD [address] [place] [address] Assigned PCP 10/17/18 11/11/21 Dieter Travis MD [address] [place] [address] Assigned Heart and Vascular Provider 04/22/20 09/13/20 John Constantino MD [address] [place] [address] Assigned Endocrinology Provider 04/22/20 08/20/20 Charmaine Enriquez PA-C [address] [place], [place] [address] Assigned Heart and Vascular Provider 09/14/20 02/18/21 Toni Javier MD [address] [place], [place] [address] Assigned Heart and Vascular Provider 02/19/21 07/15/21 Siddhartha White MD [address] [place] [address] Assigned Heart and Vascular Provider 07/16/21 02/09/22 Ila Baugh NP [address] [place] [id number] Assigned Heart and Vascular Provider 02/10/22 04/06/22 Siddhartha White MD [address] [place], [place] [address] Assigned Heart and Vascular Provider 04/07/22 05/04/22 Roro Herrera PA [facility] [address] [place] [address] Assigned Heart and Vascular Provider 05/05/22 10/26/22 Siddhartha White MD [address] [place] [address] Assigned Heart and Vascular Provider 10/27/22 11/02/22 Roro Herrera PA [facility] [address] [place], [place] [address] Assigned Heart and Vascular Provider 11/03/22 05/22/24 Siddhartha White MD [address] [place] [id number] Assigned Heart and Vascular Provider 05/23/24 documented as of this encounter
--- OUTSIDE RECORDS SUMMARY | 2024-07-01 13:34 | XMS_ITS | Encounter Summary ---
Author Organization [facility] Address [address] [place] [id number] Care Team Providers Care Real Estate Office Supervisor Name Role Phone Shashank Abad MD Primary Care Provider Lisset Gusman MD Primary Care Provider + [phone] Lisset Mendes MD Unavailable [phone] Shashank Abad MD Primary Care Provider Dieter Benitez MD Unavailable [phone] John Constantino MD Unavailable [phone] Charmaine EnriquezC Unavailable [phone] Toni Javier MD Unavailable [phone] Siddhartha White MD Unavailable [phone] Ila Baugh NP Unavailable [phone] Santo Friedman MD Primary Care Provider [phone] Siddhartha White MD Unavailable [phone] Roro Herrera Unavailable Siddhartha White MD Unavailable [phone] Roro Herrera Unavailable Siddhartha White MD Unavailable [phone] Encounter Details Date Type Department Care Team (Late st Contact Info) Description 10/18/2010 Office Visit-[facility] [place] [address] [facility] [address] [place] [phone] Siddhartha White MD [address] [place] [address] Social History Tobacco Use Types Packs/Day Years Used Date Smoking Tobacco: Former Alcohol Use Standard Drinks/Week Comments Not Asked 0 (1 standard drink = 0.6 oz pur e alcohol) Sex and Gender Information Value Date Recorded Sex Assigned at Male 11/02/2020 12:08 PM CDT Legal Sex Male 4:32 AM FAMILY SOCIOLOGIST Gender Identity Male 11/02/2020 12:08 PM CDT Sexual Orientation Straight 11/02/2020 12 :08 PM CDT documented as of this encounter Progress Notes * Siddhartha White MD - 10/25/2010 3:07 PM CDT Progress Note Created by: Siddhartha White M.D. DATE: 10/18/2010 SHANNAN LOVE DATE OF : 1945 AGE: [age] years old Referring Physician: SHASHANK ABAD Referring Clinic: [facility] CURRENT DIAGNOSES 1. - CAD, 414.00 2. PTCA, V45.82 3. Abnormal Ekg, 794.31 4. - Hypercholesterolemia, 272.0 ALLERGIES NKA MEDICATIONS (prior to changes made today) 1. Aspirin 81 Mg Tablet, 1 p.o. daily 2. Daily Multivitamin Tablet, 1 p.o. daily 3. Fish Oil -, 1 p.o. daily 4. Levitra 5 mg Tablet, Dose/instruction UNKNOWN 5. Metoprolol Succinate 25 Mg Tablet Sustained Release 24 Hr, 1 p.o. qAM 6. Lipitor 40 Mg Tablet, 1 p.o. qAM 7. Ramipril 5 Mg Capsule, 1 p.o. qAM 8. Nitroglycerin 0.4 Mg Tablet, Sublingual, Take as Directed CHIEF COMPLAINTS follow up stress echo HISTORY OF PRESENT ILLNESS I had the opportunity to see Mr. Shannan Love in the Cardiology Clinic today for reevaluation of coronary artery disease. As you recall, he was surprisingly asymptomatic with significant anterior ischemia by stress testing and went on to angioplasty and stenting of his LAD. Since then, we have monitored him carefully with annual stress testing. He has not had any evidence of recurrent ischemia.I do not think that he will have symptoms to help guide us in this regard. His most recent stress test was done on 10-09-10 and was performed with a stress echo. That study was normal. He was able to exercise for 10 minutes. This was a bit less than he had done in the past. He mentions a little bit of shortness of breath with activity, but he admits that he has gained a bit of weight and has not been as active due to some knee pain recently. Otherwise, he usually plays softball year round on a very competitive team and walks at least 40 minutes five times a week. His cholesterol numbers remains excellent. On examination today, his blood pressure was 130/80. Heart rate was 58. Weight was 243 pounds. His lungs were clear. His heart rhythm was regular. He has no cardiac murmurs or carotid bruits. PAST HISTORY Past Medical Illnesses: hyperlipidemia, prostate hypertrophy Past Cardiac Illnesses: coronary artery disease Cardiac/Vasc Procedures-Invasive: PTCA with intracoronary stent placement of, proximal LAD and Ramus intermedius September 2003 Cardiology Procedures-NonInvasive: myocardial perfusion imaging (Nuclear) 05/05, 05/06, 05/07, myocardial perfusion (Nuc) Aug 2008, myocardial perfusion (Nuc) Sep 2009, stress echo Sep 2010 PMHx Stress Echo Results: 10/09 normal stress echocardiogram Left Ventricular Ejection Fraction: 58% per Nuclear 05/2005, EF<GT>50% by nuclear study -May 2006, 05/07 EF <GT>50% bynuclear study, EF<GT>55% by nuclear study -Sep 2009 Nuclear Results: gated EF 58%, 05/07 fixed inferior lateral defect observed, noted as likely diaphragm attenuation.,10/08 The study showed no evidence of ischemia * FAMILY HISTORY: Father - Age 67, of [place]; Mother - ptcs; Brother 1 - Age 63, diabetes, ? 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 EYES no blurred vision, eye pain, or discharge., wears eye glasses/contact lenses EARS, NOSE, THROAT, MOUTH denies any hearing loss, epistaxis, hoarseness or difficulty speaking. RESPIRATORY dyspnea with exertion CARDIOVASCULAR negative for palpitations, chest pain, orthopnea, PND, peripheral edema, syncope or claudication. ABDOMINAL denies ulcer disease, hematochezia or melena. MUSCULOSKELETAL history of generalized arthritis, R knee pain, some swelling in knee, ankle NEUROLOGICAL denies any history of recurrent strokes, headaches, TIA, or seizure disorder. PSYCHIATRIC brother recently ENDOCRINE denies any history of thyroid disease or diabetes mellitus. HEMATOLOGICAL/IMMUNOLOGIC denies any food allergies, seasonal allergies, bleeding disorders. PHYSICAL EXAMINATION VITAL SIGNS: Blood Pressure: 130/80Sitting, Left arm, large cuff Pulse- 58.00/min. Weight- 243.00 lbs. Height- 72.00 Temperature- .00 CONSTITUTIONAL cooperative, [...] time, person and place. MEDICATIONS UPDATED/STARTED TODAY: Levitra 5 mg Tablet, Dose/instruction UNKNOWN, #0 Lipitor 40 Mg Tablet, 1 p.o. qAM, #90 (Ninety) Metoprolol Succinate 25 Mg Tablet Sustained Release 24 Hr, 1 p.o. qAM, #90 Nitroglycerin 0.4 Mg Tablet, Sublingual, Take as Directed, #25 (Twenty Five) Ramipril 5 Mg Capsule,1 p.o. qAM, #90 (Ninety) MEDICATIONS REFILLED/STOPPED TODAY: Lipitor 40 mg Tablet 1 p.o. daily #-1 Directions Changed-No Abbrvs, Metoprolol Succinate 25 Mg Tablet Sustained Release 24 Hr 1 p.o. qAM #90 Refill, Nitroglycerin 0.4 Mg Tablet, Sublingual Take as Directed #25 (Twenty Five) Refill, Avodart 0.5 Mg Capsule 1 p.o. daily 0 Treatment Completed, Ramipril5 mg Capsule 1 p.o. daily #90 Directions Changed-No Abbrvs, Lipitor 40 Mg Tablet 1 p.o. qAM #0 Refill and Ramipril 5 Mg Capsule 1 p.o. qAM #0 Refill IMPRESSIONS/PLAN Mr. Shannan Love is a 64-year-old gentleman with hypertension, dyslipidemia, and coronary artery disease. These are all treated very well currently. He does not have any symptoms suggestive of angina. However, he was asymptomatic when he had severe proximal LAD disease, which indicates to me that this is not a good way to monitor his progress. We will continue to do annual stress testing. I willnot change his medications today. I spent 25 minutes with Mr. Love today, which was mostly in counseling. I will see him again next year. TODAYS ORDERS 1. F/U with Siddhartha White MD Return OV 2. Treadmill Nuclear Study 1 year, Patient ON MD Sebastian able to convert to pharm stress if pt unableto exercise 3. Lipid profile/ALT 1 year Siddhartha White M.D. documented in this encounter Plan of Treatment Upcoming Encounters Date Type Department Care Team (Late st Contact Info) Description 07/14/2024 10:30 AM FAMILY SOCIOLOGIST Office Visit [facility] [place] [address] [place] [phone] Ila Baugh, BIOMATERIALS ENGINEER [address] [place], [place] [id number] 07/27/2024 Ancillary Procedure [facility] [address] [facility] [address] [place] [phone] Dieter Travis MD [address] [place] [address] documented as of this encounter Visit Diagnoses Not on filedocumented in this encounter Care Teams Real Estate Office Supervisor Relationship Specialty Start Date End Date Shashank Abad MD PCP - General Family Practice 10/04/11 11/02/18 Lisset Mendes MD [address] [place] [address] PCP - General Internal Medicine 11/10/18 03/10/19 Shashank Abad MD PCP - General Family Practice 03/11/19 04/05/22 Santo Friedman MD [address] [place] [id number] PCP - General Sports Medicine 04/06/22 Lisset Mendes MD [address] [place] [address] Assigned PCP 10/17/18 11/11/21 Dieter Travis MD [address] [place] [address] Assigned Heart and Vascular Provider 04/22/20 09/13/20 John Constantino MD [address] [place] [address] Assigned Endocrinology Provider 04/22/20 08/20/20 Charmaine Enriquez PA-C [address] [address] Assigned Heart and Vascular Provider 09/14/20 02/18/21 Toni Javier MD [address] [place] [address] Assigned Heart and Vascular Provider 02/19/21 07/15/21 Siddhartha White MD [address] [place] [address] Assigned Heart and Vascular Provider 07/16/21 02/09/22 Ila Baugh NP [address] [place] [id number] Assigned Heart and Vascular Provider 02/10/22 04/06/22 Siddhartha White MD [address] [place] [address] Assigned Heart and Vascular Provider 04/07/22 05/04/22 Roro Herrera PA [facility] [address] [place] [address] Assigned Heart and Vascular Provider 05/05/22 10/26/22 Siddhartha White MD [address] [place] [address] Assigned Heart and Vascular Provider 10/27/22 11/02/22 Roro Herrera PA [facility] [address] [place] [address] Assigned Heart and Vascular Provider 11/03/22 05/22/24 Siddhartha White MD [address] [place] [address] Assigned Heart and Vascular Provider 05/23/24 documented as of this encounter
--- OUTSIDE RECORDS SUMMARY | 2024-07-01 13:34 | XMS_ITS | Encounter Summary ---
Author Organization [facility] Address [address] [place] [address] Care Team Providers Care Life Sciences Teacher Name Role Phone Shashank Abad MD Primary Care Provider Lisset Gusman MD Primary Care Provider + [phone] Lisset Mendes MD Unavailable [phone] Shashank Abad MD Primary Care Provider Dieter Benitez MD Unavailable [phone] John Constantino MD Unavailable [phone] Charmaine EnriquezC Unavailable [phone] Toni Javier MD Unavailable [phone] Siddhartha White MD Unavailable [phone] Ila Baugh NP Unavailable [phone] Santo Friedman MD Primary Care Provider [phone] Siddhartha White MD Unavailable [phone] Roro Herrera Unavailable Siddhartha White MD Unavailable [phone] Roro Herrera Unavailable Siddhartha White MD Unavailable [phone] Encounter Details Date Type Department Care Team (Late st Contact Info) Description 11/02/2013 Office Visit-[facility] [place] [address] [facility] [address] [place] [phone] Siddhartha White MD [address] [place] [address] Social History Tobacco Use Types Packs/Day Years Used Date Smoking Tobacco: Former Alcohol Use Standard Drinks/Week Comments Not Asked 0 (1 standard drink = 0.6 oz pur e alcohol) Sex and Gender Information Value Date Recorded Sex Assigned at Male 11/02/2020 12:08 PM CDT Legal Sex Male 4:32 AM CARD FOLDER Gender Identity Male 11/02/2020 12:08 PM CDT Sexual Orientation Straight 11/02/2020 12 :08 PM CDT documented as of this encounter Progress Notes * Siddhartha White MD - 11/03/2013 7:18 AM CDT Progress Note Created by: Siddhartha White M.D. DATE: 11/02/2013 SHANNAN LOVE DATE OF : 1945 AGE: [age] years old Referring Physician: SHASHANK ABAD Referring Clinic: [facility] CURRENT DIAGNOSES 1. - Hypercholesterolemia, 272.0 2. - CAD, 414.00 3. Abnormal Ekg, 794.31 4. - Hypertension, 401.1 5. - Atrial Fibrillation, 427.31 6. Shortness Of Breath, 786.05 7. - Abnormal Test-Abnormal Exercise Stress Test, 794.30 ALLERGIES NKA MEDICATIONS (prior to changes made today) 1. Aspirin 81 Mg Tablet, 1 p.o. daily 2. atorvastatin 40 mg tablet, 1 p.o. daily 3. Daily Multivitamin Tablet, 1 p.o. daily 4. Fish Oil -, 1 p.o. daily 5. Levitra 20 mg Tablet, 1 p.o. daily 6. metoprolol succinate 50 mg tablet extended release 24 hr, 1 p.o. qAM 7. nitroglycerin 0.4 mg tablet, sublingual, Take as Directed 8. ramipril 5 mg capsule, 1 p.o. qAM 9. Xarelto 20 mg tablet, 1 p.o. daily CHIEF COMPLAINTS Review test results HISTORY OF PRESENT ILLNESS I had the opportunity to see Mr. Shannan Love in cardiology clinic today for reevaluation of coronary artery disease and discussion of abnormal stress test. As you may recall, Mr. Love has hypertension, dyslipidemia and chronic atrial fibrillation. He was discovered in 2003 to have significant coronary artery disease with an abnormal stress test despite the fact that he was asymptomatic. He had significant anterior ischemia at that time and I referred him for coronary angiography. He was found to have a severe 95% proximal LAD stenosis as well as an 80% stenosis in a smaller ramus vessel.This required stenting of his ostial LAD which was 60% followed by stenting of his proximal LAD, which was originally 95% and then stenting of the smaller ramus vessel. He had drug-coated stents in those locations. He had moderate diffuse disease elsewhere. This included a more severe stenosis within the distal LAD of about 70%. We have been doing stress testing periodically for monitoring of this issue and his stress tests have not demonstrated any significant ischemia until this year. Last year he had a stress echo which raised the possibility of some mild anterior ischemia but the image quality was not optimal and it was decided that we would continue to manage that medically at the timesince he seemed to have no issues in terms of symptoms. Unfortunately his symptoms are not very helpful because he was completely asymptomatic before his previous stenting procedure and seemed to feel no benefit afterward. This year he has noticed some gradually decline in his exercise tolerance. He plays competitive softball and noticed that when he is running the bases he is a bit more tired and gets short of breath more easily. When he goes for long walks he notices tightness across his upper back and shoulders that occurs 10-15 minutes into the walk and sometimes will go away while he continues to walk other times will persist. He has not tried nitroglycerin for this. He has not had any chest pain, pressure, tightness or discomfort in his left arm, neck or jaw. He has chronic atrial fibrillation which has been reasonably well rate controlled although I noticed when he held his metoprolol for the morning of the stress test his heart rate was up to 123. Today he took his metoprolol and his heart rate is down to 90. Of note, on the nuclear stress test the gated imaging suggested a severe left ventricular dysfunction with an ejection fraction measured at 20% on stress images and 42% at rest. Obviously this is wide variation and is probably not accurate due to the fact that this gated imaging was done during rapid atrial fibrillation. I see his cholesterol numbers are not quite optimal. His LDL is 89, HDL 40, triglycerides 82 and total cholesterol 145. He had been on 40 of Lipitor for a number of years and then insurance dictated that he go to a different drug. We switched him to simvastatin which required a higher dose and caused more side effects. We then eventually switched back to Lipitor at 20 mg dose which he has tolerated well but has not controlled his cholesterol numbers as well. He also has some borderline diabetes which has been followed carefully for a number of years. He has not needed any medical therapy for this. He has a strong family history of coronary artery diseaseas well. He had a brother who a couple of years ago at age 62 of a heart attack. His father at 67. On examination today, his blood pressure is 128/90mmHg, heart rate 90, and weight 241 pounds. His lungs are clear. His heart rhythm is irregularly irregular and a bit rapid. He has no significant cardiac murmurs. He has no carotid bruits, no lower extremity, cyanosis, or clubbing. He has good periph eral pulses. His skin is warm, dry and intact. He is alert and oriented there are no gross motor defects. PAST HISTORY Past Medical Illnesses: hyperlipidemia, prostate hypertrophy Past Cardiac Illnesses: coronary artery disease, atrial fibrillation Cardiac/Vasc Procedures-Invasive: PTCA with intracoronary stent placement of, proximal LAD and Ramus intermedius September 2003 Cardiology Procedures-NonInvasive: myocardial perfusion (Nuc) 05/05, 05/06, 05/07, 09/06, 10/08, 10/10, stress echo Sep 2010, Sep 2012, myocardial perfusion (Nuc) Sep 2013 PMHx Stress Echo Results: 10/09 normal stress echocardiogram, 10/11 Cannot exclude anterior ischemia. Technically diificult study limits specificity. Suugest exercise uclear vs cath as clinically appropriate. Discussed with DrErnst Left Ventricular Ejection Fraction: 58% per Nuclear 05/2005, EF<GT>50% by nuclear study -May 2006, 05/07 EF <GT>50% bynuclear study, EF<GT>55% by nuclear study -Sep 2009, EF<GT>55% by nuclear study -Sep 2011, 10/12 EF 20% by nuc. Nuclear Results: gated EF 58%, 05/07 fixed inferior lateral defect observed, noted as likely diaphragm attenuation.,10/08 The study showed no evidence of ischemia *, 10/10 no significant ischemia, 10/12 Two defects; Small reversible anteroseptal/apical c/w moderate iscehmia w/o infarct. second: Small to mod fixed c/wdiaphragmatic attenuation. 58% per Nuclear 05/2005, EF<GT>50% by nuclear study -May 2006, 05/07 EF <GT>50% bynuclear study, EF<GT>55% by nuclear study -Sep 2009, EF<GT>55% by nuclear study -Sep 2011 and 10/12 EF 20% by nuc. FAMILY HISTORY: Father - Age 67, of mi; Mother - ptcs; Brother 1 - Age 63, diabetes, ? 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 EYES wears eye glasses/contact lenses EARS, NOSE, THROAT, MOUTH denies any hearing loss, epistaxis, hoarseness or difficulty speaking. RESPIRATORY dyspnea with exertion CARDIOVASCULAR pain in shoulders when walking ABDOMINAL denies change in bowel habits, dyspepsia, [...] allergies, seasonal allergies, bleeding disorders or lymphadenopathy. VASCULAR Denies History of: Stroke PHYSICAL EXAMINATION VITAL SIGNS: Blood Pressure: 128/90Sitting, Left arm, large cuff Pulse- 90.00/min. Weight- 241.00 lbs. Height- 72 BMI Measurement: 32 CONSTITUTIONAL cooperative, alert and [...] mg tablet, 1 p.o. daily, #90 (Ninety) metoprolol succinate 50 mg tablet extended release 24 hr, 1 p.o. qAM, #90 nitroglycerin 0.4 mg tablet, sublingual, Take as Directed, #25 (Twenty Five) MEDICATIONS REFILLED/STOPPED TODAY: atorvastatin 20 mg tablet 1 p.o. daily #30 (Thirty) Refill, atorvastatin 40 mg tablet 1 p.o. daily #90 (Ninety) Refill, metoprolol succinate 25 mg tablet extended release 24 hr 1 p.o. qAM #90 Refill,metoprolol succinate 50 mg tablet extended release 24 hr 1 p.o. qAM #90 Refill, nitroglycerin 0.4 mg Tablet, Sublingual Take as Directed #25 (Twenty Five) Refill, Vitamin C 1 and 00 mg Tablet 1 p.o. daily #0 (Zero) Patient Terminated IMPRESSIONS: Mr. Shannan Love is a 68-year-old gentleman with a history of severe LAD and ramus disease treated with angioplasty and stenting in 2003 after he presented with an abnormal stress test but was asymptomatic. Again he does not have any chest pain now but has been reporting some symptomsof tightness across his upper back and shoulders and some decline in his exercise tolerance with shortness of breath and fatigue. His stress test now with nuclear imaging suggests new anterior and apical ischemia. Some fixed count depression inferiorly was thought to be due to diaphragm attenuationartifact although the possibility of nontransmural infarction was raised. In addition, his left vent ricular ejection fraction was severely reduced on that study but probably inaccurate due to gating during rapid atrial fibrillation. He had held his metoprolol for that study and it was switched to aLexiscan study rather than exercise due to the high heart rates. We discussed all these issues as well as his cholesterol which is not optimized from my standpoint.I suggested that he increase his metoprolol succinate from 25 mg to 50 mg a day to help get better heart rate control. I also increased his atorvastatin from 20 mg a day to 40 mg a day. I referred him for an echocardiogram to reevaluate his left ventricular function which hopefully will allow us tosee whether this new significant compromise in ejection fraction is a real finding or not. Finally, I referred him for coronary angiography to evaluate his coronary artery disease issues again. He is on Xarelto and other statins to hold that for a minimum of 48 hours prior to the angiogram. I have discussed the risks and benefits of the angiogram procedure as well including bleeding, renal failure, heart attack, stroke, emergency surgery and . He understands and agrees to proceed.He understands the possibility of a radial artery procedure, conscious sedation, x-ray exposure, angioplasty and stenting. TODAYS ORDERS 1. F/U with Siddhartha White MD 6 months 2. F/U with Enoch Avila 2-4 weeks 3. Left Heart Cath 4. Pre Cath Labs Siddhartha White M.D. documented in this encounter Plan of Treatment Upcoming Encounters Date Type Department Care Team (Late st Contact Info) Description 07/14/2024 10:30 AM CARD FOLDER Office Visit [facility] [place] [address] [place] [phone] Ila Baugh, PULLMAN CLERK [address] [place] [address] 07/27/2024 Ancillary Procedure [facility] [address] [facility] [address] [place] [phone] Dieter Travis MD [address] [place] [address] documented as of this encounter Visit Diagnoses Not on filedocumented in this encounter Care Teams Life Sciences Teacher Relationship Specialty Start Date End Date Shashank Abad MD PCP - General Family Practice 10/04/11 11/02/18 Lisset Mendes MD [address] [place] [address] PCP - General Internal Medicine 11/10/18 03/10/19 Shashank Abad MD PCP - General Family Practice 03/11/19 04/05/22 Santo Friedman MD [address] [place] [address] PCP - General Sports Medicine 04/06/22 Lisset Mendes MD [address] [place] [address] Assigned PCP 10/17/18 11/11/21 Dieter Travis MD [address] [place] [address] Assigned Heart and Vascular Provider 04/22/20 09/13/20 John Constantino MD [address] [place] [address] Assigned Endocrinology Provider 04/22/20 08/20/20 Charmaine Enriquez PA-C [address] [place] [address] Assigned Heart and Vascular Provider 09/14/20 02/18/21 Toni Javier MD [address] [place] [address] Assigned Heart and Vascular Provider 02/19/21 07/15/21 Siddhartha White MD [address] [place] [address] Assigned Heart and Vascular Provider 07/16/21 02/09/22 Ila Baugh NP [address] [place], [place] [address] Assigned Heart and Vascular Provider 02/10/22 04/06/22 Siddhartha White MD [address] [place] [address] Assigned Heart and Vascular Provider 04/07/22 05/04/22 Roro Herrera PA [facility] [address] [place] [address] Assigned Heart and Vascular Provider 05/05/22 10/26/22 Siddhartha White MD [address] [place] [address] Assigned Heart and Vascular Provider 10/27/22 11/02/22 Roro Herrera PA [facility] [address] [place] [address] Assigned Heart and Vascular Provider 11/03/22 05/22/24 Siddhartha White MD [address] [place] [address] Assigned Heart and Vascular Provider 05/23/24 documented as of this encounter
--- OUTSIDE RECORDS SUMMARY | 2024-07-01 13:34 | XMS_ITS | Encounter Summary ---
Author Organization [facility] Address [address] [place] [address] Care Team Providers Care Addiction Medicine Physician Name Role Phone Shashank Abad MD Primary Care Provider Lisset Gusman MD Primary Care Provider + [phone] Lisset Mendes MD Unavailable [phone] Shashank Abad MD Primary Care Provider Dieter Benitez MD Unavailable [phone] John Constantino MD Unavailable [phone] Charmaine EnriquezC Unavailable [phone] Toni Javier MD Unavailable [phone] Siddhartha White MD Unavailable [phone] Ila Baugh NP Unavailable [phone] Santo Friedman MD Primary Care Provider [phone] Siddhartha White MD Unavailable [phone] Roro Herrera Unavailable Siddhartha White MD Unavailable [phone] Roro Herrera Unavailable Siddhartha White MD Unavailable [phone] Encounter Details Date Type Department Care Team (Late st Contact Info) Description 05/28/2007 Office Visit-[facility] [place] [address] [facility] [address] [place] [phone] Siddhartha White MD [address] [place] [address] Social History Tobacco Use Types Packs/Day Years Used Date Smoking Tobacco: Never Assessed Sex and Gender Information Value Date Recorded Sex Assigned at Male 11/02/2020 12:08 PM CDT Legal Sex Male 4:32 AM ASIAN STUDIES PROFESSOR Gender Identity Male 11/02/2020 12:08 PM CDT Sexual Orientation Straight 11/02/2020 12 :08 PM CDT documented as of this encounter Progress Notes * Siddhartha White MD - 05/29/2007 3:12 PM CST Progress Note Created by: Siddhartha White M.D. DATE: 05/28/2007 SHANNAN LOVE DATE OF : 1945 AGE: [age] years old Referring Physician: SHASHANK ABAD Referring Clinic: [facility] CURRENT DIAGNOSES 1. - CAD, 414.00 2. PTCA, V45.82 3. Abnormal Ekg, 794.31 4. - Hypercholesterolemia, 272.0 ALLERGIES NKA MEDICATIONS (prior to changes made today) 1. Nitroglycerin 0.4 Mg, Take as Directed 2. Fish Oil -, 1 p.o. q.d. 3. Altace 5 Mg, 1 p.o. q.d. 4. Lipitor 40 Mg, 1 p.o. qAM 5. Toprol Xl 25 Mg, 1 p.o. q.d. 6. Aspirin 81 mg, 1 p.o. q.d. 7. Thalia-Dec Multiple Vitamins with Minerals, 1 p.o. q.d. CHIEF COMPLAINTS F/u stress test HISTORY OF PRESENT ILLNESS I had the opportunity to see Mr. Shannan Love in cardiology clinic today for reevaluation of coronary artery disease. As you may recall, Mr. Love is a 61-year-old gentleman with a history of smoking which he quit in 1983 and dyslipidemia. His lipid numbers have been excellent on medical therapywith Lipitor. He was found to have a large area of myocardial ischemia by stress testing despite the fact that he was asymptomatic back in 2003. He subsequently underwent angioplasty and stent to theLAD and ramus artery and had mild to moderate disease within the diagonal, circumflex and right coronary artery systems. Fortunately follow-up stress testing has not shown any recurrent disease. His most recent stress test was performed with exercise and Cardiolite imaging on 05/02/2007. He again went 101/2 minutes on the Callum protocol without symptoms or EKG changes and had normal perfusion. His ejection fraction is normal. He continues to be asymptomatic and playing softball on a regular basis. In fact, he just completeda tour of softball tournaments in [place], [place] and other parts of the country. On examination today, his blood pressure is 110/70mmHg, heart rate 58, and weight 239 pounds. His weight is stable. His lungs are clear. His heart rhythm is regular. He has no cardiac murmurs and no carotid bruits. He has no edema. 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 EYES wears eye glasses/contact lenses EARS, NOSE, THROAT, MOUTH denies any hearing loss, epistaxis, hoarseness or difficulty speaking. RESPIRATORY denies dyspnea, snoring, cough, wheezing or hemoptysis. CARDIOVASCULAR negative for palpitations, chest pain, orthopnea, PND, peripheral edema, syncope or claudication. ABDOMINAL denies change in bowel habits, dyspepsia, ulcer disease, hematochezia or melena. GENITOURINARY-MALE frequency MUSCULOSKELETAL arthritis of the finger(s) NEUROLOGICAL denies any history of recurrent headaches, strokes, TIA, or seizure disorder. PSYCHIATRIC denies any history of depression, substance abuse or change in cognitive functions. ENDOCRINE denies any history of thyroid disease or diabetes mellitus. HEMATOLOGICAL/IMMUNOLOGIC easy bruising PHYSICAL EXAMINATION VITAL SIGNS: Blood Pressure: 116/70 Sitting, Left arm, large cuff Pulse- 58.00/min. Weight- 239.00 lbs. Height- 72.00 Temperature- .00 CONSTITUTIONAL cooperative, [...] time, person and place. MEDICATIONS UPDATED/STARTED TODAY: Altace 5 Mg, 1 p.o. q.d., #90 Lipitor 40 Mg, 1 p.o. qAM, #90 Toprol Xl 25 Mg, 1 p.o. q.d., #90 MEDICATIONS REFILLED/STOPPED TODAY: Lipitor 40 Mg 1 p.o. qAM #90 Refill, Altace 5 Mg 1 p.o. q.d. #90 Refill and Toprol Xl 25 Mg 1 p.o. q.d. #90 Refill IMPRESSIONS: Mr. Shannan Love is a 61-year-old gentleman with dyslipidemia and possibly mild hypertension with a history of smoking which he quit quite a few years ago. He is found to have asymptomatic severe coronary artery disease and treated with angioplasty and stent back in 2003. Fortunately he is not having any recurrent coronary disease symptoms and doing well with a normal stress test. His cholesterol numbers are excellent with a total cholesterol of 133, HDL 47, LDL 68 and triglycerides 100 based on his most recent lipid panel in October of 2006. I will continue his current medical therapy and plan on seeing him again in a years time. Thank youfor referring this patient to [facility]. Siddhartha White M.D. documented in this encounter Plan of Treatment Upcoming Encounters Date Type Department Care Team (Late st Contact Info) Description 07/14/2024 10:30 AM ASIAN STUDIES PROFESSOR Office Visit [facility] [place] [address] [place] [phone] Ila Baugh, NURSING STAFFING COORDINATOR [address] [place], [place] [address] 07/27/2024 Ancillary Procedure [facility] [address] [place] [phone] Dieter Travis MD [address] [place] [id number] documented as of this encounter Visit Diagnoses Not on filedocumented in this encounter Care Teams Addiction Medicine Physician Relationship Specialty Start Date End Date Shashank Abad MD PCP - General Family Practice 10/04/11 11/02/18 Lisset Mendes MD [address] [place] [address] PCP - General Internal Medicine 11/10/18 03/10/19 Shashank Abad MD PCP - General Family Practice 03/11/19 04/05/22 Santo Friedman MD [address] [place] [address] PCP - General Sports Medicine 04/06/22 Lisset Mendes MD [address] [place] [address] Assigned PCP 10/17/18 11/11/21 Dieter Travis MD [address] [place] [address] Assigned Heart and Vascular Provider 04/22/20 09/13/20 John Constantino MD [address] [place] [address] Assigned Endocrinology Provider 04/22/20 08/20/20 Charmaine Enriquez PA-C [address] [place] [address] Assigned Heart and Vascular Provider 09/14/20 02/18/21 Toni Javier MD [address] [place], [place] [address] Assigned Heart and Vascular Provider 02/19/21 07/15/21 Siddhartha White MD [address] [place], [place] [address] Assigned Heart and Vascular Provider 07/16/21 02/09/22 Ila Baugh NURSING STAFFING COORDINATOR [address] [place], [place] [address] Assigned Heart and Vascular Provider 02/10/22 04/06/22 Siddhartha White MD [address] [place], [place] [address] Assigned Heart and Vascular Provider 04/07/22 05/04/22 Roro Herrera PA [facility] [address] [place] [id number] Assigned Heart and Vascular Provider 05/05/22 10/26/22 Siddhartha White MD [address] [place] [address] Assigned Heart and Vascular Provider 10/27/22 11/02/22 Roro Herrera PA [facility] [address] [place] [id number] Assigned Heart and Vascular Provider 11/03/22 05/22/24 Siddhartha White MD [address] [place] [address] Assigned Heart and Vascular Provider 05/23/24 documented as of this encounter
--- OUTSIDE RECORDS SUMMARY | 2024-07-01 13:34 | XMS_ITS | Encounter Summary ---
Author Organization [place] Address [facility] [place] [address] Care Team Providers Care Lunchroom Attendant Name Role Phone Shashank Abad MD Primary Care Provider Siddhartha Youssef MD Unavailable Ila Baugh NP Unavailable [phone] Santo Friedman MD Primary Care Provider Siddhartha White MD Unavailable Roro Herrera Unavailable Siddhartha White MD Unavailable [phone] Roro Herrera Unavailable Siddhartha White MD Unavailable [phone] Reason for Visit * Reason Onset Date Comments Appointment 11/24/2021 Needs follow up appointment and device Encounter Details Date Type Department Care Team (Late st Contact Info) Description 11/24/2021 Telephone [facility] [place] [address] [facility] [address] [place] [address] Siddhartha White MD [address] [facility] [address] [place] [address] Appointment (Needs follow up appointment and device) Social History Tobacco Use Types Packs/Day Years Used Date Smoking Tobacco: Former Cigarettes 1.5 20.4 1 964 - 11/11/1983 Smokeless Tobacco: Never Alcohol Use Standard Drinks/Week Comments Yes 0 (1 standard drink = 0.6 oz pur e alcohol) wine every couple of days PHQ-2 Answer Date Recorded PHQ-2 Score 0 11/10/2018 Sex and Gender Information Value Date Recorded Sex Assigned at Male 11/02/2020 12:08 PM CDT 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 Janna Juárez on 11/24/2021 at 2:27 PM * Telephone Encounter - Janna Juárez - 11/24/2021 1:18 PM CDT Pt would like an appointment in January with Dr. White and a device check. Pt doesn't want to wait until the end of March. Janna Juárez on 11/24/2021 at 1:19 PM * Telephone Encounter - Janna Juárez - 11/24/2021 11:16 AM CDT [facility] Call Center Phone Message May a detailed message be left on voicemail: yes Reason for Call: Other: Felix called to make a follow up appointment with Dr. White and an in person device check in January. Dr. White's first opening is not until the end of March. Please assist pt. Thank you. Action Taken: Other: Cardiology Travel Screening: Not Applicable documented in this encounter Plan of Treatment Upcoming Encounters Date Type Department Care Team (Late st Contact Info) Description 07/14/2024 10:30 AM FACILITY SUPERVISOR Office Visit [facility] [place] [address] [place] [phone] Ila Baugh NP [address] [place] [address] 07/27/2024 Ancillary Procedure [facility] [address] [facility] [address] [place] [phone] Dieter Travis MD [address] [place] [id number] documented as of this encounter Visit Diagnoses Not on filedocumented in this encounter Care Teams Lunchroom Attendant Relationship Specialty Start Date End Date Shashank Abad MD PCP - General Family Practice 03/11/19 04/05/22 Santo Friedman MD [address] [place] [address] PCP - General Sports Medicine 04/06/22 Siddhartha White MD [address] [place] [address] Assigned Heart and Vascular Provider 07/16/21 02/09/22 Ila Baugh SHOE REPAIRER APPRENTICE [address] [place] [address] Assigned Heart and Vascular Provider 02/10/22 04/06/22 Siddhartha White MD [address] [place] [address] Assigned Heart and Vascular Provider 04/07/22 05/04/22 Roro Herrera PA [facility] [address] [place] [address] Assigned Heart and Vascular Provider 05/05/22 10/26/22 Siddhartha White MD [address] [place] [id number] Assigned Heart and Vascular Provider 10/27/22 11/02/22 Roro Herrera PA [facility] [address] [place], [place] [address] Assigned Heart and Vascular Provider 11/03/22 05/22/24 Siddhartha White MD [address] [place] [id number] Assigned Heart and Vascular Provider 05/23/24 documented as of this encounter
--- OUTSIDE RECORDS SUMMARY | 2024-07-01 13:34 | XMS_ITS | Encounter Summary ---
Author Organization [place] Address [address] [place] [address] Care Team Providers Care Lard Bleacher Name Role Phone Shashank Abad MD Primary Care Provider Lisset Gusman MD Primary Care Provider + [phone] Lisset Mendes MD Unavailable [phone] Shashank Abad MD Primary Care Provider Dieter Benitez MD Unavailable [phone] John Constantino MD Unavailable [phone] Charmaine EnriquezC Unavailable [phone] Toni Javier MD Unavailable [phone] Siddhartha White MD Unavailable [phone] Ila Baugh NP Unavailable [phone] Santo Friedman MD Primary Care Provider [phone] Siddhartha White MD Unavailable [phone] Roro Herrera Unavailable Siddhartha White MD Unavailable [phone] Roro Herrera Unavailable Siddhartha White MD Unavailable [phone] Encounter Details Date Type Department Care Team (Late st Contact Info) Description 10/27/2009 Office Visit-[facility] [place] [address] [facility] [address] [place] [phone] Siddhartha White MD [address] [place] [address] Social History Tobacco Use Types Packs/Day Years Used Date Smoking Tobacco: Former Alcohol Use Standard Drinks/Week Comments Not Asked 0 (1 standard drink = 0.6 oz pur e alcohol) Sex and Gender Information Value Date Recorded Sex Assigned at Male 11/02/2020 12:08 PM CDT Legal Sex Male 4:32 AM SUBSTANCE ABUSE PREVENTION COORDINATOR Gender Identity Male 11/02/2020 12:08 PM CDT Sexual Orientation Straight 11/02/2020 12 :08 PM CDT documented as of this encounter Progress Notes * Siddhartha White MD - 10/28/2009 2:57 PM CDT Progress Note Created by: Siddhartha White M.D. DATE: 10/27/2009 SHANNAN LOVE DATE OF : 1945 AGE: [age] years old Referring Physician: SHASHANK ABAD Referring Clinic: [facility] CURRENT DIAGNOSES 1. - CAD, 414.00 2. PTCA, V45.82 3. Abnormal Ekg, 794.31 4. - Hypercholesterolemia, 272.0 ALLERGIES NKA MEDICATIONS (prior to changes made today) 1. Simvastatin 80 mg Tablet, 1 p.o. qHS 2. Nitroglycerin 0.4 Mg Tablet, Sublingual, Take as Directed 3. Aspirin 81 Mg Tablet, 1 p.o. daily 4. Avodart 0.5 Mg Capsule, 1 p.o. daily 5. Daily Multivitamin Tablet, 1 p.o. daily 6. Fish Oil -, 1 p.o. daily 7. Altace 5 Mg Tablet, 1 p.o. qAM 8. Metoprolol Succinate 25 Mg Tablet Sustained Release 24 Hr, 1 p.o. qAM CHIEF COMPLAINTS review nuc study and labs HISTORY OF PRESENT ILLNESS I had the opportunity to see Mr. Shannan Love in cardiology clinic today for reevaluation of coronary artery disease. As you may recall, Mr. Love is a 64-year-old gentleman who had a strong family history of heart disease and an abnormal exercise treadmill test, leading to further studies with a nuclear perfusion study. He was found to have significant anterior ischemia and went on to angioplasty and stenting of his left anterior descending. This has concerned both of us since then because he was completely asymptomatic with quite severe complex disease. It also affected the ramus artery.Fortunately, his revascularization was complete and his stress tests annually since then have looked quite good. This year we did another stress test on 10/24/2009 with nuclear perfusion imaging and it continues to be normal. He does have some minor electrocardiogram changes during exercise but hasexcellent exercise tolerance. He continues to be very active, playing softball on a year-round basis. His cholesterol numbers have been excellent, although he recently was forced to switch to simvastatin by his insurance company. On examination today, his blood pressure is 120/76, heart rate 52, and weight 231 pounds. His lungsare clear. His heart rhythm is regular. He has no cardiac murmurs and no carotid bruits. 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 PSYCHIATRIC denies any history of depression, substance abuse or change in cognitive functions. ENDOCRINE denies any history of thyroid disease or diabetes mellitus. HEMATOLOGICAL/IMMUNOLOGIC denies any food allergies, seasonal allergies, bleeding disorders. PHYSICAL EXAMINATION VITAL SIGNS: Blood Pressure: 120/76Sitting, Right arm, regular cuff Pulse- 52.00/min. Weight- 231.00 lbs. Height- 72.00 Temperature- .00 CONSTITUTIONAL cooperative, [...] time, person and place. MEDICATIONS UPDATED/STARTED TODAY: Nitroglycerin 0.4 Mg Tablet, Sublingual, Take as Directed, #25 (Twenty Five) MEDICATIONS REFILLED/STOPPED TODAY: Metoprolol Tartrate 25 mg Tablet 1/2 tab twice daily #90 Substitution, Nitroglycerin 0.4 mg Tablet and Sublingual Take as Directed 1 bottle Refill IMPRESSION: Mr. Shannan Love is a 64-year-old gentleman who had surprisingly severe left anterior descending and ramus coronary artery disease, with no clear cardiac symptoms. He underwent angioplasty and stenting in 2003 and has done well since that time, with normal stress testing. His lipids are well controlled and his blood pressure is excellent. I will have him follow with me again in a years' time and perform a stress echocardiogram prior to my visit with him. He understands to contact me if he has any problems. I will not change his medications today. TODAYS ORDERS 1. Treadmill Stress Echo 1 year,may include the addition of contrast,bubble study,or the change to either a limited or complete study-see policy 2. F/U with Siddhartha White MD 1 year 3. Lipid profile/ALT 1 year Siddhartha White M.D. documented in this encounter Plan of Treatment Upcoming Encounters Date Type Department Care Team (Late st Contact Info) Description 07/14/2024 10:30 AM SUBSTANCE ABUSE PREVENTION COORDINATOR Office Visit [facility] [place] [address] [place] [phone] Ila Baugh, FIBER OPTIC ASSEMBLER [address] [place], [place] [address] 07/27/2024 Ancillary Procedure [facility] [address] [place] [phone] Dieter Travis MD [address] [place] [address] documented as of this encounter Visit Diagnoses Not on filedocumented in this encounter Care Teams Lard Bleacher Relationship Specialty Start Date End Date Shashank Abad MD PCP - General Family Practice 10/04/11 11/02/18 Lisset Mendes MD [address] [place] [address] PCP - General Internal Medicine 11/10/18 03/10/19 Shashank Abad MD PCP - General Family Practice 03/11/19 04/05/22 Santo Friedman MD [address] [place] [address] PCP - General Sports Medicine 04/06/22 Lisset Mendes MD [address] [place], [place] [address] Assigned PCP 10/17/18 11/11/21 Dieter Travis MD [address] [place], [place] [address] Assigned Heart and Vascular Provider 04/22/20 09/13/20 John Constantino MD [address] [place], [place] [address] Assigned Endocrinology Provider 04/22/20 08/20/20 Charmaine Enriquez PA-C [address] [place] [address] Assigned Heart and Vascular Provider 09/14/20 02/18/21 Toni Javier MD [address] [place] [address] Assigned Heart and Vascular Provider 02/19/21 07/15/21 Siddhartha White MD [address] [place] [address] Assigned Heart and Vascular Provider 07/16/21 02/09/22 Ila Baugh NP [address] [place] [address] Assigned Heart and Vascular Provider 02/10/22 04/06/22 Siddhartha White MD [address] [place], [place] [address] Assigned Heart and Vascular Provider 04/07/22 05/04/22 Roro Herrera PA [facility] [address] [place], [place] [address] Assigned Heart and Vascular Provider 05/05/22 10/26/22 Siddhartha White MD [address] [place], [place] [address] Assigned Heart and Vascular Provider 10/27/22 11/02/22 Roro Herrera PA [facility] [address] [place], [place] [address] Assigned Heart and Vascular Provider 11/03/22 05/22/24 Siddhartha White MD [address] [place] [address] Assigned Heart and Vascular Provider 05/23/24 documented as of this encounter
--- OUTSIDE RECORDS SUMMARY | 2024-07-01 13:34 | XMS_ITS | Encounter Summary ---
Author Organization [place] Address [address] [place] [address] Care Team Providers Care Conservation Planner Name Role Phone Santo Friedman MD Primary Care Provider Roro Herrera Unavailable Siddhartha White MD Unavailable Roro Herrera Unavailable Siddhartha White MD Unavailable [phone] Reason for Visit * Reason Onset Date Comments Call Back 05/07/2022 Follow-up schedu ling question Encounter Details Date Type Department Care Team (Late st Contact Info) Description 05/07/2022 Telephone [facility] [address] [phone] Roro Herrera PA [facility] [address] [place] [address] Call Back (Follow-up scheduling question) Social History Tobacco Use Types Packs/Day Years [...] PM CDT Legal Sex Male 4:32 AM MEDICARE CONTACT SPECIALIST Gender Identity Male 11/02/2020 12:08 PM CDT Sexual Orientation Straight 11/02/2020 12 :08 PM CDT COVID-19 Exposure Response Date Recorded In the last 10 days, have yo u been in contact with someone who was confirmed or suspected to have Coronavirus/COVID-19? No / Unsure 04/30/2022 12:52 PM CDT documented as of this encounter Miscellaneous Notes * Telephone Encounter - Aurora [place]a RN - 05/07/2022 11:20 AM MEDICARE CONTACT SPECIALIST 05/07/22 See note 05/03/22 - plan per Roro Herrera PA-C to cancel visit and May and move severalweeks after entresto start to mid-May with labs. Patient is calling scheduling to do this. Update to scheduling to call him back. Nissa Simon RN 05/07/22 11:22 AM CARE CONTACT SPECIALIST * Telephone Encounter - Edgar Morrell - 05/07/2022 11:07 AM CST [facility] Call Center Phone Message May a detailed message be left on voicemail: yes Reason for Call: Other: Patient calling to reschedule appointments with Roro Herrera. He says that he will be starting the Entresto on June 02 and was under the impression that his follow-up on 05/14 is to evaluate this medication. Is patient okay to schedule on 05/14 or should this appointment be moved out further? Please call him back to discuss/schedule as appropriate. Thank you! Specialty Access Center Action Taken: Other: Cardiology Travel Screening: Not Applicable CARE CONTACT SPECIALIST documented in this encounter Plan of Treatment Upcoming Encounters Date Type Department Care Team (Late st Contact Info) Description 07/14/2024 10:30 AM MEDICARE CONTACT SPECIALIST Office Visit [facility] [place] [address] [place] [phone] Ila Baugh, MIDDLE SCHOOL SCIENCE TEACHER [address] [place], [place] [phone] 07/27/2024 Ancillary Procedure [facility] [address] [facility] [address] [place] [phone] Dieter Travis MD [address] [place] [phone] documented as of this encounter Visit Diagnoses Not on filedocumented in this encounter Care Teams Conservation Planner Relationship Specialty Start Date End Date Santo Friedman MD [address] [place] [address] PCP - General Sports Medicine 04/06/22 Roro Herrera PA [facility] [address] [place] [address] Assigned Heart and Vascular Provider 05/05/22 10/26/22 Siddhartha White MD [address] [place] [address] Assigned Heart and Vascular Provider 10/27/22 11/02/22 Roro Herrera PA [facility] [address] [place] [address] Assigned Heart and Vascular Provider 11/03/22 05/22/24 Siddhartha White MD [address] [place] [address] Assigned Heart and Vascular Provider 05/23/24 documented as of this encounter
--- OUTSIDE RECORDS SUMMARY | 2024-07-01 13:34 | XMS_ITS | Encounter Summary ---
Author Organization [facility] Address [address] [place] [address] Care Team Providers Care Cellars Supervisor Name Role Phone Shashank Abad MD Primary Care Provider Lisset Gusman MD Primary Care Provider + [phone] Lisset Mendes MD Unavailable [phone] Shashank Abad MD Primary Care Provider Dieter Benitez MD Unavailable [phone] John Constantino MD Unavailable [phone] Charmaine EnriquezC Unavailable [phone] Toni Javier MD Unavailable [phone] Siddhartha White MD Unavailable [phone] Ila Baugh NP Unavailable [phone] Santo Friedman MD Primary Care Provider [phone] Siddhartha White MD Unavailable [phone] Roro Herrera Unavailable Siddhartha White MD Unavailable [phone] Roro Herrera Unavailable Siddhartha White MD Unavailable [phone] Encounter Details Date Type Department Care Team (Late st Contact Info) Description 05/14/2006 Office Visit-[facility] [place] [address] [facility] [address] [place] [phone] Siddhartha White MD [address] [place] [address] Social History Tobacco Use Types Packs/Day Years Used Date Smoking Tobacco: Never Assessed Sex and Gender Information Value Date Recorded Sex Assigned at Male 11/02/2020 12:08 PM CDT 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 DATE: 05/14/2006 SHANNAN LOVE DATE OF : 1945 AGE: [age] years old Referring Physician: SHASHANK ABAD Referring Clinic: [facility] CURRENT DIAGNOSES 1. - CAD, 414.00 2. PTCA, V45.82 3. Abnormal Ekg, 794.31 4. - Hypercholesterolemia, 272.0 ALLERGIES NKA MEDICATIONS (including any changes made today) 1. Nitroglycerin 0.4 Mg, Take as Directed 2. Fish Oil -, 1 p.o. q.d. 3. Aspirin 81 mg, 1 p.o. q.d. 4. Thalia-Dec Multiple Vitamins with Minerals, 1 p.o. q.d. 5. Lipitor 40 Mg, 1 p.o. qAM 6. Altace 5 Mg, 1 p.o. q.d. 7. Toprol Xl 25 Mg, 1 p.o. q.d. CHIEF COMPLAINTS Annual HISTORY OF PRESENT ILLNESS I had the opportunity to see Mr. Shannan Love in Cardiology Clinic today for reevaluation of coronary artery disease. As you may recall, Mr. Love was discovered somewhat incidentally to have severe proximal LAD and ramus disease which was treated with angioplasty and stent. His stress test was quite abnormal but he was asymptomatic. He has moderate disease within the second diagonal, right coronary artery, and mild disease within the left circumflex. Fortunately his followup stress tests, including May 07, 2006, have been normal. He exercised for 10.5 minutes without chest pain or EKGchanges and had no perfusion defects on nuclear imaging on his most recent study. He continues to be active exercising and following an appropriate low cholesterol, low fat diet. Heshowed me some cholesterol numbers done through your office which look excellent. He is not having any concerning symptoms of shortness of breath, chest discomfort, and so on. On examination today his blood pressure is 110/70, heart rate 48, and weight 241 pounds. Lungs are clear. His heart rhythm is regular. He has no cardiac murmurs. PAST HISTORY Past Medical Illnesses: hyperlipidemia, prostate hypertrophy Past Cardiac Illnesses: coronary artery disease Cardiology Procedures-Invasive: PTCA with intracoronary stent placement of, proximal LAD and Ramus intermedius September 2003 Cardiology Procedures-Noninvasive: myocardial perfusion imaging (Nuclear) August 2003, positive for ischemia, myocardial perfusion imaging (Nuclear) May 2005, myocardial perfusion imaging (Nuclear) May 2006 Left Ventricular Ejection Fraction: 58% per Nuclear 05/2005, EF50% by nuclear study -May 2006 Nuclear Results: gated EF 58% FAMILY HISTORY: Father - Age 67, of [place]; Mother - ptcs; Sister 1 - ptca; SOCIAL HISTORY Alcohol Use - drinks occasionally; Smoking - used to smoke but quit; Diet - regular diet without modifications and caffeine use-1-2 per day; Lifestyle - ; Exercise - some exercise and walking;Seat Belt Use - always; 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 GENITOURINARY-MALE frequency MUSCULOSKELETAL joint pain finger(s) NEUROLOGICAL denies any history of recurrent headaches, strokes, TIA, or seizure disorder. PSYCHIATRIC anxiety, stress, recent loss of his ENDOCRINE hyperlipidemia HEMATOLOGICAL/IMMUNOLOGIC easy bruising PHYSICAL EXAMINATION VITAL SIGNS: Blood Pressure: 110/70 Sitting, Left arm, large cuff Pulse- 48.00/min. Weight- 241.20 lbs. Height- 72.00 Temperature- .00 CONSTITUTIONAL cooperative, [...] oriented to time, person and place. MEDICATIONS UPDATED TODAY: Lipitor 40 Mg, 1 p.o. qAM, #90 Altace 5 Mg, 1 p.o. q.d., #90 Toprol Xl 25 Mg, 1 p.o. q.d., #90 MEDICATION STOPPED TODAY: Toprol Xl 25 Mg, Altace 5 Mg and Lipitor 40 Mg IMPRESSIONS/PLAN Mr. Shannan Love is a 60-year-old gentleman with hypertension, dyslipidemia, and coronary artery disease, with angioplasty and stent of the proximal LAD and ramus artery in August,. He is doing very well at this time and is asymptomatic with a normal stress test. I will continue to have him follow up with you for management of his dyslipidemia and hypertension issues and see me on an annual basis with stress testing. Given that he was asymptomatic with severe coronary artery disease, I think it is appropriate to continue to monitor the moderate disease remaining within the right coronaryartery and diagonal artery with annual stress testing. He certainly agrees. TODAYS ORDERS 1. Treadmill Nuclear Study 1 year 2. Return Visit 1 year Siddhartha White M.D. documented in this encounter Plan of Treatment Upcoming Encounters Date Type Department Care Team (Late st Contact Info) Description 07/14/2024 10:30 AM FRESH FOOD MANAGER Office Visit [facility] [place] [address] [place] [phone] Ila Baugh, BROADCAST JOURNALIST [address] [place] [address] 07/27/2024 Ancillary Procedure [facility] [address] [facility] [address] [facility] [address] [place] [phone] Dieter Travis MD [address] [place] [address] documented as of this encounter Visit Diagnoses Not on filedocumented in this encounter Care Teams Cellars Supervisor Relationship Specialty Start Date End Date Shashank Abad MD PCP - General Family Practice 10/04/11 11/02/18 Lisset Mendes MD [address] [place] [address] PCP - General Internal Medicine 11/10/18 03/10/19 Shashank Abad MD PCP - General Family Practice 03/11/19 04/05/22 Santo Friedman MD [address] [place] [address] PCP - General Sports Medicine 04/06/22 Lisset Mendes MD [address] [place] [address] Assigned PCP 10/17/18 11/11/21 Dieter Travis MD [address] [place] [address] Assigned Heart and Vascular Provider 04/22/20 09/13/20 John Constantino MD [address] [place] [address] Assigned Endocrinology Provider 04/22/20 08/20/20 Charmaine Enriquez PA-C [address] [place] [address] Assigned Heart and Vascular Provider 09/14/20 02/18/21 Toni Javier MD [address] [place], [place] [address] Assigned Heart and Vascular Provider 02/19/21 07/15/21 Siddhartha White MD [address] [place], [place] [address] Assigned Heart and Vascular Provider 07/16/21 02/09/22 Ila Baugh NP [address] [place] [id number] Assigned Heart and Vascular Provider 02/10/22 04/06/22 Siddhartha White MD [address] [place], [place] [address] Assigned Heart and Vascular Provider 04/07/22 05/04/22 Roro Herrera PA [facility] [address] [place] [address] Assigned Heart and Vascular Provider 05/05/22 10/26/22 Siddhartha White MD [address] [place], [place] [address] Assigned Heart and Vascular Provider 10/27/22 11/02/22 Roro Herrera PA [facility] [address] [place] [address] Assigned Heart and Vascular Provider 11/03/22 05/22/24 Siddhartha White MD [address] [place] [address] Assigned Heart and Vascular Provider 05/23/24 documented as of this encounter
--- OUTSIDE RECORDS SUMMARY | 2024-07-01 13:34 | XMS_ITS | Encounter Summary ---
Author Organization [facility] Address [address] [place] [address] Care Team Providers Care Home Energy Consultant Supervisor Name Role Phone Shashank Abad MD Primary Care Provider Lisset Gusman MD Primary Care Provider + [phone] Lisset Mendes MD Unavailable [phone] Shashank Abad MD Primary Care Provider Dieter Benitez MD Unavailable [phone] John Constantino MD Unavailable [phone] Charmaine EnriquezC Unavailable [phone] Toni Javier MD Unavailable [phone] Siddhartha White MD Unavailable [phone] Ila Baugh NP Unavailable [phone] Santo Friedman MD Primary Care Provider [phone] Siddhartha White MD Unavailable [phone] Roro Herrera Unavailable Siddhartha White MD Unavailable [phone] Roro Herrera Unavailable Siddhartha White MD Unavailable [phone] Encounter Details Date Type Department Care Team (Late st Contact Info) Description 10/17/2011 Office Visit-[facility] [place] [address] [facility] [address] [place] [phone] Siddhartha White MD [address] [place] [address] Social History Tobacco Use Types Packs/Day Years Used Date Smoking Tobacco: Former Alcohol Use Standard Drinks/Week Comments Not Asked 0 (1 standard drink = 0.6 oz pur e alcohol) Sex and Gender Information Value Date Recorded Sex Assigned at Male 11/02/2020 12:08 PM CDT 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 DATE: 10/17/2011 SHANNAN LOVE DATE OF : 1945 AGE: [age] years old Referring Physician: SHASHANK ABAD Referring Clinic: [facility] CURRENT DIAGNOSES 1. - Hypercholesterolemia, 272.0 2. - CAD, 414.00 3. PTCA, V45.82 4. Abnormal Ekg, 794.31 5. - Hypertension, 401.1 6. - Atrial Fibrillation, 427.31 ALLERGIES NKA MEDICATIONS (prior to changes made today) 1. Aspirin 81 Mg Tablet, 1 p.o. daily 2. Daily Multivitamin Tablet, 1 p.o. daily 3. Fish Oil -, 1 p.o. daily 4. Levitra 20 mg Tablet, 1 p.o. daily 5. Lipitor 20 mg Tablet, 1 p.o. qAM 6. metoprolol succinate 25 mg Tablet Extended Release 24 hr, 1 p.o. qAM 7. nitroglycerin 0.4 mg Tablet, Sublingual, Take as Directed 8. ramipril 5 mg Capsule, 1 p.o. qAM 9. Vitamin C 1,000 mg Tablet, 1 p.o. daily 10. Xarelto 20 mg Tablet, 1 p.o. daily CHIEF COMPLAINTS HISTORY OF PRESENT ILLNESS I had the opportunity to see Mr. Shannan Love in cardiology clinic today for reevaluation of coronary artery disease. As you may recall, Mr. Love was relatively asymptomatic when he presented with severe proximal left anterior descending and diagonal coronary artery disease several years ago. After some discussion, we decided to pursue angioplasty and stenting on 09/29/2003 and that went well. He has done well since then with periodic stress testing. He has not shown any recurrence of coronary artery disease. His cardiac risk factors seem to be hypertension and dyslipidemia, although his hypertension seems to be minimal. He remains active and continues to play softball year round. He recently came in for a stress test with nuclear perfusion imaging on 10/10/2011. He was able to exercise for 10 1/2 minutes on the Callum protocol without chest pain symptoms. His nuclear perfusionimages were normal. He was noted to have atrial fibrillation, which was a new finding compared to last year. He tells me today that he had an electrocardiogram showing atrial fibrillation last December but that his heart rate has been consistently controlled since then on a small dose of metoprolol. Hewas indeed well controlled when he came in this year for his stress test, as well. He has not had any symptoms. He has not felt any palpitations, lightheadedness, or shortness of breath associated with this. He has not had any decrease in exercise tolerance. He thinks that he might be a little bit more fatigued. On examination today his blood pressure is 110/70, heart rate 76, and weight 238 pounds. His lungs are clear. His heart rhythm is irregularly irregular, without cardiac murmur, and he has no carotid bruits. PAST HISTORY Past Medical Illnesses: hyperlipidemia, prostate hypertrophy Past Cardiac Illnesses: coronary artery disease, atrial fibrillation Cardiac/Vasc Procedures-Invasive: PTCA with intracoronary stent placement of, proximal LAD and Ramus intermedius September 2003 Cardiology Procedures-NonInvasive: myocardial perfusion (Nuc) 05/05, 05/06, 05/07, 09/06, 10/08, 10/10, stress echo Sep 2010 PMHx Stress Echo [...] Brother 1 - Age 63, diabetes, ? 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 EYES wears eye glasses/contact lenses EARS, NOSE, THROAT, MOUTH denies any hearing loss, epistaxis, hoarseness or difficulty speaking. RESPIRATORY dyspnea with exertion CARDIOVASCULAR denies chest pains and discomfort, occassional light headedness and dizziness, denies palpitations,slight edema to lower extremities ABDOMINAL denies change in bowel habits, dyspepsia, ulcer disease, hematochezia or melena. GENITOURINARY-MALE nocturia MUSCULOSKELETAL muscle aches, history of generalized arthritis, knee NEUROLOGICAL denies any history of recurrent headaches, strokes, TIA, or seizure disorder. PSYCHIATRIC denies any history of depression, substance abuse or change in cognitive functions. ENDOCRINE some fatigue HEMATOLOGICAL/IMMUNOLOGIC denies any food allergies, seasonal allergies, bleeding disorders or lymphadenopathy. PHYSICAL EXAMINATION VITAL SIGNS: Blood Pressure: 110/70Sitting, Left arm, regular cuff Pulse- 76.00/min. Weight- 237.60 lbs. Height- 72.0 BMI Measurement: 32 CONSTITUTIONAL cooperative, alert and [...] time, person and place. MEDICATIONS UPDATED/STARTED TODAY: Lipitor 20 mg Tablet, 1 p.o. qAM, #90 (Ninety) metoprolol succinate 25 mg Tablet Extended Release 24 hr, 1 p.o. qAM, #90 nitroglycerin 0.4 mg Tablet, Sublingual, Take as Directed, #25 (Twenty Five) ramipril 5 mg Capsule,1 p.o. qAM, #90 (Ninety) Xarelto 20 mg Tablet, 1 p.o. daily, #90 (Ninety) MEDICATIONS REFILLED/STOPPED TODAY: Lipitor 40 Mg Tablet 1 p.o. qAM #90 (Ninety) Refill, Lipitor 40 mg Tablet 1 p.o. qAM #90 (Ninety) Refill, Metoprolol Succinate 25 Mg Tablet Sustained Release 24 Hr 1 p.o. qAM #90 Refill, Nitroglycerin 0.4 Mg Tablet, Sublingual Take as Directed #25 (Twenty Five) Refill, Pradaxa 150 mg Capsule 1 p.o.twice daily #60 (Sixty) Substitution and Ramipril 5 Mg Capsule 1 p.o. qAM #90 (Ninety) Refill IMPRESSION: Mr. Shannan Love is a 65-year-old gentleman with dyslipidemia and mild hypertension, who has a history of coronary artery disease and angioplasty and stenting of the left anterior descending and diagonal arteries back in 2003. He has developed atrial fibrillation since I saw him last. The duration is unclear, but it appears to have been doing on back in December when he came in for his physical. Certainly, his risk for stroke is low. At most, he has a CHADS 2 score of 1. However, basedon the potential devastating effects of stroke, I have suggested that he should take a medication for anticoagulation. We talked about the options including warfarin, Pradaxa and Xarelto. He elected to start Xarelto because it is once a day and does not require any blood testing or adaptations in his diet. I will have him come back and visit with me again next year. We will do a stress echo again and keep an eye on things. He will reduce his dose of lipitor based on the fact that his LDL is now down into the 50s and he is feeling a bit more achy. He will recheck his cholesterol numbers with you in December and see if he should continue that lower dose of lipitor or go back up if his cholesterol numbersincrease significantly. I am basically shooting for an LDL cholesterol of less than 100 in his situation. TODAYS ORDERS 1. F/U with Siddhartha White MD 1 year 2. Lipid profile/ALT 1 year 3. Treadmill Stress Echo 1 year, OFF MEDS, Siddhartha White M.D. documented in this encounter Plan of Treatment Upcoming Encounters Date Type Department Care Team (Late st Contact Info) Description 07/14/2024 10:30 AM AUTOMATIC SPOOLER OPERATOR Office Visit [facility] [place] [address] [place] [phone] Ila Baugh, SHEETER MACHINE OPERATOR [address] [place], [place] [address] 07/27/2024 Ancillary Procedure [facility] [address] [facility] [address] [place] [phone] Dieter Travis MD [address] [place] [address] documented as of this encounter Visit Diagnoses Not on filedocumented in this encounter Care Teams Home Energy Consultant Supervisor Relationship Specialty Start Date End Date Shashank Abad MD PCP - General Family Practice 10/04/11 11/02/18 Lisset Mendes MD [address] [place] [id number] PCP - General Internal Medicine 11/10/18 03/10/19 Shashank Abad MD PCP - General Family Practice 03/11/19 04/05/22 Santo Friedman MD [address] [place] [address] PCP - General Sports Medicine 04/06/22 Lisset Mendes MD [address] [place] [address] Assigned PCP 10/17/18 11/11/21 Dieter Travis MD [address] [place] [address] Assigned Heart and Vascular Provider 04/22/20 09/13/20 John Constantino MD [address] [place] [address] Assigned Endocrinology Provider 04/22/20 08/20/20 Charmaine Enriquez PA-C [address] [place] [address] Assigned Heart and Vascular Provider 09/14/20 02/18/21 Toni Javier MD [address] [place] [address] Assigned Heart and Vascular Provider 02/19/21 07/15/21 Siddhartha White MD [address] [place] [address] Assigned Heart and Vascular Provider 07/16/21 02/09/22 Ila Baugh NP [address] [place], [place] [address] Assigned Heart and Vascular Provider 02/10/22 04/06/22 Siddhartha White MD [address] [place] [address] Assigned Heart and Vascular Provider 04/07/22 05/04/22 Roro Herrera PA [facility] [address] [place] [address] Assigned Heart and Vascular Provider 05/05/22 10/26/22 Siddhartha White MD [address] [place] [address] Assigned Heart and Vascular Provider 10/27/22 11/02/22 Roro Herrera PA [facility] [address] [place] [address] Assigned Heart and Vascular Provider 11/03/22 05/22/24 Siddhartha White MD [address] [place] [address] Assigned Heart and Vascular Provider 05/23/24 documented as of this encounter
--- OUTSIDE RECORDS SUMMARY | 2024-07-01 13:34 | XMS_ITS | Encounter Summary ---
Author Organization [facility] Address [address] [place] [address] Care Team Providers Care Case Monitor Name Role Phone Shashank Abad MD Primary Care Provider Lisset Gusman MD Primary Care Provider + [phone] Lisset Mendes MD Unavailable [phone] Shashank Abad MD Primary Care Provider Dieter Benitez MD Unavailable [phone] John Constantino MD Unavailable [phone] Charmaine EnriquezC Unavailable +[phone] Toni Javier MD Unavailable [phone] Siddhartha White MD Unavailable +[phone] Ila Baugh NP Unavailable [phone] Santo Friedman MD Primary Care Provider [phone] Siddhartha White MD Unavailable [phone] Roro Herrera Unavailable Siddhartha White MD Unavailable [phone] Roro Herrera Unavailable Siddhartha White MD Unavailable [phone] Encounter Details Date Type Department Care Team (Late st Contact Info) Description 11/03/2008 Office Visit-[facility] [address] [place] [address] Jennifer Estevez PA-C Social History Tobacco Use Types Packs/Day Years Used Date Smoking Tobacco: Never Assessed Sex and Gender Information Value Date Recorded Sex Assigned at Male 11/02/2020 12:08 PM CDT Legal Sex Male 4:32 AM BACON DE RINDER Gender Identity Male 11/02/2020 12:08 PM CDT Sexual Orientation Straight 11/02/2020 12 :08 PM CDT documented as of this encounter Progress Notes * Jennifer Estevez PA-C - 11/04/2008 10:25 AM CDT Progress Note Created by: Enoch Holm DATE: 11/03/2008 SHANNAN LOVE DATE OF : 1945 AGE: [age] years old Referring Physician: SHASHANK ABAD Referring Clinic: [facility] CURRENT DIAGNOSES 1. - CAD, 414.00 2. PTCA, V45.82 3. Abnormal Ekg, 794.31 4. - Hypercholesterolemia, 272.0 ALLERGIES NKA MEDICATIONS (prior to changes made today) 1. Lipitor 40 Mg, 1 p.o. qAM 2. Altace 5 Mg, 1 p.o. q.d. 3. Avodart 0.5 mg, 1 p.o. q.d. 4. Metoprolol tartrate 25 mg, 1/2 tab twice daily 5. Nitroglycerin 0.4 Mg, Take as Directed 6. Fish Oil -, 1 p.o. q.d. 7. Metoprolol ER 25 mg, 1 p.o. daily 8. Aspirin 81 mg, 1 p.o. q.d. 9. Thalia-Dec Multiple Vitamins with Minerals, 1 p.o. q.d. CHIEF COMPLAINTS F/u visit HISTORY OF PRESENT ILLNESS Shannan Love is a 63-year-old gentleman who presents today for a follow-up regarding recent changein medications. As you know, he has coronary artery disease and dyslipidemia. He was treated with angioplasty and stenting of his LAD and ramus intermedius. He has done well since that time. Recent stress testing showed a possible area of very small mild ischemia but more likely this is attenuationartifact, which has been noted in the past. His metoprolol had to be changed from extended release to immediate release. He tolerated the change well. He did not note any additional side effects but does prefer to only take a pill once a day therefore he plans to switch back to the extended releasewhen it becomes available. In addition, his blood pressure and heart rate are appropriate. PAST HISTORY Past Medical Illnesses: hyperlipidemia, prostate hypertrophy Past Cardiac Illnesses: coronary artery disease Cardiology Procedures-Invasive: PTCA with intracoronary stent placement of, proximal LAD and Ramus intermedius September 2003 Cardiology Procedures-Noninvasive: myocardial perfusion imaging (Nuclear) 05/05, 05/06, 05/07, myocardial perfusion (Nuc) Aug 2008 Left Ventricular Ejection Fraction: 58% per Nuclear 05/2005, EF50% by nuclear study -May 2006, 05/07 EF 50% by nuclear study Nuclear Results: gated EF 58%, 05/07 fixed inferior lateral defect observed, noted as likely diaphragm attenuation. FAMILY HISTORY: Father - Age 67, of mi; Mother - ptcs; Sister 1 - ptca; CARDIAC RISK FACTORS Tobacco Abuse: used to smoke, but quit; Family History of Heart Disease: positive; Hyperlipidemia: lipid status unknown; Hypertension: negative; Diabetes Mellitus: negative; Prior History of Heart Disease: negative; Obesity:negative; Sedentary Life Style:negative; Age:positive SOCIAL HISTORY Alcohol Use - drinks occasionally; Smoking - used to smoke but quit; Diet - regular diet without modifications and caffeine use-1-2 per day; Lifestyle - ; Exercise - some exercise and walking;Seat Belt Use - always; 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 Weight- 235.40 lbs. Height- 72.00 Temperature- .00 CONSTITUTIONAL cooperative, [...] time, person and place. MEDICATIONS UPDATED/STARTED TODAY: Metoprolol ER 25 mg, 1 p.o. daily, #90 IMPRESSIONS/PLAN Shannan Love is a 63-year-old with known coronary artery disease and history of stenting. Currently he is doing well with changing his medication over to the immediate release metoprolol. He has a normal blood pressure and heart rate and I have given him a prescription for extended release so thathe can switch back when it becomes available. Thank you very much for allowing me to participate in this gentleman's care. Travon Holm. documented in this encounter Plan of Treatment Upcoming Encounters Date Type Department Care Team (Late st Contact Info) Description 07/14/2024 10:30 AM BACON DE RINDER Office Visit [facility] [place] [address] [place] [phone] Ila Baugh TUBE OPERATOR [address] [place], [place] [id number] 07/27/2024 Ancillary Procedure [facility] [address] [facility] [address] [place] [phone] Dieter Travis MD [address] [place], [place] [address] documented as of this encounter Visit Diagnoses Not on filedocumented in this encounter Care Teams Case Monitor Relationship Specialty Start Date End Date Shashank Abad MD PCP - General Family Practice 10/04/11 11/02/18 Lisset Mendes MD [address] [place] [id number] PCP - General Internal Medicine 11/10/18 03/10/19 Shashank Abad MD PCP - General Family Practice 03/11/19 04/05/22 Santo Friedman MD [address] [facility] [address] PCP - General Sports Medicine 04/06/22 Lisset Mendes MD [address] [place] [address] Assigned PCP 10/17/18 11/11/21 Dieter Travis MD [address] [place] [address] Assigned Heart and Vascular Provider 04/22/20 09/13/20 John Constantino MD [address] [place], [place] [phone] Assigned Endocrinology Provider 04/22/20 08/20/20 Charmaine Enriquez PA-C [address] [place] [address] Assigned Heart and Vascular Provider 09/14/20 02/18/21 Toni Javier MD [address] [place] [address] Assigned Heart and Vascular Provider 02/19/21 07/15/21 Siddhartha White MD [address] [place], [place] [address] Assigned Heart and Vascular Provider 07/16/21 02/09/22 Ila Baugh TUBE OPERATOR [address] [place], [place] [address] Assigned Heart and Vascular Provider 02/10/22 04/06/22 Siddhartha White MD [address] [place] [phone] Assigned Heart and Vascular Provider 04/07/22 05/04/22 Roro Herrera PA [facility] [address] [place] [phone] Assigned Heart and Vascular Provider 05/05/22 10/26/22 Siddhartha White MD [address] [place] [phone] Assigned Heart and Vascular Provider 10/27/22 11/02/22 Roro Herrera PA [facility] [address] [place] [phone] Assigned Heart and Vascular Provider 11/03/22 05/22/24 Siddhartha White MD [address] [place] [address] Assigned Heart and Vascular Provider 05/23/24 documented as of this encounter
--- OUTSIDE RECORDS SUMMARY | 2024-07-01 13:35 | XMS_ITS | Encounter Summary ---
Author Organization [facility] Address [address] [place] [address] Care Team Providers Care Instructor Business Education Name Role Phone Shashank Abad MD Primary Care Provider Lisset Gusman MD Primary Care Provider + [phone] Lisset Mendes MD Unavailable [phone] Shashank Abad MD Primary Care Provider Dieter Benietz MD Unavailable [phone] John Constantino MD Unavailable [phone] Charmaine EnriquezC Unavailable [phone] Toni Javier MD Unavailable [phone] Siddhartha White MD Unavailable [phone] Ila Baugh NP Unavailable [phone] Santo Friedman MD Primary Care Provider [phone] Siddhartha White MD Unavailable [phone] Roro Herrera Unavailable Siddhartha White MD Unavailable [phone] Roro Herrera Unavailable Siddhartha White MD Unavailable [phone] Encounter Details Date Type Department Care Team (Late st Contact Info) Description 09/24/2003 Office Visit-[facility] [address] [place] [address] Unknown, DoctorMD Social History Tobacco Use Types Packs/Day Years Used Date Smoking Tobacco: Never Assessed Sex and Gender Information Value Date Recorded Sex Assigned at Male 11/02/2020 12:08 PM CDT Legal Sex Male 4:32 AM GALVANIZER Gender Identity Male 11/02/2020 12:08 PM CDT Sexual Orientation Straight 11/02/2020 12 :08 PM CDT documented as of this encounter Progress Notes * Unknown, DoctorMD - 09/28/2003 10:36 AM CST Progress Note Created by: Siddhartha White M.D. DATE: 09/24/2003 SHANNAN LOVE DATE OF : 1945 AGE: [age] years old Referring Physician: SHASHANK ABAD Referring Clinic: [facility] CURRENT DIAGNOSES 1. - Abnormal Test-Abnormal Exercise Stress Test, 794.30 2. - Hypercholesterolemia, 272.0 ALLERGIES MEDICATIONS 1. Lipitor 10 mg, 1 p.o. q.d. 2. Toprol Xl 25 Mg, 1 p.o. q.d. 3. Lipitor 20 mg, 1 p.o. qHS 4. Aspirin 81 mg, 1 p.o. q.d. CHIEF COMPLAINTS F/u HISTORY OF PRESENT ILLNESS I had the opportunity to see Mr. Shannan Love in cardiology clinic today. As you know, Mr. Lovehad been seen by my partner, Willian Ellis, for a consultation earlier this month and wished to meet again with a executive housekeeper to re-discuss the recommendations. Mr. Love is a very active 57-year-old retired gentleman who had come to see you for a general physical examination. Because of his strong family history of heart disease, he was referred for an exercise treadmill test. He had no chest pain on that study but did have significant ST segment depression. He was appropriately referred for exercise nuclear stress testing which was performed at [facility]. The date of that procedure was 08/30/2003. Mr. Love brings the pictures of those nuclear images with him today for his visit. The exercise ECG again showed 2-2.4mm of ST segment depression and the patient exercised for just over 8 minutes on a Callum protocol. He again did not have chest pain withstress. His nuclear images showed a moderate size area of ischemia within the mid and distal anterior wall and apex. I have reviewed these images and certainly agree with this report. A fixed inferior count depression is also noted but wall motion was reported to be normal and this is assumed to beattributed to diaphragm attenuation artifact. Left ventricular function was normal. Mr. Love has not been experiencing any concerning cardiac symptoms whatsoever. He states that heis quite active playing softball twice a week throughout the year and does not have any exertional chest discomfort, left arm, neck, jaw or back discomfort or shortness of breath. He denies palpitations, light-headedness, near-syncope, and syncope. He has not been developing edema or orthopnea. When Mr. Love met with Dr. Ellis, it was suggested that he could safely be managed medically without intervention such as cardiac catheterization. This was based on a perceived risk of 3% of heart attack or within the next year. He was prescribed Toprol XL 25mg per day and it was suggested that he should increase his Lipitor to 40mg per day. Mr. Love has not changed his medications and continues to take just a baby aspirin a day and Lipitor 10mg daily. On examination today, his blood pressure is 142/80 although he reports that he has not had any elevations in blood pressure previously. His heart rate is 56 and weight 240 pounds. His lungs are clear. His heart rhythm is regular. He has no carotid bruits. His peripheral pulses are excellent. 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 MUSCULOSKELETAL denies any history of arthritic symptoms or back problems. NEUROLOGICAL denies any history of recurrent headaches, strokes, TIA, or seizure disorder. PSYCHIATRIC denies any history of depression, substance abuse or change in cognitive functions. ENDOCRINE denies any history of hyperlipidemia, thyroid disease or diabetes mellitus. HEMATOLOGICAL/IMMUNOLOGIC denies any food allergies, seasonal allergies, bleeding disorders or lymphadenopathy. PHYSICAL EXAMINATION VITAL SIGNS: Blood Pressure: 142/80 Sitting, Left arm, regular cuff Pulse- 56.00/min. Weight- 240.00 lbs. Height- 72.00 Temperature- .00 CONSTITUTIONAL cooperative, [...] gallops or rubs detected. ABDOMEN abdomen soft, bowel sounds normoactive, no masses, no hepatosplenomegaly, non- tender, no bruits PERIPHERAL PULSES pulses full and equal in all extremities, no bruits auscultated. EXTREMITIES & BACK no deformities, clubbing, cyanosis, erythema or edema observed. There are no spinal abnormalities noted. Normal muscle strength and tone. NEUROLOGICAL no gross motor deficits noted, affect appropriate, oriented to time, person and place. MEDICATIONS UPDATED TODAY: Lipitor 10 mg, 1 p.o. q.d., DIRECTED Toprol Xl 25 Mg, 1 p.o. q.d., #90 Lipitor 20 mg, 1 p.o. qHS, #90 MEDICATION STOPPED TODAY: Toprol XL 25 mg IMPRESSIONS/PLAN Mr. Shannan Love is a 57-year-old gentleman who is completely asymptomatic from a cardiac standpoint. He was discovered to have an abnormal exercise treadmill test by ECG criteria and referred for anuclear study which revealed a moderate size area of reversible defect within the mid and distal anterior wall and apex. I believe that the risk of a significant area of ischemia within the anterior wall and apex is certainly significant when balanced against the low risk of cardiac catheterization in a young healthy person. I believe his risks of cardiac catheterization are quite low and have suggested that he has less than 1% risk of heart attack, stroke, bleeding, renal failure, major arterial injury and . I do believe that his risk of a heart attack or related to his coronary disease is higher overthe next year or so and therefore I would recommend that he proceed with coronary angiography as the next step in his treatment. I have discussed the possibility that this may be a false positive result but based on my high suspicion of disease with an abnormal exercise ECG in combination with thisperfuse defect, I suspect that the stress test is accurate. The patient understands these options and the risk of each option in detail. He agrees that he would like to proceed with coronary angiography and I will have him schedule that next week. In the meantime, I would reinforce Dr. Ellis's medical recommendations to begin Toprol XL 25mg per day and increase his Lipitor. I will have him start by increasing up to 20mg per day and return to [facility] for a fasting lipid panel in 6-8 weeks with liver function test analysis. I will have him return to see me following his angiogram and discuss additional recommendations at that time. Fortunately he is a nonsmoker who does not have diabetes or a history of hypertension and only a significant family history of heart disease. TODAYS ORDERS 1. Left Heart Cath 1 week Siddhartha White M.D. documented in this encounter Plan of Treatment Upcoming Encounters Date Type Department Care Team (Late st Contact Info) Description 07/14/2024 10:30 AM GALVANIZER Office Visit [facility] [place] [address] [place] [phone] Ila Baugh, ADVANCED PRACTICE PSYCHIATRIC NURSE [address] [place], [place] [address] 07/27/2024 Ancillary Procedure [facility] [address] [facility] [address] [place], [place] [phone] Dieter Travis MD [address] [place], [place] [id number] documented as of this encounter Visit Diagnoses Not on filedocumented in this encounter Care Teams Instructor Business Education Relationship Specialty Start Date End Date Shashank Abad MD PCP - General Family Practice 10/04/11 11/02/18 Lisset Mendes MD [address] [place] [address] PCP - General Internal Medicine 11/10/18 03/10/19 Shashank Abad MD PCP - General Family Practice 03/11/19 04/05/22 Santo Friedman MD [address] [place] [address] PCP - General Sports Medicine 04/06/22 Lisset Mendes MD [address] [place] [address] Assigned PCP 10/17/18 11/11/21 Dieter Travis MD [address] [place] [address] Assigned Heart and Vascular Provider 04/22/20 09/13/20 John Constantino MD [address] [place] [address] Assigned Endocrinology Provider 04/22/20 08/20/20 Charmaine Enriquez PA-C [address] [place] [address] Assigned Heart and Vascular Provider 09/14/20 02/18/21 Toni Javier MD [address] [place] [address] Assigned Heart and Vascular Provider 02/19/21 07/15/21 Siddhartha White MD [address] [place], [place] [address] Assigned Heart and Vascular Provider 07/16/21 02/09/22 Ila Baugh NP [address] [place] [id number] Assigned Heart and Vascular Provider 02/10/22 04/06/22 Siddhartha White MD [address] [place], [place] [address] Assigned Heart and Vascular Provider 04/07/22 05/04/22 Roro Herrera PA [facility] [address] [place] [address] Assigned Heart and Vascular Provider 05/05/22 10/26/22 Siddhartha White MD [address] [place], [place] [address] Assigned Heart and Vascular Provider 10/27/22 11/02/22 Roro Herrera PA [facility] [address] [place] [address] Assigned Heart and Vascular Provider 11/03/22 05/22/24 Siddhartha White MD [address] [place], [place] [address] [phone] Assigned Heart and Vascular Provider 05/23/24 documented as of this encounter
--- OUTSIDE RECORDS SUMMARY | 2024-07-01 13:35 | XMS_ITS | Encounter Summary ---
Author Organization [facility] Address [address] [place] [address] Care Team Providers Care Bottoming Room Inspector Name Role Phone Shashank Abad MD Primary Care Provider Lisset Gusman MD Primary Care Provider + [phone] Lisset Mendes MD Unavailable [phone] Shashank Abad MD Primary Care Provider Dieter Benitez MD Unavailable John Constantino MD Unavailable [phone] Charmaine EnriquezC Unavailable [phone] Toni Javier MD Unavailable [phone] Siddhartha White MD Unavailable [phone] Ila Baugh NP Unavailable [phone] Santo Friedman MD Primary Care Provider [phone] Siddhartha White MD Unavailable [phone] Roro Herrera Unavailable Siddhartha White MD Unavailable [phone] Roro Herrera Unavailable Siddhartha White MD Unavailable [phone] Encounter Details Date Type Department Care Team (Late st Contact Info) Description 05/21/2005 Office Visit-[facility] [address] [place] [address] Unknown, DoctorMD Social History Tobacco Use Types Packs/Day Years Used Date Smoking Tobacco: Never Assessed Sex and Gender Information Value Date Recorded Sex Assigned at Male 11/02/2020 12:08 PM CDT Legal Sex 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 [id number] DATE: 05/21/2005 SHANNAN LOVE DATE OF : 1945 AGE: [age] years old Referring Physician: SHASHANK ABAD Referring Clinic: [facility] CURRENT DIAGNOSES 1. - Hypercholesterolemia, 272.0 2. - CAD, 414.00 3. PTCA, V45.82 4. Abnormal Ekg, 794.31 ALLERGIES NKA MEDICATIONS (including any changes made today) 1. Nitroglycerin 0.4 Mg, Take as Directed 2. Fish Oil -, 1 p.o. q.d. 3. Altace 5 Mg, 1 p.o. q.d. 4. Lipitor 40 Mg, 1 p.o. qAM 5. Toprol Xl 25 Mg, 1 p.o. q.d. 6. Aspirin 81 mg, 1 p.o. q.d. 7. Thalia-Dec Multiple Vitamins with Minerals, 1 p.o. q.d. CHIEF COMPLAINTS F/u nuc HISTORY OF PRESENT ILLNESS I had the pleasure of seeing this delightful 59-year-old gentleman in clinic today for followup of his recent nuclear stress test results. As you may recall, he is followed here by Dr. Siddhartha White. Hehas a history of coronary artery disease status post PTCA stent to his proximal LAD and diagonal inAugust 2003. Most recently, in the summer of 2004, on his annual exam, his primary care doctor notedhim to have trigeminal PVCs. These were reviewed with Dr. White and no further intervention was indicated. The patient also has a history of hyperlipidemia, which is followed by his primary care physician. The patient presents to clinic today very concerned that he has had a very high stress level over the last few months due the loss of his and this could be affecting his heart. 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 He denies any chest pain; throat, arm or jaw pain;dizziness; lightheadedness; palpitations; syncope; presyncope; or edema. He has not been working. He does exercise on a daily basis, walking 45 minutes two to three days a week when he is not playing softball, which he plays on a year-round basis two days a week. He does follow a low-fat, low-cholesterol, low- carbohydrate diet and limits his salt intake. His most recent cholesterol results were drawn at his primary care doctor's in November 2004, which showed a triglyceride level of 132, total cholesterol of 141, HDL 40, LDL 75, AST 18, ALT 39 with a fasting glucose of 114. The patient does state that he is being monitored closely for insulin resistance. Please see below for review of systems, past medical history and physical examination. 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 INTEGUMENTARY denies any change in hair or nails, rashes, or skin lesions. EYES wears eye glasses/contact lenses EARS, NOSE, THROAT, MOUTH denies any hearing loss, epistaxis, hoarseness or difficulty speaking. RESPIRATORY denies dyspnea, snoring, cough, wheezing or hemoptysis. CARDIOVASCULAR lightheaded, improved ABDOMINAL denies change in bowel habits, dyspepsia, ulcer disease, hematochezia or melena. GENITOURINARY-MALE frequency MUSCULOSKELETAL joint pain hip(s) knee(s), joint stiffness hip(s) knee(s) NEUROLOGICAL denies any history of recurrent headaches, strokes, TIA, or seizure disorder. PSYCHIATRIC anxiety, stress, recent loss of his ENDOCRINE hyperlipidemia HEMATOLOGICAL/IMMUNOLOGIC easy bruising PHYSICAL EXAMINATION VITAL SIGNS: Blood Pressure: 112/62 Sitting, Right arm, large cuff Pulse- 64.00/min. Weight- 240.00 lbs. Height- .00 Temperature- .00 CONSTITUTIONAL cooperative, alert and oriented,well [...] time, person and place. MEDICATIONS UPDATED TODAY: Nitroglycerin 0.4 Mg, Take as Directed, 1 bottle Fish Oil -, 1 p.o. q.d., 0 MEDICATION STOPPED TODAY: Plavix 75 mg IMPRESSIONS/PLAN 1.Coronary artery disease. He is without symptoms. Most recent thallium stress test was performed on 05/14/05. When compared to the November 2003, there were no significant changes noted. He has a fixed inferior defect that is artifactual from diaphragm and bowel tracer activity. His ejection fraction was 58%. His blood pressure remains under good control and he continues on Toprol XL at 25 mg daily,Altace 5 mg daily and aspirin 81 mg daily. The patient will follow up with Dr. White and have a nuclear stress test in one year. 2.Hyperlipidemia. As stated in HPI, this is well controlled. He remains on Lipitor 40 mg and he will have a repeat cholesterol check at his primary care doctor's in November 2005. Thank you for allowing me to be involved in this pleasant gentleman's care. He will return in one year for a stress test and an office visit with Dr. White. He will call in the interim if he has any problems or concerns. TODAYS ORDERS 1. F/U with Siddhartha White MD annual 2. Treadmill Nuclear Study 1 year, then o/v with Dr White 3. Return Visit - Siddhartha White 1 year - order placed to reflect correct due date. Original order placed by Marielle on 05-21-05, dk 05-21 Marielle Velez N.P. Electronically signed by [facility] Data Conversion at 11/13/2013 1:31 AM CDT documented in this encounter Plan of Treatment Upcoming Encounters Date Type Department Care Team (Late st Contact Info) Description 07/14/2024 10:30 AM ELECTRICAL TRANSMISSION ENGINEER Office Visit [facility] [place] [address] [place] [phone] Ila Baugh, OUTPATIENT THERAPIST [address] [place], [place] [address] 07/27/2024 Ancillary Procedure [facility] [address] [facility] [address] [place] [phone] Dieter Travis MD [address] [place], [place] [id number] documented as of this encounter Visit Diagnoses Not on filedocumented in this encounter Care Teams Bottoming Room Inspector Relationship Specialty Start Date End Date Shashank Abad MD PCP - General Family Practice 10/04/11 11/02/18 Lisset Mendes MD [address] [place] [id number] PCP - General Internal Medicine 11/10/18 03/10/19 Shashank Abad MD PCP - General Family Practice 03/11/19 04/05/22 Santo Friedman MD [address] [place] [address] PCP - General Sports Medicine 04/06/22 Lisset Mendes MD [address] [place], [place] [address] Assigned PCP 10/17/18 11/11/21 Dieter Travis MD [address] [place] [address] Assigned Heart and Vascular Provider 04/22/20 09/13/20 John Constantino MD [address] [place] [address] Assigned Endocrinology Provider 04/22/20 08/20/20 Charmaine Enriquez PA-C [address] [place] [address] Assigned Heart and Vascular Provider 09/14/20 02/18/21 Toni Javier MD [address] [place] [address] Assigned Heart and Vascular Provider 02/19/21 07/15/21 Siddhartha White MD [address] [place] [address] Assigned Heart and Vascular Provider 07/16/21 02/09/22 Ila Baugh OUTPATIENT THERAPIST [address] [place] [id number] Assigned Heart and Vascular Provider 02/10/22 04/06/22 Siddhartha White MD [address] [place] [address] Assigned Heart and Vascular Provider 04/07/22 05/04/22 Roro Herrera PA [email or web address]ART [facility]ARE [address] [place] [address] Assigned Heart and Vascular Provider 05/05/22 10/26/22 Siddhartha White MD [address] [place], [place] [address] Assigned Heart and Vascular Provider 10/27/22 11/02/22 Roro Herrera PA [facility] [[email or web address] HEART CARE [address] [place] [id number] Assigned Heart and Vascular Provider 11/03/22 05/22/24 Siddhartha White MD [address] [place], [place] [address] Assigned Heart and Vascular Provider 05/23/24 documented as of this encounter
--- OUTSIDE RECORDS SUMMARY | 2024-07-01 13:35 | XMS_ITS | Encounter Summary ---
Author Organization [facility] Address [address] [place] [address] Care Team Providers Care Assistant Professor Of Forestry Name Role Phone Shashank Abad MD Primary Care Provider Lisset Gusman MD Primary Care Provider + [phone] Lisset Mendes MD Unavailable [phone] Shashank Abad MD Primary Care Provider Dieter Benitez MD Unavailable [phone] John Constantino MD Unavailable [phone] Charmaine EnriquezC Unavailable [phone] Toni Javier MD Unavailable [phone] Siddhartha White MD Unavailable [phone] Ila Baugh NP Unavailable [phone] Santo Friedman MD Primary Care Provider [phone] Siddhartha White MD Unavailable [phone] Roro Herrera Unavailable Siddhartha White MD Unavailable [phone] Roro Herrera Unavailable Siddhartha White MD Unavailable [phone] Encounter Details Date Type Department Care Team (Late st Contact Info) Description 05/18/2004 Office Visit-[facility] [address] [place] [address] Unknown, DoctorMD Social History Tobacco Use Types Packs/Day Years Used Date Smoking Tobacco: Never Assessed Sex and Gender Information Value Date Recorded Sex Assigned at Male 11/02/2020 12:08 PM CDT 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 DATE: 05/18/2004 SHANNAN LOVE DATE OF : 1945 AGE: [age] years old Referring Physician: SHASHANK ABAD Referring Clinic: [facility] CURRENT DIAGNOSES 1. - Hypercholesterolemia, 272.0 2. - CAD, 414.00 3. PTCA, V45.82 ALLERGIES NKA MEDICATIONS (including any changes made today) 1. Nitroglycerin 0.4 mg, Take as Directed 2. Altace 5 Mg, 1 p.o. q.d. 3. Lipitor 40 Mg, 1 p.o. qAM 4. Toprol Xl 25 Mg, 1 p.o. q.d. 5. Aspirin 81 mg, 1 p.o. q.d. 6. Plavix 75 mg, 1 p.o. q.d. 7. Thalia-Dec Multiple Vitamins with Minerals, 1 p.o. q.d. CHIEF COMPLAINTS HISTORY OF PRESENT ILLNESS I had the opportunity to see Mr. Shannan Love in Cardiology Clinic today for reevaluation of coronary artery disease and dyslipidemia. As you recall, Mr. Love is a 58-year-old gentleman who had asymptomatic coronary disease. You referred him for an exercise stress test that revealed a significant anterolateral ischemic defect. After I saw him, we pursued cardiac catheterization and he had angioplasty and stenting of the proximal left anterior descending and diagonal arteries. He has never had any symptoms associated with this and has been quite active, playing softball several times per week. His risk factors seem to be primarily hyperlipidemia; however, on 40 mg of Lipitor, his cholesterolpanel is quite good. His HDL is perhaps a little bit low, but he is otherwise at goal. He remains asymptomatic. On examination, his blood pressure is 120/84, his heart rate is 62 beats per minute, and his weightis 233 pounds. His lungs are clear. His heart rhythm is regular. He has no cardiac murmurs. He has no cardiac bruits. 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 PSYCHIATRIC anxiety, stress ENDOCRINE hyperlipidemia HEMATOLOGICAL/IMMUNOLOGIC easy bruising PHYSICAL EXAMINATION VITAL SIGNS: Blood Pressure: 120/84 Sitting, Left arm, large cuff Pulse- 62.00/min. Weight- 233.40 lbs. Height- 72.00 Temperature- .00 CONSTITUTIONAL cooperative, [...] PULSES pulses full and equal in all extremities EXTREMITIES & BACK no deformities, clubbing, cyanosis, erythema or edema observed. There are no spinal abnormalities noted. Normal muscle strength and tone. NEUROLOGICAL no gross motor deficits noted, affect appropriate, oriented to time, person and place. MEDICATIONS UPDATED TODAY: Altace 5 Mg, 1 p.o. q.d., #90 Lipitor 40 Mg, 1 p.o. qAM, #90 Toprol Xl 25 Mg, 1 p.o. q.d., #90 MEDICATION STOPPED TODAY: Vitamin E 400 iu IMPRESSIONS/PLAN </B><FONT FACE=Repair Clerk New> Mr. Shannan Love is a 58-year-old gentleman with asymptomatic but severe coronary artery disease who is now status post angioplasty and stenting to the proximal left anterior descending and diagonal arteries in August 2003. He continues to be asymptomatic and his stress test in November revealed no abnormalities. I have instructed him to follow up with you for lipid testing but he has not done that. He came in fasting today so I will go ahead and draw a lipid profile for his convenience, and forward those results to you. His other medications seem to be quite appropriate, and he is tolerating them well. I will have him follow up with you for lipid testing semiannually, and see me again next fall with a stress test and an office visit.<B><FONT FACE=System> TODAYS ORDERS 1. Return Visit 1 year 2. Treadmill Nuclear Study 1 year 3. Lipid profile/ALT Today Siddhartha White M.D. documented in this encounter Plan of Treatment Upcoming Encounters Date Type Department Care Team (Late st Contact Info) Description 07/14/2024 10:30 AM PHOTOENGRAVER Office Visit [facility]ascular [facility] [address] [place] [phone] Ila Baugh COOLER SERVICER [address] [place] [address] 07/27/2024 Ancillary Procedure [facility] [address] [place] [phone] Dieter Travis MD [address] [place] [address] documented as of this encounter Visit Diagnoses Not on filedocumented in this encounter Care Teams Assistant Professor Of Forestry Relationship Specialty Start Date End Date Shashank Abad MD PCP - General Family Practice 10/04/11 11/02/18 Lisset Mendes MD [address] [place] [address] PCP - General Internal Medicine 11/10/18 03/10/19 Shashank Abad MD PCP - General Family Practice 03/11/19 04/05/22 Santo Friedman MD [address] [place] [address] PCP - General Sports Medicine 04/06/22 Lisset Mendes MD [address] [place] [address] Assigned PCP 10/17/18 11/11/21 Dieter Travis MD [address] [place] [address] Assigned Heart and Vascular Provider 04/22/20 09/13/20 John Constantino MD [address] [place] [address] Assigned Endocrinology Provider 04/22/20 08/20/20 Charmaine Enriquez PA-C [address] [place] [address] Assigned Heart and Vascular Provider 09/14/20 02/18/21 Toni Javier MD [address] [place] [address] Assigned Heart and Vascular Provider 02/19/21 07/15/21 Siddhartha White MD [address] [place] [address] Assigned Heart and Vascular Provider 07/16/21 02/09/22 Ila Baugh NP [address] [place], [place] [address] Assigned Heart and Vascular Provider 02/10/22 04/06/22 Siddhartha White MD [address] [place] [address] Assigned Heart and Vascular Provider 04/07/22 05/04/22 Roro Herrrea PA [facility] [address] [place] [address] Assigned Heart and Vascular Provider 05/05/22 10/26/22 Siddhartha White MD [address] [place] [address] Assigned Heart and Vascular Provider 10/27/22 11/02/22 Roro Herrera PA [facility] [address] [place], [place] [address] Assigned Heart and Vascular Provider 11/03/22 05/22/24 Siddhartha White MD [address] [place], [place] [address] Assigned Heart and Vascular Provider 05/23/24 documented as of this encounter
--- OUTSIDE RECORDS SUMMARY | 2024-07-01 13:35 | XMS_ITS | Encounter Summary ---
Author Organization [place] Address [address] [place] [address] Care Team Providers Care Bulk Plant Manager Name Role Phone Shashank Abad MD Primary Care Provider Lisset Gusman MD Primary Care Provider + [phone] Lisset Mendes MD Unavailable [phone] Shashank Abad MD Primary Care Provider Dieter Benitez MD Unavailable [phone] John Constantino MD Unavailable [phone] Charmaine EnriquezC Unavailable [phone] Toni Javier MD Unavailable [phone] Siddhartha White MD Unavailable [phone] Ila Baugh NP Unavailable [phone] Santo Friedman MD Primary Care Provider [phone] Siddhartha White MD Unavailable [phone] Roro Herrera Unavailable Siddhartha White MD Unavailable [phone] Roro Herrera Unavailable Siddhartha White MD Unavailable [phone] Encounter Details Date Type Department Care Team (Late st Contact Info) Description 11/15/2003 Office Visit-[facility] [address] [place] [address] Unknown, DoctorMD Social History Tobacco Use Types Packs/Day Years Used Date Smoking Tobacco: Never Assessed Sex and Gender Information Value Date Recorded Sex Assigned at Male 11/02/2020 12:08 PM CDT Legal Sex Male 4:32 AM PECAN HULLER Gender Identity Male 11/02/2020 12:08 PM CDT Sexual Orientation Straight 11/02/2020 12 :08 PM CDT documented as of this encounter Progress Notes * Unknown, DoctorMD - 11/18/2003 11:16 AM CDT Progress Note Created by: Siddhartha White M.D. DATE: 11/15/2003 SHANNAN LOVE DATE OF : 1945 AGE: [age] years old Referring Physician: SHASHANK ABAD Referring Clinic: [facility] CURRENT DIAGNOSES 1. - Hypercholesterolemia, 272.0 2. - CAD, 414.00 3. PTCA, v45.82 ALLERGIES NKA MEDICATIONS 1. Nitroglycerin 0.4 mg, Take as Directed 2. Toprol XL 25 mg, 1 p.o. q.d. 3. Aspirin 81 mg, 1 p.o. q.d. 4. Lipitor 40 mg, 1 p.o. qAM 5. Altace 5 mg, 1 p.o. q.d. 6. Plavix 75 mg, 1 p.o. q.d. 7. Vitamin E 400 iu, 1 p.o. q.d. 8. Thalia-Dec Multiple Vitamins with Minerals, 1 p.o. q.d. CHIEF COMPLAINTS F/u angio HISTORY OF PRESENT ILLNESS I had the opportunity to see Mr. Shannan Love back in cardiology clinic again today for reevaluation of his coronary artery disease. As you probably recall, Mr. Love had a concerning exercise thallium study showing a moderately large area of inducible ischemia within the anterior and anterolateral sousa. I suggested that he pursue cardiac catheterization which revealed severe 95% proximal LADstenosis just after a 60% ostial stenosis. His tiny first diagonal is subtotally occluded. The ramus artery nearby also had an 80% stenosis. Both of these areas were treated with angioplasty and stent. However, he has other nonocclusive disease with 50-60% disease in the mid to distal LAD and second diagonal artery as well as in the larger obtuse marginal artery and coronary artery. In fact, there is an area of 60-70% stenosis in the distal right coronary artery within a small portion of that artery. As you know, Mr. Love has been quite asymptomatic throughout this whole course. His stress test was done because of high cardiac risk and a strong family history. He has never had chest pain, pressure or tightness, does not have shortness of breath and had been very active prior to his stress test. Fortunately he has continued to be active without any difficulty. He is not having any side effects to his medications and has now no new symptoms of chest pressure, tightness, shortness of breathor other problems. We did cut his Toprol back a little bit last visit because of some light-headedness. That has resolved. He had some cholesterol labs down here today. His total cholesterol was 129, triglycerides 83, HDL 39, LDL 73, and total cholesterol to HDL ratio of 3.3. His ALT was normal at 30. On examination today, his blood pressure is excellent at 102/68, weight 232 pounds and heart rate 56 beats per minute. He is down about 10 pounds since we first saw him here in August. His lungs are clear. His heart rhythm is regular. He has no physical exam abnormalities. 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 PHYSICAL EXAMINATION VITAL SIGNS: Blood Pressure: 102/68 Sitting, Left arm, regular cuff Pulse- 56.00/min. Weight- 232.00 lbs. Height- .00 Temperature- .00 CONSTITUTIONAL cooperative, [...] hepatosplenomegaly, non- tender, no bruits PERIPHERAL PULSES no tenderness in R groin EXTREMITIES & BACK no deformities, clubbing, cyanosis, erythema or edema observed. There are no spinal abnormalities noted. Normal muscle strength and tone. NEUROLOGICAL no gross motor deficits noted, affect appropriate, oriented to time, person and place. MEDICATIONS UPDATED TODAY: IMPRESSIONS/PLAN Mr. Shannan Love is a 58-year-old gentleman who is very active, fit and athletic. He had an abnormal stress test done for evaluation of a strong family history of coronary artery disease which showed significant ischemia and led to angioplasty and stent of the proximal and ostial LAD as well as the fairly large ramus artery. A tiny first diagonal was subtotally occluded and not repaired. He has diffuse nonocclusive disease in the remaining territories as well as some 60-70% disease within a small portion of the distal right coronary artery PDA system. His cholesterol levels are excellent are noted above. His blood pressure is also excellent. He quitsmoking 20 years ago and he is not diabetic. I have encouraged him to continue to stay active and exercise and lose weight which may help bring that HDL up. At some point, however, we may wish to consider Niaspan. His goal LDL I would estimate is less than 80 and he is achieving that goal at this po int. Otherwise, his cholesterol numbers are great. I will have him follow-up with you for cholesterol testing in the future and return to see me in six months. He has a repeat stress test scheduled this summer and I will make sure that he does not have any concerning restenosis or new areas of ischemia. He did receive drug-coated stents during his procedure. TODAYS ORDERS 1. Return Visit 6 months Siddhartha White M.D. Electronically signed by [facility], Emr Data Conversion at 11/13/2013 1:31 AM CDT documented in this encounter Plan of Treatment Upcoming Encounters Date Type Department Care Team (Late st Contact Info) Description 07/14/2024 10:30 AM PECAN HULLER Office Visit [facility] [place] [address] [place], [place] [address] Ila Baugh, PEDIATRIC SOCIAL WORKER [address] [place], [place] [address] 07/27/2024 Ancillary Procedure [facility] [address] [facility] [address] [place] [id number] Dieter Travis MD [address] [place] [address] documented as of this encounter Visit Diagnoses Not on filedocumented in this encounter Care Teams Bulk Plant Manager Relationship Specialty Start Date End Date Shashank Abad MD PCP - General Family Practice 10/04/11 11/02/18 Lisset Mendes MD [address] [place] [address] PCP - General Internal Medicine 11/10/18 03/10/19 Shashank Abad MD PCP - General Family Practice 03/11/19 04/05/22 Santo Friedman MD [address] [place] [address] PCP - General Sports Medicine 04/06/22 Lisset Mendes MD [address] [place] [address] Assigned PCP 10/17/18 11/11/21 Dieter Travis MD [address] [place] [id number] Assigned Heart and Vascular Provider 04/22/20 09/13/20 John Constantino MD [address] [place] [address] Assigned Endocrinology Provider 04/22/20 08/20/20 Charmaine Enriquez PA-C [address] [place] [address] Assigned Heart and Vascular Provider 09/14/20 02/18/21 Toni Javier MD [address] [place] [address] Assigned Heart and Vascular Provider 02/19/21 07/15/21 Siddhartha White MD [address] [place] [address] Assigned Heart and Vascular Provider 07/16/21 02/09/22 Ila Baugh PEDIATRIC SOCIAL WORKER [address] [place], [place] [address] Assigned Heart and Vascular Provider 02/10/22 04/06/22 Siddhartha White MD [address] [place] [address] Assigned Heart and Vascular Provider 04/07/22 05/04/22 Roro Herrera PA [facility] [address] [place] [address] Assigned Heart and Vascular Provider 05/05/22 10/26/22 Siddhartha White MD [address] [place], [place] [address] Assigned Heart and Vascular Provider 10/27/22 11/02/22 Roro Herrera PA [facility] [address] [place], [place] [address] Assigned Heart and Vascular Provider 11/03/22 05/22/24 Siddhartha White MD [address] [place], [place] [address] Assigned Heart and Vascular Provider 05/23/24 documented as of this encounter
--- OUTSIDE RECORDS SUMMARY | 2024-07-01 13:35 | XMS_ITS | Encounter Summary ---
Author Organization [place] Address [address] [place] [address] Care Team Providers Care Rental Management Trainee Name Role Phone Shashank Abad MD Primary Care Provider Lisset Gusman MD Primary Care Provider + [phone] Lisset Mendes MD Unavailable [phone] Shashank Abad MD Primary Care Provider Dieter Benitez MD Unavailable [phone] John Constantino MD Unavailable [phone] Charmaine EnriquezC Unavailable [phone] Toni Javier MD Unavailable [phone] Siddhartha White MD Unavailable [phone] Ila Baugh NP Unavailable [phone] Santo Friedman MD Primary Care Provider [phone] Siddhartha White MD Unavailable [phone] Roro Herrera Unavailable Siddhartha White MD Unavailable [phone] Roro Herrera Unavailable Siddhartha White MD Unavailable [phone] Encounter Details Date Type Department Care Team (Late st Contact Info) Description 09/03/2003 Office Visit-[facility] [place] [id number] [facility] [address] [place] [address] Unknown, DoctorMD Social History Tobacco Use Types Packs/Day Years Used Date Smoking Tobacco: Never Assessed Sex and Gender Information Value Date Recorded Sex Assigned at Male 11/02/2020 12:08 PM CDT Legal Sex Male 4:32 AM EQUINE MANAGER Gender Identity Male 11/02/2020 12:08 PM CDT Sexual Orientation Straight 11/02/2020 12 :08 PM CDT documented as of this encounter Progress Notes * Unknown, DoctorMD - 09/03/2003 4:21 PM CST Progress Note Created by: Willian Ellis M.D. </I> __ Date: 09/03/2003 <B>SHANNAN LOVE </B> Date of :1945 Age: 57 years old Referring Physician: SHASHANK ABAD Referring Clinic: [facility] __ <B>CURRENT DIAGNOSES</B> __ <FONT COLOR=#[id number]><B>ALLERGIES</B> <FONT COLOR=#[id number]> __ <B>MEDICATIONS</B> 1. Lipitor 10 mg, 1 p.o. q.d. 2. Aspirin 325 mg, 1 p.o. q.d. __ <B>CHIEF COMPLAINTS</B> Abnormal stress nuclear study __ <B>HISTORY OF PRESENT ILLNESS</B> Asymptomatic man with increased risk for CAD based on abnormal family history in that his father with an IA age 67, and a sister had an IA age 49 with normal angiogram. He also has lipid abnormality which on Lipitor 10 shows a total cholesterol of 153, Tg of 73, HDL of 41, and LDL of 97. _ <B>PAST HISTORY</B> <B><I>Past Medical Illnesses: </B></I> hyperlipidemia, prostate hypertrophy <B><I>Cardiology Procedures-Noninvasive: </B></I> myocardial perfusion imaging (Nuclear) August 2003, positive for ischemia <B><I>Nuclear Results</B></I> gated EF 58% __<B><FONT FACE=System><FONT POINT=10> </B><FONT FACE=Times New Radames><FONT POINT=12> <B>FAMILY HISTORY</B> Father - Age 67, of mi; Mother - ptcs; Sister 1 - ptca; __<B> </B> <B>CARDIAC RISK FACTORS</B> <B><I>Tobacco Abuse:</B></I> used to smoke, but quit; <B><I>Family History of Heart Disease:</B></I> positive; <B><I>Hyperlipidemia:</B> </I>lipid status unknown; <B><I>Hypertension:</B></I> negative; <B><I>Diabetes Mellitus:</B></I> negative; <B><I>Prior History of Heart Disease:</B></I> negative; <I> <B>Obesity:</B></I>negative; <B><I>Sedentary Life Style:</B></I>negative; <B><I>Age:</B></I>positive __<B><FONT FACE=System><FONT POINT=10> </B><FONT FACE=Times New Radames><FONT POINT=12> <B>SOCIAL HISTORY</B> <B><I>Alcohol Use</I>: </B> does not use alcohol; <B><I>Smoking</I>:</B> used to smoke but quit; <B><I>Diet:</B> </I> regular diet; <B><I>Lifestyle:</I> </B>; <B><I>Exercise:</B></I>no regular exercise; <B><I>Seat Belt Use</I>: </B>always; <B><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; <B><I>Residence</I> : </B>lives with and lives in [place] year round; __<B><FONT FACE=System><FONT POINT=10> </B><FONT FACE=Times New Radames><FONT POINT=12> <B>REVIEW OF SYSTEMS</B> <B><I>General: </B></I>increased weight loss of approximately 20 lbs; <B& gt;<I>Integumentary:</B> </I>denies any change in hair or nails, rashes, or skin lesions.; <B><I>Eyes: </B></I>denies diplopia, history of glaucoma or visual field defects.; <B><I>Ears, Nose, Throat, Mouth:</B> </I>denies any hearingloss, epistaxis, hoarseness or difficulty speaking.; <B><I>Respiratory: </B></I> denies dyspnea, snoring, cough, wheezing or hemoptysis.; <B><I>Cardiovascular:</ B> </I>negative for palpitations, chest pain, orthopnea, PND, peripheral edema, syncope orclaudication.; <B><I>Abdominal:</B> </I>denies change in bowel habits, dyspepsia, ulcer disease, hematochezia or melena.; <B><I>Musculoskeletal: < /B></I>denies any history of arthritic symptoms or back problems.; <B><I>Neurological: </B></I>denies any history of recurrent headaches, strokes, TIA, or seizure disorder.; <B><I>Psychiatric: </B></I>denies any history of depression, substance abuse or change in cognitive functions.; <B><I>Endocrine:</B> </I>denies any history ofhyperlipidemia, thyroid disease or diabetes mellitus.; <B><I>Hematologic/Immunologic:</B> </I>denies any food allergies, seasonal allergies, bleeding disorders or lymphadenopathy. __ <B><FONT FACE=System><FONT POINT=10> </B><FONT FACE=Times New Radames><FONT POINT=12> <B>PHYSICAL EXAMINATION</B> <I>Vital Signs</I> Blood Pressure: 134/78 Sitting, Left arm, regular cuff Pulse-64.00/min. Weight-242.00 lbs. Height-.00 Temperature-.00 <B><I>Constitutional </B> </I>cooperative, alert and oriented,well developed, well nourished, in no acute distress. <B><FONT FACE=System><FONT POINT=10> </B><FONT FACE=Times New Radames><FONT POINT=12> <B><I>Skin</B></I> warm and dry to touch, no apparent skin lesions, or masses noted. <B><FONT FACE=System><FONT POINT=10> </B><FONT FACE=Times New Radames><FONT POINT=12> <B><I>Head</I> </B> normocephalic, atraumatic <B><FONT FACE=System><FONT POINT=10> </B><FONT FACE=Times New Radames><FONT POINT=12> <B><I>Eyes</I> </B> Pupils equal and round, conjunctivae and lids unremarkable, sclera white, no xanthalasma <B><FONT FACE=System><FONT POINT=10> </B><FONT FACE=Times New Radames><FONT POINT=12> <B><I>ENT</I> </B> no pallor or cyanosis, dentition good <B><FONT FACE=System><FONT POINT=10> </B><FONT FACE=Times New Radames><FONT POINT=12> <B><I>Neck </B></I> carotid pulses are full and equal bilaterally, JVP normal, no carotid bruit, no thyromegaly <B><FONT FACE=System><FONT POINT=10> </B><FONT FACE=Times New Radames><FONT POINT=12> <B><I>Chest</I> </B> normal symmetry, no tenderness to palpation, normal respiratory excursion, no intercostal retraction, no use of accessory muscles, clear to auscultation and percussion. <B><FONT FACE=System><FONT POINT=10> </B><FONT FACE=Times New Radames><FONT POINT=12> <B><I>Cardiac</B></I> regular rhythm, S1 normal, S2 normal, No S3 or S4, Apical impulse not displaced, no murmurs, gallops or rubs detected. <B><FONT FACE=System><FONT POINT=10> </B><FONT FACE=Times New Radames><FONT POINT=12> <B><I>Abdomen</B> </I>abdomen soft, bowel sounds normoactive, no masses, no hepatosplenomegaly, non-tender, no bruits <B><FONT FACE=System><FONT POINT=10> </B><FONT FACE=Times New Radames><FONT POINT=12> <B><I>Peripheral Pulses</I> </B> pulses full and equal in all extremities, no bruits auscultated. <B><FONT FACE=System><FONT POINT=10> </B><FONT FACE=Times New Radames><FONT POINT=12> <B><FONT FACE=System><FONT POINT=10> </B><FONT FACE=Times New Radames><FONT POINT=12> <B><FONT FACE=System><FONT POINT=10> </B><FONT FACE=Times New Radames><FONT POINT=12> <B><FONT FACE=System><FONT POINT=10> </B><FONT FACE=Times New Radames><FONT POINT=12> <B><I>Extremities and Back</B> </I>no deformities, clubbing, cyanosis, erythema or edema observed. There are no spinal abnormalities noted. Normal muscle strength and tone. <B><FONT FACE=System><FONT POINT=10> </B><FONT FACE=Times New Radames><FONT POINT=12> <B><FONT FACE=System><FONT POINT=10> </B><FONT FACE=Times New Radames><FONT POINT=12> <B><FONT FACE=System><FONT POINT=10> <I><FONT FACE=Times New Radames><FONT POINT=12>Neurological</I> </B> no gross motor deficits noted, affect appropriate, oriented to time, person and place. __ <B><I>Medications Update Today</I> </B> Lipitor 10 mg, 1 p.o. q.d., DIRECTED Aspir-umesh 325 mg, 1 p.o. q.d., DIRECTED Aspirin 325 mg, 1 p.o. q.d., #30 or #100 <B>IMPRESSIONS/PLAN</B> 1. Mildly abnormal nuclear stress with risk of IA and or of less than 3% per year, modifiablewith medications but not definitely with intervention. 2. Risk related to lipids, and perhaps weight and inactivity now improved, and perhaps remote cigarettes. 3. History of glucose intolerance before he lost 20 lbs. Suggest increasing lipitor to 40mg per day based on the reversal trial just published in [facility]. Suggest adding toprol xl 25 mg per day as a protective medication. Suggest cardiac rehab. Suggest repeatnuclear stresss in 3-6 months. Suggest cardiac cath if exercise intolerance of addititonal worrisome symptoms, or significant worsening on repeat nuclear stress. If there is percieved significant benefit from catheterization then I would not be against proceding at this point, but that would not be my first choice. I appreciate being able to participate in this very nice gentleman's care. Please call if any questions. References: medlineplus.gov [email or web address].org [email or web address] <B><FONT FACE=System><FONT POINT=10> </B><FONT FACE=Times New Radames><FONT POINT=12> Wililan Ellis M.D. Electronically signed by [facility], Emr Data Conversion at 11/13/2013 1:31 AM CDT documented in this encounter Plan of Treatment Upcoming Encounters Date Type Department Care Team (Late st Contact Info) Description 07/14/2024 10:30 AM EQUINE MANAGER Office Visit [facility] [place] [address] [place] [phone] Ila Baugh, SOLDERER BARREL RIBS [address] [place], [place] [address] 07/27/[address] [facility] [address] [place] [phone] Dieter Travis MD [address] [place] [address] documented as of this encounter Visit Diagnoses Not on filedocumented in this encounter Care Teams Rental Management Trainee Relationship Specialty Start Date End Date Shashank Abad MD PCP - General Family Practice 10/04/11 11/02/18 Lisset Mendes MD [address] [place] [address] PCP - General Internal Medicine 11/10/18 03/10/19 Shashank Abad MD PCP - General Family Practice 03/11/19 04/05/22 Santo Friedman MD [address] [place] [address] PCP - General Sports Medicine 04/06/22 Lisset Mendes MD [address] [place] [address] Assigned PCP 10/17/18 11/11/21 Dieter Travis MD [address] [place] [address] Assigned Heart and Vascular Provider 04/22/20 09/13/20 John Constantino MD [address] [place] [address] Assigned Endocrinology Provider 04/22/20 08/20/20 Cahrmaine Enriquez PA-C [address] [place] [address] Assigned Heart and Vascular Provider 09/14/20 02/18/21 Toni Javier MD [address] [place] [address] Assigned Heart and Vascular Provider 02/19/21 07/15/21 Siddhartha White MD [address] [place] [address] Assigned Heart and Vascular Provider 07/16/21 02/09/22 Ila Baugh NP [address] [place], [place] [address] Assigned Heart and Vascular Provider 02/10/22 04/06/22 Siddhartha White MD [address] [place], [place] [address] Assigned Heart and Vascular Provider 04/07/22 05/04/22 Roro Herrera PA [facility] [address] [place] [address] Assigned Heart and Vascular Provider 05/05/22 10/26/22 Siddhartha White MD [address] [place], [place] [address] Assigned Heart and Vascular Provider 10/27/22 11/02/22 Roro Herrera PA [facility] [address] [place] [id number] Assigned Heart and Vascular Provider 11/03/22 05/22/24 Siddhartha White MD [address] [place], [place] [address] Assigned Heart and Vascular Provider 05/23/24 documented as of this encounter
--- OUTSIDE RECORDS SUMMARY | 2024-07-01 13:35 | XMS_ITS | Encounter Summary ---
Author Organization [facility] Address [address] [place] [id number] Care Team Providers Care Paediatric Surgeon Name Role Phone Shashank Abad MD Primary Care Provider Lisset Gusman MD Primary Care Provider + [phone] Lisset Mendes MD Unavailable [phone] Shashank Abad MD Primary Care Provider Dieter Benitez MD Unavailable [phone] John Constantino MD Unavailable [phone] Charmaine EnriquezC Unavailable [phone] Toni Javier MD Unavailable [phone] Siddhartha White MD Unavailable [phone] Ila Baugh NP Unavailable [phone] Santo Friedman MD Primary Care Provider [phone] Siddhartha White MD Unavailable [phone] Roro Herrera Unavailable Siddhartha White MD Unavailable [phone] Roro Herrera Unavailable Siddhartha White MD Unavailable [phone] Encounter Details Date Type Department Care Team (Late st Contact Info) Description 10/14/2003 Office Visit-[facility] [address] [place] [id number] Unknown, DoctorMD Social History Tobacco Use Types Packs/Day Years Used Date Smoking Tobacco: Never Assessed Sex and Gender Information Value Date Recorded Sex Assigned at Male 11/02/2020 12:08 PM CDT Legal Sex Male 4:32 AM [employer] Gender Identity Male 11/02/2020 12:08 PM CDT Sexual Orientation Straight 11/02/2020 12 :08 PM CDT documented as of this encounter Progress Notes * Unknown, DoctorMD - 10/18/2003 2:25 PM CDT Progress Note Created by: Enoch Holm DATE: 10/14/2003 SHANNAN LOVE DATE OF : 1945 AGE: [age] years old Referring Physician: SHASHANK ABAD Referring Clinic: [facility] CURRENT DIAGNOSES 1. - CAD, 414.00 2. PTCA, v45.82 3. - Abnormal Test-Abnormal Exercise Stress Test, 794.30 4. - Hypercholesterolemia, 272.0 ALLERGIES NKA MEDICATIONS 1. Nitroglycerin 0.4 mg, [...] with Minerals, 1 p.o. q.d. CHIEF COMPLAINTS Followup of Hosp HISTORY OF PRESENT ILLNESS Mr. Love is a delightful 57-year-old gentleman who presents today for follow- up regarding coronary artery disease. He had an angiogram with angioplasty performed on 09/29/03. He has a strong family history of heart disease and had a treadmill test which was found to have EKG changes and he was therefore referred for nuclear testing. On nuclear testing he had a moderate size area of ischemia. His angiography results are as follows: Left main coronary had mild calcification with minimal irregularity. His LAD had a 60% narrowing in the ostium followed by a complex 95% narrowing and diffuse disease throughout the remainder of the vessel. There was a 50% lesion in the mid diagonal vessel. The first diagonal had a 95% narrowing, the second had a 50%. The circumflex is large but non-dominant.The ramus had an 80% narrowing. The right coronary was a large vessel with diffuse disease throughout its course proximally. After the origin there is a smooth 60% narrowing. The remainder of the right coronary had narrowings of up to 35% at the worse with a 60-70% narrowing in the distal segment. The patient underwent angioplasty of the LAD as well as the ramus and had a cutting balloon procedure of the ramus followed by a CYPHER drug-eluting stent. The LAD had a Taxus stent placed in the proximal and mid portions. The patient was asymptomatic prior to the procedure and remains asymptomatic at this time. He does not have any chest pain or pressure, no dyspnea at rest or on exertion, no syncope, presyncope, PND,orthopnea or pedal edema. He did note a slight feeling of dizziness and light-headedness which onlylasts for a brief moment when standing up, mostly in the morning. He also has noted some increased fatigue. He was discharged on multiple new medications. 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 EYES denies diplopia, history of glaucoma or visual field defects. EARS, NOSE, THROAT, MOUTH denies any hearing loss, epistaxis, hoarseness or difficulty speaking. RESPIRATORY denies dyspnea, snoring, cough, wheezing or hemoptysis. CARDIOVASCULAR lightheaded ABDOMINAL denies change in bowel habits, dyspepsia, [...] lymphadenopathy. PHYSICAL EXAMINATION VITAL SIGNS: Blood Pressure: 90/54 Sitting, Left arm, regular cuff Pulse- 58.00/min. Weight- 238.00 lbs. Height- 72.00 Temperature- .00 CONSTITUTIONAL cooperative, [...] time, person and place. MEDICATIONS UPDATED TODAY: Toprol XL 25 mg, 1 p.o. q.d., #30 Lipitor 40 mg, 1 p.o. qAM, DIRECTED Toprol XL 50 mg, 1 p.o. q.d., DIRECTED Altace 5 mg, 1 p.o. q.d., DIRECTED Plavix 75 mg, 1 p.o. q.d., DIRECTED Vitamin E 400 iu, 1 p.o. q.d., DIRECTED Thalia-Dec Multiple Vitamins with Minerals, 1 p.o. q.d., DIRECTED MEDICATION STOPPED TODAY: Toprol Xl 25 Mg, Lipitor 20 mg and Toprol XL 50 mg IMPRESSIONS/PLAN 1. Coronary artery disease. The patient is set to have a nuclear stress test and follow-up visit with Dr. White in three months. The purpose of this stress test is to follow this lesion in the distalright coronary artery and see if it is causing the patient any ischemia. In addition, the purpose is to look for restenosis of his three stents. The patient as stated above is asymptomatic and requests that we be aggressive in managing his coronary artery disease. We discussed the importance of regular exercise and following a low fat, low cholesterol diet. He is walking 2-21/2 miles most days ofthe week and plays softball and plans to continue being active and has always been good about watching his diet. He does follow a low carbohydrate diet. The patient will also have his cholesterol checked in three months when he sees Dr. White. He has known hyperlipidemia and has been on Lipitor forquite some time. Per his report, in the hospital his total cholesterol was 129. I do not have that result available for my review but will request it so it is available for Dr. White's visit. Approximately 40 minutes was spent in counseling with this patient regarding diet, exercise and coronary artery disease. Thank you for allowing me to participate in his care and I would be happy to see him again in the future. TODAYS ORDERS 1. Basic Metabolic Panel Today Enoch Holm documented in this encounter Plan of Treatment Upcoming Encounters Date Type Department Care Team (Late st Contact Info) Description 07/14/2024 10:30 AM [employer] Office Visit [facility] [address] [place] [phone] Ila Baugh NP [address] [place], [place] [address] 07/27/2024 Ancillary Procedure [facility] [address] [facility] [address] [place] [id number] Dieter Travis MD [address] [place] [address] documented as of this encounter Visit Diagnoses Not on filedocumented in this encounter Care Teams Paediatric Surgeon Relationship Specialty Start Date End Date Shashank Abad MD PCP - General Family Practice 10/04/11 11/02/18 Lisset Mendes MD [address] [place] [address] PCP - General Internal Medicine 11/10/18 03/10/19 Shashank Abad MD PCP - General Family Practice 03/11/19 04/05/22 Santo Friedman MD [address] [place] [id number] PCP - General Sports Medicine 04/06/22 Lisset Mendes MD [address] [place] [address] Assigned PCP 10/17/18 11/11/21 Deiter Travis MD [address] [place] [address] Assigned Heart and Vascular Provider 04/22/20 09/13/20 John Constantino MD [address] [place] [address] Assigned Endocrinology Provider 04/22/20 08/20/20 Charmaine Enriquez PA-C [address] [place] [address] Assigned Heart and Vascular Provider 09/14/20 02/18/21 Toni Javier MD [address] [place] [address] Assigned Heart and Vascular Provider 02/19/21 07/15/21 Siddhartha White MD [address] [place], [place] [address] Assigned Heart and Vascular Provider 07/16/21 02/09/22 Ila Baugh NP [address] [place] [id number] Assigned Heart and Vascular Provider 02/10/22 04/06/22 Siddhartha White MD [address] [place], [place] [id number] Assigned Heart and Vascular Provider 04/07/22 05/04/22 Roro Herrera PA [facility] [address] [place] [address] Assigned Heart and Vascular Provider 05/05/22 10/26/22 Siddhartha White MD [address] [place] [address] Assigned Heart and Vascular Provider 10/27/22 11/02/22 Roro Herrera PA [facility] [address] [place] [address] Assigned Heart and Vascular Provider 11/03/22 05/22/24 Siddhartha White MD [address] [place] [address] Assigned Heart and Vascular Provider 05/23/24 documented as of this encounter
== END 2024-07-01 13:38 | disposition home or self-care (01) ==
LOC: ED 13:29
PROVIDERS: Emergency Provider Family Medicine; PCP Family Medicine
DX: N39.0 Urinary tract infection, site not specified (principal)
CPT/HCPCS: 51798; 81001; 87086; 99283; 99284

== ENCOUNTER 2025-02-12 09:37 | Outpatient (CLI) | payer OTHER, SELFPAY ==
[2025-02-12 09:57] LABS: Appearance Urine Clear (Clear)
[2025-02-12 10:11] LABS: Albumin* 4.3 g/dL (3.3-5.0); Chloride* 105 mmol/L (96-114); Potassium* 4.5 mmol/L (3.6-5.1); Sodium* 140 mmol/L (135-149)
[2025-02-12 10:14] LABS: Alanine Aminotransferase* 20 U/L (4-50); Alkaline Phosphatase* 90 U/L (40-150); Anion Gap 5 mEq/L (7-15); Aspartate Amino Transferase* 23 U/L (12-35); Bilirubin Total* 0.7 mg/dL (0.1-1.5); Blood Urea Nitrogen* 15 mg/dL (7-30); Calcium* 9.5 mg/dL (8.4-10.6); Carbon Dioxide* 30 mmol/L (20-32); Creatinine* 0.9 mg/dL (0.5-1.5); Estimated Glomerular Filt Rate 86 ml/min; Glucose* 130 mg/dL (60-115); Total Protein* 7.0 g/dL (6.0-8.3)
[2025-02-12] MEDS: PERFLUTREN LIPID MICROSPHERES 2 ML VIAL IVP (10:25)
--- NOTE | 2025-02-12 10:34 | PC.NURSE ---
22G IV placed in right hand. Definity given per scrub tech instruction. Iv removed intact one test completed.
== END 2025-02-12 09:38 | disposition home or self-care (01) ==
LOC: RAD 09:42
PROVIDERS: PCP Family Medicine; Visit Provider Chiropractor
DX: I25.9 Chronic ischemic heart disease, unspecified (principal); I51.7 Cardiomegaly
CPT/HCPCS: 36415; 80053; 81001; 81003; 87086; 93306